=== PATIENT | female | born 1935 | race Caucasian/White ===

== ENCOUNTER 2023-05-12 10:12 | Emergency (ER) | payer MEDICARE, SELFPAY ==
--- NOTE | ~2023-05-12 | XR_ITS ---
EXAMINATION: XR CHEST CLINICAL INFORMATION: Chest pain COMPARISON: None available. TECHNIQUE: 2 views of the chest were obtained. FINDINGS: The lungs are well expanded. Mild patchy opacity is seen in the medial right lung base consistent with atelectasis and/or pneumonia. There is a small linear density in the right middle lobe consistent with atelectasis and/or scar. There is a small left pleural effusion with associated atelectasis and/or pneumonia. No significant abnormality is noted involving the heart, mediastinum or soft tissues. Marked degenerative changes of the shoulders. XR/XR chest 2V IMPRESSION: 1. Small left pleural effusion with associated atelectasis and/or pneumonia. 2. Right lower lobe atelectasis and/or pneumonia.
[2023-05-12 10:16] VITALS: BP 187/86; BP 217/108; PULSE 71; PULSE 80; RESP 16; TEMP 36.6; O2SAT 100; O2SAT 98; BMI 22.6
--- NOTE | 2023-05-12 10:18 | ECG_ITS ---
Test Reason : Palpatations Blood Pressure : / mmHG Vent. Rate : 074 BPM Atrial Rate : 074 BPM P-R Int : 128 ms QRS Dur : 082 ms QT Int : 378 ms P-R-T Axes : 071 027 023 degrees QTc Int : 419 ms Normal sinus rhythm Normal ECG No previous ECGs available Referred By: Hilaria Ortega Electronically Signed By:ROMEO TOM MD
[2023-05-12 10:32] VITALS: PULSE 77
--- OUTSIDE RECORDS SUMMARY | 2023-05-12 10:50 | XMS_ITS | Continuity of Care Document ---
Author Name Unknown Organization [facility] Address [address] [facility] [place] [address]- Care Team Providers Care Woolen Suiting Shrinker Name Role Phone Augustus BROCK, Marleni A Primary Care Physician Encounter 11/14/19 - 11/21/19 [facility] [address], [facility] [address] [place] [address]- [phone] Attending Physician: Augustus BROCK , Marleni A Admitting Physician: Augustus BROCK , Marleni A Referring Physician: Augustus BROCK , Marleni A Allergies, Adverse Reactions, Alerts Substance Reaction Severity Status penicillin Active Immunizations Given and Recorded Vaccine Date Status Refusal Reason Influenza Inactive (IM) (oldterm) 09/02/07 Given Influenza Inactive (IM) (oldterm) 1 10/02/06 Given Pneumococcal Poly (PPV23) (oldterm) 10/02/06 Given tetanus-diphtheria toxoids (Td) 12/04/03 Given 1Admin Note: [employer] PASTEUR THERAPEUTIC ACTIVITIES SERVICES WORKER Medications Aerochamber See Instructions, # 1 each, Maintenance, use with inhaler, 02/08/13 14:43:28 Start Date: 02/08/13 Status: Ordered Ambien 5 mg oral tablet 0.5 tablet = 2.5 mg, By Mouth, Daily at bedtime, Pt uses prn, 0 Refills, Maintenance, 08/22/14 15:12:20 Start Date: 08/22/14 Status: Ordered gabapentin 100 mg oral capsule 100 mg, 1, capsule, By Mouth, Daily, # 30 capsule, Refills 4, Tot. Refills 4, Maintenance, 08/27/1812:55:18 EDT, Route to Pharmacy Electronically, [id number], [facility] Start Date: 08/27/18 Stop Date: 01/24/19 Status: Ordered gabapentin 100 mg oral capsule 1 capsule = 100 mg, By Mouth, Daily, # 90 capsule, 0 Refills, Maintenance, 02/01/15 12:39:18, Capsule Start Date: 02/01/15 Status: Ordered gabapentin 300 mg oral capsule 300 mg, 1, capsule, By Mouth, 2 times a day, # 60 capsule, Refills 4, Tot. Refills 4, Maintenance, 08/27/18 12:54:24 EDT, Route to Pharmacy Electronically, [id number], [facility] Start Date: 08/27/18 Stop Date: 01/24/19 Status: Ordered gabapentin 300 mg oral capsule 300 mg, 1, capsule, By Mouth, Daily, Refills 0, Maintenance, 09/17/16 11:02:15 Start Date: 09/17/16 Status: Ordered nortriptyline 10 mg oral capsule 10 mg, 1, capsule, By Mouth, Daily, Refills 0, Maintenance, 03/09/17 13:33:50 Start Date: 03/09/17 Status: Ordered Singulair 10 mg oral tablet 1 tablet = 10 mg, By Mouth, Daily in PM, # 30 tablet, 5 Refills, Maintenance, 02/01/15 12:44:05, 1 tablet By Mouth Daily in PM Start Date: 02/01/15 Status: Ordered Symbicort 160mcg/4.5mcg Inhaler 2 puffs, Inhalation, 2 times a day, Pt uses prn, # 10.2 Gm, 0 Refills, Maintenance, 09/08/13 15:25:24, Aerosol Start Date: 09/08/13 Status: Ordered Problem List Condition Effective Dates Status Health Status Inform ant bronchiectasis-priior lobect ravinder left, m.rajesh/hflu(Confirmed) Active Allergy(Confirmed) Active Anxiety disorder(Confirmed) Active Constipation(Confirmed) Active Alberto thyroiditis(Confirmed) Active Hypercholesterolemia(Confirmed) Active Hyperparathyroidism(Confirmed) Active Hypertension(Confirmed) Active Osteoporosis(Confirmed) Active Peripheral neuropathy(Confirmed) Active Pneumonia(Confirmed) Active Restless legs syndrome(Confirmed) Active Thyroid nodule, right, small(Confirmed) Active Social History Social History Type Response Smoking Status Never smoker; Tobacc o user in household: No entered on: 02/01/15 Sex
--- OUTSIDE RECORDS SUMMARY | 2023-05-12 10:50 | XMS_ITS | Continuity of Care Document ---
Author Name Unknown Organization [facility] Address [address], [address], [address] [place] [address]- Care Team Providers Care Property Controller Name Role Phone Augustus BROCK, Marleni A Primary Care Physician Encounter [facility] Date(s): 10/22/22 - 11/21/22 [facility] [address], [address], [address] [place] [address]- Allergies, Adverse Reactions, Alerts Substance Reaction Severity Status penicillin Active Immunizations Given and Recorded Vaccine Date Status Refusal Reason SARS-CoV-2 (COVID-19) mRNA BNT-162b2 vac 12/24/20 Given Influenza Inactive (IM) (oldterm) 09/02/07 Given Influenza Inactive (IM) (oldterm) 1 10/02/06 Given Pneumococcal Poly (PPV23) (oldterm) 10/02/06 Given tetanus-diphtheria toxoids (Td) 12/04/03 Given 1Admin Note: [employer]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 Medications Aerochamber See Instructions, # 1 each, [...] Maintenance, 08/27/1812:55:18 EDT, Route to Pharmacy Electronically, [id number], [facility] Start Date: [...] 08/27/18 12:54:24 EDT, Route to Pharmacy Electronically, [id number], [facility] Start Date: [...] Date: 09/08/13 Status: Ordered Problem List Condition Confirmation Course Effective Dates Status Health Status Informant bronchiectasis-priior lobectomy left, breann/hfxavier Confirmed Active Allergy Confirmed Active Anxiety disorder Confirmed Active Constipation Confirmed Active Alberto thyroiditis Confirmed Active Hypercholesterolemia Confirmed Active Hyperparathyroidism Confirmed Active Hypertension Confirmed Active Osteoporosis Confirmed Active Peripheral neuropathy Confirmed Active Pneumonia Confirmed Active Restless legs syndrome Confirmed Active Thyroid nodule, right, small Confirmed Active Social History Social History Type Response Smoking Status Never smoker; Tobacc o user in household: No entered on: 02/01/15 Sex Patient Care team information Care Team Personnel Name: Coffman MD , Marleni A Position: Reference Physician Member Role: PCP Address: Address: [address] [place] [id number]- Care Team Related Persons Name: RHONDA KUMAR Address: home [address] [place] [address]
--- OUTSIDE RECORDS SUMMARY | 2023-05-12 10:50 | XMS_ITS | Continuity of Care Document ---
Author Name Unknown Organization [facility] Address [address] [place] [address]- Care Team Providers Care Dietetics Teacher Name Role Phone Augustus BROCK, Marleni A Primary Care Physician Encounter [facility] Date(s): 02/19/23 - 03/21/[address] [address]- Attending Physician: AdmRachana lucas Admitting Physician: AdmtrRachana Referring Physician: Admtr, Rachana Allergies, Adverse Reactions, Alerts Substance Reaction Severity Status penicillin Active Immunizations Given and Recorded Vaccine Date Status Refusal Reason SARS-CoV-2 (COVID-19) mRNA BNT-162b2 vac 12/24/20 Given Influenza Inactive (IM) (oldterm) 09/02/07 Given Influenza Inactive (IM) (oldterm) 1 10/02/06 Given Pneumococcal Poly (PPV23) (oldterm) 10/02/06 Given tetanus-diphtheria toxoids (Td) 12/04/03 Given 1Admin Note: [employer] 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 BANKING 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 Medications Aerochamber See Instructions, # 1 each, [...] Maintenance, 08/27/1812:55:18 EDT, Route to Pharmacy Electronically, [id number], [facility] Start Date: [...] 08/27/18 12:54:24 EDT, Route to Pharmacy Electronically, [id number], [facility] Start Date: 08/27/18 Stop Date: [...] Status Health Status Informant bronchiectasis-priior lobectomy left, breann/sandra Confirmed Active Allergy Confirmed Active Anxiety disorder [...] Care team information Care Team Personnel Name: Marleni Coffman MD Position: Reference Physician Member Role: PCP Address: Address: [address] [place] [id number]- Care Team Related Persons Name: RHONDA KUMAR Address: home [address] [place] [address]
--- OUTSIDE RECORDS SUMMARY | 2023-05-12 10:50 | XMS_ITS | Continuity of Care Document ---
Author Name Unknown Organization [facility] Address Unknown Care Team Providers Care Hydraulics Engineer Name Role Phone Augustus BROCK, Marleni A Primary Care Physician [id number] Date(s): 12/13/21 - 04/12/22 [facility] Attending Physician: Genaro Ramirez NP Admitting Physician: Marv Mota NP, Genaro Referring Physician: Marleni Coffman MD Allergies, Adverse Reactions, Alerts Substance Reaction Severity Status penicillin Active Immunizations Given and Recorded Vaccine Date Status Refusal Reason SARS-CoV-2 (COVID-19) mRNA BNT-162b2 vac 12/24/20 Given Influenza Inactive (IM) (oldterm) 09/02/07 Given Influenza Inactive (IM) (oldterm) 1 10/02/06 Given Pneumococcal Poly (PPV23) (oldterm) 10/02/06 Given tetanus-diphtheria toxoids (Td) 12/04/03 Given 1Admin Note: [employer]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 Aerochamber See Instructions, # 1 [...] Maintenance, 08/27/1812:55:18 EDT, Route to Pharmacy Electronically, [id number], [facility] Start Date: [...] 08/27/18 12:54:24 EDT, Route to Pharmacy Electronically, [id number], [facility] Start Date: [...] Status Inform ant bronchiectasis-priior lobect ravinder left, m.gordonae/hflu(Confirmed) Active Allergy(Confirmed) Active Anxiety disorder(Confirmed) Active Constipation(Confirmed) Active Alberto thyroiditis(Confirmed) Active Hypercholesterolemia(Confirmed) Active Hyperparathyroidism(Confirmed) Active Hypertension(Confirmed) Active Osteoporosis(Confirmed) Active Peripheral neuropathy(Confirmed) Active Pneumonia(Confirmed) Active Restless legs syndrome(Confirmed) Active Thyroid nodule, right, small(Confirmed) Active Social History Social History Type Response Smoking Status Never smoker; Tobacc o user in household: No entered on: 02/01/15 Sex
--- OUTSIDE RECORDS SUMMARY | 2023-05-12 10:50 | XMS_ITS | Continuity of Care Document ---
Author Name Unknown Organization [facility] Address Unknown Care Team Providers Care Comprehensive Ophthalmologist Name Role Phone Augustus BROCK, Marleni A Primary Care Physician Encounter [facility] Date(s): 03/13/22 - 04/12/22 [facility] Attending Physician: Rachana Bey Admitting Physician: Rachana Bey Referring Physician: Rachana Bey Allergies, Adverse Reactions, Alerts Substance Reaction Severity Status penicillin Active Immunizations Given and Recorded Vaccine Date Status Refusal Reason SARS-CoV-2 (COVID-19) mRNA BNT-162b2 vac 12/24/20 Given Influenza Inactive (IM) (oldterm) 09/02/07 Given Influenza Inactive (IM) (oldterm) 1 10/02/06 Given Pneumococcal Poly (PPV23) (oldterm) 10/02/06 Given tetanus-diphtheria toxoids (Td) 12/04/03 Given 1Admin Note: [employer] 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 OUT PRESS 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 Medications Aerochamber See Instructions, # 1 [...] Maintenance, 08/27/1812:55:18 EDT, Route to Pharmacy Electronically, [id number], [facility] Start Date: [...] 08/27/18 12:54:24 EDT, Route to Pharmacy Electronically, [id number], [facility] Start Date: [...] Status Inform ant bronchiectasis-priior lobect ravinder left, mfortino/hflu(Confirmed) Active Allergy(Confirmed) Active Anxiety disorder(Confirmed) Active Constipation(Confirmed) Active Alberto thyroiditis(Confirmed) Active Hypercholesterolemia(Confirmed) Active Hyperparathyroidism(Confirmed) Active Hypertension(Confirmed) Active Osteoporosis(Confirmed) Active Peripheral neuropathy(Confirmed) Active Pneumonia(Confirmed) Active Restless legs syndrome(Confirmed) Active Thyroid nodule, right, small(Confirmed) Active Social History Social History Type Response Smoking Status Never smoker; Tobacc o user in household: No entered on: 02/01/15 Sex
--- OUTSIDE RECORDS SUMMARY | 2023-05-12 10:50 | XMS_ITS | Continuity of Care Document ---
Author Name Unknown Organization [facility] Address [address] [place] [address]- Care Team Providers Care Blown Film Extrusion Operator Name Role Phone Augustus BROCK, Marleni A Primary Care Physician [place] [facility] Date(s): 02/02/23 - 03/25/[address] [address]- Encounter Diagnosis Other abnormalities of gait and mobility(Final) - Discharge Disposition: A-D/C Home Attending Physician: Marleni Coffman MD A Admitting Physician: Marleni Coffman MD A Referring Physician: Augustus BROCK , Marleni A Allergies, Adverse Reactions, Alerts Substance Reaction Severity Status penicillin Active Immunizations Given and Recorded Vaccine Date Status Refusal Reason SARS-CoV-2 (COVID-19) mRNA BNT-162b2 vac 12/24/20 Given Influenza Inactive (IM) (oldterm) 09/02/07 Given Influenza Inactive (IM) (oldterm) 1 10/02/06 Given Pneumococcal Poly (PPV23) (oldterm) 10/02/06 Given tetanus-diphtheria toxoids (Td) 12/04/03 Given 1Admin Note: [employer]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
--- NOTE | 2023-05-12 10:56 | ED_ITS ---
HPI - General Adult General Chief complaint: Arrhythmia/Palpitations Stated complaint: Feeling palpitations since 4 am , High BP 200/98 Time Seen by Provider: 05/12/23 10:56 Source: patient and EMS Mode of arrival: EMS Limitations: no limitations History of Present Illness HPI narrative: 87 year old female patient with history of COPD and hypertension presents to the ED today after experiencing some palpitations and SOB at 0400 this morning. She states that she is still feeling SOB and like shes having palpitations but that it's a constant feeling instead of a fluttering of her heart. She is taking her amlodipine and trazadone appropriately. She is also prescribed albuterol and fluticasone but is unsure on if she took this before bed last night but thinks that she did give herself a breathing treatment. She denies chest pain, fever, pain in extremities, nausea, vomiting, diarrhea, and abdominal pain. She states she has also had a cough and congestion. Onset (ago): day(s) Radiation: non-radiation Severity: mild Severity scale (1-10): 1 Quality: constant Relieving factors: none Exacerbating factors: none Associated symptoms: shortness of breath Treatments prior to arrival: none Related Data Home Medications Medication Instructions Recorded Confirmed albuterol sulfate 90 mcg/actuation 2 puff PO Q4H PRN wheezing 06/08/21 aerosol inhaler amlodipine 5 mg tablet 5 mg PO DAILY 06/08/21 azelastine 137 mcg (0.1 %) nasal 1 spray intranasal BID 06/08/21 spray aerosol fluticasone furoate 200 1 ea inhalation DAILY 06/08/21 mcg-vilanterol 25 mcg/dose inhalation powder (Breo Ellipta) ipratropium bromide 42 mcg (0.06 2 spray intranasal QID 06/08/21 %) nasal spray Previous Rx's Medication Instructions Recorded silver sulfadiazine 1 % topical 1 appl topical DAILY #25 grams 06/08/21 cream (Silvadene) doxycycline hyclate 100 mg tablet 100 mg PO BID #14 tabs 06/25/21 polymyxin B sulfate 10,000 1 drp ophthalmic (eye) TID 7 days 10/04/22 unit-trimethoprim 1 mg/mL eye #10 mL drops (Polytrim) albuterol sulfate 90 mcg/actuation 1 inh inhalation QID PRN shortness 05/12/23 aerosol inhaler of breath or wheezing #8.5 grams doxycycline hyclate 100 mg tablet 100 mg PO BID 7 days #14 tabs 05/12/23 prednisone 20 mg tablet 20 mg PO DAILY 7 days #7 tabs 05/12/23 Allergies Allergy/AdvReac Type Severity Reaction Status Date / Time penicillin V Allergy Severe hives, Verified 05/12/23 10:31 throat swelling. Review of Systems Constitutional: Constitutional: Reports no additional constitutional c omplaints, Denies chills, Denies fever(s) and Denies night sweats Eyes: Eyes: Reports no additional eye complaints, Denies blurry vision, Denies change in vision, Denies diplopia, Denies eye discharge, Denies loss of vision and Denies eye pain ENT: Denies dizziness Cardiovascular: Cardiovascular: Reports no additional cardiovascular complaints, Denies chest pain, Reports leg edema, Denies lightheadedness, Denies Loss of Consciousness, Denies radiating jaw, neck or arm pain, Denies dyspnea and Reports dyspnea on exertion Respiratory: Respiratory: Reports chest congestion, Reports cough, Denies dyspnea and Reports dyspnea on exertion Gastrointestinal: Gastrointestinal: Reports no additional gastrointestinal complaints, Denies abdominal pain, Denies melena, Denies hematochezia, Denies change in bowel habits and Denies change in stool character Genitourinary: Genitourinary: Denies hematuria, Denies urinary frequency, Denies dysuria, Denies urinary incontinence, Denies urinary hesitancy and Denies urinary urgency Musculoskeletal: Musculoskeletal: Reports no additional musculoskeletal complaints, Denies numbness and Denies tingling Integumentary/Breasts: Skin/Breast: Reports new lesions (purple [id number] blister above left ankle) and Reports skin swelling (lower extremities) Neurologic: Denies dizziness, Denies loss of vision, Denies numbness and D enies tingling Psychiatric: Psychiatric: Reports no additional psychiatric complaints Endocrine: Endocrine: Reports no additional endocrine complaints Hematologic/Lymphatic: Hematologic/Lymphatic: Reports no additional hematologic/lymphatic complaints Allergic/Immunologic: Allergic/Immunologic: Reports no additional allergic/immunologic complaints [facility] Past Medical History Attestation statement: The following information was validated with the patient. Source: old records reviewed and nursing notes reviewed Social History Social History Smoked in Last 30 Days: No Use of substances other than those prescribed or required for medical reasons: No Advance Directives: No Advance Directives Information Provided: Yes Physical Exam ED Vital Signs: Vital Signs - 24 hr 05/12/23 10:16 05/12/23 11:47 Temperature 97.8 F Pulse Rate 71 67 Respiratory Rate 16 16 Blood Pressure 187/86 H Pulse Oximetry 98 Oxygen Delivery Method Room Air BMI result Body Mass Index 22.6 Const General: cooperative, no acute distress, alert and awake Nutritional Appearance: well nourished Orientation/consciousness: patient oriented x3 Limitations: no limitations HENMT Head: Yes normal to inspection and Yes atraumatic Ears: hearing grossly normal bilaterally and external ears normal General nose exam: Normal external nose present, no nasal discharge noted and no epistaxis Face and sinus: Yes normal facial exam, No abrasion and No laceration Mouth: Normal oral and palatal mucosa present, no drooling and no muffled voice Eyes General: appearance normal, both eyes and all related structures Periorbital: periorbital findings normal Eyelids: Yes eyelids normal Conjunctivae: conjunctivae normal Pupils: Equal, round and reactive pupils present EOM: EOMs intact bilaterally Neck Neck: Yes normal visual inspection, Yes full ROM and Yes no lymphadenopathy Chest Chest palpation & inspection: normal inspection of the chest Resp Effort & Inspection: normal respiratory effort, able to speak in complete sentences, Actively coughing and labored Auscultation: rales on the right and localized (mid) Cardio Rate: regular rate Rhythm: regular rhythm Heart sounds: S1 normal heart sound present and S2 normal heart sound present GI Inspection: Yes normal to inspection Skin Lesions: lesion noted ([id number] purple blister above left ankle) Neuro General: patient oriented x3 and moves all extremities Cranial nerves: Yes Equal, round and reactive pupils present Cognition (Neuro): normal cognition Motor exam (neuro): 5/5 motor strength present throughout Sensory Exam: Normal double simultaneous stimulation for sensation Coordination: [id number] test normal Extrem General: Yes normal to inspection, Yes full ROM and Yes capillary refill normal Right lower extremity: edema Details: pitting and 1+ Left lower extremity: edema Details: pitting and 1+ Psych Appearance: grossly normal Mental Status: mental status grossly normal Affect: Anxious affect present Attitude: cooperative Thought process: Normal thought process present Thought content: Normal thought content present Insight: Good insight present (Psych) Judgement: Good judgement present (Psych) Medications Administered Discontinued Medications Generic Name Dose Route Start Last Admin Trade Name Leslie PRN Reason Stop Dose Admin Albuterol Sulfate 5 mg/ 7.5 mg 05/12/23 11:36 05/12/23 11:44 Albuterol Sulfate 2.5 mg INHALE 05/12/23 11:37 7.5 mg ONCE ONE Administration Medical Decision Making Medical Decision Making MDM Narrative: Patient is an 87 year old assigned female at with a history of asthma presenting to the emergency department today with palpitations and a cough. Patient's physical exam was as noted in the physical exam portion of this chart. Patient's blood work was unremarkable. Patient's EKG was unremarkable. Patient's chest x-ray showed a small left pleural effusion with a right lower lobe atelectasis vs. pneumonia. Given the patient's present cough, will treat as asthma exacerbation with possible pneumonia. Patient's clinical presentation is not consistent with sepsis (@1300). Patient was not tachycardic or hypoxic, low suspicion for PE. I explained my physical exam findings as well as all test results to the patient. I answered all questions asked by the patient. Patient received a breathing treatment and steroids which she stated helped her symptoms significantly. I stressed the importance of the patient taking her medication as prescribed. I stressed the importance of the patient following up with her prima ry care provider. I stressed the importance of the patient returning to the emergency department immediately if her symptoms were to worsen or if she were to develop any dizziness, shortness of breath, difficulty breathing, chest pain, blurry vision, loss of vision, nausea, vomiting, abdominal pain, fever, chills, back pain, or any other complaints. Patient verbalized agreement and understanding with this treatment plan and discharge. Differential Diagnosis Differential Diagnoses: The differential diagnosis associated with the presen tation includes Shortness of breath Palpitations Anxiety Pulmonary embolism - low suspicion, see MDM of this chart Pneumonia Asthma exacerbation Admission/Observation Consideration of admission/observation: Escalation of care including admission/observation considered Patient would have been admitted to the hospital had her work up had any findings where hospital admission was appropriate and her clinical presentation warranted hospital admission. Lab Data [facility] Lab Attestation statement: I reviewed the patient's lab results. My interpretation of these labs are listed in the MDM portion of this chart. 05/12/23 10:57 05/12/23 10:57 Labs: Lab Results 05/12/23 05/12/23 05/12/23 Range/Units 10:57 10:57 10:57 WBC 8.0 (4.8-10.8) X10*3/uL RBC 4.63 (4.20-5.50) X10*6/uL Hgb 13.9 (12.0-16.0) g/dl Hct 42.8 (37.0-47.0) % MCV 92.4 (80.0-98.0) fL MCH 30.0 (27.0-33.0) pg MCHC 32.5 (31.0-35.0) g/dl RDW 13.8 (11.0-16.0) % Plt Count 272 (160-400) X10*3/uL MPV 9.7 (9.4-12.3) fL Immature Gran % (Auto) 0.4 (0.0-0.4) % Neut % (Auto) 72.4 (45-73) % Lymph % (Auto) 20.0 (20-40) % [place] % (Auto) 5.6 (2-11) % Eos % (Auto) 1.0 (0-4) % Baso % (Auto) 0.6 (0-2) % Lymph # (Auto) 1.6 (1.2-4.9) X10*3/uL [place] # (Auto) 0.5 (0.1-1.2) X10*3/uL Eos # (Auto) 0.1 (0.0-0.4) X10*3/uL Baso # (Auto) 0.1 (0.0-0.2) X10*3/uL Abs Immat Gran (auto) 0.03 (0.00-0.03) X10*3/uL Absolute Neuts (auto) 5.8 (2.0-8.3) x10*3/uL Absolute Nucleated RBC 0.000 (0.0-0.012) X10*3/uL Nucleated RBC % (auto) 0.0 (0.0-0.2) /100WBC Sodium 140 (135-145) mmol/L Potassium 4.5 (3.3-5.1) mmol/L Chloride 108 (96-108) mmol/L Carbon Dioxide 23 (22-29) mmol/L Anion Gap 14 (12-20) BUN 21 H (9-16) mg/dL Creatinine 0.99 (0.5-1.4) mg/dL Estim Creat Clear Calc 34.3 Estimated GFR 53 Random Glucose 90 (60-115) mg/dL Calcium 11.0 H (8.4-10.2) mg/dL Magnesium 2.2 (1.6-2.6) mg/dL Total Bilirubin 0.7 (0.0-1.0) mg/dL AST 21 (5-31) U/L ALT 14 (0-31) U/L Alkaline Phosphatase 50 (39-117) U/L Troponin I High Sens 3.3 (<3.5-17.0) ng/L Total Protein 7.4 (6.5-8.0) g/dL Albumin 4.2 (3.5-5.0) g/dL Independent Interpretation I performed an independent interpretation of an: EKG and Plain X-Ray Interpretation: My interpretation is in agreement with the radiologist's impression of this imaging study. EXAMINATION: XR CHEST CLINICAL INFORMATION: Chest pain COMPARISON: None available. TECHNIQUE: 2 views of the chest were obtained. FINDINGS: The lungs are well expanded. Mild patchy opacity is seen in the medial right lung base consistent with atelectasis and/or pneumonia. There is a small linear density in the right middle lobe consistent with atelectasis and/or scar. There is a small left pleural effusion with associated atelectasis and/or pneumonia. No significant abnormality is noted involving the heart, mediastinum or soft tissues. Marked degenerative changes of the shoulders. XR/XR chest 2V IMPRESSION: 1.? Small left pleural effusion with associated atelectasis and/or pneumonia. 2.? Right lower lobe atelectasis and/or pneumonia. Dictated By: Ruby Del Cid MD Signed By: Electronically signed by Ruby Del Cid MD 05/12/23 1230 Vent. Rate: 074 BPM ? ? Atrial Rate: 074 BPM P-R Int: 128 ms? QRS Dur: 082 ms QT Int: 378 ms ? ? ? P-R-T Axes: 071 027 023 degrees QTc Int: 419 ms ? Normal sinus rhythm Normal ECG No previous ECGs available DD/ 1031 Radiology Impression Discussion of test interpretation with radiology: I have reviewed the radiologist's reading. Independent Historian Clinical information obtained from an independent historian. History obtained from or confirmed by: EMS (EMS provided additional history and confirmed the history provided by the patient.) Prescription Management I considered prescription management with: Antibiotic (patient prescribed an antibiotic medication.) and Other (patient prescribed steroid.) Chronic Conditions Patient?s care impacted by: Other (asthma) Discharge Plan Discharge Clinical Impression: Asthma Patient Disposition: Home, Self-Care Instructions: Asthma (DC) Additional Instructions: Follow up with your primary care provider. Return to the emergency department immediately if your symptoms worsen or if you develop any dizziness, shortness of breath, difficulty breathing, chest pain, blurry vision, loss of vision, nausea, vomiting, abdominal pain, fever, chills, back pain, or any other complaints. Prescriptions: New prednisone 20 mg tablet 20 mg PO DAILY 7 Days Qty: 7 0RF doxycycline hyclate 100 mg tablet 100 mg PO BID 7 Days Qty: 14 0RF albuterol sulfate 90 mcg/actuation HFA aerosol inhaler 1 inh inhalation QID PRN (Reason: shortness of breath or wheezing) Qty: 8.5 0RF No Action Breo Ellipta 200-25 mcg/dose blister with device 1 ea inhalation DAILY albuterol sulfate 90 mcg/actuation HFA aerosol inhaler 2 puff PO Q4H PRN (Reason: wheezing) azelastine 137 mcg (0.1 %) aerosol,spray 1 spray intranasal BID ipratropium bromide 42 mcg (0.06 %) spray,non-aerosol 2 spray intranasal QID amlodipine 5 mg tablet 5 mg PO DAILY silver sulfadiazine [Silvadene] 1 % cream 1 appl topical DAILY Qty: 25 0RF Rx Instructions: apply a 1.5 mm thickness doxycycline hyclate 100 mg tablet 100 mg PO BID Qty: 14 0RF polymyxin B sulf-trimethoprim [Polytrim] 10,000 unit- 1 mg/mL drops 1 drp ophthalmic (eye) TID 7 Days Qty: 10 0RF Rx Instructions: while awake; do not exceed 6 doses in 24 hours Referrals: Marleni Coffman MD [Primary Care Provider] - Interventions: ED Discharge Assessment Last Done: 05/12/23 14:18 Discharge Date/Time: 05/12/23 14:19 Print Language: [place]
[2023-05-12 11:01] LABS: MANUAL DIFF FLAG NO
[2023-05-12 11:02] LABS: Basophils Absolute Auto 0.1 X10*3/uL (0.0-0.2); Basophils Percent Auto 0.6 % (0-2); Eosinophils Absolute Auto 0.1 X10*3/uL (0.0-0.4); Hematocrit 42.8 % (37.0-47.0); Hemoglobin 13.9 g/dl (12.0-16.0); Imm Gran Abs Auto 0.03 X10*3/uL (0.00-0.03); Imm Gran Pct Auto 0.4 % (0.0-0.4); Lymphocytes Absolute Auto 1.6 X10*3/uL (1.2-4.9); Mean Corpuscular HGB Conc 32.5 g/dl (31.0-35.0); Mean Corpuscular Volume 92.4 fL (80.0-98.0); Mean Platelet Volume 9.7 fL (9.4-12.3); Monocytes Absolute Auto 0.5 X10*3/uL (0.1-1.2); Monocytes Percent Auto 5.6 % (2-11); Neutrophils Absolute Auto 5.8 x10*3/uL (2.0-8.3); Neutrophils Percent Auto 72.4 % (45-73); Platelet Count 272 X10*3/uL (160-400); Red Blood Count 4.63 X10*6/uL (4.20-5.50); Red Cell Distribution Width 13.8 % (11.0-16.0)
--- NOTE | 2023-05-12 11:03 | PC.NURSE ---
pt axox3, VSS, bp elevated; pt states she hasn't taken bp meds today, resp even and unlabored, sats 98% on RA, NSR on monitor, skin WPD. pt states heart palpitations started today 0400, resolved now. states feeling jittery/chest tightness, sob. iv established, labs drawn. at bedside. both aware of plan of care; deny having questions/concerns at this time. pt at CT at this time.
[2023-05-12 11:16] LABS: Alanine Aminotransferase 14 U/L (0-31); Albumin Level 4.2 g/dL (3.5-5.0); Alkaline Phosphatase 50 U/L (39-117); Anion Gap 14 (12-20); Aspartate Amino Transferase 21 U/L (5-31); Bilirubin Total 0.7 mg/dL (0.0-1.0); Blood Urea Nitrogen 21 mg/dL (9-16); Carbon Dioxide 23 mmol/L (22-29); Chloride 108 mmol/L (96-108); Creatinine Clr Calc Pharmacy 34.3; Estimated Glomerular Filt Rate 53; Glucose Random 90 mg/dL (60-115); Magnesium 2.2 mg/dL (1.6-2.6); Potassium 4.5 mmol/L (3.3-5.1); Sodium 140 mmol/L (135-145); Total Protein 7.4 g/dL (6.5-8.0)
[2023-05-12 11:23] LABS: Troponin-I High Sensitivity 3.3 ng/L (<3.5-17.0)
[2023-05-12] MEDS: Albuterol Sulfate 5 MG, Albuterol Sulfate (0.083%) 2.5 MG 7.5 MG INHALE (11:44)
[2023-05-12 11:47] VITALS: PULSE 67; RESP 16; O2SAT 100
== END 2023-05-12 14:19 | disposition home or self-care (01) ==
PROVIDERS: Physician Assistant Medical; Emergency Provider Emergency Medicine Emergency Medical Services; PCP Internal Medicine
DX: J45.909 Unspecified asthma, uncomplicated (principal); R06.02 Shortness of breath; Z79.899 Other long term (current) drug therapy
CPT/HCPCS: 36415; 71046; 80053; 83735; 84484; 85025; 93005; 94640; 99284; 99285

== ENCOUNTER → 2023-05-12 10:18 | Outpatient (BNV) | payer MEDICARE, SELFPAY | PROVIDERS: Emergency Provider Emergency Medicine Emergency Medical Services; PCP Internal Medicine; Visit Provider Internal Medicine Cardiovascular Disease | DX: R00.2 Palpitations (principal) | CPT/HCPCS: 93010 ==

== ENCOUNTER 2024-05-16 14:58 | Outpatient (AMB) | payer MEDICARE, SELFPAY ==
--- NOTE | 2024-05-16 15:02 | MHC.PC.OV ---
Vital Signs 05/16/24 15:05 Height 5 ft 3 in Weight 110 lb BMI 19.5 BP 114/80 Blood Pressure Location Rt brachial Position Sitting Pulse 76 Pulse Source Pulse Oximeter Pulse Oximetry (%) 95 Oxygen Delivery Method Room Air Intake Visit Reasons: Dizziness /est care Intake Note: pt is here to establish care Allergies penicillin V Allergy (Severe, Verified 05/16/24 15:31) hives, throat swelling. Medication List - Last Reconciled 05/16/24 by ESTRELLA Arredondo albuterol sulfate 90 mcg/actuation 2 puffs PO Q4H PRN amlodipine 5 mg PO DAILY azelastine 1 spray intranasal BID PRN snxtequwmw-mirclqle-rxbbiifujg 160-9-4.8 mcg/actuation (Breztri Aerosphere) inhalations inhalation gabapentin 200 mg PO DAILY ipratropium bromide 2 sprays intranasal QID PRN lisinopril 5 mg PO DAILY omeprazole 20 mg PO DAILY polymyxin B sulf-trimethoprim 10,000 unit- 1 mg/mL (Polytrim) 1 drp ophthalmic (eye) TID PRN silver sulfadiazine 1% (Silvadene) 1 appl topical DAILY PRN trazodone mg PO Tobacco use date assessed: 05/16/24 Fall risk assessment: No Falls in past year Last assessed Fall Risk: 05/16/24 Dental Screening Dental Screen Date: 05/16/24 Did you have a dental visit in the last 12 months?: Yes Did you have a dental problem in the last 6 months where you did not have access to dental care?: No Was dental information given to patient?: Patient has dentist HPI HPI Comments History of Present Illness Details This is an 88-year-old female who I am meeting for the 1st time. She is in with a complaint of intermittent dizziness over the past several years, that has gotten progressively worse over the past year. Her previous PCP had referred her to Neurology and Ear Nose Throat. She has not yet seen ENT doctor. Will obtain orders from patient's neurologist. Patient reports she sometimes feels dizzy when she is standing up or walking around. Has hard time decipher in between whether she feels dizzy or generally weak. Will obtain new panel of fasting labs. She denies any headaches, nausea, chest pain, shortness a breath, epigastric pain, vomiting, nausea, or diarrhea. Notes from patient's previous provider indicate that dizziness has been a chronic issue. She has a past medical history significant for hypertension, GERD, neuropathy, COPD, and insomnia. On physical exam is generally negative. Patient does have infected cerumen of the right ear, was able to remove significant amount of ear wax with ear lavage. [facility] Medical History (Updated 05/16/24 @ 16:34 by ESTRELLA Arredondo) Peripheral neuropathy Hypertension Hypercholesterolemia Alberto thyroiditis Anxiety disorder Social History Housing: House Patient Tobacco Use Status: Never used Tobacco e-Cigarette/Vaping Use: Never Used service: No Current occupational status: retired Current occupational exposures/hazards: No Cognitive needs: No Hearing needs: Yes Vision needs: Yes Questionnaire PHQ-9 Over the last 2 weeks, how often have you been bothered by any of the following problems? 1. Little interest or pleasure in doing things: several days 2. Feeling down, depressed, or hopeless: several days 3. Trouble falling or staying asleep, or sleeping too much: more than half the days 4. Feeling tired or having little energy: more than half the days 5. Poor appetite or overeating: not at all 6. Feeling bad about yourself - or that you are a failure or have let yourself or your family down: not at all 7. Trouble concentrating on things, such as reading the newspaper or watching television: more than half the days 8. Moving or speaking so slowly that other people could have noticed. Or the opposite - being so fidgety or restless that you have been moving around a lot more than usual: not at all 9. Thoughts that you would be better off or of hurting yourself in some way: not at all Total score: 8 Depression Screening Interpretation: Negative Depression Screening Done: Yes 60748 - PHQ-9 Billing: Yes Source: Developed by Drs. Cam Oakley, Isamar Carrasquillo, Jose Eduardo Watson and colleagues, with an educational heber from [employer]. Thrive Questionnaire Date Thrive assessed: 05/16/24 I am a: Patient What is your living situation today?: I have a steady place to live Within the past 12 months, did the food you bought not last and you didn't have the money to get more?: Never true Within the past 12 months, did you worry whether your food would run out before you got money to buy more?: Never true Do you have trouble paying for medicines?: No Do you have trouble getting transportation to medical appointments?: No Do you have trouble paying your heating and electricity bill?: No Do you have trouble taking care of your child, family member or friend?: No Do you have trouble with day-to-day activities such as bathing, preparing meals, shopping, managing finances, etc.?: No Are you currently unemployed and looking for a job?: No Are you interested in more education?: No Please select the resources that you would like help with: None Currently or been in a relationship where the following occur: No concerns reported THRIVE Score: 0 AUDIT C Alcohol Use Questionnaire (AUDIT-C) 1. How often do you have a drink containing alcohol?: Monthly or less 2. How many drinks containing alcohol do you have on a typical day when you are drinking?: 1 or 2 3. How often do you have six or more drinks on one occasion?: Never Total Score: 1 Score Reviewed/Action Taken: Yes JEREMIAH-7 AMB Questionnaire JEREMIAH-7 Date JEREMIAH - 7 assessed: 05/16/24 Feeling nervous, anxious, or on edge: 2 = More than half the days Not being able to stop or control worryin = More than half the days Worrying too much about different things: 1 = Several days Trouble relaxin = Several days Being so restless that it is hard to sit still: 1 = Several days Becoming easily annoyed or irritable: 1 = Several days Feeling afraid as if something awful might happen: 1 = Several days Total JEREMIAH-7 score (0-4 normal; 5-9 mild; 10-14 moderate; 15-21 severe): 9 Source: Developed by Drs. Cam Oakley, Isamar Carrasquillo, Jose Eduardo Watson and colleagues, with an educational heber from [employer]. JEREMIAH-7 Assessment Billing JEREMIAH-7 Assessment Tool: JEREMIAH-7 Assessment 02860 Review of Systems Const All systems reviewed & are unremarkable except as noted in HPI and below Physical exam (Primary Care) Vital Signs: Last Vital Signs Pulse 76 05/16/24 15:05 BP 114/80 05/16/24 15:05 Pulse Ox 95 05/16/24 15:05 Oxygen Delivery Method Room Air 05/16/24 15:05 BMI result Body Mass Index 19.5 Tobacco/Smoking Status: Tobacco use Status Tobacco use date assessed 05/16/24 05/16/24 15:16 Patient Tobacco Use Status Never used Tobacco 05/16/24 15:16 e-Cigarette/Vaping Use Never Used 05/16/24 15:16 PHQ-9: PHQ-9 Score PHQ-9: Total score 10 05/16/24 15:16 Depression Screening Interpretation: Negative Thrive Assessment: Date of Thrive Assessment Date Thrive assessed 05/16/24 05/16/24 15:16 Currently or been in a relationship where the following occur: No concerns reported Const Other: Appearance: Alert.? Oriented X3.? No acute distress.? Head: Normocephalic, atraumatic, no step-offs or deformities Eyes: Pupils equal, round and reactive to light.?EOMI. ENT: Pharynx normal.?Impacted cerumen of the right ear. Neck: Normal inspection.? Neck supple.? CVS: Normal heart rate and rhythm.? Pulses normal.? Respiratory: No respiratory distress.? Breath sounds slightly diminshed. No wheeze, rales or rhonci. Neuro: Oriented X 3.? No motor deficit.? No sensory deficit. CN 2-12 intact Post ear lavage, Right TM intact, visible and pearly guajardo. Orientation/consciousness: patient oriented x3 Eyes Pupils: Equal, round and reactive pupils present Neuro General: patient oriented x3 and deep tendon reflexes 2+ bilaterally Cranial nerves: Yes CN's II-XII intact bilaterally and Yes Equal, round and reactive pupils present Cognition (Neuro): normal cognition Gait exam (Neuro): Normal gait present Motor exam (neuro): 5/5 motor strength present throughout Romberg Test: Negative Office Procedures Cerumen Removal From which ear canal was the cerumen removed: right Removal: irrigation Notes: patient tolerated procedure well 13238-Kod Irrigation/Lavage Assessment and Plan Assessment & Plan (1) Dizziness: Comment: Patient has neurologist and upcoming appointment with ENT. Patient has been advised to keep these appointments. Patient did have improvement with dizziness post cerumen impaction removal of the right ear with ear lavage. Will draw full panel of fasting labs. Patient's neuro exam with negative in office today. Code(s): R42 - Dizziness and giddiness Plan: Draw labs. Plan Will follow-up in 6 months. Orders: Orders Vitamin D 25-OH (D2 and D3) Today ESTRELLA Arredondo Z13.21 - Encounter for screening for nutritional disorder Vitamin B6 Today ESTRELLA Arredondo Z13.21 - Encounter for screening for nutritional disorder UA CC w/rflx Micro + Cult Today ESTRELLA Arredondo Z13.89 - Encounter for screening for other disorder TSH reflex Free T4 Today ESTRELLA Arredondo Z13.0 - Encounter for screening for diseases of the blood and blood-forming organs and certain disorders involving the immune mechanism Complete Blood Count Auto Diff Today ESTRELLA Arredondo Z13.0 - Encounter for screening for diseases of the blood and blood-forming organs and certain disorders involving the immune mechanism Lipid Panel Today ESTRELLA Arredondo Z13.220 - Encounter for screening for lipoid disorders IRON PROFILE Today ESTRELLA Arredondo Z13.0 - Encounter for screening for diseases of the blood and blood-forming organs and certain disorders involving the immune mechanism Vitamin B12 Today ESTRELLA Arredondo Z13.21 - Encounter for screening for nutritional disorder Comprehensive Met. Panel Today ESTRELLA Arredondo Z91.89 - Other specified personal risk factors, not elsewhere classified AMB Cerumen Removal Today ESTRELLA Arredondo H61.21 - Impacted cerumen, right ear Medications: Changed From silver sulfadiazine 1% (Silvadene) apply a 1.5 mm thickness 1 appl topical DAILY 25 grams 0RF To silver sulfadiazine 1% (Silvadene) apply a 1.5 mm thickness 1 appl topical DAILY PRN Ronnie Shelley MD From polymyxin B sulf-trimethoprim 10,000 unit- 1 mg/mL (Polytrim) while awake; do not exceed 6 doses in 24 hours 1 drp ophthalmic (eye) TID 7 days 10 mL 0RF To polymyxin B sulf-trimethoprim 10,000 unit- 1 mg/mL (Polytrim) while awake; do not exceed 6 doses in 24 hours 1 drp ophthalmic (eye) TID PRN Joy Moyano, PA Coding Level of Care Code Est Pt Level 3 (58560) Diagnoses Dizziness R42 CPT Codes Office Procedure - CPT: 95718-Pmr Irrigation/Lavage ([id number]) Additional Codes JEREMIAH-7 Assessment Billing - JEREMIAH-7 Assessment Tool: JEREMIAH-7 Assessment 46087 ([id number]) Time Spent (min) 25
[2024-05-16 15:05] VITALS: BP 114/80; PULSE 76; O2SAT 95; BMI 19.5
== END 2024-05-16 16:22 | disposition home or self-care (01) ==
PROVIDERS: PCP Internal Medicine; Visit Provider Nurse Practitioner Primary Care
DX: R42 Dizziness and giddiness (principal); H61.21 Impacted cerumen, right ear
CPT/HCPCS: 69209; 99213

== ENCOUNTER 2024-05-25 08:12 | Outpatient (REF) | payer MEDICARE, SELFPAY ==
[2024-05-25 10:16] LABS: MANUAL DIFF FLAG NO
[2024-05-25 10:20] LABS: Basophils Absolute Auto 0.1 X10*3/uL (0.0-0.2); Eosinophils Absolute Auto 0.2 X10*3/uL (0.0-0.4); Eosinophils Percent Auto 2.5 % (0-4); Hematocrit 41.3 % (37.0-47.0); Hemoglobin 13.3 g/dl (12.0-16.0); Imm Gran Abs Auto 0.02 X10*3/uL (0.00-0.03); Imm Gran Pct Auto 0.3 % (0.0-0.4); Lymphocytes Percent Auto 27.5 % (20-40); Mean Corpuscular HGB Conc 32.2 g/dl (31.0-35.0); Mean Corpuscular Hemoglobin 30.2 pg (27.0-33.0); Mean Corpuscular Volume 93.9 fL (80.0-98.0); Mean Platelet Volume 10.4 fL (9.4-12.3); Monocytes Absolute Auto 0.5 X10*3/uL (0.1-1.2); Monocytes Percent Auto 7.3 % (2-11); Neutrophils Absolute Auto 4.5 x10*3/uL (2.0-8.3); Neutrophils Percent Auto 61.4 % (45-73); Platelet Count 319 X10*3/uL (160-400); Red Cell Distribution Width 13.1 % (11.0-16.0); White Blood Count 7.3 X10*3/uL (4.8-10.8)
[2024-05-25 11:02] LABS: Alanine Aminotransferase 14 U/L (0-31); Albumin Level 4.1 g/dL (3.5-5.0); Alkaline Phosphatase 48 U/L (39-117); Anion Gap 13 (12-20); Aspartate Amino Transferase 23 U/L (5-31); Bilirubin Total 0.6 mg/dL (0.0-1.0); Blood Urea Nitrogen 31 mg/dL (9-16); Calcium 10.7 mg/dL (8.4-10.2); Carbon Dioxide 23 mmol/L (22-29); Chloride 110 mmol/L (96-108); Cholesterol 218 mg/dL (<200); Estimated Glomerular Filt Rate 43; Glucose Random 99 mg/dL (60-115); HDL Cholesterol 69 mg/dL (>40); Iron 82 mcg/dL (30-160); LDL Cholesterol Calculated 134 mg/dL (<100); Percent Iron Saturation 29 % (15-50); Potassium 4.8 mmol/L (3.3-5.1); Sodium 141 mmol/L (135-145); Total Iron Binding Capacity 278 mcg/dL (228-428); Total Protein 7.2 g/dL (6.5-8.0); Triglycerides 75 mg/dL (<150); Unsaturated Iron Binding 196 ug/dL
[2024-05-25 11:21] LABS: TSH reflex Free T4 3.52 uIU/mL (0.32-4.0)
[2024-05-25 11:23] LABS: Appearance Urine Clear; Color Urine Yellow; Glucose Urine UA Negative (Negative); Leukocyte Esterase Urine Small (1+) (Negative); Nitrite Urine Negative (Negative); PH 5.5 (5.0-9.0); Specific Gravity - Urine 1.015 (1.005-1.025); UMIC TRIGGER UACC YES; Urine Blood Negative (Negative); Urine Ketones Negative (Negative); Urine Protein Negative (Neg-Trace)
[2024-05-25 11:24] LABS: Vitamin B12 671 pg/mL (200-900)
[2024-05-25 11:51] LABS: Bacteria Urine None Seen (None Seen); Hyaline Casts Urine 0-2 /LPF (0-2); RBC Urine 0-2 /HPF (0-2); Squamous Epithelial Cell Urine 0-2 /HPF (0-2); UACC Culture Trigger YES; WBC Urine 0-5 /HPF (0-5)
[2024-05-31 06:09] LABS: Vitamin B6 5.1 ng/mL (2.1-21.7)
[2024-05-31 12:49] LABS: Vitamin D 25-OH, D2 <4 ng/mL; Vitamin D 25-OH, D3 30 ng/mL; Vitamin D 25-OH, Total 30 ng/mL (30-100)
== END 2024-05-25 08:13 | disposition home or self-care (01) ==
LOC: HO.HMGCLDS 08:12
PROVIDERS: Visit Provider Nurse Practitioner Primary Care
DX: R82.90 Unspecified abnormal findings in urine (principal); Z91.89 Other specified personal risk factors, not elsewhere classified; Z13.21 Encounter for screening for nutritional disorder; Z13.0 Encounter for screening for diseases of the blood and blood-forming organs and certain disorders involving the immune mechanism; Z13.220 Encounter for screening for lipoid disorders; Z13.89 Encounter for screening for other disorder
CPT/HCPCS: 36415; 80053; 80061; 81001; 82306; 82607; 83540; 84207; 84443; 85025; 87086

== ENCOUNTER 2024-11-08 10:14 | Outpatient (AMB) | payer MEDICARE, SELFPAY ==
[2024-11-08 10:29] VITALS: BP 132/70; PULSE 91; O2SAT 99; BMI 19.3
--- NOTE | 2024-11-08 10:29 | A.OFFPC_ITS ---
Vital Signs 11/08/24 10:29 Height 5 ft 3 in Weight 109 lb BMI 19.3 BP 132/70 Blood Pressure Location Lt brachial Position Sitting Pulse 91 Pulse Source Pulse Oximeter Pulse Oximetry (%) 99 Oxygen Delivery Method Room Air Intake Visit Reasons: Transfer from [facility] [place] Intake Note: Pt is here today for a follow up transfer from [facility]. Allergies penicillin V Allergy (Severe, Verified 11/08/24 10:34) hives, throat swelling. Medication List - Last Reconciled 11/08/24 by Xenia Jones MD albuterol sulfate 90 mcg/actuation 2 puffs PO Q4H PRN amlodipine 5 mg PO DAILY azelastine 1 spray intranasal BID PRN qztmwchalz-vuwaggde-wvsvxrlmlp 160-9-4.8 mcg/actuation (Breztri Aerosphere) inhalations inhalation gabapentin 200 mg PO DAILY ipratropium bromide 2 sprays intranasal QID PRN lisinopril 5 mg PO DAILY omeprazole 20 mg PO DAILY silver sulfadiazine 1% (Silvadene) 1 appl topical DAILY PRN trazodone 100 mg (2 x 50 mg) PO .hs Tobacco use date assessed: 11/08/24 Fall risk assessment: No Falls in past year Last assessed Fall Risk: 11/08/24 Dental Screening Dental Screen Date: 11/08/24 Did you have a dental visit in the last 12 months?: Yes Did you have a dental problem in the last 6 months where you did not have access to dental care?: No Was dental information given to patient?: Patient has dentist HPI Transfer from [facility] [place] HPI Details Pt presents for f/u HTN, 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 Pt has been seeing ortho for chronic R knee pain and getting Synvisc injection. Patient reports having dyspnea on exertion for many years and feeling generally tired. She reports chronic insomnia has been taking trazodone with only occasionally relief. She denies depression but reports anxiety. Patient reports getting more forgetful lately. She lives with her , cooks regularly and drives her car without getting lost. [facility] Medical History Cancer of groin Peripheral neuropathy Hypertension Hypercholesterolemia Alberto thyroiditis Anxiety disorder Surgical History History of removal of ovarian cyst Hx of appendectomy Family History Father No problems noted. Mother Hypertension Diabetes Social History (Updated 11/08/24 @ 11:37 by Xenia Jones MD) Household Members Other:: List with Housing: House Patient Tobacco Use Status: Never used Tobacco e-Cigarette/Vaping Use: Never Used service: No Current occupational status: retired Current occupational exposures/hazards: No Cognitive needs: No Hearing needs: Yes Vision needs: Yes Questionnaire PHQ-9 Over the last 2 weeks, how often have you been bothered by any of the following problems? 1. Little interest or pleasure in doing things: not at all 2. Feeling down, depressed, or hopeless: not at all 3. Trouble falling or staying asleep, or sleeping too much: not at all 4. Feeling tired or having little energy: several days 5. Poor appetite or overeating: not at all 6. Feeling bad about yourself - or that you are a failure or have let yourself or your family down: not at all 7. Trouble concentrating on things, such as reading the newspaper or watching television: not at all 8. Moving or speaking so slowly that other people could have noticed. Or the opposite - being so fidgety or restless that you have been moving around a lot more than usual: not at all 9. Thoughts that you would be better off or of hurting yourself in some way: not at all Total score: 1 Depression Screening Interpretation: Negative Depression Screening Done: Yes 96487 - PHQ-9 Billing: Yes Source: Developed by Drs. Cam Oakley, Isamar Carrasquillo, Jose Eduardo Watson and colleagues, with an educational heber from [employer]. Thrive Questionnaire Date Thrive assessed: 11/08/24 I am a: Patient What is your living situation today?: I have a steady place to live Within the past 12 months, did the food you bought not last and you didn't have the money to get more?: Never true Within the past 12 months, did you worry whether your food would run out before you got money to buy more?: Never true Do you have trouble paying for medicines?: No Do you have trouble getting transportation to medical appointments?: No Do you have trouble paying your heating and electricity bill?: No Do you have trouble taking care of your child, family member or friend?: No Do you have trouble with day-to-day activities such as bathing, preparing meals, shopping, managing finances, etc.?: No Are you currently unemployed and looking for a job?: No Are you interested in more education?: No Please select the resources that you would like help with: None THRIVE Score: 0 AUDIT C Alcohol Use Questionnaire (AUDIT-C) 1. How often do you have a drink containing alcohol?: Monthly or less 2. How many drinks containing alcohol do you have on a typical day when you are drinking?: 1 or 2 3. How often do you have six or more drinks on one occasion?: Never Total Score: 1 JEREMIAH-7 AMB Questionnaire JEREMIAH-7 Date JEREMIAH - 7 assessed: 11/08/24 Feeling nervous, anxious, or on edge: 0 = Not at all Not being able to stop or control worryin = Not at all Worrying too much about different things: 0 = Not at all Trouble relaxin = Not at all Being so restless that it is hard to sit still: 0 = Not at all Becoming easily annoyed or irritable: 0 = Not at all Feeling afraid as if something awful might happen: 0 = Not at all Total JEREMIAH-7 score (0-4 normal; 5-9 mild; 10-14 moderate; 15-21 severe): 0 Source: Developed by Drs. Cam Oakley, Isamar Carrasquillo, Jose Eduardo Watson and colleagues, with an educational heber from [employer]. JEREMIAH-7 Assessment Billing JEREMIAH-7 Assessment Tool: JEREMIAH-7 Assessment 48345 Review of Systems Const All systems reviewed & are unremarkable except as noted in HPI and below Reports no additional complaints Eyes Reports no additional complaints ENT Reports no additional complaints Card Reports no additional complaints Resp Reports no additional complaints GI Reports no additional complaints Reports no additional complaints Physical exam (Primary Care) Vital Signs: Last Vital Signs Pulse 91 11/08/24 10:29 BP 132/70 11/08/24 10:29 Pulse Ox 99 11/08/24 10:29 Oxygen Delivery Method Room Air 11/08/24 10:29 BMI result Body Mass Index 19.3 Tobacco/Smoking Status: Tobacco use Status Tobacco use date assessed 11/08/24 11/08/24 10:47 Patient Tobacco Use Status Never used Tobacco 11/08/24 10:29 e-Cigarette/Vaping Use Never Used 11/08/24 10:29 PHQ-9: PHQ-9 Score PHQ-9: Total score 1 11/08/24 10:47 Depression Screening Interpretation: Negative Thrive Assessment: Date of Thrive Assessment Date Thrive assessed 11/08/24 11/08/24 10:47 Const General: no acute distress HENMT Head: Yes normal to inspection Eyes General: appearance normal, both eyes and all related structures Resp Effort & Inspection: normal respiratory effort Auscultation: wheezes left upper and diminished lung sounds on the left Cardio Rhythm: regular rhythm Heart sounds: S1 normal heart sound present and S2 normal heart sound present GI Inspection: Yes normal to inspection Palpation (GI): Soft to palpation Percussion: Yes normal to percussion Auscultation: normal bowel sounds Coding Level of Care Code Est Pt Level 4 (14745) Diagnoses COPD (chronic obstructive pulmonary disease) J44.9 Hypertension I10 Insomnia G47.00 Memory deficits R41.3 Additional Codes JEREMIAH-7 Assessment Billing - JEREMIAH-7 Assessment Tool: JEREMIAH-7 Assessment 61642 ([id number]) PHQ-9 - 84505 - PHQ-9 Billing: Yes ([id number]) Assessment & Plan Assessment & Plan (1) COPD (chronic obstructive pulmonary disease): Comment: 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 (4) Memory deficits: Code(s): R41.3 - Other amnesia Category: Medical Plan: Increasing physical activity well-balanced diet getting enough sleep discussed with the patient. Follow-up in 2 months Medications: Changed From trazodone 100 mg PO To trazodone 100 mg (2 x 50 mg) PO .qhs 180 tabs 1RF
== END 2024-11-08 11:34 | disposition home or self-care (01) ==
PROVIDERS: PCP Internal Medicine; Visit Provider Internal Medicine
DX: J44.9 Chronic obstructive pulmonary disease, unspecified (principal); I10 Essential (primary) hypertension; G47.00 Insomnia, unspecified; R41.3 Other amnesia

== ENCOUNTER → 2024-11-08 10:14 | Outpatient (BNVA) | payer MEDICARE, SELFPAY | PROVIDERS: PCP Internal Medicine; Visit Provider Internal Medicine | DX: I10 Essential (primary) hypertension (principal); J44.9 Chronic obstructive pulmonary disease, unspecified; G47.00 Insomnia, unspecified; R41.3 Other amnesia | CPT/HCPCS: 96127; 99212 ==

== ENCOUNTER 2025-01-18 10:02 | Outpatient (AMB) | payer MEDICARE, SELFPAY ==
[2025-01-18 10:04] VITALS: BP 130/68; PULSE 81; RESP 18; O2SAT 97; BMI 19.0
--- NOTE | 2025-01-18 10:04 | MHC.PC.OV ---
Vital Signs 01/18/25 10:04 Height 5 ft 3 in Weight 107 lb BMI 19.0 BP 130/68 Blood Pressure Location Lt brachial Position Sitting Respiration 18 Pulse 81 Pulse Source Pulse Oximeter Pulse Oximetry (%) 97 Oxygen Delivery Method Room Air Intake Visit Reasons: 2 months f/up Intake Note: Pt is here today for 2 months follow up visit. Allergies penicillin V Allergy (Severe, Verified 01/18/25 10:04) hives, throat swelling. Medication List - Last Reconciled 01/18/25 by Xenia Jones MD albuterol sulfate 90 mcg/actuation 2 puffs PO Q4H PRN amlodipine 5 mg PO DAILY azelastine 1 spray intranasal BID PRN sgmgqlgnda-jewjbvrj-rmmhxrvept 160-9-4.8 mcg/actuation (Breztri Aerosphere) inhalations inhalation gabapentin 400 mg PO BEDTIME ipratropium bromide 2 sprays intranasal QID PRN lisinopril 5 mg PO DAILY omeprazole 20 mg PO DAILY silver sulfadiazine 1% (Silvadene) 1 appl topical DAILY PRN trazodone 100 mg (2 x 50 mg) PO .hs Tobacco use date assessed: 01/18/25 Fall risk assessment: No Falls in past year Last assessed Fall Risk: 01/18/25 Dental Screening Dental Screen Date: 01/18/25 Did you have a dental visit in the last 12 months?: Yes Did you have a dental problem in the last 6 months where you did not have access to dental care?: No Was dental information given to patient?: Patient has dentist HPI 2 months f/up HPI Details Pt presents for HTN, chronic asthma. Pt c/o chronic R knee pain worse when walking and is established with [facility] and has an appointment with a surgeon to discuss knee replacement in March.. Pt tried PT without significant improvement. She reports symptoms of lightheadedness for a few years, worse when standing or walking constant. She denies recent falls, loss of consciousness, weakness or numbness in extremities, palpitations chest pain Patient was evaluated by [facility] neurologist in the past diagnosed with peripheral neuropathy in her feet. Patient reports short-term memory difficulties but has been driving a car and cooking at home. She lives with her and son. [facility] Medical History (Updated 01/18/25 @ 11:04 by Xenia Jones MD) Peripheral neuropathy Hypertension Hypercholesterolemia Alberto thyroiditis Anxiety disorder Surgical History History of removal of ovarian cyst Hx of appendectomy Family History Father No problems noted. Mother Hypertension Diabetes Social History (Updated 01/18/25 @ 10:34 by Xenia Jones MD) Household Members Other:: Lives with and son Housing: House Patient Tobacco Use Status: Never used Tobacco e-Cigarette/Vaping Use: Never Used service: No Current occupational status: retired Current occupational exposures/hazards: No Cognitive needs: No Hearing needs: Yes Vision needs: Yes Questionnaire PHQ-9 Over the last 2 weeks, how often have you been bothered by any of the following problems? 1. Little interest or pleasure in doing things: not at all 2. Feeling down, depressed, or hopeless: not at all 3. Trouble falling or staying asleep, or sleeping too much: not at all 4. Feeling tired or having little energy: not at all 5. Poor appetite or overeating: not at all 6. Feeling bad about yourself - or that you are a failure or have let yourself or your family down: not at all 7. Trouble concentrating on things, such as reading the newspaper or watching television: not at all 8. Moving or speaking so slowly that other people could have noticed. Or the opposite - being so fidgety or restless that you have been moving around a lot more than usual: not at all 9. Thoughts that you would be better off or of hurting yourself in some way: not at all Total score: 0 Depression Screening Interpretation: Negative Depression Screening Done: Yes 89713 - PHQ-9 Billing: Yes Source: Developed by Drs. Cam Oakley, Isamar Carrasquillo, Jose Eduardo Watson and colleagues, with an educational heber from [employer]. Thrive Questionnaire Date Thrive assessed: 01/18/25 I am a: Patient What is your living situation today?: I have a steady place to live Within the past 12 months, did the food you bought not last and you didn't have the money to get more?: Never true Within the past 12 months, did you worry whether your food would run out before you got money to buy more?: Never true Do you have trouble paying for medicines?: No Do you have trouble getting transportation to medical appointments?: No Do you have trouble paying your heating and electricity bill?: No Do you have trouble taking care of your child, family member or friend?: No Do you have trouble with day-to-day activities such as bathing, preparing meals, shopping, managing finances, etc.?: No Are you currently unemployed and looking for a job?: No Are you interested in more education?: No Please select the resources that you would like help with: None Currently or been in a relationship where the following occur: No concerns reported THRIVE Score: 0 AUDIT C Alcohol Use Questionnaire (AUDIT-C) 1. How often do you have a drink containing alcohol?: 2-4 times a month 2. How many drinks containing alcohol do you have on a typical day when you are drinking?: 1 or 2 3. How often do you have six or more drinks on one occasion?: Never Total Score: 2 JEREMIAH-7 AMB Questionnaire JEREMIAH-7 Date JEREMIAH - 7 assessed: 01/18/25 Feeling nervous, anxious, or on edge: 0 = Not at all Not being able to stop or control worryin = Not at all Worrying too much about different things: 0 = Not at all Trouble relaxin = Not at all Being so restless that it is hard to sit still: 0 = Not at all Becoming easily annoyed or irritable: 0 = Not at all Feeling afraid as if something awful might happen: 0 = Not at all Total JEREMIAH-7 score (0-4 normal; 5-9 mild; 10-14 moderate; 15-21 severe): 0 Source: Developed by Drs. Cam Oakley, Isamar Carrasquillo, Jose Eduardo Watson and colleagues, with an educational heber from [employer]. JEREMIAH-7 Assessment Billing JEREMIAH-7 Assessment Tool: JEREMIAH-7 Assessment 16558 Review of Systems Const All systems reviewed & are unremarkable except as noted in HPI and below Eyes Reports no additional complaints ENT Reports no additional complaints Card Reports no additional complaints Resp Reports no additional complaints GI Reports no additional complaints Reports no additional complaints Physical exam (Primary Care) Vital Signs: Last Vital Signs Pulse 81 01/18/25 10:04 Resp 18 01/18/25 10:04 BP 130/68 01/18/25 10:04 Pulse Ox 97 01/18/25 10:04 Oxygen Delivery Method Room Air 01/18/25 10:04 BMI result Body Mass Index 19.0 Tobacco/Smoking Status: Tobacco use Status Tobacco use date assessed 01/18/25 01/18/25 10:06 Patient Tobacco Use Status Never used Tobacco 01/18/25 10:06 e-Cigarette/Vaping Use Never Used 01/18/25 10:06 PHQ-9: PHQ-9 Score PHQ-9: Total score 0 01/18/25 10:06 Depression Screening Interpretation: Negative Thrive Assessment: Date of Thrive Assessment Date Thrive assessed 01/18/25 01/18/25 10:06 Currently or been in a relationship where the following occur: No concerns reported Const General: no acute distress Orientation/consciousness: patient oriented x3 HENMT Head: Yes normal to inspection Ears: hearing grossly normal bilaterally Face and sinus: Yes normal facial exam Eyes General: appearance normal, both eyes and all related structures Neck Neck: Yes no lymphadenopathy and Yes supple Resp Effort & Inspection: normal respiratory effort Auscultation: clear to auscultation bilaterally Cardio Rhythm: regular rhythm Heart sounds: S1 normal heart sound present and S2 normal heart sound present GI Inspection: Yes normal to inspection Palpation (GI): Soft to palpation Percussion: Yes normal to percussion Auscultation: normal bowel sounds Neuro General: patient oriented x3 Cranial nerves: Yes CN's II-XII intact bilaterally Gait exam (Neuro): Staggering gait present Motor exam (neuro): 5/5 motor strength present throughout Coordination: grorav-ch-fyfx test normal and rtsg-cp-kxdd test normal Romberg Test: Negative Extrem General: Yes no clubbing, cyanosis or edema Coding Level of Care Code Est Pt Level 4 (37290) Diagnoses Asthma J45.909 Hypertension I10 Osteoarthritis of right knee M17.11 Lightheadedness R42 Memory deficit R41.3 Additional Codes JEREMIAH-7 Assessment Billing - JEREMIAH-7 Assessment Tool: JEREMIAH-7 Assessment 22479 ([id number]) PHQ-9 - 68449 - PHQ-9 Billing: Yes ([id number]) Assessment & Plan Assessment & Plan (1) Asthma: Comment: Established with hospice home health aide at [facility] Code(s): J45.909 - Unspecified asthma, uncomplicated Category: Medical Plan: cont Waqas (2) Hypertension: Code(s): I10 - Essential (primary) hypertension Category: Medical Plan: Continue current medications. Patient was advised to take lisinopril at night and amlodipine in the morning to prevent a drop in the blood pressure possibly contributing to her lightheadedness (3) Osteoarthritis of right knee: Comment: [facility] Code(s): M17.11 - Unilateral primary osteoarthritis, right knee Category: Medical Plan: Follow-up with orthopedic surgeon increase gabapentin to 400 mg q.h.s. (4) Lightheadedness: Code(s): R42 - Dizziness and giddiness Category: Medical Plan: There is no orthostatic hypotension today patient had a workup by Neurology at [facility] and will obtain her records, PT was recommended but patient declined. She would like to have her knee surgery first (5) Memory deficit: Code(s): R41.3 - Other amnesia Category: Medical Plan: Check TSH B12 D3 level. Patient will obtain records from [facility] Neurology Orders: Orders Complete Blood Count Auto Diff Today I10 - Essential (primary) hypertension, J44.9 - Chronic obstructive pulmonary disease, unspecified, M17.11 - Unilateral primary osteoarthritis, right knee TSH reflex Free T4 Today I10 - Essential (primary) hypertension, J44.9 - Chronic obstructive pulmonary disease, unspecified, M17.11 - Unilateral primary osteoarthritis, right knee Methylmalonic Acid Today I10 - Essential (primary) hypertension, J44.9 - Chronic obstructive pulmonary disease, unspecified, M17.11 - Unilateral primary osteoarthritis, right knee Comprehensive Met. Panel Today I10 - Essential (primary) hypertension, J44.9 - Chronic obstructive pulmonary disease, unspecified, M17.11 - Unilateral primary osteoarthritis, right knee Vitamin B12 and Folate Today I10 - Essential (primary) hypertension, J44.9 - Chronic obstructive pulmonary disease, unspecified, M17.11 - Unilateral primary osteoarthritis, right knee Vitamin D 25-OH Total Today I10 - Essential (primary) hypertension, J44.9 - Chronic obstructive pulmonary disease, unspecified, M17.11 - Unilateral primary osteoarthritis, right knee Medications: Changed From trazodone 100 mg (2 x 50 mg) PO .qhs 180 tabs 1RF To trazodone 50 mg PO .qhs 90 tabs 1RF
== END 2025-01-18 11:06 | disposition home or self-care (01) ==
LOC: HO.HMCC 10:03
PROVIDERS: PCP Internal Medicine; Visit Provider Internal Medicine
DX: J45.909 Unspecified asthma, uncomplicated (principal); I10 Essential (primary) hypertension; M17.11 Unilateral primary osteoarthritis, right knee; R42 Dizziness and giddiness; R41.3 Other amnesia

== ENCOUNTER 2025-01-18 10:02 | Outpatient (REF) | payer MEDICARE, SELFPAY ==
[2025-01-18 13:38] LABS: MANUAL DIFF FLAG NO
[2025-01-18 13:39] LABS: Basophils Absolute Auto 0.1 X10*3/uL (0.0-0.2); Basophils Percent Auto 1.2 % (0-2); Eosinophils Absolute Auto 0.1 X10*3/uL (0.0-0.4); Eosinophils Percent Auto 1.8 % (0-4); Hematocrit 43.5 % (37.0-47.0); Hemoglobin 13.8 g/dl (12.0-16.0); Imm Gran Abs Auto 0.03 X10*3/uL (0.00-0.03); Imm Gran Pct Auto 0.4 % (0.0-0.4); Lymphocytes Absolute Auto 1.8 X10*3/uL (1.2-4.9); Lymphocytes Percent Auto 23.8 % (20-40); Mean Corpuscular HGB Conc 31.7 g/dl (31.0-35.0); Mean Corpuscular Volume 94.6 fL (80.0-98.0); Mean Platelet Volume 10.5 fL (9.4-12.3); Monocytes Absolute Auto 0.6 X10*3/uL (0.1-1.2); Monocytes Percent Auto 7.5 % (2-11); Neutrophils Percent Auto 65.3 % (45-73); Platelet Count 329 X10*3/uL (160-400); Red Cell Distribution Width 12.9 % (11.0-16.0); White Blood Count 7.6 X10*3/uL (4.8-10.8)
[2025-01-18 14:15] LABS: Alanine Aminotransferase 20 U/L (0-31); Albumin Level 4.1 g/dL (3.5-5.0); Anion Gap 9 (12-20); Aspartate Amino Transferase 31 U/L (5-31); Bilirubin Total 0.7 mg/dL (0.0-1.0); Blood Urea Nitrogen 30 mg/dL (9-16); Calcium 10.5 mg/dL (8.4-10.2); Carbon Dioxide 25 mmol/L (22-29); Chloride 111 mmol/L (96-108); Estimated Glomerular Filt Rate 55; Glucose Random 91 mg/dL (60-115); Potassium 4.8 mmol/L (3.3-5.1); Sodium 140 mmol/L (135-145); Total Protein 7.8 g/dL (6.5-8.0)
[2025-01-18 14:32] LABS: Alkaline Phosphatase 54 U/L (39-117); TSH reflex Free T4 2.51 uIU/mL (0.32-4.0)
[2025-01-18 14:34] LABS: Folate 11.6 ng/mL (> or = 4.0); Vitamin B12 770 pg/mL (200-900)
[2025-01-21 07:53] LABS: Methylmalonic Acid 170 nmol/L (85-423)
== END 2025-01-18 10:03 | disposition home or self-care (01) ==
LOC: HO.HMGCLDS 10:02
PROVIDERS: PCP Internal Medicine; Visit Provider Internal Medicine
DX: I10 Essential (primary) hypertension (principal); J44.9 Chronic obstructive pulmonary disease, unspecified; M17.11 Unilateral primary osteoarthritis, right knee
CPT/HCPCS: 36415; 80053; 82306; 82607; 82746; 83921; 84443; 85025; 96127; 99212

== ENCOUNTER 2025-02-23 12:48 | Outpatient (AMB) | payer MEDICARE, SELFPAY ==
--- NOTE | 2025-02-23 14:28 | AM.OFFWIN_ITS ---
Intake Vital Signs 02/23/25 14:29 Weight 108 lb BP 116/78 Blood Pressure Location Rt brachial Position Sitting Pulse 82 Pulse Source Pulse Oximeter Temp 97.6 F Temp Source Oral Pulse Oximetry (%) 98 Oxygen Delivery Method Room Air Intake Visit Reasons: EP-rt ear discharge Intake Note: Patient here for right ear discharge that has been present for about 1 month. Patient Tobacco Use Status: Never used Tobacco Allergies penicillin V Allergy (Severe, Verified 02/23/25 14:30) hives, throat swelling. Do you need a note to return to daycare/school/sports/work: No HPI HPI Comments History of Present Illness Details 89 y/o Female patient who presents to [facility] walk in clinic with c/o Right Ear discharge for 1 month. She was seen by her ENT doctor 2 weeks ago, and her ears were Irrigated. Today reports Yellow drainage discharge from right Ear associated with Some pain and ringing. [facility] Medical History (Updated 02/23/25 @ 15:13 by Gladys Forde NP) Otitis externa Peripheral neuropathy Hypertension Hypercholesterolemia Alberto thyroiditis Anxiety disorder Surgical History History of removal of ovarian cyst Hx of appendectomy Family History Father No problems noted. Mother Hypertension Diabetes Social History (Updated 01/18/25 @ 10:34 by Xenia Jones MD) Household Members Other:: Lives with and son Housing: House Patient Tobacco Use Status: Never used Tobacco e-Cigarette/Vaping Use: Never Used service: No Current occupational status: retired Current occupational exposures/hazards: No Cognitive needs: No Hearing needs: Yes Vision needs: Yes Review of Systems Const All systems reviewed & are unremarkable except as noted in HPI and below Physical Exam Vital Signs: Last Vital Signs Temp 97.6 F 02/23/25 14:29 Pulse 82 02/23/25 14:29 BP 116/78 02/23/25 14:29 Pulse Ox 98 02/23/25 14:29 Oxygen Delivery Method Room Air 02/23/25 14:29 Const General: no acute distress Orientation/consciousness: patient oriented x3 HEENT Head: Yes normocephalic Ears: external ears normal, TM normal on the left and TM abnormal wth effusion purulent on the right Neuro General: patient oriented x3, gait normal and moves all extremities Psych Speech and movement: Normal speech and movement present Assessment & Plan Assessment & Plan (1) Otitis externa: Code(s): H60.90 - Unspecified otitis externa, unspecified ear Qualifiers: Chronicity: acute Laterality: right Otitis externa type: unspecified type Qualified Code(s): H60.501 - Unspecified acute noninfective otitis externa, right ear Plan: Ordered Abx Ear Drops for 7 days. Advised Pt to f/u with ENT if symptoms not improved. Medications: New ciprofloxacin-dexamethasone 0.3-0.1 % 4 drps otic (ears) BID 7.5 mL 0RF 7 days H60.90 - Unspecified otitis externa, unspecified ear Coding Level of Care Code Est Pt Level 4 (48403) Diagnoses Acute otitis externa of right ear, unspecified type H60.501 Chronicity: acute Laterality: right Otitis externa type: unspecified type Time Spent (min) 20
[2025-02-23 14:29] VITALS: BP 116/78; PULSE 82; TEMP 36.4; O2SAT 98
== END 2025-02-23 15:05 | disposition home or self-care (01) ==
PROVIDERS: PCP Internal Medicine; Visit Provider Nurse Practitioner Family
DX: H60.501 Unspecified acute noninfective otitis externa, right ear (principal)

== ENCOUNTER → 2025-02-23 12:48 | Outpatient (BNVA) | payer MEDICARE, SELFPAY | PROVIDERS: PCP Internal Medicine; Visit Provider Nurse Practitioner Family | DX: H60.501 Unspecified acute noninfective otitis externa, right ear (principal) | CPT/HCPCS: 99212 ==

== ENCOUNTER 2025-04-18 08:42 | Outpatient (REF) | payer MEDICARE, SELFPAY ==
--- NOTE | ~2025-04-18 | XR_ITS ---
EXAMINATION: XR KNEE, RIGHT CLINICAL INFORMATION: M25.561 - Pain in right knee COMPARISON: None available. TECHNIQUE: AP lateral and sunrise views of the right knee. FINDINGS: There is joint space narrowing involving the medial lateral compartment as well at the tibial patella joint. Small marginal osteophyte formation femoral condyle tibial plateau and posterior patella. Small suprapatellar bursa joint effusion. No acute cortical disruption or malalignment. No lytic or blastic lesions. Vascular calcifications. Decreased musculature, right lower extremity. XR/XR knee RT 3V IMPRESSION: Tricompartmental osteoarthrosis, mild to moderate. Suprapatellar bursa joint effusion, small volume. Atherosclerosis disease, peripheral. Electronically signed by: Des Carl MD 04/18/2025 02:05 PM EDT
== END 2025-04-18 08:43 | disposition home or self-care (01) ==
LOC: HO.HOSX 08:42
PROVIDERS: Visit Provider Orthopaedic Surgery
DX: M25.561 Pain in right knee (principal); M17.11 Unilateral primary osteoarthritis, right knee
CPT/HCPCS: 73562; 99202

== ENCOUNTER → 2025-04-18 13:32 | Outpatient (BNV) | payer MEDICARE, SELFPAY | PROVIDERS: Visit Provider Radiology Diagnostic Radiology | DX: M17.11 Unilateral primary osteoarthritis, right knee (principal) | CPT/HCPCS: 73562 ==

== ENCOUNTER 2025-04-18 13:49 | Outpatient (AMB) | payer MEDICARE, SELFPAY ==
--- NOTE | 2025-04-18 13:56 | MHC.OFFVIS ---
Vital Signs 04/18/25 13:58 Height 5 ft 3 in Weight 108 lb BMI 19.1 Intake Visit Reasons: [employer]-right knee pain-Limited ROM Intake Note: Kera is an 89 year old female who presents with complaints of progressively worsening right knee pain. The patient describes her pain as sharp in nature. Her pain has gotten worse over the last few years in spite of continued non operative treatments. The patient states that she has had multiple cortisone injections as well as viscosupplementation injections. The most recent injection gave her minimal relief. The patient has difficulty walking even short distances because of her pain. At this point her right knee pain is interfering with her activities of daily living and her ability to sleep well through the night. She has done physical therapy exercises which aggravated her pain. She has also tried Tylenol and anti-inflammatory medicines which gave her minimal relief. Allergies penicillin V Allergy (Severe, Verified 04/18/25 13:58) hives, throat swelling. Medication List - Last Reviewed 04/18/25 by IVANNA Marie amlodipine 5 mg PO DAILY azelastine 1 spray intranasal BID PRN fwikmgwamy-fwuqzlei-wdwmpryzyy 160-9-4.8 mcg/actuation (Breztri Aerosphere) inhalations inhalation gabapentin 400 mg PO BEDTIME ipratropium bromide 2 sprays intranasal QID PRN lisinopril 5 mg PO DAILY trazodone 50 mg PO .[facility] Medical History Otitis externa Peripheral neuropathy Hypertension Hypercholesterolemia Alberto thyroiditis Anxiety disorder Surgical History History of removal of ovarian cyst Hx of appendectomy Family History Father No problems noted. Mother Hypertension Diabetes Social History Household Members Other:: Lives with and son Housing: House Patient Tobacco Use Status: Never used Tobacco e-Cigarette/Vaping Use: Never Used service: No Current occupational status: retired Current occupational exposures/hazards: No Cognitive needs: No Hearing needs: Yes Vision needs: Yes Physical Exam Vital Signs: BMI result Body Mass Index 19.1 Const Other: Well-nourished well-developed very friendly female awake alert and oriented x3 in no acute distress Extrem Other: Bilateral lower extremity examination shows good capillary refill, no skin lesions noted, normal sensation light touch Right knee examination shows a minimal effusion, palpable crepitus with range of motion, pain with range of motion, range of motion from -3 degrees to 115 degrees, no instability Results Reviewed Results Reviewed: X-rays of the patient's right knee show end-stage degenerative joint disease with grade 4 [id number]-lw-ttdz arthritis, subchondral sclerosis, no acute bony abnormalities Assessment & Plan Assessment & Plan (1) Arthritis of right knee: Code(s): M17.11 - Unilateral primary osteoarthritis, right knee Category: Medical Plan Ms. Calzada presents with progressively worsening right knee pain due to end-stage degenerative joint disease. I had a lengthy discussion with the patient regarding the treatment options. At this point she has failed continued non operative treatments. The risks and benefits of right total knee replacement surgery were discussed at length with the patient. The patient is interested in proceeding with surgery later this year. She will contact my office to pick a surgery date when she chooses to do so. I will see her back 1 week prior to her surgery to answer any final questions that she might have. Feel free to call me at any time should questions regarding her orthopedic management arise. Thank you very much for asking me to see this very friendly patient. I spent 21 minutes in reviewing the patient's records and imaging studies, seeing the patient and documenting in the medical record. Orders: Orders XR knee RT 3V 04/18/25 M25.561 - Pain in right knee Coding Level of Care Code New Pt Level 3 (79791) Complex EM visit Add On G2211 Diagnoses Arthritis of right knee M17.11
[2025-04-18 13:58] VITALS: BMI 19.1
--- OUTSIDE RECORDS SUMMARY | 2025-04-18 15:50 | XMS_ITS | Data Portability ---
Author Organization [facility], [facility] Address [address] [place] [address] Assessment No assessment recorded. Plan of Treatment Reminders Order Date Submit Date Provider Last Modified By Organization Details Last Modified Time Details Appointments MUST SEE 15 025 01:45PM Marcelo Moy MD Not available Not available Not available Lab None record ed. Referral None record ed. Procedures None record ed. Surgeries None record ed. Imaging XR, knee, 4 or more view - room 203, R knee 4v 025 03/06/20 [email or web address] [facility] Office, [address] [facility], [address], [address], 03/06/2025 11:27:54 Medication Orders None record ed. Patient TargetsNo targets recorded. Patient InstructionsNo instructions recorded. Reason for Referral None Reported. Results Created Date Observation Date Name Description Value Unit Range Abnormal Flag Note LastModifiedBy Organization Detail LastModifiedTime 03/06/2003/06/2025 XR, knee, 4 or more view [email or web address] ?Encry pted=s hAaTro YD8dLq bEUv6g %2BXZw aYqtaq 0bqfl% 2Fg9IQ a4ajBk vP9nXo QUaueC m3YtLR FvZlgJ JJ8mAn HZtai3 [id number] AC0Kla niDUKe lKiQtr MwF INTERFACE [facility] [address], [place], [address], 03/06/2025 10:29:04 03/06/20 25 03/06/2025 XR, knee, 4 or more view [email or web address] ?Encry pted=s hAaTro YD8dLq bEUv6g %2BXZw aYqtaq 0bqfl% 2Fg9IQ a4ajBk vP9nXo QUaueC m3YtLR FvZlgJ JJ8mAn HZtai3 [id number] AC0Kla niDUKe lKiQtr MwF INTERFACE [facility] Office [address] [facility] [address], [place], [address], 03/06/2025 10:29:05 Result Notes Documentation Provider Name and Address Organization Details Recorded Time Xr, Knee, 4 Or More View : [email or web address] Encrypted=[email or web address] Uv6g%4KSNyyTqpyh3dbdy%2Fg 0ARh1klHilN5tPoGOhnwWj9Ql [id number] 5TC3AhuajZABkaYaBhhJwX Not Available [facility] 03/06/2025 10:29: 04 Xr, Knee, 4 Or More View : [email or web address] Encrypted=fhOcVqiOS7eZmnK Uv6g%1FBJvhIbevo4ekxl%2Fg 8EUa8sjZxcK4lGiOUaozTh3Zk YNDoYnhJVX4wUqSXftk04o380 0BY1FosswQWRwnThHbiSmK Not Available [facility] 03/06/2025 10:29: 06 Procedures Surgical History Date Name Laterality Status Provider Name and Address Organization Details Recorded Time 03/06/2025 Sports Knee 4&1 completed Edy Mcadams PA-C [address] [facility] [address], [place], [address], [facility] - [facility] 03/06/2025 13:47:51 Imaging Results None recorded. Procedure Notes None recorded. Medical Equipment None Reported. Allergies No known drug allergies Medications Name Sig Start Date Stop Date Status Note LastModified by Organization Details LastModified Time trazodone 50 mg tablet TAKE ONE TABLET BY MOUTH DAILY AT BEDTIME active Not Available Not Available No t Available prednisone 20 mg tablet TAKE 1 TABLET BY MOUTH DAILY FOR 5 DAYS. active Not Available Not Available No t Available amlodipine 5 mg tablet TAKE 1 TABLET BY MOUTH DAILY. active Not Available Not Available No t Available omeprazole 20 mg capsule,delaye d release TAKE ONE CAPSULE BY MOUTH EVERY DAY active Not Available Not Available No t Available lisinopril 5 mg tablet TAKE 1/2 OF A TABLET BY MOUTH DAILY active Not Available Not Available No t Available gabapentin 100 mg capsule TAKE TWO CAPSULES BY MOUTH EVERY EVENING AT BEDTIME active Not Available Not Available No t Available ciprofloxacin 0.3 %-dexamethason e 0.1 % ear drops,suspensi on INSTILL 4 DROPS INTO THE EAR S) TWO TIMES A DAY FOR 7 DAYS active Not Available Not Available No t Available budesonide-for moterol HFA 160 mcg-4.5 mcg/actuation aerosol inhaler INHALE TWO PUFFS BY MOUTH TWICE A DAY active Not Available Not Available No t Available Breztri Aerosphere 160 mcg-9mcg-4.8mc g/actuation HFA aerosol inhaler INHALE TWO PUFFS BY MOUTH TWICE A DAY active Not Available Not Available No t Available Vitals Date Recorded Body height Body mass index (BMI) Body weight Provider Name and Address Organization Details Last Updated DateTime 03/06/2025 165.1 cm 18.3 kg/m2 71500.16 g Sophy Almanzar [place] - [facility] 03/06/2025 10:17:19 Social History None recorded. Functional Status None recorded. Mental Status None recorded. Family History Nothing Reported. Medical History Condition Response Asthma Y Hypertension Y Gynecological HistoryNo gynecological history recorded. Obstetrics History GPAL:G 0 P 0 0 0 0 Past Encounters Encounter ID Performer Location Encounter Start Date Encounter Closed Date Diagnosis/Indication Diagnosis SNOMED-CT Code Diagnosis ICD10 Code Diagnosis Note [id number] [facility] [address] [place] [address] 03/06/2025 10:07:04 03/18/2025 10:30:21 Pain of right knee joint [id number] 61823 M25.561 Osteoarthr itis of right knee joint [id number] 42121 M17.11 Health Concerns Section Related Observation LastModified by Organization Detai ls LastModified Time None Recorded Concern Status LastModified by Organization Details LastModified Time None Recorded Advance Directives Directive None Recorded Payers Insurance Date Sequence Insurance Name Policy Number Policy Marlow Covered Member ID Marlow Member ID Guarantor Name 03/18/2025 2 [place] [id number] Kera LynnZheng [id number] Kera Calzada 03/06/2025 1 [place]IC[place]: [employer] Kera Pyleworth [id number] [place] 03/18/2025 [place] [id number] Kera [place] [id number] [place] Notes Date Note Type Note Provider Name and Address Organization Details Recorded Time 03/06/2025 text/html I am seeing the patient today under the supervision of Dr. Hamilton who was available but who did not see the patient. HPI:Patient is an 89-year-old female who presents to the office today with complaint of right knee pain. Patient's had right knee pain over the last 6 months without any specific inciting events or injuries. Over the last 6 months patient has tried 1 cortisone injection, series of Euflexxa gel injections as well as PT over the last 2 months. Continues to experience pain with prolonged ambulatory activities in her knee. Does not currently utilize any consistent medications for pain relief. Denies any catching, locking, or buckling. Past family, medical, social history and review of systems has been reviewed, updated and is located in the patient? s chart. Examination: Well-appearing 89-year-old female in no acute distress. She is alert and oriented x 3. Ambulates with a slightly antalgic gait. Right knee reveals no erythema, warmth, ecchymosis, swelling. There is tenderness over the lateral joint line. No tenderness over medial joint line. Range of motion from 0-120 degrees. There is patellofemoral crepitance noted. Mild lateral laxity. No medial laxity. Knee strength 5/5 against resistance with flexion and extension. Negative Jagdish test. Negative Kevin's maneuver. Calf is soft and nontender. 4 views of the right knee obtained and independently reviewed in the office today reveal increased joint space loss laterally with evidence of xsmw-ul-yabl articulation, subchondral sclerosis, osteophyte formation. Degenerative changes noted of the patellofemoral joint. No fracture. Impression:Right Knee osteoarthritis Plan:We discussed the role of conservative management including medications, physical therapy, injection and bracing. Did have a discussion today about potential surgical intervention. Patient is hesitant about this because of her age although she is relatively healthy overall. I did recommend that we try 1 more cortisone injection since her first injection did not provide her with much relief and the gel injection did not work all that well either. Patient was agreeable to injection today. Please see procedure note. Will continue with physical therapy activities. Will monitor her symptoms over the next 2 weeks. Will have a discussion with her about potentially having knee replacement surgery. If she is interested in speaking to one of our doctor she will give us a call back in the next couple of weeks. Patient agrees with this treatment plan. At this time all patient questions and concerns were answered today. Edy Mcadams PA-C [address] [place], [place] [address] [address], [place], [address], [facility] - [facility] 03/06/2025 13:48:04 OBGyn Episode No OBEpisode recorded.
== END 2025-04-18 14:19 | disposition home or self-care (01) ==
LOC: HO.HOS 13:50
PROVIDERS: PCP Internal Medicine; Visit Provider Orthopaedic Surgery
DX: M17.11 Unilateral primary osteoarthritis, right knee (principal)
CPT/HCPCS: 99203; G2211

== ENCOUNTER → 2025-05-20 05:03 | Outpatient (BNV) | payer MEDICARE, SELFPAY | PROVIDERS: PCP Internal Medicine; Visit Provider Radiology Vascular & Interventional Radiology | DX: M50.30 Other cervical disc degeneration, unspecified cervical region (principal); R90.82 White matter disease, unspecified; M25.532 Pain in left wrist; M18.12 Unilateral primary osteoarthritis of first carpometacarpal joint, left hand | CPT/HCPCS: 70450; 72125; 73110; 73130 ==

== ENCOUNTER 2025-05-20 05:12 | Emergency (ER) | payer MEDICARE, SELFPAY ==
--- NOTE | ~2025-05-20 | XR_ITS ---
CLINICAL HISTORY: Pain swelling 3 view left hand Comparison: None provided Findings: Bones intact. No dislocations. Advanced degenerative changes of the interphalangeal joints, most pronounced distally. There is also advanced degenerative change of the base of the 1st metacarpal. IMPRESSION: 1. No acute findings 2. Advanced degenerative changes. This document has been electronically signed by: Adam Walden MD on 05/20/2025 06:42:43
--- NOTE | ~2025-05-20 | XR_ITS ---
CLINICAL HISTORY: Pain swelling 3 view left wrist Comparison: None provided Findings: Bones intact. No dislocations. Degenerative changes throughout the wrist. CPPD noted. Old healed, minimally angulated, distal left radial fracture Impression: Degenerative changes without definite acute process. This document has been electronically signed by: Adam Walden MD on 05/20/2025 06:32:55
--- NOTE | ~2025-05-20 | CT_ITS ---
CLINICAL HISTORY: Fall CT cervical spine without contrast Comparison: None Findings: There is exaggeration of the cervical lordosis. No fracture or acute malalignment. Multilevel degenerative changes with disc space narrowing throughout the cervical spine. The facet joints are normally imbricated. No prevertebral soft tissue edema. Lung apicies demonstrate no acute process. Impression: Multilevel degenerative changes without evidence of acute fracture or acute malalignment. This document has been electronically signed by: Adam Walden MD on 05/20/2025 06:40:41
--- NOTE | ~2025-05-20 | CT_ITS ---
CLINICAL HISTORY: Fall CT head without contrast Comparison: None Findings: No evidence of acute territorial infarct. There is patchy low density in the periventricular and subcortical white matter. Diffuse volume loss is noted. No hydrocephalus. No hemorrhage, mass effect, mass lesion or midline shift. No abnormal extra-axial fluid. No calvarial fracture. Paranasal sinuses and mastoid air cells are clear. Impression: No acute intracranial process. Chronic changes as detailed. This document has been electronically signed by: Adam Walden MD on 05/20/2025 06:35:10
[2025-05-20 05:17] VITALS: BP 191/81; PULSE 79; RESP 20; TEMP 36.4; O2SAT 97; BMI 20.3
--- NOTE | 2025-05-20 05:26 | ECG_ITS ---
Test Reason : FALL Blood Pressure : */* mmHG Vent. Rate : 74 BPM Atrial Rate : 74 BPM P-R Int : 128 ms QRS Dur : 82 ms QT Int : 370 ms P-R-T Axes : 67 39 36 degrees QTcB Int : 410 ms Normal sinus rhythm with sinus arrhythmia Possible Left atrial enlargement Borderline ECG When compared with ECG of 12-May-2023 10:31, No significant change was found Referred By: Generic ED Physician Electronically Signed By: JOSE MONTENEGRO
[2025-05-20 05:48] LABS: Hematocrit 36.5 % (37.0-47.0); Hemoglobin 12.2 g/dl (12.0-16.0); Imm Gran Abs Auto 0.02 X10*3/uL (0.00-0.03); Imm Gran Pct Auto 0.2 % (0.0-0.4); Lymphocytes Absolute Auto 1.7 X10*3/uL (1.2-4.9); MANUAL DIFF FLAG NO; Mean Corpuscular HGB Conc 33.4 g/dl (31.0-35.0); Mean Corpuscular Hemoglobin 30.4 pg (27.0-33.0); Mean Corpuscular Volume 91.0 fL (80.0-98.0); NRBC Abs Auto 0.000 X10*3/uL (0.0-0.012); NRBC Pct Auto 0.0 /100WBC (0.0-0.2); Platelet Count 232 X10*3/uL (160-400); Red Blood Count 4.01 X10*6/uL (4.20-5.50); White Blood Count 8.8 X10*3/uL (4.8-10.8)
[2025-05-20 05:59] LABS: Anion Gap 11 (12-20); Blood Urea Nitrogen 30 mg/dL (9-16); Calcium 9.5 mg/dL (8.4-10.2); Carbon Dioxide 20 mmol/L (22-29); Chloride 114 mmol/L (96-108); Creatinine Clr Calc Pharmacy 30.1; Estimated Glomerular Filt Rate 45; Potassium 4.7 mmol/L (3.3-5.1); Sodium 140 mmol/L (135-145)
[2025-05-20 06:00] VITALS: BP 190/82; PULSE 73; RESP 16; TEMP 36.6; O2SAT 97
[2025-05-20 06:06] LABS: Troponin-I High Sensitivity 9.5 ng/L (<3.5-17.0)
--- NOTE | 2025-05-20 08:10 | ED.GENADULT ---
HPI - General Adult General Chief complaint: Dyspnea Stated complaint: Fall, injured left arm Time Seen by Provider: 05/20/25 07:43 Source: patient and family () Mode of arrival: ambulatory Limitations: no limitations History of Present Illness ED Provider: DR. Stephens HPI narrative: 89-year-old female walked in with her for evaluation after a mechanical fall, patient stood up on the couch to clean a dust then couch rocked and moved causing the patient to fell backward, patient protected her fall using her both hands causing left hand/wrist pain, no head injury, when patient fell felt the pain in her left hand and blood anxious causing her to have difficulty breathing, reportedly patient had a normal O2 sat hand normal respiratory rate of 16 per minutes. Patient now feels at her baseline, no headache, no neck pain, no weakness, no numbness, no CP, no SOB, no abdominal pain, patient is able to ambulate in the ED. Patient takes amlodipine 5 mg daily for blood pressure that she did not take since yesterday. Related Data Home Medications ?Medication ?Instructions ?Recorded ?Confirmed amlodipine 5 mg tablet 5 mg PO DAILY 06/08/21 04/18/25 azelastine 137 mcg (0.1 %) nasal 1 spray intranasal BID PRN 05/16/24 04/18/25 spray budesonide 160 mcg-glycopyr 9 inh inhalation 05/16/24 04/18/25 mcg-formot 4.8 mcg/actuation HFA inhaler (Breztri Aerosphere) ipratropium bromide 42 mcg (0.06 2 spray intranasal QID PRN 05/16/24 04/18/25 %) nasal spray lisinopril 5 mg tablet 5 mg PO DAILY 11/08/24 04/18/25 gabapentin 100 mg capsule 400 mg PO BEDTIME 01/18/25 04/18/25 Previous Rx's ?Medication ?Instructions ?Recorded trazodone 50 mg tablet 50 mg PO .qhs #90 tabs 01/18/25 walker #1 ea 05/12/25 Allergies Allergy/AdvReac Type Severity Reaction Status Date / Time penicillin V Allergy Severe hives, Verified 05/20/25 05:20 throat swelling. Review of Systems Review of Systems: All other systems are reviewed and are negative Constitutional: Reports as per HPI and Reports no additional constitutional complaints Eyes: Reports as per HPI and Reports no additional eye complaints Reports system reviewed and no additional complaints, except as documented Cardiovascular: Reports as per HPI and Reports no additional cardiovascular complaints Respiratory: Reports as per HPI and Reports no additional respiratory complaints Gastrointestinal: Reports as per HPI and Reports no additional gastrointestinal complaints Genitourinary: Reports no additional female genitourinary complaints Musculoskeletal: Reports no additional musculoskeletal complaints Skin/Breast: Reports system reviewed and no additional complaints, except as docu Psychiatric: Reports no additional psychiatric complaints Endocrine: Reports no additional endocrine complaints Hematologic/Lymphatic: Reports no additional hematologic/lymphatic complaints Allergic/Immunologic: Reports no additional allergic/immunologic complaints Reports system reviewed and no additional complaints, except as documented and Reports Abnormal speech present [facility] Past Medical History Medical History Otitis externa Peripheral neuropathy Hypertension Hypercholesterolemia Alberto thyroiditis Anxiety disorder Surgical History History of removal of ovarian cyst Hx of appendectomy Family History Family History Father No problems noted. Mother Hypertension Diabetes Social History Social History Household Members Other:: Lives with and son Housing: House Patient Tobacco Use Status: Never used Tobacco Smoked in Last 30 Days: No e-Cigarette/Vaping Use: Never Used Use of substances other than those prescribed or required for medical reasons: No Advance Directives: No Advance Directives Information Provided: No Do you have a plan to hurt others: No Plan service: No Current occupational status: retired Current occupational exposures/hazards: No Cognitive needs: No Hearing needs: Yes Vision needs: Yes Physical Exam ED Vital Signs: Vital Signs - 24 hr 05/20/25 05:17 05/20/25 06:00 05/20/25 08:23 Temperature 97.5 F 97.9 F 97.9 F Pulse Rate 79 73 81 Respiratory Rate 20 16 17 Blood Pressure 191/81 H 190/82 H 198/88 H Pulse Oximetry 97 97 97 Oxygen Delivery Method Room Air Room Air Room Air 05/20/25 08:35 05/20/25 09:19 Temperature 97.8 F Pulse Rate 68 Respiratory Rate 14 Blood Pressure 198/88 H 157/75 H Pulse Oximetry 97 Oxygen Delivery Method Room Air BMI result Body Mass Index 20.3 Vital signs have been reviewed and appear to be correct. Blood pressure elevated. Heart rate normal. Respiratory rate normal. Temperature normal. Oxygen saturation normal. Appearance: Alert. Oriented X3. No acute distress. Head: Normal external exam. Normocephalic. Atraumatic. No Parker signs noted. No raccoon eyes noted Eyes: PERRLA. EOMI. Conjunctiva and sclera normal. Eyelids normal. ENT: TM's Normal. Pharynx normal. Uvula midline. Moist mucous membranes. No trismus noted. No drooling noted. No muffled voice noted. Neck: Normal inspection. Neck supple. FROM. No adenopathy. Thyroid Normal. No meningeal signs. No neck mass noted. CVS: Normal heart rate and rhythm. Heart sound normal. No murmurs noted. Pulses normal throughout. Respiratory: No respiratory distress. Painless inspiration. Breath sounds normal. No wheezes/rales/rhonchi noted. Chest nontender. No accessory muscle usage noted or decreased air movement noted. Abdomen: Soft and nontender. Bowel sounds normal in all 4 quadrants. No distention noted. No organomegaly noted. No visible injury noted. Back: No CVA tenderness. Full range of motion noted. Skin: Skin warm and dry. Normal skin color. Normal skin turgor. No rashes/lesions/lacerations noted. Extremities: Left hand/wrist: Mild tenderness around the left wrist but no deformity, full range of motion, neurovascularly intact. Neuro: Oriented X 3. Cranial nerve exam: II-XII are grossly intact No motor deficit. No sensory deficit. Reflexes normal. Course Reevaluation(s) Reevaluation #1: Able to ambulate in the emergency department in steady gait, patient has no complaint, will be going home with her spouse. GCS of 15/normal neuro exam/negative head/C-spine CT. Will give amlodipine a 10 mg p.o. the patient missed at home and monitor blood pressure. Time: 10:00 Medications Administered Discontinued Medications Generic Name Dose Route Start Last Admin Trade Name Freq PRN Reason Stop Dose Admin Amlodipine Besylate 10 mg 05/20/25 08:32 05/20/25 08:35 Amlodipine Besylate 10 Mg Tablet PO 05/20/25 08:33 10 mg ONCE ONE Administration Protocol Medical Decision Making Differential Diagnosis Differential Diagnoses: The differential diagnosis associated with the presentation includes (Closed head injury, C-spine injury, extremity injury, chest injury, back injury, hip injuries,) Admission/Observation Consideration of admission/observation: Escalation of care including admission/observation considered Lab Data MDM Lab Attestation statement: I reviewed the patient's lab results. 05/20/25 05:44 05/20/25 05:44 Labs: Lab Results 05/20/25 Range/Units 05:44 WBC 8.8 (4.8-10.8) X10*3/uL RBC 4.01 L (4.20-5.50) X10*6/uL Hgb 12.2 (12.0-16.0) g/dl Hct 36.5 L (37.0-47.0) % MCV 91.0 (80.0-98.0) fL MCH 30.4 (27.0-33.0) pg MCHC 33.4 (31.0-35.0) g/dl RDW 13.3 (11.0-16.0) % Plt Count 232 D (160-400) X10*3/uL MPV 9.5 (9.4-12.3) fL Immature Gran % (Auto) 0.2 (0.0-0.4) % Neut % (Auto) 70.0 (45-73) % Lymph % (Auto) 19.5 L (20-40) % [place] % (Auto) 8.4 (2-11) % Eos % (Auto) 1.3 (0-4) % Baso % (Auto) 0.6 (0-2) % Lymph # (Auto) 1.7 (1.2-4.9) X10*3/uL [place] # (Auto) 0.7 (0.1-1.2) X10*3/uL Eos # (Auto) 0.1 (0.0-0.4) X10*3/uL Baso # (Auto) 0.1 (0.0-0.2) X10*3/uL Abs Immat Gran (auto) 0.02 (0.00-0.03) X10*3/uL Absolute Neuts (auto) 6.1 (2.0-8.3) x10*3/uL Absolute Nucleated RBC 0.000 (0.0-0.012) X10*3/uL Nucleated RBC % (auto) 0.0 (0.0-0.2) /100WBC Sodium 140 (135-145) mmol/L Potassium 4.7 (3.3-5.1) mmol/L Chloride 114 H (96-108) mmol/L Carbon Dioxide 20 L (22-29) mmol/L Anion Gap 11 L (12-20) BUN 30 H (9-16) mg/dL Creatinine 1.15 (0.5-1.4) mg/dL Estim Creat Clear Calc 30.1 Estimated GFR 45 Random Glucose 92 (60-115) mg/dL Calcium 9.5 D (8.4-10.2) mg/dL Troponin I High Sens 9.5 D (<3.5-17.0) ng/L Independent Interpretation I performed an independent interpretation of an: Plain X-Ray (Left wrist/hand x-ray: Degenerative change without definitive acute process.) and CT Scan (Head/C-spine CT: No acute pathology.) Radiology Impression Discussion of test interpretation with radiology: I have reviewed the radiologist's reading. Discharge Plan Discharge Clinical Impression: Contusion of hand, left, Contusion of left wrist, Essential hypertension Patient Disposition: Home, Self-Care Instructions: Contusion in Adults (ED) Prescriptions: No Action (DME) walker Misc See Rx Instructions .ROUTE .MEDSUPPLY Qty: 1 0RF Rx Instructions: Folding front wheeled walker amlodipine 5 mg tablet 5 mg PO DAILY ipratropium bromide 42 mcg (0.06 %) spray,non-aerosol 2 spray intranasal QID PRN azelastine 137 mcg (0.1 %) spray,non-aerosol 1 spray intranasal BID PRN Breztri Aerosphere 160-9-4.8 mcg/actuation HFA aerosol inhaler inhalation lisinopril 5 mg tablet 5 mg PO DAILY Rx Instructions: 1 tab and a half gabapentin 100 mg capsule 400 mg PO BEDTIME trazodone 50 mg tablet 50 mg PO .qhs Qty: 90 1RF Referrals: Marleni Coffman MD [Primary Care Provider, Internal Medicine] Interventions: ED Discharge Assessment Last Done: 05/20/25 09:19 Discharge Date/Time: 05/20/25 09:25 Print Language: Frisian
[2025-05-20 08:23] VITALS: BP 198/88; PULSE 81; RESP 17; TEMP 36.6; O2SAT 97
[2025-05-20 08:35] VITALS: BP 198/88
--- NOTE | 2025-05-20 08:36 | MHC.EDTECH ---
pt ambulated in hallway. Steady gait. Reports dizziness but states that is her baseline. Provider aware.
--- NOTE | 2025-05-20 08:36 | PC.NURSE ---
at bedside. PAtient presents to ED after having a fall at home while standing on a couch. Denies headstrike, LOC, n/v, vision changes, numbness tingling. Patient able to stand up on her own. Patient reports uses arms to break her fall and now presents with left wrist pain rated 9/10 +CMS +ROM, Left wrist appears swollen, offered icepack patient refused. Patient performed ambulation trial, patient reports being lightheaded but able to maintain gait. Patient doesnt use assistive devices at home. Patient hypertensive 198/87 but all other VSS and up to date. , Patient has Hx of HTN and hasnt taken medications since yesterday, administered amlodipine per provider order. Effectiveness pending.
[2025-05-20 09:19] VITALS: BP 157/75; PULSE 68; RESP 14; TEMP 36.6; O2SAT 97
== END 2025-05-20 09:25 | disposition home or self-care (01) ==
PROVIDERS: Emergency Provider Emergency Medicine; PCP Internal Medicine
DX: S60.212A Contusion of left wrist, initial encounter (principal); W08.XXXA Fall from other furniture, initial encounter; I10 Essential (primary) hypertension; M79.642 Pain in left hand; Y93.E9 Activity, other interior property and clothing maintenance; Y92.018 Other place in single-family (private) house as the place of occurrence of the external cause; Y99.8 Other external cause status; E78.00 Pure hypercholesterolemia, unspecified
CPT/HCPCS: 36415; 70450; 72125; 73110; 73130; 80048; 84484; 85025; 93005; 99284; 99285

== ENCOUNTER → 2025-05-20 05:26 | Outpatient (BNV) | payer MEDICARE, SELFPAY | PROVIDERS: Emergency Provider Emergency Medicine; PCP Internal Medicine; Visit Provider Internal Medicine | DX: Z13.6 Encounter for screening for cardiovascular disorders (principal); W19.XXXA Unspecified fall, initial encounter | CPT/HCPCS: 93010 ==

== ENCOUNTER → 2025-06-19 10:52 | Outpatient (BNVA) | payer MEDICARE, SELFPAY | PROVIDERS: PCP Internal Medicine | DX: Z01.818 Encounter for other preprocedural examination (principal) ==

== ENCOUNTER 2025-07-13 08:05 | Outpatient (AMB) | payer MEDICARE, SELFPAY ==
--- OUTSIDE RECORDS SUMMARY | 2011-08-22 | XMS_ITS | Encounter Summary ---
Author Organization [facility] Address [address] [place] [address] Phone Care Team Providers Care Meeting Manager Name Role Phone Pcp, Unknown Primary Care Provider Unavailabl e Reason for Visit * MRI/CAT Scan - Closed Specialty Diagnoses / Procedures Referred By Contac t Referred To Contact Procedures CT Chest Outside (No Interpretation) System, Provider Not In, [facility] [address] [address] Referral ID Status Reason Start Date Expiration Date Visits Re quested Visits Authorized [id number] Closed 09/16/2017 09/16/2018 1 1 Encounter Details Date Type Department Care Team (Late st Contact Info) Description 08/22/2011 Hospital Encounter [facility],Outside Imaging 30 [place] [address] System, Provider Not In, [facility] [employer] [address] Unknown, Unknown, Social History Tobacco Use Types [...] Description 08/07/2025 9:30 AM EDT Office Visit [facility] [address] [facility] 3rd Floor, [address] [place], [place] [phone] Chioma Gresham DNP [address] [place] [address] [address] [place] [address] 10/02/2025 1:00 PM EST Office Visit [facility] [address] [place] [address] [place] [address] Marleni Coffman MD [address] [place] [address], [address] [place] [address] 11/27/2025 11:00 AM EST Appointment [facility] [address] [place] [address] Wagner Figueroa MD, MS [address] [address] 12/05/2025 9:15 AM EST Office Visit [facility] [address] [place] [address] Wagner Figueroa MD, MS [address] [address] 12/11/2025 10:45 AM EST Appointment [facility], Bone Density - [address] [address] Rex Villareal DO [address] [place] [address] 01/01/2026 10:30 AM EST Office Visit [facility] [address] [place] [address] Rex Villareal DO 22 [place] [address] documented as of this encounter Procedures Procedure [...] documented as of this encounter Care Teams Meeting Manager Relationship Specialty Start Date End Date Pcp, Unknown PCP - General 08/22/11 08/19/17 documented as of this encounter Additional Source Comments The information contained in this document represents components of the legal health record. It is not the complete legal health record.[facility]
--- OUTSIDE RECORDS SUMMARY | 2016-01-23 | XMS_ITS | Encounter Summary ---
Author Organization [facility] Address [address] [place] [address] Phone Care Team Providers Care Delivery Coordinator Name Role Phone Pcp, Unknown Primary Care Provider Unavailabl e Reason for Visit * MRI/CAT Scan - Closed Specialty Diagnoses / Procedures Referred By Contac t Referred To Contact Procedures CT Chest Outside (No Interpretation) System, Provider Not In, [facility] [address] [address] Referral ID Status Reason Start Date Expiration Date Visits Re quested Visits Authorized [id number] Closed 09/16/2017 09/16/2018 1 1 Encounter Details Date Type Department Care Team (Late st Contact Info) Description 01/23/2016 Hospital Encounter [facility],Outside Imaging 30 [place] [address] System, Provider Not In, PhD Partners [employer] [address] Unknown, Unknown, Social History Tobacco Use Types [...] Description 08/07/2025 9:30 AM EDT Office Visit [facility] [address] [facility] 3rd Floor, [address] [place], [place] [address] Chioma Gresham DNP [address] [place] [address] [address] [place] [address] 10/02/2025 1:00 PM EST Office Visit [facility] [address] [place] [address] [place] [address] Marleni Coffman MD [address] [place] [address], [address] [place] [address] 11/27/2025 11:00 AM EST Appointment [facility] [address] [place] [address] Wagner Figueroa MD, MS [address] [address] 12/05/2025 9:15 AM EST Office Visit [facility] [address] [place] [address] Wagner Figueroa MD, MS [address] [address] 12/11/2025 10:45 AM EST Appointment [facility], Bone Density - [address] [address] Rex Villareal DO [address] [place] [address] 01/01/2026 10:30 AM EST Office Visit [facility] [address] [place] [address] Rex Villareal DO 22 [place] [address] documented as of this encounter Procedures Procedure [...] documented as of this encounter Care Teams Delivery Coordinator Relationship Specialty Start Date End Date Pcp, Unknown PCP - General 08/22/11 08/19/17 documented as of this encounter Additional Source Comments The information contained in this document represents components of the legal health record. It is not the complete legal health record.[facility]
[2025-07-13 08:17] VITALS: BMI 19.1
--- NOTE | 2025-07-13 08:17 | A.OFFVIS_ITS ---
Vital Signs 07/13/25 08:17 Height 5 ft 3 in Weight 108 lb BMI 19.1 Intake Visit Reasons: Pre-Op: R TKA w/ 07/17/25 Intake Note: Kera is an 89 year old female who presents with complaints of progressively worsening right knee pain. The patient describes her pain as sharp in nature. Her pain has gotten worse over the last few years in spite of continued non operative treatments. The patient states that she has had multiple cortisone injections as well as viscosupplementation injections. The most recent injection gave her minimal relief. The patient has difficulty walking even short distances because of her pain. At this point her right knee pain is interfering with her activities of daily living and her ability to sleep well through the night. She has done physical therapy exercises which aggravated her pain. She has also tried Tylenol and anti-inflammatory medicines which gave her minimal relief. Allergies penicillin V Allergy (Severe, Verified 07/13/25 08:18) hives, throat swelling. amoxicillin Allergy (Verified 07/13/25 08:18) Hives sulfamethoxazole (From Bactrim) Allergy (Verified 07/13/25 08:18) Unknown trimethoprim (From Bactrim) Allergy (Verified 07/13/25 08:18) Unknown Medication List - Last Reconciled 07/13/25 by Neville Cash MD albuterol sulfate 90 mcg/actuation 2 inhalations inhalation Q4H PRN amlodipine 5 mg PO DAILY aadfjxsjwc-hvdfmdzt-codiwemure 160-9-4.8 mcg/actuation (Breztri Aerosphere) 2 inhalations inhalation BID gabapentin 200 mg PO BEDTIME lisinopril 5 mg PO DAILY omeprazole 20 mg PO DAILY trazodone 50 mg PO BEDTIME walker Folding front wheeled walker [facility] Medical History Osteoporosis Restless leg syndrome Sarcoma Melanoma Lightheadedness Hyperparathyroidism Hiatal hernia COVID-19 COPD (chronic obstructive pulmonary disease) Bronchiectasis Asthma Cough Bronchitis SOB (shortness of breath) Otitis externa Peripheral neuropathy Hypertension Hypercholesterolemia Alberto thyroiditis Anxiety disorder Surgical History History of partial colectomy History of lobectomy of lung (~1979) History of local excision of skin lesion H/O colonoscopy History of removal of ovarian cyst Hx of appendectomy Family History Father No problems noted. Mother Hypertension Diabetes Social History Household Members Other:: Lives with and son Housing: House Are you a primary customer care coordinator to a significant other at home: No Do you presently have visiting nurse or other home services: No Patient Tobacco Use Status: Never used Tobacco e-Cigarette/Vaping Use: Never Used service: No Current occupational status: retired Current occupational exposures/hazards: No Cognitive needs: No Hearing needs: Yes Vision needs: Yes Physical Exam Const Other: Well-nourished well-developed very friendly female awake alert and oriented x3 in no acute distress Extrem Other: Bilateral lower extremity examination shows good capillary refill, no skin lesions noted, normal sensation light touch Right knee examination shows a minimal effusion, palpable crepitus with range of motion, pain with range of motion, range of motion from -3 degrees to 115 degrees, no instability Results Reviewed Results Reviewed: X-rays of the patient's right knee show end-stage degenerative joint disease with grade 4 uqfh-gq-iqos arthritis, subchondral sclerosis, no acute bony abnormalities Assessment & Plan Assessment & Plan (1) Arthritis of right knee: Code(s): M17.11 - Unilateral primary osteoarthritis, right knee Category: Medical Plan Ms. Calzada presents with progressively worsening right knee pain due to end- stage degenerative joint disease. I had a lengthy discussion with the patient regarding the treatment options. At this point she has failed continued non operative treatments. The risks and benefits of right total knee replacement surgery were discussed at length with the patient. The patient wishes to proceed. guest services manager will be consulted for home physical therapy and nursing versus possible inpatient rehabilitation following her surgery. The patient will follow-up as instructed. Feel free to call me at any time should questions regarding her orthopedic management arise. I spent 22 minutes in reviewing the patient's records and imaging studies, seeing the patient and documenting in the medical record. Orders: Orders Hemoglobin A1c Today Z01.818 - Encounter for other preprocedural examination Coding Level of Care Code Est Pt Level 3 (87932) Complex EM visit Add On G2211 Diagnoses Arthritis of right knee M17.11
--- OUTSIDE RECORDS SUMMARY | 2025-07-13 08:46 | XMS_ITS | Encounter Summary ---
Author Organization [facility] Address [address] [place] [address] Phone Care Team Providers Care Business Development Representative Name Role Phone Marleni Coffman MD Primary Care Provider [phone] Marleni Coffman MD Unavailable Ladonna Louise RN Unavailable Neville Cash MD Unavailable Encounter Details Date Type Department Care Team (Late st Contact Info) Description 07/05/2025 Orders Only [facility] [address] [place] [address] 3rd Floor, [address] [place] [address] Chioma Gresham DNP [facility], [address] [address] Social History Tobacco Use Types Packs/Day Years [...] Description 08/07/2025 9:30 AM EDT Office Visit [facility] [address] [place] [address] 3rd Floor, [address] [place] [address] Chioma Gresham DNP [facility], [address] [place] [address] 10/02/2025 1:00 PM EST Office Visit [facility] [address] [place] [address] [place] [address] Marleni Coffman MD [address] [place] [address] 11/27/2025 11:00 AM EST Appointment [facility] [address] [place] [address] Wagner Figueroa MD, MS [address] [address] 12/05/2025 9:15 AM EST Office Visit [facility] [address] [place] [address] Wagner Figueroa MD, MS [address] [address] 12/11/2025 10:45 AM EST Appointment [facility], Bone Density - [address] [address] Rex Villareal DO [address] [place] [address] 01/01/2026 10:30 AM EST Office Visit [facility] [address] [place] [address] [place] [address] Rex Villareal DO [address] [place] [address] documented as of this encounter Procedures Procedure Name Priority Date/Time Associated Diagnosis Comments OUTSIDE MONITOR Routine 07/05/2025 11:19 AM EDT documented in this encounter Results * Outside Monitor Report Only (07/05/2025 11:19 AM EDT) Chioma Gresham DNP [facility] ORDERABLES F inal Result documented in this encounter Visit Diagnoses Not on filedocumented in this encounter Additional Health Concerns Assessment Noted Time PHQ-9 Depression Total Score: 12 024 9:26 AM EST PHQ-2 Depression Total Score: 2 04/29/20 24 10:17 AM EDT documented as of this encounter Care Teams Business Development Representative Relationship Specialty Start Date End Date Marleni Coffman MD [address] [place] [address] [email or web address] PCP - General 08/20/17 Marleni Coffman MD [address] [place] [address] Insurance Assigned Provider 02/06/24 Ladonna Louise, RN [address] [place] [address] [email or web address] Gas Load Dispatcher 03/01/21 Neville Cash MD [address] [place] [address] [address] [place] [address] Orthopedic Surgery 06/05/25 documented as of this encounter Additional Source Comments The information contained in this document represents components of the legal health record. It is not the complete legal health record.[facility]
--- OUTSIDE RECORDS SUMMARY | 2025-07-13 08:46 | XMS_ITS | Encounter Summary ---
Author Organization [facility] Address [address] [place] [address] [place] [address] Phone Care Team Providers Care Behavioral Services Tech Name Role Phone Marleni Coffman MD Primary Care Provider [phone] Marleni Coffman MD Unavailable [phone] Jaleesa Rod RN Unavailable Jihan Resendiz RN Unavailable [email or web address] Ladonna Louise RN Unavailable [phone] Allison Rice Unavailable [email or web address] Neville Cash MD Unavailable [phone] Reason for Referral * MRI/CAT Scan - Closed Specialty Diagnoses / Procedures Referred By Contac t Referred To Contact Procedures CT Chest Outside (No Interpretation) System, Provider Not In, PhD [address] [address] Referral ID Status Reason Start Date Expiration Date Visits Re quested Visits Authorized [id number] Closed 09/16/2017 09/16/2018 1 1 * MRI/CAT Scan - Closed Specialty Diagnoses / Procedures Referred By Contac t Referred To Contact Procedures CT Chest Outside (No Interpretation) System, Provider Not In, PhD [address] [address] Referral ID Status Reason Start Date Expiration Date Visits Re quested Visits Authorized [id number] Closed 09/16/2017 09/16/2018 1 1 Encounter Details Date Type Department Care Team (Late Contact Info) Description 09/16/2017 Ancillary Orders [facility],Outside Imaging [address] [place] [address] System, Provider Not In, [place] [address] Social History Tobacco Use Types Packs/Day Years [...] Department Care Team (Late Contact Info) Description 08/07/2025 9:30 AM EDT Office Visit [facility] [address] [place] [address] 3rd Floor, [address] [place] [address] Chioma Gresham DNP [address] [place] [address], [address] [address] 10/02/2025 1:00 PM EST Office Visit [facility] [address] [place] [address] [place] [address] Marleni Coffman MD [address] [place] [address], [address] [place] [address] 11/27/2025 11:00 AM EST Appointment [facility] [address] [place] [address] Wagner Figueroa MD, MS [address] [address] 12/05/2025 9:15 AM EST Office Visit [facility] [address] [facility] [place] [address] Wagner Figueroa MD, MS [address] [facility] 2nd [place] [address] 12/11/2025 10:45 AM EST Appointment [facility], [facility] D[facility] - [facility] [address] [place] [address] Rex Villareal, DO 22 [place] [address] 01/01/2026 10:30 AM EST Office Visit [facility] [address] [place] [address] Rex Villareal, DO 22 [place] [address] documented as of this encounter Results * [...] documented as of this encounter Care Teams Behavioral Services Tech Relationship Specialty Start Date End Date Marleni Coffman MD [address] [place] [address], [address] [place] [address] [email or web address] PCP - General 08/20/17 Marleni Coffman MD [address] [place] [address], [address] [place] [address] [email or web address] Insurance Assigned Provider 02/06/24 Jaleesa Rod RN [address] [place] [address] [facility] Senior Revenue Accountant 06/22/19 08/31/19 Jihan Resendiz, JOANA [address] [place] [address] [email or web address] [facility] Senior Revenue Accountant 09/01/19 02/28/21 Ladonna Louise, RN [address] [place] [address] [phone] [facility] Senior Revenue Accountant 03/01/21 Allison Rice [address] [place] [address] [email or web address] [facility] Community Box Icer 04/19/24 04/19/24 Neville Cash MD [address] [place] [address] Dr [address] [place] [address] Orthopedic Surgery 06/05/25 documented as of this encounter Additional Source Comments The information contained in this document represents components of the legal health record. It is not the complete legal health record.[facility]
--- OUTSIDE RECORDS SUMMARY | 2025-07-13 08:46 | XMS_ITS | Encounter Summary ---
Author Organization [facility] Address [address] [facility] [address] [place] [address] Phone Care Team Providers Care Bridge Toll Collector Name Role Phone Marleni Coffman MD Primary Care Provider [phone] Marleni Coffman MD Unavailable [phone] Ladonna Louise RN Unavailable [phone] Neville Cash MD Unavailable Reason for Visit * Reason Onset Date Comments Appointment 07/04/2025 PROLIA Encounter Details Date Type Department Care Team (Late st Contact Info) Description 07/04/2025 Telephone [facility] [address] [place] [address] [phone] Juliana Ladd, JOANA 22 [place] [address] [email or web address] Appointment (PROLIA) Social History Tobacco Use Types Packs/Day Years [...] on file documented as of this encounter Progress Notes * Juliana Ladd, JOANA - 07/04/2025 10:37 AM EDT Patient came in for her scheduled Prolia visit today, and just now informed me that she will have total knee replacement surgery on 07/12. She has not discussed if okay to get prolia injection with surgeon. She is concerned about getting her Prolia injection so close to the surgery. I talked to Dr. Villareal, who doesn't believe there is any contraindication, but advised if she doesn't want to do it today, she can consult with her surgeon. She was due for Prolia as of 06/29. I told her there is a 2week window before osteoclasts activate and cause rapid decrease in BMD. She will talk to her surgeon and see if okay to get Prolia and get back to me. I told her I am available all this week for an appointment. If she can't get the injection, will discuss further with provider to formulate a plan.She does understand the risk of not getting her injection on time. I will await her call back. documented in this encounter Plan of Treatment Upcoming Encounters Date Type Department Care Team (Late st Contact Info) Description 08/07/2025 9:30 AM EDT Office Visit [facility] [address] [place] [address] 3rd Floor, [address] [place] [address] Chioma Gresham DNP [address] [place] [address], [address] [address] 10/02/2025 1:00 PM EST Office Visit [facility] [address] [place] [address] [place] [address] Marleni Coffman MD [address] [place] [address], [address] [place] [address] 11/27/2025 11:00 AM EST Appointment [facility] 30 [place] [address] Wagner Figueroa MD, MS [address] [address] [email or web address] 12/05/2025 9:15 AM EST Office Visit [facility] [address] [place] [address] [place] [address] Wagner Figueroa MD, MS [address] [address] 12/11/2025 10:45 AM EST Appointment [facility], Bone Density - [address] [address] Rex Villareal, DO [address] [place] [address] 01/01/2026 10:30 AM EST Office Visit [facility] [address] [place] [address] Rex Villareal, DO [address] [place] [address] documented as of this encounter Visit Diagnoses Not on filedocumented in this encounter Additional Health Concerns Assessment Noted Time PHQ-9 Depression Total Score: 12 01/06/ 024 9:26 AM EST PHQ-2 Depression Total Score: 2 04/29/20 24 10:17 AM EDT documented as of this encounter Care Teams Bridge Toll Collector Relationship Specialty Start Date End Date Marleni Coffman MD [address] [place] [phone] PCP - General 08/20/17 Marleni Coffman MD [address] [place] [address] Insurance Assigned Provider 02/06/24 Ladonna Louise, RN [address] [place] [address] iCMP Brush Operator 03/01/21 Neville Cash MD [address] [place] [address] [address] [place] [address] Orthopedic Surgery 06/05/25 documented as of this encounter Additional Source Comments The information contained in this document represents components of the legal health record. It is not the complete legal health record.[facility]
--- OUTSIDE RECORDS SUMMARY | 2025-07-13 08:46 | XMS_ITS | Encounter Summary ---
Author Organization [facility] Address [address] [place] [address] Phone Care Team Providers Care Estate Conservator Name Role Phone Marleni Coffman MD Primary Care Provider [phone] Marleni Coffman MD Unavailable [phone] Ladonna Louise RN Unavailable [phone] Neville Cash MD Unavailable Encounter Details Date Type Department Care Team (Late st Contact Info) Description 07/12/2025 Telephone [facility] [address] [facility] 3rd Floor, [address] [place], [place] [phone] Beata Arredondo 22 [place] [address] Social History Tobacco Use Types Packs/Day Years [...] as of this encounter Progress Notes * Beata Arredondo - 07/12/2025 9:04 AM EDT I received an urgent cardiac clearance on this pt who is to have knee replacement surgery on 07/17/25 is this pt cleared for this surgery? documented in this encounter Plan of Treatment Upcoming Encounters Date Type Department Care Team (Late st Contact Info) Description 08/07/2025 9:30 AM EDT Office Visit [facility] [address] [place] [address] 3rd Floor, [address] [place] [address] Chioma Gresham DNP 22 [facility], [address] [address] 10/02/2025 1:00 PM EST Office Visit [address] [place] [address] Marleni Coffman MD [address] [place] [address] 11/27/2025 11:00 AM EST Appointment [facility] [address] [place] [address] Wagner Figueroa MD, MS [address] [address] 12/05/2025 9:15 AM EST Office Visit [facility] [address] [place] [address] Wagner Figueroa MD, MS [address] [address] 12/11/2025 10:45 AM EST Appointment [facility], [facility] D[facility] - [facility] 30 [place] [address] Rex Villareal DO 22 [place] [address] 01/01/2026 10:30 AM EST Office Visit [facility] 22 [place] [address] Rex Villareal DO 22 [place] [address] [email or web address] documented as of this encounter Visit Diagnoses Not on filedocumented in this encounter Additional Health Concerns Assessment Noted Time PHQ-9 Depression Total Score: 12 024 9:26 AM EST PHQ-2 Depression Total Score: 2 04/29/20 24 10:17 AM EDT documented as of this encounter Care Teams Estate Conservator Relationship Specialty Start Date End Date Marleni Coffman MD [address] [place] [address] [email or web address] PCP - General 08/20/17 Marleni Coffman MD [address] [place] [address] [email or web address] Insurance Assigned Provider 02/06/24 Ladonna Louise, RN [address] [place] [address] [email or web address] Metal Annealer 03/01/21 Neville Cash MD [address] [place] [address] [address] [place] [address] Orthopedic Surgery 06/05/25 documented as of this encounter Additional Source Comments The information contained in this document represents components of the legal health record. It is not the complete legal health record.[facility]
--- OUTSIDE RECORDS SUMMARY | 2025-07-13 08:47 | XMS_ITS | Encounter Summary ---
Author Organization [facility] Address [address] [place] [address] [place] [address] Phone Care Team Providers Care Radio Journalist Name Role Phone Marleni Coffman MD Primary Care Provider [phone] Marleni Coffman MD Unavailable [phone] Jihan Resendiz RN Unavailable [email or web address] Ladonna Louise RN Unavailable [phone] Allison Rice Unavailable [email or web address] Neville Cash MD Unavailable Encounter Details Date Type Department Care Team (Late st Contact Info) Description 08/21/2020 Procedure Pass [facility] [place] [place] [address] Social History Tobacco Use Types Packs/Day Years Used Date Smoking Tobacco: Never Smokeless Tobacco: Never Alcohol Use Standard Drinks/Week Comments Not Currently 0 (1 standard drink = 0.6 oz pur e alcohol) rare Comments No Sex and Gender Information Value [...] Description 08/07/2025 9:30 AM EDT Office Visit [facility] [address] [place] [address] 3rd [facility], [address] [place] [address] Chioma Gresham DNP [address] [address] 10/02/2025 1:00 PM EST Office Visit [facility] [address] [place] [address] Marleni Coffman MD [address] [place] [address] 11/27/2025 11:00 AM EST Appointment [facility] [address] [place] [address] Wagner Figueroa MD, MS [address] [address] 12/05/2025 9:15 AM EST Office Visit [facility] [address] [place] [address] Wagner Figueroa MD, MS [address] [address] 12/11/2025 10:45 AM EST Appointment [facility], Bone Density - [address] [address] Rex Villareal DO [address] [place] [address] 01/01/2026 10:30 AM EST Office Visit [facility] [address] [place] [address] [place] [address] Rex Villareal, DO 22 [place] [address] [email or web address] documented as of this encounter Visit Diagnoses Not on filedocumented in this encounter Additional Health Concerns Infection Onset Date Last Indicated Resolved Time CoV-Risk Comment:Per Ambulatory Triage Form 10/30/2021 11/06/202111/08 5:08 AM EST COVID-19 Comment:Pt not immunocompromised SX free and 19 days have passed since positive test. 11/06/2021 11/06/2021 11/25/2021 1:[address] COVID-19 02/19/2023 02/19/2023 03/12/2023 1:21 AM EDT CDiff-Risk 04/05/2025 04/19/2025 04/12/2025 1:21 AM EDT CDiff-Risk 04/19/2025 04/19/2025 04/19/2025 9:22 PM EDT Assessment Noted Time PHQ-2 Depression Total Score: 2 01/09/20 10:26 AM EST documented as of this encounter Care Teams Radio Journalist Relationship Specialty Start Date End Date Marleni Coffman MD [address] [place] [address] [email or web address] PCP - General 08/20/17 Marleni Coffman MD [address] [place] [address] [email or web address] Insurance Assigned Provider 02/06/24 Jihan Resendiz RN [address] [place] [address] [email or web address] [facility] Booster Operator 09/01/19 02/28/21 Ladonna Louise RN [address] [place] [address] [phone] [email or web address] [facility] Booster Operator 03/01/21 Allison Rice [address] [place] [address] [email or web address] [facility] Community Technical Instructor Course Developer 04/19/24 04/19/24 Neville Cash MD [address] [place] [address] Dr [address] [place] [address] Orthopedic Surgery 06/05/25 documented as of this encounter Additional Source Comments The information contained in this document represents components of the legal health record. It is not the complete legal health record.[facility]
--- OUTSIDE RECORDS SUMMARY | 2025-07-13 08:47 | XMS_ITS | Encounter Summary ---
Author Organization [facility] Address [address] [facility] [address] [place] [address] Phone Care Team Providers Care Real Estate Broker Name Role Phone Marleni Coffman MD Primary Care Provider [phone] Marleni Coffman MD Unavailable [phone] Ladonna Louise RN Unavailable [phone] Neville Cash MD Unavailable [phone] Encounter Details Date Type Department Care Team (Latest Contact Info) Description 04/05/2025 Transcribe Orders [facility] [address] [id number] Inge Wolf NP 10 [place], [place] [id number] [email or web address] [employer] ([email or web address]) Chronic diarrhea (Primary Dx) Social History Tobacco Use Types Packs/Day Years [...] Description 08/07/2025 9:30 AM EDT Office Visit [facility] [place] 3rd Floor, [address] [place] [address] Mp ChiomaJUSTUS niño 22 [facility], [address] [place] [address] 10/02/2025 1:00 PM EST Office Visit [facility] [address] [place] [address] [place] [address] Marleni Coffman MD [address] [place] [address] 11/27/2025 11:00 AM EST Appointment [facility] [address] [place] [address] Wagner Figueroa MD, MS [address] [address] 12/05/2025 9:15 AM EST Office Visit [facility], Allergy and Critical [facility] Medicine [address] [place] [address] Wagner Figueroa MD, MS [address] [address] 12/11/2025 10:45 AM EST Appointment [facility], Bone Density - [address] [address] Rex Villareal DO [address] [place] [address] 01/01/2026 10:30 AM EST Office Visit [facility] [address] [place] [address] [place] [address] Rex Villareal DO [address] [place] [address] documented as of this encounter Results * Fecal immunochemical test x1 (FIT) (04/19/2025 1:00 PM EDT) Immuno Fecal Occult Negative Negative [facility] Stool (Stool) 04/19/2025 1:0 0 PM EDT 04/19/2025 2:02 PM EDT Inge Wolf BARGE WORKER BODY FLUIDS AND STOOLS ORDE RABLES Final Result Performing Organization Address City/[facility]/ZIP Co de Phone Number [address] [address] * Stool culture (04/19/2025 1:00 PM EDT) Special Requests None 04/19/2025 2:01 PM EDT [facility] Stool Culture NO SALMONELLA, SHIGELLA OR CAMPYLOBACTER ISOLATED 04/21/2025 8:11 AM EDT [facility] Stool (Stool) 04/19/2025 1:0 0 PM EDT 04/19/2025 2:03 PM EDT Inge Wolf NP MICROBIOLOGY - GENERAL ORDE RABTHOMAS Final Result Performing Organization Address [facility]/ZIP Co de Phone Number [address] [address] * Giardia and cryptosporidium screen (04/19/2025 1:00 PM EDT) GIARDIA AG Negative Negative [facility] Cryptosporidiu m, stool Negative Negative [facility] Stool (Stool) 04/19/2025 1:0 0 PM EDT 04/19/2025 2:02 PM EDT Inge Wolf BARGE WORKER NON CULTURE MICROBIOLOGY Fi nal Result Performing Organization Address [facility]/ZIP Co de Phone Number [address] [address] * Calprotectin, stool (04/19/2025 1:00 PM EDT) STOOL CALPROTECTIN 24 mcg/g [facility] [facility] [place] Comment: (NOTE) Reference Range: <50 Normal 50-120 Borderline >120 Elevated Calprotectin in Crohn's disease and ulcerative colitis can be five to several thousand times above the reference population (50 mcg/g or less). Levels are usually 50 mcg/g or less in healthy patients and with irritable bowel syndrome. Repeat testing in 4-6 weeks is suggested for borderline values. Stool (Stool) 04/19/2025 1:0 0 PM EDT 04/19/2025 2:03 PM EDT Inge Wolf BARGE WORKER BODY FLUIDS AND STOOLS KOBI SALDANA Final Result [facility] [facility] [place] [address] [place] [address], [facility] [phone] * Ova and parasites, stool (04/16/2025 10:00 AM EDT) Parasitic exam FINAL 5 1557 [facility] DPT OF LAB MED AND PAT+ Comment: (NOTE) SOURCE: STOOL, STLP OVA AND PARASITE, MICROSCOPY, F FINAL No parasites seen. Cryptosporidium, Cyclospora, and microsporidia are not readily detected by this method. Single negative specimen does not rule out parasitic infection. Stool (Stool) 04/16/2025 10: 00 AM EDT 04/17/2025 9:58 AM EDT Inge Wolf NP MICROBIOLOGY - GENERAL ORDMelania MARYANNTHOMAS Final Result [facility] DPT OF LAB MED AND PAT+ [address] [place] [address] * Ova and parasites, stool (04/14/2025 10:00 AM EDT) Parasitic exam FINAL 5 1551 [facility] DPT OF LAB MED AND PAT+ Comment: (NOTE) SOURCE: STOOL, STLP OVA AND PARASITE, MICROSCOPY, F FINAL No parasites seen. Cryptosporidium, Cyclospora, and microsporidia are not readily detected by this method. Single negative specimen does not rule out parasitic infection. Stool (Stool) 04/14/2025 10: 00 AM EDT 04/17/2025 9:58 AM EDT Inge Wolf BARGE WORKER MICROBIOLOGY - GENERAL ORDE RABLES Final Result [facility] DPT OF LAB MED AND PAT+ [address] [place] [address] * C-Reactive Protein (04/05/2025 3:04 PM EDT) Pathologist [facility] C REACTIVE PROTEIN <3.0 0.0 - 4.0 mg/L [facility] Blood 04/05/2025 3:04 PM EDT 04/05/2025 3:17 PM EDT Inge Wolf BARGE WORKER LAB BLOOD ORDERABLES Final Result [facility] [address] [place] [address] * (ABNORMAL) Comprehensive metabolic panel (04/05/2025 3:04 PM EDT) SODIUM 139 133 - 146 mmol/L [facility] POTASSIUM 4.7 3.3 - 5.1 mmol/L [facility] CHLORIDE 105 96 - 108 mmol/L [facility] CO2 23 21 - 35 mmol/L [facility] BUN 29(H) 6 - 19 mg/dL [facility] CREATININE 1.20 0.5 - 1.5 mg/dL [facility] GLUCOSE 93 70 - 99 mg/dL [facility] ALBUMIN 4.1 3.9 - 4.8 g/dL [facility] TOTAL PROTEIN 7.1 6.5 - 8.0 g/dL [facility] CALCIUM 10.2 8.4 - 10.3 mg/dL [facility] ALKALINE PHOSPHATASE 46 39 - 117 U/L [facility] TOTAL BILIRUBIN 0.5 0.0 - 1.2 mg/dL [facility] AST 33 0 - 37 U/L [facility] ALT 14 0 - 40 U/L [facility] GLOBULIN 3.0 1 - 4.8 g/dL [facility] EGFR 44(L) >59 mL/min/1.7 3m2 [facility] Comment:Estimated glomerular filtration rate calculated using the CKD-EPI refit equation. ANION GAP 16 10 - 20 mmol/L [facility] Blood 04/05/2025 3:04 PM EDT 04/05/2025 3:17 PM EDT us Inge Wolf BARGE WORKER LAB BLOOD ORDERABLES Final Result [facility] [address] [place] [address] * CBC and differential (04/05/2025 3:04 PM EDT) WBC 7.95 4.00 - 11.00 K/uL [facility] RBC 4.58 4.00 - 5.20 M/uL [facility] HGB 13.5 12.0 - 16.0 g/dL [facility] HCT 42.2 36.0 - 46.0 % [facility] PLT 326 150 - 450 K/uL [facility] MCV 92.1 80.0 - 100.0 [facility] MCH 29.5 27.0 - 31.0 pg [facility] MCHC 32.0 32.0 - 36.0 g/dL [facility] RDW 13.2 11.5 - 14.5 % [facility] MPV 10.3 8.4 - 12.0 fL [facility] NRBC 0.00 0.00 /100 WBCs [facility] ABSOLUTE NRBC 0.00 0.00 K/uL [facility] DIFF METHOD Auto [facility] NEUTS 63.1 48.0 - 76.0 % [facility] LYMPHS 26.7 18.0 - 41.0 % [facility] MONOS 7.8 4.0 - 11.0 % [facility] EOS 1.1 0.0 - 5.0 % [facility] BASOS 0.8 0.0 - 1.5 % [facility] Granulocytes, immature (%) 0.5 0.0 - 0.9 % [facility] ABSOLUTE NEUTS 5.02 1.92 - 7.60 K/uL [facility] ABSOLUTE LYMPHS 2.12 0.72 - 4.10 K/uL [facility] ABSOLUTE MONOS 0.62 0.16 - 1.10 K/uL [facility] ABSOLUTE EOS 0.09 0.00 - 0.50 K/uL [facility] ABSOLUTE BASOS 0.06 0.00 - 0.15 K/uL [facility] Granulocytes, immature 0.04 0.00 - 0.09 K/uL [facility] Blood 04/05/2025 3:04 PM EDT 04/05/2025 3:17 PM EDT Inge Wolf BARGE WORKER LAB BLOOD ORDERABLES Final Result Performing Organization Address [facility]/ZIP Co de Phone Number [address] [address] * Immunoglobulin A (04/05/2025 3:04 PM EDT) IgA 301 70 - 400 mg/dL [facility] Blood 04/05/2025 3:04 PM EDT 04/05/2025 3:17 PM EDT Inge Candiemelania Wolf BARGE WORKER LAB BLOOD ORDERABLES Final Result Performing Organization Address [facility] Co de Phone Number [address] [address] * Tissue transglutaminase IgA (04/05/2025 3:04 PM EDT) TTG IGA ANTIBODY <1.2 <4.0 (Negative) U/mL [facility] Blood 04/05/2025 3:04 PM EDT 04/05/2025 3:18 PM EDT Inge Wolf BARGE WORKER LAB BLOOD ORDERABLES Final Result [facility] [address] [place] [address] documented in this encounter Visit Diagnoses Diagnosis Chronic diarrhea- Primary Diarrhea documented in this encounter Additional Health Concerns Infection Onset Date Last Indicated Resolved Time CDiff-Risk 04/05/2025 04/19/2025 04/12/2025 1:21 AM EDT CDiff-Risk 04/19/2025 04/19/2025 04/19/2025 9:22 PM EDT Assessment Noted Time PHQ-9 Depression Total Score: 12 01/06/ 024 9:26 AM EST PHQ-2 Depression Total Score: 2 04/29/20 24 10:17 AM EDT documented as of this encounter Care Teams Real Estate Broker Relationship Specialty Start Date End Date Marleni Coffman MD [address] [place] [address] [email or web address] PCP - General 08/20/17 Marleni Coffman MD [address] [place] [address] Insurance Assigned Provider 02/06/24 Ladonna Louise, RN [address] [place] [address] [email or web address] iC[employer] Reconditioning Associate 03/01/21 Neville Cash MD [address] [place] [address] [address] [place] [address] Orthopedic Surgery 06/05/25 documented as of this encounter Additional Source Comments The information contained in this document represents components of the legal health record. It is not the complete legal health record.[facility]
--- OUTSIDE RECORDS SUMMARY | 2025-07-13 08:47 | XMS_ITS | Encounter Summary ---
Author Organization [facility] Address [email or web address] [place] [address] Phone Care Team Providers Care Doweling Machine Operator Name Role Phone Marleni Coffman MD Primary Care Provider [phone] Marleni Coffman MD Unavailable [phone] Ladonna Louise RN Unavailable [phone] Neville Cash MD Unavailable [phone] Encounter Details Date Type Department Care Team (Late st Contact Info) Description 02/17/2025 Procedure Pass Echo Lab [place] [place] [address] Social History Tobacco Use Types Packs/Day Years [...] Description 08/07/2025 9:30 AM EDT Office Visit [facility] 3rd Floor, [address] [place] [address] Chioma Gresham DNP 22 [facility], [address] [place] [address] 10/02/2025 1:00 PM EST Office Visit [facility] [address] [place] [address] [place] [address] Marleni Coffman MD [address] [place] [address] 11/27/2025 11:00 AM EST Appointment [facility] [address] [place] [address] Wagner Figueroa MD, MS [address] [address] 12/05/2025 9:15 AM EST Office Visit [facility] [address] [place] [address] Wagner Figueroa MD, MS [address] [address] 12/11/2025 10:45 AM EST Appointment [facility], Bone Density - [address] [address] Rex Villareal DO [address] [place] [address] 01/01/2026 10:30 AM EST Office Visit [facility] [address] [place] [address] Rex Villareal DO [address] [place] [address] documented as of this encounter Visit Diagnoses [...] documented as of this encounter Care Teams Doweling Machine Operator Relationship Specialty Start Date End Date Marleni Coffman MD [address] [place] [address], 2nd [place] [address] [email or web address] PCP - General 08/20/17 Marleni Coffman MD [address] [place] [address], [address] [place] [address] [email or web address] Insurance Assigned Provider 02/06/24 Ladonna Louise, RN [address] [place] [address] [email or web address] iCMP Risk Manager 03/01/21 Neville Cash MD [address] [place] [address] [place] [address] Orthopedic Surgery 06/05/25 documented as of this encounter Additional Source Comments The information contained in this document represents components of the legal health record. It is not the complete legal health record.[facility]
--- OUTSIDE RECORDS SUMMARY | 2025-07-13 08:47 | XMS_ITS | Encounter Summary ---
Author Organization [facility] Address 399 [facility] [address] [place] [address] Phone Care Team Providers Care Ham Smoker Name Role Phone Marleni Coffman MD Primary Care Provider [phone] Marleni Coffman MD Unavailable [phone] Ladonna Louise RN Unavailable [phone] Allison Rice Unavailable ruby Neville Cash MD Unavailable [phone] Encounter Details Date Type Department Care Team (Late st Contact Info) Description 06/13/2022 Telephone [facility] [address] [place] [address] [place] [address] Marleni Coffman MD [address] [place] [address], 2nd [place] [address] [email or web address] Social History Tobacco Use Types Packs/Day Years [...] Answer Date Recorded Are you interested in help w ith more adult education (for example, completing high school, GED, job training, learning the [place] language, technical skills, or developing parenting skills)? No 04/26/2021 Food Answer Date Recorded Within the past [...] basis, and looking for work? No 04/26/2021 Comments No Sex and Gender Information Value [...] Description 08/07/2025 9:30 AM EDT Office Visit [facility] [address] [place] [address] 3rd Floor, [address] [place] [address] Chioma Gresham DNP [address] [place] [address] 10/02/2025 1:00 PM EST Office Visit [facility] [address] [place] [address] [place] [address] Marleni Coffman MD [address] [place] [address], 2nd [place] [address] 11/27/2025 11:00 AM EST Appointment [facility] 30 [place] [address] Wagner Figueroa MD, MS [address] [address] 12/05/2025 9:15 AM EST Office Visit [facility] [address] [place] [address] Wagner Figueroa MD, MS [address] [address] 12/11/2025 10:45 AM EST Appointment [facility] - [facility] 30 [place] [address] Rex Villareal DO [address] [place] [address] 01/01/2026 10:30 AM EST Office Visit [facility] 22 [place] [address] Rex Villareal DO 22 [place] [address] documented as of this encounter Visit Diagnoses Not on filedocumented in this encounter Additional Health Concerns Infection Onset Date Last Indicated Resolved Time COVID-19 02/19/2023 02/19/2023 03/12/2023 1:21 AM EDT CDiff-Risk 04/05/2025 04/19/2025 04/12/2025 1:21 AM EDT CDiff-Risk 04/19/2025 04/19/2025 04/19/2025 9:22 PM EDT Assessment Noted Time PHQ-2 Depression Total Score: 2 04/17/20 10:42 AM EDT documented as of this encounter Care Teams Ham Smoker Relationship Specialty Start Date End Date Marleni Coffman MD [address] [place] [address], 2nd [place] [address] [email or web address] PCP - General 08/20/17 Marleni Coffman MD [address] [place] [address], 2nd [place] [address] [email or web address] Insurance Assigned Provider 02/06/24 Ladonna Louise, RN [address] [place] [address] [email or web address] iCMP Band Shover 03/01/21 Allison Rice [address] [place] [address] [email or web address] iCMP Community Hunter Trapper 04/19/24 04/19/24 Neville Cash MD [address] [place] [address] Dr [place] [address] [place] [address] Orthopedic Surgery 06/05/25 documented as of this encounter Additional Source Comments The information contained in this document represents components of the legal health record. It is not the complete legal health record.[facility]
--- OUTSIDE RECORDS SUMMARY | 2025-07-13 08:47 | XMS_ITS | Encounter Summary ---
Author Organization [facility] Address [address] [place] [address] Phone Care Team Providers Care Mobile Disc Jockey Name Role Phone Marleni Coffman MD Primary Care Provider [phone] Marleni Coffman MD Unavailable [phone] Ladonna Louise RN Unavailable [phone] Allison Rice Unavailable ruby [email or web address] Neville Cash MD Unavailable [phone] Encounter Details Date Type Department Care Team (Late st Contact Info) Description 08/06/2023 Procedure Pass [address] [place] [address] Social History Tobacco Use Types Packs/Day Years [...] with a working camera? Not on file Comments No Sex and Gender Information Value [...] Description 08/07/2025 9:30 AM EDT Office Visit [facility] [address] [place] [address] 3rd Floor, [address] [place] [address] Chioma Gresham DNP [address] [place] [address], [address] [address] 10/02/2025 1:00 PM EST Office Visit [facility] [address] [place] [address] [place] [address] Marleni Coffman MD [address] [place] [address], 2nd [place] [address] 11/27/2025 11:00 AM EST Appointment [facility] 30 [place] [address] Wagner Figueroa MD, MS [address] [address] 12/05/2025 9:15 AM EST Office Visit [facility] [address] [place] [address] Wagner Figueroa MD, MS [address] [address] 12/11/2025 10:45 AM EST Appointment [facility], [facility] D[facility] - [facility] 30 [place] [address] Rex Villareal DO [address] [place] [address] 01/01/2026 10:30 AM EST Office Visit [facility] [address] [place] [address] Rex Villareal DO 22 [place] [address] documented as of this encounter Visit Diagnoses Not on filedocumented in this encounter Additional Health Concerns Infection Onset Date Last Indicated Resolved Time CDiff-Risk 04/05/2025 04/19/2025 04/12/2025 1:21 AM EDT CDiff-Risk 04/19/2025 04/19/2025 04/19/2025 9:22 PM EDT Assessment Noted Time PHQ-2 Depression Total Score: 2 01/17/20 23 10:12 AM EDT documented as of this encounter Care Teams Mobile Disc Jockey Relationship Specialty Start Date End Date Marleni Coffman MD [address] [place] [address] [email or web address] PCP - General 08/20/17 Marleni Coffman MD [address] [place] [address], 2nd [place] [address] [email or web address] Insurance Assigned Provider 02/06/24 Ladonna Louise, JOANA [address] [place] [address] [email or web address] iCMP Dial Refinisher 03/01/21 Allison Rice [address] [place] [address] [email or web address] Drug And Alcohol Counsellor 04/19/24 04/19/24 Neville Cash MD [address] [place] [address] Orthopedic Surgery 06/05/25 documented as of this encounter Additional Source Comments The information contained in this document represents components of the legal health record. It is not the complete legal health record.[facility]
--- OUTSIDE RECORDS SUMMARY | 2025-07-13 08:47 | XMS_ITS | Encounter Summary ---
Author Organization [facility] Address [address] [place] [address] Phone Care Team Providers Care Laborer Carpentry Dock Name Role Phone Marleni Coffman MD Primary Care Provider [phone] Marleni Coffman MD Unavailable [phone] Ladonna Louise RN Unavailable [phone] Allison Rice Unavailable ruby [email or web address] Neville Cash MD Unavailable [phone] Encounter Details Date Type Department Care Team (Late st Contact Info) Description 07/18/2022 Procedure Pass [address] [place] [address] Social History Tobacco Use Types Packs/Day Years [...] high school, GED, job training, learning the Uzbek language, technical skills, or developing parenting skills)? No 04/26/2021 Food Answer Date Recorded Within the past 6 months we worried whether our food would run out before we got money to buy more. Never True 04/26/2021 Food didn't last Not on file 04/26/2021 Residential Stability Answer Date Recor ded What is your housing situation today? I have brady sing 04/26/2021 How many times have you move [...] Description 08/07/2025 9:30 AM EDT Office Visit [facility] [address] [place] [address] 3rd [facility], [address] [place] [address] Chioma Gresham DNP [address] [address] 10/02/2025 1:00 PM EST [facility] [address] [place] [address] [place] [address] Marleni Coffman MD [address] [place] [address] 11/27/2025 11:00 AM EST Appointment [facility] 30 [place] [address] Wagner Figueroa MD, MS [address] [address] [email or web address] 12/05/2025 9:15 AM EST Office Visit [facility] 10 [facility] [place] [address] Wagner Figueroa MD, MS [address] [address] 12/11/2025 10:45 AM EST Appointment [facility], [address] [address] Rex Villareal [address] [address] [email or web address] 01/01/2026 10:30 AM EST Office Visit [facility] [address] [place] [address] Rex Villareal [address] [address] documented as of this encounter Visit Diagnoses Not on filedocumented in this encounter Additional Health Concerns Infection Onset Date Last Indicated Resolved Time COVID-19 02/19/2023 02/19/2023 03/12/2023 1:21 AM EDT CDiff-Risk 04/05/2025 04/19/2025 04/12/2025 1:21 AM EDT CDiff-Risk 04/19/2025 04/19/2025 04/19/2025 9:22 PM EDT Assessment Noted Time PHQ-2 Depression Total Score: 2 04/17/20 22 10:42 AM EDT documented as of this encounter Care Teams Laborer Carpentry Dock Relationship Specialty Start Date End Date Marleni Coffman MD [address] [place] [address] PCP - General 08/20/17 Marleni Coffman MD [address] [place] [address], 2nd [place] [address] [email or web address] Insurance Assigned Provider 02/06/24 Ladonna Louise, RN [address] [place] [address] [email or web address] Top Collar Baster 03/01/21 Allison Rice [address] [place] [address] [email or web address] Community Health Information Clerk 04/19/24 04/19/24 Neville Cash MD [address] [place] [address] Orthopedic Surgery 06/05/25 documented as of this encounter Additional Source Comments The information contained in this document represents components of the legal health record. It is not the complete legal health record.[facility]
--- OUTSIDE RECORDS SUMMARY | 2025-07-13 08:47 | XMS_ITS | Encounter Summary ---
Author Organization [facility] Address [address] [place] [address] [place] [phone] Phone Care Team Providers Care Network Systems Operator Name Role Phone Marleni Coffman MD Primary Care Provider [phone] Marleni Coffman MD Unavailable [phone] Jaleesa Rod RN Unavailable [phone] Jihan Resendiz RN Unavailable [email or web address] Ladonna Louise RN Unavailable [phone] Allison Rice Unavailable [email or web address] Neville Cash MD Unavailable [phone] Encounter Details Date Type Department Care Team (Late st Contact Info) Description 09/16/2017 Procedure Pass [facility],Outside Imaging [address] [place] [address] Social History Tobacco Use Types Packs/Day Years [...] Description 08/07/2025 9:30 AM EDT Office Visit [facility] [address] [place] [address] 3rd Floor, [address] [place] [phone] Chioma Gresham DNP [address] [address] 10/02/2025 1:00 PM EST Office Visit [facility] [address] [place] [address] Marleni Coffman MD [address] [place] [address] 11/27/2025 11:00 AM EST Appointment [facility] [address] [place] [address] Wagner Figueroa MD, MS [address] [address] 12/05/2025 9:15 AM EST Office Visit [facility] [address] [place] [address] Wagner Figueroa MD, MS [address] [address] 12/11/2025 10:45 AM EST Appointment [facility], Bone Density - [address] [address] Rex Villareal DO [address] [place] [address] 01/01/2026 10:30 AM EST Office Visit [facility] [address] [place] [address] [place] [address] Rex Villareal DO [address] [place] [address] [email or web address] documented as of this encounter Visit Diagnoses [...] documented as of this encounter Care Teams Network Systems Operator Relationship Specialty Start Date End Date Marleni Coffman MD [address] [place] [phone] [email or web address] PCP - General 08/20/17 Marleni Coffman MD [address] [place] [address] [email or web address] Insurance Assigned Provider 02/06/24 Jaleesa Rod RN [address] [place] [address] [email or web address] [employer] Commercial Collections Driver 06/22/19 08/31/19 Jihan Resendiz RN [address] [place] [address] [email or web address] i[employer]MP Commercial Collections Driver 09/01/19 02/28/21 Ladonna Louise, RN [address] [place] [address] [facility] 03/01/21 Allison Rice [address] [place] [address] [email or web address] [facility] Clinical Trial Associate 04/19/24 04/19/24 Neville Cash MD [address] [place] [id number] Orthopedic Surgery 06/05/25 documented as of this encounter Additional Source Comments The information contained in this document represents components of the legal health record. It is not the complete legal health record.[facility]
--- OUTSIDE RECORDS SUMMARY | 2025-07-13 08:47 | XMS_ITS | Encounter Summary ---
Author Organization [facility] Address [address] [place] [address] [place] [phone] Phone Care Team Providers Care Hotel Operation Manager Name Role Phone Marleni Coffman MD Primary Care Provider [phone] Marleni Coffman MD Unavailable [phone] Jaleesa Rod RN Unavailable [phone] Jihan Resendiz RN Unavailable [email or web address] Ladonna Louise RN Unavailable [phone] Allison Rice Unavailable [email or web address] Neville Cash MD Unavailable [phone] Encounter Details Date Type Department Care Team (Late st Contact Info) Description 09/16/2017 Procedure Pass [facility],Outside Imaging [address] [place] [address] Social History Tobacco Use Types Packs/Day Years [...] Description 08/07/2025 9:30 AM EDT Office Visit [facility] [address] [place] [address] 3rd Floor, [address] [place] [address] Chioma Gresham DNP [address] [address] 10/02/2025 1:00 PM EST Office Visit [facility] [address] [place] [address] Marleni Coffman MD [address] [place] [address] 11/27/2025 11:00 AM EST Appointment [facility] [address] [place] [address] Wagner Figueroa MD, MS [address] [address] 12/05/2025 9:15 AM EST Office Visit [facility] [address] [place] [address] Wagner Figueroa MD, MS [address] [address] 12/11/2025 10:45 AM EST Appointment [facility], Bone Density - [address] [address] Rex Villareal DO [address] [place] [address] 01/01/2026 10:30 AM EST Office Visit [facility] [address] [place] [address] [place] [address] Rex Villareal DO 22 [place] [address] [email or web address] documented as of this encounter Visit Diagnoses [...] documented as of this encounter Care Teams Hotel Operation Manager Relationship Specialty Start Date End Date Marleni Coffman MD [address] [place] [address] [email or web address] PCP - General 08/20/17 Marleni Coffman MD [address] [place] [address] [email or web address] Insurance Assigned Provider 02/06/24 Jaleesa Rod RN [address] [place] [address] [email or web address] [employer] 06/22/19 08/31/19 Jihan Resendiz RN [address] [place] [phone] [email or web address] [employer] 09/01/19 02/28/21 Ladonna Louise, RN 10 [place] [address] [facility] [employer] 03/01/21 Allison Rice [address] [place] [address] [email or web address] [facility] Community Decal Cutter 04/19/24 04/19/24 Neville Cash MD [address] [place] [address] Orthopedic Surgery 06/05/25 documented as of this encounter Additional Source Comments The information contained in this document represents components of the legal health record. It is not the complete legal health record.[facility]
--- OUTSIDE RECORDS SUMMARY | 2025-07-13 08:47 | XMS_ITS | Clinical Summary ---
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 Name Role Phone Marleni Coffman MD Primary Care Provider [phone] Marleni Coffman MD Unavailable [phone] Ladonna Louise RN Unavailable [phone] Neville Cash MD Unavailable [phone] Allergies Active Allergy Reactions Criticality Noted Date Comments Amoxicillin Hives High 06/08/2018 Sulfamethoxazole-Trimethopr im Other (See Comments) Medium 11/08/2018 Jitteriness Penicillins Hives High 09/15/2017 Medications albuterol 90 mcg/actuation inhalerIndicatio ns:Bronchiectasi s without complication Inhale 2 puffs into the lungs every 4 (four) hours as needed for wheezing. 1 Inhaler 5 0 Active albuterol 2.5 mg /3 mL (0.083 %) nebulizer solutionIndicati ons:Bronchiectas is with acute exacerbation Take 3 mL (2.5 mg total) by nebulization 2 (two) times a day. 540 mL 3 3 Active budesonide-formo terol 160-4.5 mcg/actuation inhalerIndicatio ns:Chronic obstructive airway disease with asthma Inhale 2 puffs into the lungs 2 (two) times a day. 10.2 g 11 5 Active gabapentin (NEURONTIN) 100 MG capsuleIndicatio ns:Restless leg syndrome TAKE TWO CAPSULES BY MOUTH EVERY EVENING AT BEDTIME 180 capsule 3 5 Active amLODIPine (NORVASC) 5 MG tabletIndication s:Essential hypertension TAKE 1 TABLET BY MOUTH DAILY. 90 tablet 3 5 Active Additional Information Patient not taking.Reported on 06/05/2025 spironolactone (ALDACTONE) 25 MG tabletIndication s:Shortness of breath Take 1 tablet (25 mg total) by mouth daily. 30 tablet 11 5 Active lisinopril (PRINIVIL,ZESTRI L) 5 MG tablet Take 1 tablet (5 mg total) by mouth daily. 90 tablet 3 5 Active traZODone (DESYREL) 50 MG tablet Take 50 mg by mouth nightly at bedtime. Active amLODIPine (NORVASC) 5 MG tablet Take 5 mg by mouth daily. Active lisinopril (PRINIVIL,ZESTRI L) 5 MG tablet Take 5 mg by mouth daily. Active spironolactone (ALDACTONE) 25 MG tablet Take 25 mg by mouth daily. Active Hospital, Clinic, or Other Facility Administered Medication Ordered Dose Route Frequency Start Date End Date Status denosumab (PROLIA) subcutaneous syringe 60 mgIndications:Age-related osteoporosis without current pathological fracture 60 mg SubQ Once 07/04/2025 10/02/2025 Active Active Problems Patient Care Coordination No te Formatting of this note migh t be different from the original. Patient is high risk for these reasons: Multiple chronic conditions Living Situation: Lives with in multi floor home. Bedroom on second floor. No trouble navigating stairs. Functional Status (ADL's/iADLs): Independent with ADLs/iADLs Family/Social Supports: Has five adult children. Friend is very supportive. Goals of Care (HCP/Molst): HCP on file Community Supports (e.g. VNA, DME Vendors, Elder Services): [facility] for nebulizer. Transportation: Drives self. Medication Management System/Specialized Pharmacy Needs: Manages own medications. Financial Concerns: N/A Other Supports and Care Needs: N/A Problem Noted Date Diagnosed Date Palpitations 06/05/2025 Assessment & Plan (06/05/2025 9:49 AM EDT): Patient reports palpitations with activity. She is concerned that she may have atrial fibrillation although she has no history of A-fib and no EKGs indicating such. Will get a 14-day MCT to rule out A-fib. Patient to follow-up after. Plan: 14-day MCT Follow-up after imaging Preop pulmonary/respiratory exam 05/30/2025 Assessment & Plan (05/30/2025 10:55 AM EDT): While she continues to struggle with symptoms of dizziness and imbalance, I doubt these are related to underlying apical obstruction. Pulmonary symptoms appear grossly stable. She is tolerating Symbicort, in fact has not needed to use it on a daily basis. Pulm exam in the office today reveals clear lungs. In this context, I would proceed to the operating room without additional respiratory evaluation, though would also be on PCP for further preoperative evaluation given additional constellation of symptoms. She could be treated with nebulized bronchodilators perioperatively for management of wheezing or dyspnea. Dyspnea on exertion 02/17/2025 Assessment & Plan (06/05/2025 9:49 AM EDT): Patient continues to report dyspnea on exertion. Patient is followed by pulmonology who is cleared for procedure. Her echo shows an EF of 65 to 70% with borderline concentric LVH and grade 2 diastolic dysfunction. Patient is already on spironolactone. Will get an MCT to rule out any arrhythmia causes for her dyspnea. Patient to follow-up after testing. Assessment & Plan (02/17/2025 9:23 AM EDT): Patient reports chronic dyspnea. Patient has a history of COPD with bronchiectasis. Patient's last echo was in 2020 which showed an EF of 70%, trace mitral regurgitation. Will repeat this to evaluate structural heart function. Patient to return in 3 months for results unless otherwise indicated. Plan: Echo Follow-up in 3 months or sooner if indicated Atherosclerosis of aorta 07/29/2024 Advance care planning 06/30/2024 Assessment & Plan (06/30/2024 10:09 AM EDT): 16 minutes spent in counseling regarding advanced care planning. Healthcare proxy form reviewed. Current form was corrected in assigning her as primary healthcare proxy, however patient desired to add her son Edy as contingent healthcare proxy. A new form was filled out with the patient in the office, scanned into the EMR, and the original copy was given to the patient to take home for filing purposes. 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 Will get an MCT to rule out any arrhythmia or AV anderson issues. Assessment & Plan (06/30/2024 10:12 AM EDT): Patient's primary concerns today are again as it relates to headaches, dizziness and weakness. She has undergone brain MRI and additional neurological testing (details unclear), however the only finding neurology has come up with thus far is neuropathy. Advised patient to discuss with PCP a second neurology opinion, potentially at [facility]. Assessment & Plan (01/11/2024 11:49 AM EDT): She has been referred to neurology. I sent a message to her PCP asking about referral to PT and OT. Assessment & Plan (04/09/2023 10:11 AM EDT): I reviewed these symptoms with her today. The etiology remains unclear to me. Her blood pressure is normal. Kidney function and electrolytes were fairly unremarkable back in November. She does endorse not drinking a lot of water, and I encouraged her to remain well hydrated. If symptoms persist after her ophthalmology evaluation in a few weeks, I recommend that she follow-up with PCP and consider discussing a neurological referral for further evaluation and management. Assessment & Plan (04/05/2021 9:54 AM EDT): While she is not hypotensive in the office today, the light-headedness seems to have started concurrently with initiation of Norvasc 2.5 mg 6 weeks ago (which takes a few weeks to reach full efficacy). She is followed by Dr. Kwon as well as her PCP, and I will Cc them on this note as I am recommending that patient STOP amlodipine (Norvasc) and monitor her lightheadedness. If symptoms improve, it would argue for Norvasc as culprit. I advised that she follow-up with PCP or cardiology in a few weeks for BP check. Acute bilateral low back pain without sciatica 0 04/05/2021 Assessment & Plan (04/05/2021 9:51 AM EDT): History is not suggestive of PE, but more of musculoskeletal injury. Advised time, rest, and consideration of anti-inflammatories and PT, which I will defer to PCP. Chronic rhinitis 02/15/2021 Overview (02/15/2021): Negative allergy skin testing 02/15/2021 Assessment & Plan (04/05/2021 9:53 AM EDT): Continue Azelastine and Atrovent nasal spray, with good control of symptoms currently. Assessment & Plan (02/15/2021 1:31 PM EDT): Chronic likely nonallergic rhinitis with likely concurrent vasomotor rhinitis Explained to patient treatment is similar though may require treatment of both inflammatory as well as vasomotor component. Prior potential benefit with montelukast also worth noting and could consider reintroduction in the future. RECOMMENDATION: Start trial of azelastine nasal spray 1 spray each side twice daily If no significant or incomplete benefit, can try Atrovent nasal spray 2 sprays each side up to 4 times daily. Can combine nasal sprays if both helpful but incomplete. If persistent symptoms despite above, can reintroduce trial of montelukast. Finally, given sample of Niurka pot with instructions for use. She is welcome to return if ongoing symptoms despite above. Generalized anxiety disorder 01/08/2021 Assessment & Plan (01/11/2024 11:50 AM EDT): Will defer management to PCP. This may be contributing to dyspnea. Pulmonary rehab breathing exercise classes would probably help mitigate this as well. Essential hypertension 10/11/2020 Assessment & Plan (06/05/2025 9:48 AM EDT): Patient is currently managed on 5 mg of lisinopril daily. Patient was initially on 2.5 mg daily but this was increased to 5 after her home blood pressure log showing elevated blood pressures. Will continue current management and follow-up after her Holter. Assessment & Plan (02/17/2025 9:21 AM EDT): Patient is currently managed on 5 mg of lisinopril daily. She states she takes her blood pressure at home occasionally and it usually reads in the 130s systolic. Patient's blood pressure is elevated today. Repeat blood pressure was 170/72. I recommended that patient take her blood pressure 1 to 2 hours after taking lisinopril in the morning and keep a log for 1 week. She will call the clinic with the results. If her blood pressure remains elevated, will increase lisinopril. Additionally patient reports dyspnea. She has not had an echo since 2020. Will repeat this study and have her follow-up in 3 months for results. Plan: Continue lisinopril Keep blood pressure log x 1 week and call clinic Echo Follow-up in 3 months Assessment & Plan (08/19/2023 1:40 PM EDT): Blood pressure in the office today is a little bit elevated. However, she felt quite lightheaded on the 5 mg of lisinopril so she went down to 2.5 mg and is doing a lot better on this dose. For now, we will continue with her current medications. We will have her follow-up with Dr. Grant in 6 months. Assessment & Plan (05/26/2023 12:39 AM EDT): Discussed continue lisinopril as recommended by cardiology. No change at this time otherwise. Assessment & Plan (05/18/2023 3:25 PM EDT): Blood pressure in the office today is still elevated. She has been on amlodipine 5 mg once daily. I suggested that she start lisinopril 5 mg once daily. I will follow-up with her in 2 months. Assessment & Plan (12/22/2022 3:43 PM EST): Blood pressure in the office today is elevated. However, she has not taken her amlodipine in 2 days because of an issue with her prescription. She will start taking the amlodipine again. We will have her come back in 1 month. Assessment & Plan (08/27/2022 11:27 AM EDT): SBP goal should be less than 130/80. She was on olmesartan however she reports an increase in fatigue and dizziness while taking this medication.She tells me her blood pressures at home are ranging 130s 150s systolic. Due to her ongoing hypertension despite being on medication and this medication causing her side effects she self discontinued her olmesartan with improvement to her symptoms with more energy and less lightheadedness though she still gets lightheaded. I have added amlodipine 2.5 mg daily to her regimen to see if this does not help her blood pressure. She was asked to continue checking her blood pressures at home looking for blood pressures greater than 150 systolic and to call this office to report that and potentially change her medication. Otherwise we will see her back here in 4 weeks for blood pressure check while on amlodipine 2.5 mg daily. We did discuss her sodium intake which I have asked her to try to cut back on. I have also asked her to increase her hydration as her last BUN was 28 and her creatinine is 1.0. Her elevated BUN is chronic and has been ongoing for some time. Assessment & Plan (08/18/2022 11:44 AM EDT): Given normal blood pressure off Benicar for 2 days, I wonder if her dizziness may be related to intermittent hypotension. She is seeing her cardiology team in 2 weeks. I advised that she remain off Benicar for now and monitor her blood pressure at home twice daily, recording it. If she sees it creep up, specifically if it reliably reaches beyond 140/90, then I advised that she resume Benicar and continue to monitor blood pressures, and bring this log to her lace pinner's office. Assessment & Plan (08/29/2021 10:51 AM EDT): Her blood pressure off medications today is not completely unreasonable. I recommended that she monitor her blood pressures at home and touch base with her cardiology team to determine next steps in management. Assessment & Plan (08/12/2021 12:39 PM EDT): Inadequately controlled I am starting Benicar 20 mg a day again I will see her again in 6 months time. The MRI she had recently done shows evidence of longstanding hypertension. Assessment & Plan (02/18/2021 10:08 AM EDT): Inadequately controlled I am adding Norvasc to her medical regimen I will see her in 6 months time Assessment & Plan (10/11/2020 4:44 PM EST): She saw her PCP this morning. She remains concerned about her blood pressure readings. New medication was started. I advised her to take medications as prescribed, monitor her blood pressure and keep a log. She plans to call her PCP in a few weeks if her blood pressure readings remain elevated. Seasonal allergic rhinitis due to pollen 020 Assessment & Plan (01/04/2021 9:47 AM EST): She has initiated evaluation with ENT Dr. Regalado (had blood work done), but would like to come here for allergy management. Will arrange for skin testing in our office, and subsequent allergy evaluation with Dr. Case. Assessment & Plan (10/11/2020 4:45 PM EST): She will schedule a follow-up with ENT once her blood pressure is under better control for consideration of allergy testing. She will continue Flonase. We agreed not to start Singulair at this time. Assessment & Plan (08/30/2020 10:16 AM EDT): Agree with Dr. Regalado's plan to proceed with sinus CT. Given severe symptoms, we will start Singulair (acknowledging that it may interfere with plans to proceed with allergy testing). Will defer to ENT expertise regarding any nasal spray therapies. Assessment & Plan (07/31/2020 4:01 PM EDT): She is scheduled to follow-up with Dr. Regalado soon. She tells me she is undergoing allergy testing in 2 weeks. Once that has been completed, we can consider adding Singulair to her regimen. Adverse effect due to correc t medicinal substance, properly given 04/10/2020 Hoarseness or changing voice 04/10/2020 Age-related osteoporosis wit hout current pathological fracture 12/20/2019 Assessment & Plan (12/30/2024 11:20 AM EST): She continues with calcium and vitamin D supplementation. She informs me that she has not been doing weightbearing exercises in the last 5 to 6 months due to knee problems. I told her that she can do upper body strength training she has 2 pounds lifting is good enough. At this point she has received 2 Prolia injections and today presents for the third injection. I requested DXA scan that is due on 12/10/2025 and reminded her that she needs to contact the radiology department today to schedule this study. I also instructed her to repeat lab work for the follow-up visit with the nurse in 6 months time and she needs to do lab work fasting 2 weeks prior to the follow-up visit with me in 1 years time. Assessment & Plan (12/23/2023 9:55 AM EST): Unfortunately the patient did not have any significant improvement with the use of zoledronic acid after 3 years. At this point I told her she can repeat another 3 years of zoledronic acid, or try anabolic hormones. However she does not want to try anabolic hormones because it requires her to self inject. Another possibility is to use Prolia subcutaneous injections every 6 months. Not only concern I have with using Prolia is that it works better on the spine that the hip and her bone mineral density is lower in the hip but it actually may be more effective than continuing with zoledronic acid. She did inquire if she did nothing at all which I do not recommend because it would just result in decreased bone mineral density. She is willing to try Prolia and I think that Prolia is helpful and a sense because the GFR is decreased at 55 and Prolia will not affect her kidneys. She has agreed to try Prolia subcutaneous injection. The 1 issue with Prolia is that if she decides to stop the medication then normally she has to follow it up with alendronate weekly for period of 1 year in order to not decrease her bone mineral density. Today she received her first Prolia injection. Assessment & Plan (12/23/2022 10:12 AM EST): She missed her last infusion of Reclast. I scheduled it again for within 2 weeks because she is past due. She also needs to repeat DXA scan by 12/09/2023 which I requested but the patient is going to have to call 6 months prior to ensure that she gets the study done. I also told her that if she does not hear from the infusion center within the next 2 weeks she needs to contact them. They are located in the hospital. She will return for follow-up in 1 year. I asked her to do lab work fasting in the morning 2 weeks prior to the follow-up visit. Assessment & Plan (12/23/2021 9:47 AM EST): This is a patient with osteoporosis who has received Reclast on 2 occasions and is due for her third and final administration on 03/18/2022. DXA scan done on show improvement in bone mineral density of the spine and stable bone mineral density at the hips. She will continue calcium and vitamin D supplementation. She is due for repeat Reclast administration and I have requested a basic metabolic panel and vitamin D levels to be drawn prior to the administration which is required. I did put in a referral to [facility]. I also requested bone turnover and pro collagen markers. She will follow-up in 1 year. Assessment & Plan (03/14/2021 8:47 AM EDT): The patient is past due for her second Reclast administration. On the last visit I did request Reclast administration but this has not occurred. 24-hour urine calcium shows that the output is low. I believe that the patient is not getting adequate calcium intake and I did review this with her on the last visit that she needs to take calcium supplements because her dietary calcium is approximately 827 mg. Her vitamin D levels are now low and she needs to start taking cholecalciferol 2000 units daily. She is due for DEXA scan on 12/06/2021. I will request this today. I will reorder Reclast. Assessment & Plan (02/12/2021 11:46 AM EDT): This is a patient with osteoporosis that was diagnosed on 12/06/2019. Her risk factors for osteoporosis include age, menopause, possible hyperparathyroidism, decrease calcium intake but I do not see any other risk factors. She has not had any recent fractures. She has decreased in height 3 inches. She was treated with Reclast on 01/16/2021 so she is past due for her second IV Reclast administration. She is due for repeat DEXA scan on 12/06/2021. Today I will request Reclast administration. She was advised that she should take at least another 400 mg of calcium in her diet or take a calcium 500 mg tablet with food daily. She does not seem to be taking any vitamin D but the vitamin D levels are within the reference range so I guess she is getting enough sun exposure. Hyperparathyroidism 11/08/2019 Assessment & Plan (08/12/2021 12:40 PM EDT): She should see endocrine again calcium is creeping up to 11 Assessment & Plan (03/14/2021 8:46 AM EDT): The patient had elevated intact PTH after Reclast administration. I repeated lab work and intact PTH is within the reference range. All other lab work in the reference range other than 24-hour urine study which is low, 1, 25 dihydroxy vitamin D is within the reference range I would not work this up further. Assessment & Plan (02/12/2021 11:47 AM EDT): The patient had hypercalcemia with normal PTH but after Reclast ministration the PTH increase so the question is that she have primary hyperparathyroidism. 24-hour urine calcium levels were low which is not consistent with this. 1, 25 dihydroxy vitamin D levels have not been checked. She does have mild decrease in glomerular filtration rate and the PTH could be elevated due to that. But that would not explain the elevated serum calcium levels. They are borderline high. I will repeat intact PTH obtain 1, 25 dihydroxy vitamin D, phosphorus, magnesium and 24-hour urine phosphorus study since we doing the 24-hour urine studies we should repeat the calcium and obtain comprehensive and repeat vitamin D levels. Assessment & Plan (08/21/2020 10:13 AM EDT): This is being followed and treated Idiopathic peripheral neuropathy 09/29/2018 Assessment & Plan (05/31/2019 10:06 AM EDT): Present but stable Assessment & Plan (09/29/2018 12:40 PM EST): Home dose of gabapentin continued Primary insomnia 09/29/2018 Assessment & Plan (10/06/2018 10:48 PM EST): Patient with chronic insomnia had been on zolpidem in the past months to wean off of it but there is still having issues trying to get to sleep she was questioning whether use of oxygen would help her sleep but said it might keep her sleep will get her to sleep did recommend since she is on melatonin increasing dose of benefit trial of trazodone warned of potential side effects we will just give 10 days worth 1 or 2 of a 50 mg tablet. Of note patient is on gabapentin 300 mg at at bedtime to help with her neuropathy and gait disturbance could increase the dose might help with sleeping also Assessment & Plan (09/29/2018 12:40 PM EST): Patient previously took Ambien, but no longer wishes to do so. Will offer melatonin or Remeron. Abnormality of gait due to impairment of balance 09/29/2018 Assessment & Plan (08/15/2019 10:28 AM EDT): She gets quite unsteady on her feet and is seeing physical therapy for this Assessment & Plan (09/30/2018 11:37 AM EST): PT/OT consultations appreciated. Ambulate with assistance Chronic obstructive airway disease with asthma 1 11/15/2016 Assessment & Plan (05/30/2025 10:55 AM EDT): We will continue high-dose Symbicort and repeat PFT as well as an exhaled nitric oxide measurement in 6 months prior to follow-up.. Orders: Pulmonary Function Test Reason for Exam: Asthma, COPD; Type of PFT Test: Spirometry with bronchodilator, Lung Volumes, DLCO; Additional Testing: Exhaled Nitric Oxide Test ([facility], [facility], [facility], [facility] and [facility] only); Performing Location: [facility]; Future albuterol 90 mcg/actuation inhaler 2-4 puff albuterol 2.5 mg /3 mL (0.083 %) nebulizer solution 2.5 mg Assessment & Plan (12/07/2024 11:23 AM EST): Symptoms are mild, stable. It appears that Symbicort may now be covered, will try switching from Breztri to Symbicort since she does not need Breztri every day. Will continue to follow clinically without repeat PFT given age and comorbidities. Orders: budesonide-formoterol 160-4.5 mcg/actuation inhaler; Inhale 2 puffs into the lungs 2 (two) times a day. Assessment & Plan (06/30/2024 10:11 AM EDT): Clinically stable with Breztri, which she actually does not need to use every day. (Symbicort is not covered by insurance.) I agree with the patient that obstructive airways disease is likely not the primary pick up driver for her symptoms. Chest x-ray performed 2 months ago was clear, PFT have remained stable over several years and symptoms are not suggestive of uncontrolled COPD or asthma. Will plan to continue Breztri and hold off on repeat physiologic testing. Assessment & Plan (01/11/2024 11:51 AM EDT): Clinically and physiologically, this has remained stable. Advised continued exercise, and that she consider restarting Breztri on a regular basis, at least 1 puff twice daily to start and increasing to 2 puffs twice daily if tolerated. We discussed repeating pulmonary function studies, which have remained completely stable over the past few years. We agreed to defer given age and comorbidities, as it would be unlikely to alter management at this juncture. Assessment & Plan (10/07/2023 11:48 AM EST): Doing better on Breztri, which we will continue. She is not using it routinely 2 puffs twice daily, and encouraged her to increase dosage to that recommended dosage. We will perform a 6-minute walk in the office today. I will thereafter refer her to pulmonary rehab. She will discuss physical therapy with PCP. She is up-to-date with all vaccinations against COVID-19 and influenza. Assessment & Plan (07/08/2023 9:51 AM EDT): She continues to suffer an overall decline in health, owing primarily to lightheadedness along with associated dyspnea. In this context, given stable spirometry measurements and known underlying bronchiectasis with chronic chest congestion, we agreed to try switching from Symbicort to Breztri. I sent a prescription to her pharmacy and gave her a sample. We will reconvene in 3 months for clinical follow-up. Even though the DLCO is slightly worse than prior, she is not anemic, chest x- ray reveals no evidence of interstitial lung disease or emphysema (she never smoked), and I am not highly suspicious for pulmonary hypertension or pulmonary emboli given history and absence of significant hypoxemia, therefore we will monitor clinically and consider repeat PFT at a 6-month interval next winter. Assessment & Plan (04/09/2023 10:09 AM EDT): PFT are grossly stable, however she believes Trelegy worked better than as needed Symbicort. I gave her a 2-week sample of Trelegy, and she will call us in 7 to 10 days to let us know if she truly notices an improvement. If so, we will order low-dose Trelegy and as needed albuterol to her pharmacy and discontinue as needed Symbicort. We will repeat PFT in 6 months and reconvene thereafter. Assessment & Plan (03/12/2023 11:38 PM EDT): Patient with history of COPD with asthma-continues to have ongoing difficulties with cough, shortness of breath, malaise and fatigue. Likely long COVID symptoms (or becoming long COVID as she is technically only 3 weeks out). May also be bronchitis post COVID, will trial treatment with azithromycin and short prednisone burst. Follow-up if worsening despite treatment. Red flag symptoms reviewed. Assessment & Plan (08/18/2022 11:45 AM EDT): Symptoms have remained surprisingly absent despite being off Trelegy for over 2 weeks. In this context, I am cautiously hopeful that her asthma may have improved, at least for the time being. Therefore, we have elected to switch management and initiate as needed low-dose Symbicort. We will discontinue Trelegy for now. She will call us if symptoms worsen over the next 6 months, otherwise we will repeat PFT in the springtime at a near annual interval and reconvene thereafter. She is fully vaccine against COVID-19 (including the BiValent booster in recent weeks) as well as influenza this fall. Assessment & Plan (12/05/2021 10:42 AM EST): This is stable on high-dose Trelegy, which we will continue. We will repeat PFT in June at an annual interval and reconvene thereafter. She is fully vaccinated as COVID-19 (including booster) as well as influenza this fall. Assessment & Plan (08/29/2021 10:51 AM EDT): Given improvement in symptoms with a trial of Trelegy, we agreed to switch from high-dose Breo to high-dose Trelegy. We will reconvene in 3 months for clinical follow-up. Most of the visit today was spent discussing her multiple symptoms, primarily lightheadedness, vision changes and weakness. I recommended that she consider calling local tertiary care hospital such as [facility], [facility], [facility], [facility], even [facility] to find out how soon they may be able to see her for neurological evaluation. She will follow up with her primary care physician. Assessment & Plan (08/12/2021 12:40 PM EDT): This is followed by pulmonary who has ordered her an echocardiogram along with pulmonary function test Assessment & Plan (07/15/2021 2:48 PM EDT): Stable on high-dose Breo with stable spirometry measurements on recent PFT. That being said, given progressive dyspnea, will try high-dose Trelegy for 1 month. If symptoms improve, she will call us and I will send a prescription to her pharmacy. Otherwise, she will go back to high-dose Breo. Assessment & Plan (04/05/2021 9:52 AM EDT): Appears well controlled on Breo, which we will continue. Given constellation of symptoms, will repeat PFT. CXR done recently and reviewed, NAD with chronic basilar scarring present for at least the past 2.5 years. Assessment & Plan (02/18/2021 10:08 AM EDT): Quite significant and after I saw her last and suggested short course of high- dose steroids she improved greatly Assessment & Plan (01/04/2021 9:46 AM EST): Clinically stable on high-dose Breo, which we will continue. Given chronic trach sputum production, will hold off on adding LAMA therapy. We will reconvene in 3 months for clinical follow-up and consider repeat annual PFT in August. Assessment & Plan (10/11/2020 4:45 PM EST): Appears to have improved with high-dose Breo, which we will continue. PFT from August were reviewed, revealing moderate fixed airflow limitation with impairments in TLC and DLCO. Consider annual PFT next August. An albuterol inhaler was prescribed, to be used as needed, since she no longer has one at home. She is up to date with the influenza vaccine this season. Assessment & Plan (08/30/2020 10:18 AM EDT): Will restart Breo 100-25 once daily, advised patient to rinse mouth after use. I will not use Trelegy so as not to thicken secretions. Assessment & Plan (08/21/2020 10:13 AM EDT): To me this patient has active COPD going on despite inhalers and may need some oral corticosteroids. Assessment & Plan (07/31/2020 3:59 PM EDT): She came off Breo 3 weeks ago and has noted no worsening of her breathing, therefore we will monitor off this medication for now. Assessment & Plan (01/23/2020 10:45 AM EDT): Continue Breo once daily, albuterol MDI and neb prn. Repeat spirometry in 6 months if we are again seeing patients in the office then. Assessment & Plan (12/26/2019 9:38 AM EST): This is significant but unchanged taking away Lasix did nothing for her breathing signifying that all of her shortness of breath was due to COPD not mitral regurgitation. Her MR is moderate we will check this once a year I will see her twice a year. Assessment & Plan (10/10/2019 12:24 PM EST): Continue with low-dose Breo. A trial of high-dose Breo a few months ago provided no additional clinical benefits. Consider repeat spirometry testing in 6 to 12 months. Assessment & Plan (08/15/2019 10:28 AM EDT): This is severe and she has multiple inhalers as well as a nebulizer at home. I do feel that her dyspnea on exertion is related to pulmonary disease not cardiovascular disease she had Lasix as a trial which did nothing and has since been stopped Assessment & Plan (06/20/2019 11:54 AM EDT): Given absence of wheezing, failure of albuterol inhaler to help with symptom of dyspnea, and mild impairments on PFT performed back in November, as well as oxygen saturations 99% on room air at peak exercise, I doubt airways disease as a cause of her dyspnea. That being said, I am willing to try a 2-week trial of high-dose Breo (sample given today). If it helps, she will call us for a prescription, otherwise she will return on the low-dose Breo for maintenance. I will see her back in 3 months with repeat office spirometry. Assessment & Plan (05/31/2019 10:05 AM EDT): This patient has significant pulmonary disease which is more than likely the culprit of her mild to moderate pulmonary hypertension. Assessment & Plan (03/07/2019 10:33 AM EDT): Clinically stable. We will continue low-dose Breo. Consider increased dose Breo and/or repeat PFT earlier than November if symptoms persist. Assessment & Plan (12/06/2018 2:25 PM EST): Continue low dose of Breo. Repeat PFT in a year. Assessment & Plan (11/08/2018 12:31 PM EST): PFT for today have been canceled given acute illness. Will reschedule in about 3 months. Continue low-dose Breo for now. Assessment & Plan (09/08/2018 9:41 AM EST): Continue low-dose Breo. We will repeat annual pulmonary function studies in November and reconvene thereafter. Assessment & Plan (07/08/2018 4:10 PM EDT): Resume Breo, low-dose, one puff once a day. Rinse mouth after use. Return to see me once you come back from you trip. We will consider repeat PFT in November at a one-year interval. Assessment & Plan (05/06/2018 10:31 AM EDT): Continue Breo, but will increase dose. Assessment & Plan (11/18/2017 11:53 AM EST): PFT are stable over 14 months. She is doing very well on low-dose Breo. Continue this for now. Assessment & Plan (09/15/2017 3:51 PM EST): We will repeat PFT. For now, will try switching to Breo. STOP Symbicort, use Breo once a day. Use Albuterol MDI as needed only, with a spacer. Rinse your mouth after Breo. Do NOT start Spiriva at this time. Resolved Problems Problem Noted Date Diagnosed Date Resolved Date History of COVID-19 12/05/2021 04/09/20 Overview (12/05/2021): 11/06/2021, mild clinical case (was fully vaccinated with Pfizer, including booster). Did not require hospitalization. Assessment & Plan (12/05/2021 10:43 AM EST): No intervention warranted at this time. We will repeat PFT in June. Extrinsic asthma 08/30/2020 01/04/2021 Allergic asthma with acute exacerbation 08/30/2020 01/04/2021 Assessment & Plan (08/30/2020 10:19 AM EDT): Will prescribe prednisone and Azithromycin. Use prednisone 40 mg for at least 5 days, could possibly extend at a 20-40 mg daily dose for an additional 5 days if needed. Sinusitis nasal 04/10/2020 07/31/2020 Persistent shortness of breath after COVID-19 05/31/20 19 04/09/2023 Assessment & Plan (07/15/2021 2:49 PM EDT): The etiology for this is unclear. Her echocardiogram 1 year ago revealed mild pulmonary hypertension and therefore we will repeat an echocardiogram at this time given her moderate impairment in DLCO (which has been stable over the past year but has progressed over the past 2 to 3 years). She is not anemic. She is never smoked. If symptoms persist despite trial of Trelegy and cardiovascular evaluation with echocardiogram and visit with her lace pinner are unrevealing, could consider chest CTPA to rule out pulmonary emboli and progressive interstitial lung disease. Assessment & Plan (02/18/2021 10:08 AM EDT): Stable at this time Assessment & Plan (08/21/2020 10:13 AM EDT): She had mitral valve regurgitation in the past I am repeating an echo to follow- up on this in 6 months Assessment & Plan (07/31/2020 4:00 PM EDT): I am concerned about her worsening exercise tolerance, going from 1 mile to 1/4 mile over the summer months. The history is not suggestive of a cardiovascular etiology, her echocardiogram from earlier this year was reviewed and she is following up with cardiology soon. We will obtain a chest x-ray and repeat pulmonary function studies as initial evaluation and reconvene after testing. Assessment & Plan (12/26/2019 9:38 AM EST): Not due to mitral regurgitation. Assessment & Plan (08/15/2019 10:28 AM EDT): She has moderate mitral regurgitation is getting this rechecked in November I will see her in December Assessment & Plan (06/20/2019 11:53 AM EDT): The etiology for this is somewhat unclear. The presence of symptoms at rest which improve with relaxation suggests a possible component of anxiety. Her echocardiogram revealed only mild abnormalities in addition to moderate MR for which she was evaluated by cardiology, and her exercise tolerance on stress test was excellent for age with preserved oxygen saturations arguing against severe cardiopulmonary limitations. I have advised that she discuss this with her primary care physician and consider initiation of a medication to help with underlying anxiety. Assessment & Plan (05/31/2019 10:06 AM EDT): I am hopeful that giving this patient 20 mg of Lasix will improve her breathing although she has diastolic impairment and lung disease as a cause of shortness of breath. I will see her in 3 months time Laceration of right upper extremity 10/05/2018 04/08/2024 Assessment & Plan (10/06/2018 10:49 PM EST): Patient with a right forearm skin tear sustained last week when she fell forgetting hospitalized was treated with dressing and has not been open since it has a little weepy drainage the area was cleaned some tissue was debrided and Tegaderm was employed did recommend leave that on for 2 days and leave it open to air no signs of infection as there is no erythema Pneumonia 09/29/2018 12/06/2018 Assessment & Plan (10/06/2018 10:47 PM EST): Patient much improved for bilateral pneumonia did discuss cannot cultures revealed no definite pathogen did have a high white count initially but could have been from some pre-prednisone dosing that was not high. She also is still coughing up mucus periodically but has bronchiectasis does use nebulizer twice a day to help mobilize the sputum. Did recommend adding Mucinex to that regimen. She is done with steroids exam sounds clear for repeat x-ray in a month would recommend Pneumovax Prevnar 13 as she cannot find that she has had it Assessment & Plan (09/30/2018 11:36 AM EST): Patient presenting with 3-day history of cough, fever 100.2 Fahrenheit and chills with increased wheezing and rattles in the chest , with failed outpatient management with Bactrim and prednisone by Dr. Figueroa. Due to worsening cough she presented to the ED for further management. First dose of levofloxacin given with IV fluids and albuterol nebulizer treatment in the ED. 09/30: Clinically improving. Cough less, weakness improved. Remains short of breath with exertion. -Continue levofloxacin 500 mg every 24 hours. Dose discussed with the pharmacist given renal insufficiency and weight 58 kg. Creatinine improved today with GFR normalized. -Respiratory culture collected, pending -Continue albuterol nebulizers up to 4 times daily, minimum 2 times daily -IV fluid hydration as needed, 1 L given -Blood cultures collected, pending, though lactate reassuring 1.4. Low suspicion for sepsis. -Supportive oxygen as needed Bronchiectasis without complication 09/15/2017 01/11/2024 Assessment & Plan (10/07/2023 11:49 AM EST): Encouraged her to remain active. If symptoms do not improve following increased breast tree dosage, will consider enhancing pulmonary toilet at her next visit here. Assessment & Plan (07/08/2023 9:51 AM EDT): There is mild, scant chronic sputum production. I advised that she could try restarting Hypersal once or twice a day if Breztri does not improve symptoms. Assessment & Plan (05/26/2023 12:40 AM EDT): We will check chest x-ray to evaluate for any underlying concerns. Assessment & Plan (04/09/2023 10:08 AM EDT): Clinically quiescent off nebulized treatments, will continue to monitor without intervention at this time. Assessment & Plan (08/18/2022 11:44 AM EDT): Remains clinically quiescent off nebulized medications. Continue to monitor without intervention at this time. Assessment & Plan (12/05/2021 10:43 AM EST): Remains clinically quiescent off nebulized medications. Continue to monitor without intervention at this time. Assessment & Plan (08/29/2021 10:51 AM EDT): Clinically quiescent, without the need for nebulized HyperSal or albuterol, or the need for aggressive pulmonary toilet at this time. Assessment & Plan (04/05/2021 9:51 AM EDT): Well controlled with minimal symptoms. Continue with daily albuterol and HyperSal nebs. No need for chest percussion vest at this time. Assessment & Plan (01/04/2021 9:47 AM EST): Clinically stable. She recently had an exacerbation, which resolved promptly following a short course of levofloxacin. Continue albuterol and HyperSal twice daily. She has a chest percussion vest at home, but has not required its use recently. Assessment & Plan (10/11/2020 4:43 PM EST): Continue albuterol and HyperSal nebs twice daily. Given improvement in symptoms and the fact that she finds using the airway clearance chest percussion vest cumbersome, we agreed to hold off on that unless her clinical condition were to worsen. Assessment & Plan (08/30/2020 10:25 AM EDT): Continue HyperSal, but increase frequency to twice daily following albuterol nebs. She has an airway clearance chest percussion vest at home, which is in the attic , and I urged her to get reacquainted with it and start using it twice daily after her neb treatments. If chest congestion does not improve with measures instituted today, will need to consider chest CT and bronchoscopy. Assessment & Plan (07/31/2020 3:59 PM EDT): I believe her increased urine production is likely secondary to allergic rhinitis and postnasal drip. There has been no discoloration. She does not want antibiotic therapy at this time. I advised that she continue to use albuterol and HyperSal nebs once daily. Assessment & Plan (01/23/2020 10:44 AM EDT): Given increased chest tightness and inability to bring up sputum, advised to increase neb frequency to 2-3 times daily, and be diligent with airway clearance (Acapelle). Reviewed s/sx that could suggest COVID, advised to call PCP if she has questions re testing. Advised that she stay at home as much as possible. She did note that a friend from [place] recently moved back with her, which increases concerns about possible cross-contamination. Assessment & Plan (12/26/2019 9:38 AM EST): The fact that she has bronchiectasis shows how significant her pulmonary disease is. She is currently euvolemic. Assessment & Plan (10/10/2019 11:39 AM EST): Clinically stable. I have encouraged her to continue with her once daily regimen of albuterol and HyperSal nebs. She could use her Acapella device on an as-needed basis. She will call us with any progressive or concerning respiratory symptoms. Continue low-dose Breo for asthma-COPD overlap given failure of symptoms to improve with high-dose Breo trial. We will administer the high-dose influenza vaccine today. Assessment & Plan (06/20/2019 11:51 AM EDT): This appears clinically stable. She will continue to use the albuterol and HyperSal nebs but reduce the frequency for now given improvement in her symptoms. Assessment & Plan (03/07/2019 10:32 AM EDT): The etiology of her progressive dyspnea is unclear at this time. I suspect it is multifactorial. I wonder if ongoing pulmonary congestion may be contributing. There is no significant wheezing to suggest uncontrolled airways disease. For now, would enhance pulmonary toilet regimen. She does note shakiness after nebulized albuterol use, and therefore I have advised her to use her rescue inhaler 2 puffs 15 minutes prior to using 7% HyperSal, followed by 10-15 breaths into her Acapella device. She should do this at least 2 if not 3 times daily. I will see her again in 3 months. Consider repeat chest x-ray, sputum analysis, pulmonary function studies and/or even increasing her dose of Breo down the road. Assessment & Plan (12/06/2018 2:25 PM EST): She continues to experience increased sputum production, though the clinical picture is confounded by a concurrent acute viral upper respiratory tract infection. Given her history of underlying lung disease and bronchiectasis, will treat with doxycycline given sensitivities of the MSSA and multiple drug allergies. Will send sputum for analysis today. I will see her back in 3 months for clinical check and, and we will consider repeat PFT in one year, which have been stable. Assessment & Plan (11/08/2018 12:30 PM EST): Concern for pneumonia versus bronchiectasis exacerbation, though symptoms could be territory account representative of a viral process as well. Will prescribe azithromycin. She will call us back if not improving over the next few days. I do not believe she warrants prednisone at this time. Assessment & Plan (09/30/2018 11:37 AM EST): Outpatient visit note with Dr. Figueroa reviewed. Information gleaned from chart: Patient is a former patient of Dr. Lerner at [facility] with left lower lobe lobectomy in the 1980s, as well as Dr. Colon and Dr. Nahid Redman at [facility]. She was treated several months ago for a bronchiectasis exacerbation secondary to H influenza with levofloxacin and prednisone and has since traveled to [place] in July. Medical regimen consist of hypertonic saline, low-dose Brio and a pulmonary secretion airway clearance percussive vest which she uses once daily. Sputum culture in the past has revealed H Flu, strep pneumo, H paraflu. Most recent pulmonary function testing 11/2017 showed mild to moderate fixed airflow obstruction, stable when compared to prior testing in 2016. -Continue home medications -Consult respiratory for percussive vest treatment -Patient concerned about low oxygen during sleep and if this may be contributing to insomnia. She is planning to discuss this with her PCP and Dr. Figueroa at the next visit Assessment & Plan (09/08/2018 9:41 AM EST): Continue with airway clearance in the form of hyper-Bari (premedicate with albuterol, though could try to skip this if pushed for time) and chest percussion airway clearance vest use. At this time, she is at baseline. There is no indication for sputum analysis, chest imaging or aggressive interventions. She will has been instructed to call us early with any signs of exacerbation including change in sputum color or quantity, dyspnea, chest tightness or fevers. She is up to date with the influenza vaccine this season. Assessment & Plan (07/08/2018 4:12 PM EDT): Still not back to baseline. Grew H flu last 2 sputum cultures, sensitive to quinolones. Continue with aggressive pulmonary toilet (HyperSal twice daily, Acapella at least 10 puffs twice daily). Resume use of your vest once you return from your trip. Will treat aggressively with Levofloxacin 500 mg x 5 days (bring the rest on your trip), and prednisone 40 mg x 5-10 days (may consider 40 mg x 5 days, then 20 mg x 5 days); also bring the rest on your trip. Get your flu shot this fall. If symptoms persist over the next few weeks, will consider CXR and possibly bronchoscopy for pulmonary toilet and sampling. Assessment & Plan (05/06/2018 10:30 AM EDT): Symptoms have not completely resolved, and significant chest congestion persists despite a course of Azithromycin a few months ago. No fevers, no significiant discoloration or increase in sputum production over the past few weeks. - Will try Prednisone 40 mg daily for 5-10 days. - Increase Breo to 200-25 (once daily), sample given. - Continue Hyper-Bair twice daily - Use Acapella AND airway clearance vest (~ 20 mintues) twice daily after Hyper- Bari - Send sputum for culture. If symptoms persist after another 3-4 weeks without improvement, will consider CXR and bronchoscopy. Assessment & Plan (02/18/2018 1:45 PM EDT): Subacute exacerbation of bronchiectasis. Given albuterol followed by hypertonic saline 7% noted in office with mild sputum expectoration. Send for culture. Order for nebulizer device sent to [facility] and prescriptions for albuterol and hyper-Bari 7% sent to local pharmacy. Instructed patient to start twice daily pulmonary hygiene regimen as above. Pending culture results, may recommend antibiotics, though conservative treatment with mucus clearance may be enough given patient clinically stable with only subacute symptoms. Patient reports having a vest device with no recent use. I encouraged her to use but should use the saline nebs as well. If no improvement, should call and request earlier follow-up with Dr. Figueroa. Assessment & Plan (11/18/2017 11:53 AM EST): Clinically she is doing well. We'll continue to monitor off rotating antibiotics. She does not appear to require much in terms of airway clearance, and her chest imaging has been stable from 2010 to 2016. We reviewed the clinical rationale surrounding bronchiectasis. She will call us early with any increase in quantity or discoloration of sputum which may prompt prescriptive antibiotics. I've encouraged use of her Acapella device, particularly with any change in sputum. She has an airway clearance vest at home but has not been using it in recent years. Consider workup for bronchiectasis etiology, though given the focal nature of it I'm comfortable with managing clinically at this time. Will await final results on AFB and fungal cultures. She is up to date with the influenza vaccine this season. Assessment & Plan (09/15/2017 4:12 PM EST): We reviewed the history of her bronchiectasis. She does not recall having had an extensive workup for ? Etiology (e.g. Immunoglobulins, CF screen), but was told that it was likely a result of a childhood infection (possibly whopping cough). Down the road we could consider checking immunoglobulins, alpha-1 antitrypsin, CF screen, rheumatoid factor and possibly pneumococcal antibodies. I have requested images from [facility]. She did have a CT within the past few years. We will hold off on obtaining any further imaging at this time. We will order PFT and review results at her next visit. We discussed airway clearance: down the road, if needed, could resume use of Acapella, airway clearance vest, possibly add HyperSal or Mucomyst nebs. Send sputum for culture today (including AFB and fungal analyses). I do not believe antibiotics are indicated at this time. Up to date with flu shot and pneumococcal vaccines. Encounters Date Type Department Care Team Description 07/12/2025 Telephone [facility] Homer Muse [address] [place] [address], [address] [place] [phone] Beata Arredondo 07/05/2025 Orders Only [facility] [address] [place] [address], [address] [place] [address] Chioma Gresham DNP 07/04/2025 Telephone [facility] [address] [place] [address] [place] [address] Juliana Ladd, JOANA Appointment (PROLIA) 06/22/2025 Patient Outreach [facility] [address] [place] [address] Ladonna Louise, JOANA Care Coordination (iCMP outreach) 06/05/2025 9:30 AM EDT Office Visit [facility] [address] [place] [address], [address] [place] [phone] Chioma Gresham DNP Light headedness (Primary Dx); Palpitations; Dyspnea on exertion; Essential hypertension 05/30/2025 9:45 AM EDT Office Visit [facility], Allergy and Critical Care Medicine [address] [facility] [address] Wagner Figueroa MD, MS Preop pulmonary/respiratory exam (Primary Dx); Chronic obstructive airway disease with asthma 05/29/2025 Orders Only [facility] [address] [place] [address] Marleni Coffman MD Hyperkalemia (Primary Dx) 05/26/2025 Orders Only [address] [place] [address] Marleni Coffman MD Pre-op evaluation 05/25/2025 2:29 PM EDT - 05/25/2025 11:59 PM EDT Hospital Encounter [facility] [address] [place] [address] [place] [address] Marleni Coffman MD Discharge Disposition: Home or Self Care 05/25/2025 1:30 PM EDT Office Visit [address] [place] [address] Marleni Coffman MD Pre-op evaluation (Primary Dx); Chronic kidney disease, stage 3a; Primary osteoarthritis of right knee; Chronic obstructive airway disease with asthma; Elevated glucose 05/23/2025 Orders Only [address] [address] Flores Celestin MD 05/23/2025 Telephone [facility] [address] [place] [phone] Ladonna Louise, JOANA 05/23/2025 Patient Outreach [facility] [address] [place] [phone] Ladonna Louise, RN Post Discharge Follow Up Call (PDA) 05/22/2025 Orders Only [facility] [address] [place] [address] Flores Celestin MD 05/15/2025 Patient Outreach [facility] [address] [place] [phone] Ladonna Louise, RN Care Coordination (iCMP outreach) 05/02/2025 Ancillary Orders [facility],Outside Imaging [address] [place] [address] Herb Estevez MD 05/01/2025 Orders Only [facility] [address], [address] [place] [address] Chioma Gresham DNP 04/21/2025 Telephone [facility] Pulmonary, Allergy and Critical Care Medicine [address] [place] [address] Divine Baez Right knee surgery 04/20/2025 Telephone [facility] [address], [address] [place] [address] Beata Arredondo 04/19/2025 1:58 PM EDT - 04/19/2025 11:59 PM EDT Hospital Encounter [facility] [address] [place] [address] [place] [address] Inge Wolf NP Discharge Disposition: Home or Self Care 04/18/2025 - 04/18/2025 11:59 PM EDT Hospital Encounter [facility],Outside Imaging [address] [place] [address] Unknown, Unknown, Discharge Disposition: Home or Self Care 04/17/2025 1:58 PM EDT - 04/17/2025 11:59 PM EDT Hospital Encounter [facility] [address] [place] [address] [place] [phone] Inge Wolf NP Discharge Disposition: Home or Self Care 04/16/2025 9:47 AM EDT - 04/16/2025 11:59 PM EDT Hospital Encounter [facility] [address] [place] [address] [place] [address] Inge Wolf, CHERRY Discharge Disposition: Home or Self Care 04/15/2025 9:46 AM EDT - 04/15/2025 11:59 PM EDT Hospital Encounter [facility] [address] [place] [address] [place] [address] Inge Wolf NP Discharge Disposition: Home or Self Care 04/14/2025 9:46 AM EDT - 04/14/2025 11:59 PM EDT Hospital Encounter [facility] [address] [place] [address] Inge Wolf NP Discharge Disposition: Home or Self Care from Last 3 Months Immunizations Immunization Administration Dates Next Due COVID-19 (Pre-10/23) Pfizer Vaccine, mRNA, PF 07/13/2021,12/24/2020,12/03/2020 INFLUENZA, SPLIT VIRUS, TRIVALENT PF 11/02/2012, 08/21/2010 INFLUENZA, SPLIT VIRUS, TRIV ALENT W/ PRESERVATIVE IM 08/09/2016,07/09/2011 Influenza High-Dose Quadriva lent Preservative Free IM 08/06/2023,08/01/2021,07/31/2020 Influenza High-Dose Trivalen t Preservative Free IM 07/29/2024,10/10/2019 Influenza Quadrivalent Adjuv anted Preservative Free IM 07/11/2022 Influenza Trivalent Adjuvant ed Preservative free IM 08/13/2018 Influenza, whole 09/02/2007,10/02/2006 Pneumococcal conjugate PCV13 10/06/2018 Pneumococcal polysaccharide PPSV23 08/13,03/08/2013,03/13/2009,10/02 RSV Vaccine (bivalent) 02/14/2025 Td, unspecified formulation 12/04/2003 Tdap 06/08/2021,03/14/2014 Zoster recombinant 01/17/2022,08/20/2021 Family History Medical History Relation Comments Emphysema Father Coronary artery disease Mother Relation Status Comments Father Mother Social History Tobacco Use Types Packs/Day Years [...] file Not on file Not on file Last Filed Vital Signs Vital Sign Reading Time Taken Comments Blood Pressure 130/70 06/05/2025 9:25 AM EDT Pulse 63 06/05/2025 9:25 AM EDT Temperature 36.3 C (97.4 F) 05/30/2025 9:43 AM EDT Respiratory Rate 20 11/11/2023 3:05 PM EST Oxygen Saturation 99% 06/05/2025 9:25 AM EDT Inhaled Oxygen Concentration - - Weight 46.3 kg (102 lb) 06/05/2025 9:25 AM EDT Height 158 cm (5' 2.21 ) 06/05/2025 9:25 AM EDT Body Mass Index 18.53 06/05/2025 9:25 AM EDT Plan of Treatment Upcoming Encounters Date Type Department Care Team (Late st Contact Info) Description 08/07/2025 9:30 AM EDT Office Visit [facility] [address] [place] [address] 3[address] Floor, [address] [place] [address] Chioma Gresham DNP [address] [address] 10/02/2025 1:00 PM EST Office Visit [address] [place] [address] Marleni Coffman MD [address] [place] [address] 11/27/2025 11:00 AM EST Appointment [facility] [address] [place] [address] Wagner Figueroa MD, MS [address] [address] 12/05/2025 9:15 AM EST Office Visit [facility] Allergy and Critical Care Medicine [address] [place] [address] Wagner Figueroa MD, MS [address] [address] 12/11/2025 10:45 AM EST Appointment [facility], Bone Density - [address] [address] Rex Villareal DO [address] [place] [address] 01/01/2026 10:30 AM EST Office Visit [facility] [address] [place] [address] [place] [address] Rex Villareal DO [address] [place] [address] [email or web address] Health Maintenance Due Date Last Done Comments DEPRESSION SCREENING 04/29/2025 04/29/2024, 01/07/20 LIPID PANEL 05/25/2025 05/25/2024, 08/0 07/2018, 06/10/2018 INFLUENZA VACCINE (#1) 2025 , 08/06/2023, 08/06/2023, Additional history exists CREATININE LEVEL 05/25/2026 05/25/2025, 01/2025, 03/24/2025, Additional history exists POTASSIUM LEVEL 05/25/2026 05/25/2025, 06/0 01/2025, 03/24/2025, Additional history exists Adult Td,Tdap Booster 06/08/2031 06/08/2021 , 03/14/2014, 12/04/2003 PNEUMOCOCCAL VACCINES (50+ years) Completed 10/06/2018, 08/13/2018, 03/08/2013, Additional history exists ZOSTER VACCINES Completed 01/17/2022, 08/20/2021 OSTEOPOROSIS SCREENING INITIAL (ONE-TIME) Completed 12/10/2023, 12/09/2021, 12/06/2019, Additional history exists COVID-19 VACCINE Completed 02/13/2025, , 08/06/2023, Additional history exists RSV VACCINE Completed 02/14/2025 HEPATITIS A VACCINES Aged Out No long er eligible based on patient's age to complete this topic HIB VACCINES Aged Out No longer eligi ble based on patient's age to complete this topic MENINGOCOCCAL VACCINES (ACWY) Aged Out No longer eligible based on patient's age to complete this topic MENINGOCOCCAL VACCINES (B) Aged Out N o longer eligible based on patient's age to complete this topic Medical Devices Not on file Procedures Procedure Name Priority Date/Time Associated Diagnosis Comments OUTSIDE MONITOR Routine 07/05/2025 11:19 AM EDT CBC Routine 05/25/2025 2:32 PM EDT Pre-op evaluation BASIC METABOLIC PANEL Routine 05/25/2025 2:32 PM EDT Pre-op evaluation HEMOGLOBIN A1C Routine 05/25/2025 2:32 PM EDT Elevated glucose OUTSIDE IMAGING Routine 05/20/2025 4:03 PM EDT OUTSIDE IMAGING Routine 05/20/2025 3:02 PM EDT OUTSIDE IMAGING Routine 05/20/2025 3:01 PM EDT OUTSIDE IMAGING Routine 05/20/2025 3:01 PM EDT OUTSIDE IMAGING Routine 05/20/2025 3:00 PM EDT CALPROTECTIN, STOOL Routine 04/19/2025 1 :00 PM EDT Chronic diarrhea HC BLOOD OCCULT FECAL HGB DETER IA QUAL FECES 1-3 Routine 04/19/2025 1:00 PM EDT Chronic diarrhea GIARDIA CRYPTOSPORIDIUM SCREEN Routine 04/19/2025 1:00 PM EDT Chronic diarrhea STOOL CULTURE Routine 04/19/2025 1:00 PM EDT Chronic diarrhea XR LOWER EXTREMITY OUTSIDE (NO INTERPRETATION) Routine 04/18/2025 12:00 AM EDT OVA AND PARASITES, STOOL Routine 04/16/2025 10:00 AM EDT Chronic diarrhea OVA AND PARASITES, STOOL Routine 04/14/2025 10:00 AM EDT Chronic diarrhea BD DXA AXIAL (SPINE) WITH HIP Routine 12/10/2023 9:30 AM EST Age-related osteoporosis without current pathological fracture LIPID PANEL Routine 06/10/2018 12:41 PM EDT Pure hypercholesterolemia from Last 3 Months or Most Recently Relevant to Health Maintenance Results * Outside Monitor Report Only (07/05/2025 11:19 AM EDT) us Chioma Gresham [facility] CV CARDIAC SERVICES ORDERABLES F inal Result * (ABNORMAL) CBC (05/25/2025 2:32 PM EDT) WBC 10.79 4.00 - 11.00 K/uL [facility] RBC 4.58 4.00 - 5.20 M/uL [facility] HGB 13.8 12.0 - 16.0 g/dL [facility] HCT 43.2 36.0 - 46.0 % [facility] PLT 321 150 - 450 K/uL [facility] MCV 94.3 80.0 - 100.0 fL [facility] MCH 30.1 27.0 - 31.0 pg [facility] MCHC 31.9(L) 32.0 - 36.0 g/dL [facility] RDW 13.3 11.5 - 14.5 % [facility] MPV 10.6 8.4 - 12.0 fL [facility] NRBC 0.00 0.00 /100 WBCs [facility] ABSOLUTE NRBC 0.00 0.00 K/uL [facility] Blood 05/25/2025 2:32 PM EDT 05/25/2025 2:36 PM EDT us Marleni A Augustus BROCK LAB BLOOD ORDERABLES Final Re sult Performing Organization Address [facility] Co de Phone Number [address] [address] * Hemoglobin A1c (05/25/2025 2:32 PM EDT) HEMOGLOBIN A1C 5.3 4.3 - 5.8 % [facility] Blood 05/25/2025 2:32 PM EDT 05/25/2025 2:36 PM EDT us Marleni A Augustus [facility] LAB BLOOD ORDERABLES Final Re sult Performing Organization Address [facility]/ZIP Co de Phone Number [address] [address] * (ABNORMAL) Basic metabolic panel (05/25/2025 2:32 PM EDT) SODIUM 138 133 - 146 mmol/L [facility] CHLORIDE 107 96 - 108 mmol/L [facility] POTASSIUM 5.9(H) 3.3 - 5.1 mmol/L [facility] CO2 22 21 - 35 mmol/L [facility] BUN 33(H) 6 - 19 mg/dL [facility] CREATININE 1.40 0.5 - 1.5 mg/dL [facility] GLUCOSE 103(H) 70 - 99 mg/dL [facility] CALCIUM 10.6(H) 8.4 - 10.3 mg/dL [facility] EGFR 36(L) >59 mL/min/1.7 3m2 [facility] Comment:Estimated glomerular filtration rate calculated using the CKD-EPI refit equation. ANION GAP 15 10 - 20 mmol/L [facility] Blood 05/25/2025 2:32 PM EDT 05/25/2025 2:36 PM EDT Marleni Coffman MD LAB BLOOD ORDERABLES Final Re sult [address] [id number] * Outside Imaging Report Only (05/20/2025 4:03 PM EDT) us Historical Provider MD PHAM XR CHEST Edited Re sult - Final * Outside Imaging Report Only (05/20/2025 3:02 PM EDT) Historical Provider IMFransisco XR CHEST Edited Re sult - Final * Outside Imaging Report Only (05/20/2025 3:01 PM EDT) Historical Provider MD PHAM XR CHEST Edited Re sult - Final * Outside Imaging Report Only (05/20/2025 3:01 PM EDT) Historical Provider MD PHAM XR CHEST Edited Re sult - Final * Outside Imaging Report Only (05/20/2025 3:00 PM EDT) Historical Provider MD PHAM XR CHEST Edited Re sult - Final * Fecal immunochemical test x1 (FIT) (04/19/2025 1:00 PM EDT) Immuno Fecal Occult Negative Negative [facility] Stool (Stool) 04/19/2025 1:0 0 PM EDT 04/19/2025 2:02 PM EDT Inge Wolf EQUALIZING SAW OPERATOR BODY FLUIDS AND STOOLS ORDE RABLES Final Result Performing Organization Address City/[facility]/ZIP Co de Phone Number [address] [address] * Giardia and cryptosporidium screen (04/19/2025 1:00 PM EDT) GIARDIA AG Negative Negative [facility] Cryptosporidiu m, stool Negative Negative [facility] Stool (Stool) 04/19/2025 1:0 0 PM EDT 04/19/2025 2:02 PM EDT Inge Wolf EQUALIZING SAW OPERATOR NON CULTURE MICROBIOLOGY Fi nal Result Performing Organization Address City/[facility]/ZIP Co de Phone Number [address] [address] * Calprotectin, stool (04/19/2025 1:00 PM EDT) STOOL CALPROTECTIN 24 mcg/g [facility] Comment: (NOTE) Reference Range: <50 Normal 50-120 [...] PM EDT 04/19/2025 2:03 PM EDT Inge Candiemelania Wolf EQUALIZING SAW OPERATOR BODY FLUIDS AND STOOLS KOBI RABTHOMAS Final Result [facility] [address] [place] [address], [facility] [phone] * Stool culture (04/19/2025 1:00 PM EDT) Special Requests None 04/19/2025 2:01 PM EDT [facility] Stool Culture NO SALMONELLA, SHIGELLA OR CAMPYLOBACTER ISOLATED 04/21/2025 8:11 AM EDT [facility] Stool (Stool) 04/19/2025 1:0 0 PM EDT 04/19/2025 2:03 PM EDT Inge Wolf NP MICROBIOLOGY - GENERAL KOBI SALDANA Final Result Performing Organization Address City/[facility]/ZIP Co de Phone Number [address] [address] * XR Lower Extremity Outside (No Interpretation) (04/18/2025 12:00 AM EDT) Narrative Record, 05/02/2025 11:58 AM EDT This study is for PACS storage only and not for interpretation. Procedure Note Record, 05/02/2025 This study is for PACS storage only and not for interpretation. us Unknown Unknown MD IMG OUTSIDE IMAGING W/OUT INT ERPRETATION Final Result * Ova and parasites, stool (04/16/2025 10:00 AM EDT) Only the most recent of2 resultswithin the time period is included. Parasitic exam FINAL 5 [phone] [facility] PAT+ Comment: (NOTE) SOURCE: STOOL, STLP OVA AND PARASITE, MICROSCOPY, F FINAL No parasites seen. Cryptosporidium, Cyclospora, and microsporidia are not readily detected by this method. Single negative specimen does not rule out parasitic infection. Stool (Stool) 04/16/2025 10: 00 AM EDT 04/17/2025 9:58 AM EDT us Inge Wolf NP MICROBIOLOGY - GENERAL KOBI SALDANA Final Result [facility] MED AND PAT+ [address] [place] [address] * BD DXA AXIAL (SPINE) WITH HIP (12/10/2023 9:30 AM EST) Anatomical Region Laterality Modality Bone Density Bone Density 12/14/2023 5:52 PM EST Impressions 12/14/2023 5:55 PM EST Bone mineral density falls within the osteoporosis range. Statistically significant bone mineral density loss in the lumbar spine compared with 12/09/2021. Narrative 12/14/2023 5:55 PM EST This is a 88-year-old female with a history of osteoporosis. Compared with prior study 12/09/2021. Evaluation of the lumbar spine and left hip is obtained and appears technically adequate. The lumbar spine from L2 through L4 discloses a total bone mineral density of 0.911 g/cm2 with a T-score of -1.5. Z score 1.4. This is in the osteopenia range. This is a statistically significant bone mineral density change of -4.3% compared with 12/09/2021 The left hip (total) has a total bone mineral density of 0.599 g/cm2 for a T- score of -2.8. Z score -0.5. This is in the osteoporosis range. No statistically significant change compared with 12/09/2021. The left hip (neck) has a total bone mineral density of 0.539 g/cm2 with a T- score of -2.8. Z score -0.3 Procedure Note Heber Gardner MD - 12/14/2023 This is a 88-year-old female with a history of osteoporosis. Compared with prior study 12/09/2021. Evaluation of the lumbar spine and left hip is obtained and appearstechnically adequate. The lumbar spine from L2 through L4 discloses a total bone mineral densityof 0.911 g/cm2 with a T-score of -1.5. Z score 1.4. This is in theosteopenia range. This is a statistically significant bone mineral densitychange of -4.3% compared with 12/09/2021 The left hip (total) has a total bone mineral density of 0.599 g/cm2 for aT- score of -2.8. Z score -0.5. This is in the osteoporosis range. Nostatistically significant change compared with 12/09/2021. The left hip (neck) has a total bone mineral density of 0.539 g/cm2 with aT- score of -2.8. Z score -0.3 IMPRESSION: Bone mineral density falls within the osteoporosis range. Statisticallysignificant bone mineral density loss in the lumbar spine compared with12/09/2021. Rex Villareal DO IMG BD BONE DENSITY DEXA Final R esult * (ABNORMAL) Lipid panel (06/10/2018 12:41 PM EDT) HDL 84 mg/dL [facility] Comment: Interpretation: Risk Level Females Decreased >55mg/dL Average 50-55 mg/dL Increased <50 mg/dL CHOLESTEROL 222 0 - 240 mg/dL [facility] TRIGLYCERIDES 71 30 - 160 mg/dL [facility] LDL 124 50 - 129 mg/dL [facility] Comment: LDL levels in terms of risk for coronary heart disease: <100 mg/dL: Optimal 100-129 mg/dL: Near or above optimal 130-159 mg/dL: Borderline high 160-189 mg/dL: High >190 mg/dL: Very High CARDIAC RISK RATIO 2.6(L) 3.3 - 4.4 C [facility] Blood 06/10/2018 12:4 1 PM EDT 06/10/2018 12:45 PM EDT us Marleni Coffman MD LAB BLOOD ORDERABLES Final Re sult [facility] [address] [place] [address] from Last 3 Months or Most Recently Relevant to Health Maintenance Insurance MEDICARE PART A & B [employer] SUPPLEMENT MEDICARE PART A & B [employer] SUPPLEMENT MEDICARE PART A & B [employer] MED[employer] SUPPLEMENT MEDICARE PART A & B [employer] SUPPLEMENT MEDICARE PART A & B [employer] MEDEX SUPPLEMENT MEDICARE PART A & B [employer] MEDEX SUPPLEMENT MEDICARE PART A & B [employer] MEDEX SUPPLEMENT MEDICARE PART A & B [facility] MEDEX SUPPLEMENT MEDICARE PART A & B [employer] MEDEX SUPPLEMENT Advance Directives For more information, please contact: [phone] (9AM - 5PM [facility], Thursday-Thursday) Documents on File Type Date Recorded Patient Precipitation Equipment Tender Expl anation Healthcare Proxy 10/04/2018 11:44 AM Healthcare Proxy 06/30/2024 Sigend HCP * Full Code (Confirmed) (Latest Code Status on File) Date Activated Date Inactivated Comments 09/29/2018 1:56 PM 10/01/2018 4:59 PM Question Answer Comments Code Status Confirmed With: Patient Care Teams Smoking Tobacco Cutter Operator Relationship Specialty Start Date End Date Marleni Coffman MD [address] [place] [id number] PCP - General 08/20/17 Marleni Coffman MD [address] [place] [id number] Insurance Assigned Provider 02/06/24 Ladonna Louise, RN [address] [place] [address] iCMP Order Dispatcher 03/01/21 Neville Cash MD [address] [place] [id number] Orthopedic Surgery 06/05/25 Additional Source Comments The information contained in this document represents components of the legal health record. It is not the complete legal health record.[facility]
--- OUTSIDE RECORDS SUMMARY | 2025-07-13 08:48 | XMS_ITS | Encounter Summary ---
Author Organization [facility] Address [address] [place] [address] Phone Care Team Providers Care Office Cleaner Name Role Phone Marleni Coffman MD Primary Care Provider [phone] Marleni Coffman MD Unavailable [phone] Ladonna Louise RN Unavailable [phone] Allison Rice Unavailable ruby Neville Cash MD Unavailable Encounter Details Date Type Department Care Team (Late st Contact Info) Description 03/26/2023 Transcribe Orders [facility] 30 [place] [address] Wagner Figueroa MD, [place] [address] [id number] Social History Tobacco Use Types Packs/Day Years [...] high school, GED, job training, learning the Stat[place] language, technical skills, or developing parenting skills)? [...] Description 08/07/2025 9:30 AM EDT Office Visit [facility] [address] [place] [address] 3rd Floor, [address] [place] [address] Chioma Gresham DNP 22 [facility], [address] [place] [address] 10/02/2025 1:00 PM EST Office Visit [facility] [address] [place] [address] [place] [address] Marleni Coffman MD 170 [facility], [address] [place] [address] 11/27/2025 11:00 AM EST Appointment [facility] [address] [place] [address] Wagner Figueroa MD, MS [address] [address] 12/05/2025 9:15 AM EST Office Visit [facility] [address] [place] [address] Wagner Figueroa MD, MS [address] [address] 12/11/2025 10:45 AM EST Appointment [facility], [facility] Density - [address] [address] Rex Villareal DO [address] [place] [address] 01/01/2026 10:30 AM EST Office Visit [facility] [address] [place] [address] Rex Villareal DO [address] [place] [address] documented as of this encounter Visit Diagnoses Not on filedocumented in this encounter Additional Health Concerns Infection Onset Date Last Indicated Resolved Time CDiff-Risk 04/05/2025 04/19/2025 04/12/2025 1:21 AM EDT CDiff-Risk 04/19/2025 04/19/2025 04/19/2025 9:22 PM EDT Assessment Noted Time PHQ-2 Depression Total Score: 2 01/17/20 23 10:12 AM EDT documented as of this encounter Care Teams Office Cleaner Relationship Specialty Start Date End Date Marleni Coffman MD [address] [place] [address], 2nd [place] [address] [email or web address] PCP - General 08/20/17 Marleni Coffman MD [address] [place] [address], 2nd [place] [address] [email or web address] Insurance Assigned Provider 02/06/24 Ladonna Louise, RN [address] [place] [address] [email or web address] iCMP Wood Gluer 03/01/21 Allison Rice [address] [place] [address] [email or web address] iCMP Community Ross Carrier Driver 04/19/24 04/19/24 Neville Cash MD [address] [place] [address] [address] [place] [address] Orthopedic Surgery 06/05/25 documented as of this encounter Additional Source Comments The information contained in this document represents components of the legal health record. It is not the complete legal health record.[facility]
--- OUTSIDE RECORDS SUMMARY | 2025-07-13 08:48 | XMS_ITS | Encounter Summary ---
Author Organization [facility] Address [address] [place] [address] Phone Care Team Providers Care Home Sales Consultant Name Role Phone Marleni Coffman MD Primary Care Provider [phone] Marleni Coffman MD Unavailable [phone] Ladonna Louise RN Unavailable [phone] Allison Rice Unavailable ruby Neville Cash MD Unavailable Encounter Details Date Type Department Care Team (Late st Contact Info) Description 05/29/2022 Transcribe Orders [facility]FT [facility] 30 [place] [address] Wagner Figueroa MD, MS [address] [id number] Social History Tobacco Use Types Packs/Day Years [...] high school, GED, job training, learning the [place]i language, technical skills, or developing parenting skills)? [...] Description 08/07/2025 9:30 AM EDT Office Visit [facility] [address] [place] [address] 3rd Floor, [address] [place] [address] Chioma Gresham DNP [address] [place] [address], [address] [address] 10/02/2025 1:00 PM EST Office Visit [facility] [address] [place] [address] [place] [address] Marleni Coffman MD [address] [place] [address], 2nd [place] [address] 11/27/2025 11:00 AM EST Appointment [facility] 30 [place] [address] Wagner Figueroa MD, MS [address] [address] 12/05/2025 9:15 AM EST Office Visit [facility] [address] [place] [address] Wagner Figueroa MD, MS [address] [address] 12/11/2025 10:45 AM EST Appointment [facility] 30 [place] [address] Rex Villareal DO [address] [place] [address] 01/01/2026 10:30 AM EST Office Visit [facility] 22 [place] [address] Rex Villareal DO 22 [place] [address] documented as of this encounter Visit Diagnoses Not on filedocumented in this encounter Additional Health Concerns Infection Onset Date Last Indicated Resolved Time COVID-19 02/19/2023 02/19/2023 03/12/2023 1:21 AM EDT CDiff-Risk 04/05/2025 04/19/2025 04/12/2025 1:21 AM EDT CDiff-Risk 04/19/2025 04/19/2025 04/19/2025 9:22 PM EDT Assessment Noted Time PHQ-2 Depression Total Score: 2 04/17/20 10:42 AM EDT documented as of this encounter Care Teams Home Sales Consultant Relationship Specialty Start Date End Date Marleni Coffman MD [address] [place] [address], 2nd [place] [address] [email or web address] PCP - General 08/20/17 Marleni Coffman MD [address] [place] [address], 2nd [place] [address] [email or web address] Insurance Assigned Provider 02/06/24 Ladonna Louise, RN [address] [place] [address] [email or web address] iCMP Sales Enablement Specialist 03/01/21 Allison Rice [address] [place] [address] [email or web address] iCMP Community Director Of In Service Education 04/19/24 04/19/24 Neville Cash MD [address] [place] [address] [place] [address] Orthopedic Surgery 06/05/25 documented as of this encounter Additional Source Comments The information contained in this document represents components of the legal health record. It is not the complete legal health record.[facility]
--- OUTSIDE RECORDS SUMMARY | 2025-07-13 08:48 | XMS_ITS | Encounter Summary ---
Author Organization [facility] Address [address] [place] [address] Phone Care Team Providers Care Spark Tester Name Role Phone Marleni Coffman MD Primary Care Provider Marleni Coffman MD Unavailable Ladonna Louise RN Unavailable [phone] Allison Rice Unavailable ruby Neville Cash MD Unavailable [phone] Encounter Details Date Type Department Care Team (Late st Contact Info) Description 07/15/2021 Procedure Pass [facility] Echo [facility] 30 [place] [address] Social History Tobacco Use Types Packs/Day Years [...] high school, GED, job training, learning the [place] language, technical skills, or developing parenting skills)? [...] Description 08/07/2025 9:30 AM EDT Office Visit [facility] [address] [place] [address] 3rd [facility], [address] [place] [address] Chioma Gresham DNP [address] [place] [address] 10/02/2025 1:00 PM EST Office Visit [facility] [address] [place] [address] [place] [address] Marleni Coffman MD [address] [place] [address], [address] [place] [address] 11/27/2025 11:00 AM EST Appointment [facility] [address] [place] [address] Wagner Figueroa MD, MS [address] [address] [email or web address] 12/[email or web address]/2025 9:15 AM EST Office Visit [facility] 10 [facility] [place] [address] Wagner Figueroa MD, MS [address] [address] 12/11/2025 10:45 AM EST Appointment [facility], Bone Density - [address] [address] Rex Villareal [address] [address] [email or web address] 01/01/2026 10:30 AM EST Office Visit [facility] 22 [place] [address] Rex Villareal [address] [address] documented as of this encounter Visit Diagnoses [...] Time PHQ-2 Depression Total Score: 2 01/09/20 21 10:26 AM EST documented as of this encounter Care Teams Spark Tester Relationship Specialty Start Date End Date Marleni Coffman MD [address] [place] [address], [address] [place] [address] [email or web address] PCP - General 08/20/17 Marleni Coffman MD [address] [place] [address], [address] [place] [address] [email or web address] Insurance Assigned Provider 02/06/24 Ladonna Louise, RN [address] [place] [address] [email or web address] iCMP Behavior Therapist 03/01/21 Allison Rice [address] [place] [address] [email or web address] iCMP Community Wind Science And Planning 04/19/24 04/19/24 Neville Cash MD [address] [place] [address] [address] [place] [address] Orthopedic Surgery 06/05/25 documented as of this encounter Additional Source Comments The information contained in this document represents components of the legal health record. It is not the complete legal health record.[facility]
--- OUTSIDE RECORDS SUMMARY | 2025-07-13 08:48 | XMS_ITS | Encounter Summary ---
Author Organization [facility] Address [address] [place] [address] Phone Care Team Providers Care Toll Service Observer Name Role Phone Marleni Coffman MD Primary Care Provider [phone] Marleni Coffman MD Unavailable [phone] Ladonna Louise RN Unavailable [phone] Allison Rice Unavailable ruby [email or web address] Neville Cash MD Unavailable [phone] Encounter Details Date Type Department Care Team (Late st Contact Info) Description 04/26/2021 Procedure Pass [address] [place] [address] Social History Tobacco Use Types Packs/Day Years [...] high school, GED, job training, learning the [place] language, technical skills, or developing parenting skills)? [...] Description 08/07/2025 9:30 AM EDT Office Visit [facility] [address] [place] [address] 3rd [facility], [address] [place] [address] Chioma Gresham DNP [address] [address] 10/02/2025 1:00 PM EST Office [facility] [address] [place] [address] [place] [address] Marleni Coffman MD [address] [place] [address] 11/27/2025 11:00 AM EST Appointment [facility] 30 [place] [address] Wagner Figueroa MD, MS [address] [address] 12/05/2025 9:15 AM EST Office Visit [facility] 10 [facility] [place] [address] Wagner Figueroa MD, MS [address] [address] 12/11/2025 10:45 AM EST Appointment [facility], [address] [address] Rex Villareal [address] [address] 01/01/2026 10:30 AM EST Office Visit [facility] 22 [place] [address] Rex Villareal [address] [address] documented as of this encounter Visit Diagnoses [...] documented as of this encounter Care Teams Toll Service Observer Relationship Specialty Start Date End Date Marleni Coffman MD [address] [place] [address], [address] [place] [address] [email or web address] PCP - General 08/20/17 Marleni Coffman MD [address] [place] [address], [address] [place] [address] [email or web address] Insurance Assigned Provider 02/06/24 Ladonna Louise RN [address] [place] [address] [email or web address] iCMP Chief Safety Officer 03/01/21 Allison Rice [address] [place] [address] [email or web address] Room Attendant 04/19/24 04/19/24 Neville Cash MD [address] [place] [address] Sanjay [address] [place] [address] Orthopedic Surgery 06/05/25 documented as of this encounter Additional Source Comments The information contained in this document represents components of the legal health record. It is not the complete legal health record.[facility]
== END 2025-07-13 08:31 | disposition home or self-care (01) ==
LOC: HO.HOS 08:05
PROVIDERS: PCP Internal Medicine; Visit Provider Orthopaedic Surgery
DX: M17.11 Unilateral primary osteoarthritis, right knee (principal)
CPT/HCPCS: 99213; G2211

== ENCOUNTER 2025-07-13 08:05 | Outpatient (REF) | payer MEDICARE, SELFPAY | END 2025-07-13 08:06 | disposition home or self-care (01) | LOC: HO.LAB 08:05 | PROVIDERS: PCP Internal Medicine; Visit Provider Orthopaedic Surgery | DX: Z13.89 Encounter for screening for other disorder (principal) ==

== ENCOUNTER 2025-07-17 05:59 | Day surgery (SDC) | payer MEDICARE, SELFPAY ==
--- OUTSIDE RECORDS SUMMARY | 2025-05-23 14:22 | XMS_ITS | Data Portability ---
Author Organization [facility], [facility] Address [address] [place] [address] Assessment No assessment recorded. Plan of Treatment Reminders Order Date Submit Date Provider Last Modified By Organization Details Last Modified Time Details Appointments MUST SEE MD 15 025 01:45PM Marcelo Moy MD Not available Not available Not available Lab None record ed. Referral None record ed. Procedures None record ed. Surgeries None record ed. Imaging XR, knee, 4 or more view - room 203, R knee 4v 025 03/06/20 [email or web address] [facility] Office, [address] [facility], [address], [address], 03/06/2025 11:27:54 Medication Orders None record ed. [...] a4ajBk vP9nXo QUaueC m3YtLR FvZlgJ JJ8mAn HZtai3 [id number] AC0Kla niDUKe lKiQtr MwF INTERFACE [facility] [address], [place], [address], 03/06/2025 10:29:04 03/06/20 25 03/06/2025 XR, knee, 4 or more view http:/ [email or web address] ?Encry pted=s hAaTro YD8dLq bEUv6g %2BXZw aYqtaq 0bqfl% 2Fg9IQ a4ajBk vP9nXo QUaueC m3YtLR FvZlgJ JJ8mAn HZtai3 0e3133 AC0Kla niDUKe lKiQtr MwF INTERFACE [facility] [address] [facility] [address], [place], [address], 03/06/2025 10:29:05 Result Notes Documentation Provider Name and Address Organization Details Recorded Time Xr, Knee, 4 Or More View : [email or web address] Encrypted=kdPmGioGD1aXxdA Uv6g%5TYEzfDbcgc8hyhg%2Fg 9KGu8geOfuJ1hCwXJtchZz9Ny KGSuJanPTS1hUoFEnix46s918 8RS1FjsqpBDJlyOtEksFqK Not Available [facility] 03/06/2025 10:29: 04 Xr, Knee, 4 Or More View : [email or web address] Encrypted=czTpGeuBW9gCcmP Uv6g%7BHVteVlvmk3phtm%2Fg 2SVc0siXohX0pQpZQjlkFb1Bg MMEiOvuKUY7vEcUFjsd41p469 9KG0RchssPUDpuBhIopPpC Not Available [facility] 03/06/2025 10:29: 06 Procedures Surgical History Date Name Laterality Status Provider Name and Address Organization Details Recorded Time 03/06/2025 Sports Knee 4&1 completed Edy Mcadams PA-C [address] [facility] [address], [place], [address], [facility] - [facility] 03/06/2025 13:47:51 Imaging Results [...] Not Available Not Available No t Available spironolactone 25 mg tablet TAKE ONE TABLET BY MOUTH DAILY. active Not Available Not Available No t Available omeprazole 20 mg capsule,delaye d release TAKE ONE CAPSULE BY MOUTH EVERY DAY active Not Available Not Available No t Available lisinopril 5 mg tablet TAKE ONE TABLET BY MOUTH DAILY active Not Available [...] Updated DateTime 03/06/2025 165.1 cm 18.3 kg/m2 64800.16 g Sophy Almanzar [place] - [facility] 03/06/2025 10:17:19 Social History None recorded. Functional Status None recorded. Mental Status None recorded. Family History Nothing Reported. Medical History Condition Response Hypertension Y Asthma Y Gynecological HistoryNo gynecological history recorded. Obstetrics History GPAL:G 0 P 0 0 0 0 Past Encounters Encounter ID Performer Location Encounter Start Date Encounter Closed Date Diagnosis/Indication Diagnosis SNOMED-CT Code Diagnosis ICD10 Code Diagnosis Note [id number] NOLVIA Jain 2nd floor [address] [place] [address] 03/06/2025 10:07:04 03/18/2025 10:30:21 Pain of right knee joint 6042281921 47550 M25.561 Osteoarthr itis of right knee joint 2881890714 20169 M17.11 Health Concerns Section Related Observation LastModified by Organization Detai ls LastModified Time None Recorded Concern Status LastModified by Organization Details LastModified Time None Recorded Advance Directives Directive None Recorded Payers Insurance Date Sequence Insurance Name Policy Number Policy Marlow Covered Member ID Marlow Member ID Guarantor Name 05/21/2025 2 [place] [id number] Kera Calzada [id number] Kera Calzada 05/21/2025 1 MEDICARE [place]: [facility] Kera May Zheng [id number] Kera Calzada 05/21/2025 [place] [employer] Kera May Zheng [id number] Kera Calzada Notes Date Note Type Note Provider Name [...] reviewed, updated and is located in the patient s chart. Examination: Well-appearing 89-year-old female in [...] joint space loss laterally with evidence of wtes-nr-xrkl articulation, subchondral sclerosis, osteophyte formation. Degenerative changes [...] concerns were answered today. Edy Mcadams PA-C [address] [place], [place] [address]mel[address] [address], [place], [address], [facility] - [facility] 03/06/2025 13:48:04 OBGyn Episode No OBEpisode recorded.
--- OUTSIDE RECORDS SUMMARY | 2025-05-23 14:22 | XMS_ITS | Encounter Summary ---
Author Organization [facility] Address [address] [place] [address] [place] [address] Phone Care Team Providers Care [facility]om[facility] Nurse Practitioner Name Role Phone Marleni Coffman A Primary Care Provider [phone] Marleni Coffman MD Unavailable [phone] Jaleesa Rod RN Unavailable [phone] Jihan Resendiz RN Unavailable [phone] Ladonna Louise RN Unavailable [phone] Allison Rice Unavailable ruby Reason for Referral * MRI/CAT Scan - Closed Specialty Diagnoses / Procedures Referred By Contac t Referred To Contact Procedures CT Chest Outside (No Interpretation) System, Provider Not In, PhD [facility] [address] [address] Referral ID Status Reason Start Date Expiration Date Visits Re quested Visits Authorized [id number] Closed 09/16/2017 09/16/2018 1 1 * MRI/CAT Scan - Closed Specialty Diagnoses / Procedures Referred By Contac t Referred To Contact Procedures CT Chest Outside (No Interpretation) System, Provider Not In, PhD [address] [address] Referral ID Status Reason Start Date Expiration Date Visits Re quested Visits Authorized [id number] Closed 09/16/2017 09/16/2018 1 1 Encounter Details Date Type Department Care Team (Late st Contact Info) Description 09/16/2017 Ancillary Orders [facility],Outside Imaging [address] [place] [address] System, Provider Not In, [place] [address] Social History Tobacco Use Types Packs/Day Years Used Date Smoking Tobacco: Passive Smo ke Exposure - Never Smoker Smokeless Tobacco: Never Alcohol Use Standard Drinks/Week Comments Yes 0 (1 standard drink = 0.6 oz pur e alcohol) rare Comments Unknown Sex and Gender Information Value Date Recorded Sex Assigned at Female 09/29/2018 8:59 AM EST Legal Sex Female 10:14 PM EDT Gender Identity Female 09/29/2018 8:59 AM EST Sexual Orientation Straight 09/29/2018 8: 59 AM EST documented as of this encounter Plan of Treatment Upcoming Encounters Date Type Department Care Team (Late Contact Info) Description 05/25/2025 1:30 PM EDT Office Visit [facility] [address] [place] [address] [place] [address] Marleni Coffman MD [address] [place] [address] 2[address] [place] [address] 05/30/2025 9:45 AM EDT Office Visit [facility] [address] [place] [address] Wagner Figueroa MD, MS [address] [facility] [address] [place] [address] 06/05/2025 9:30 AM EDT Office Visit [facility] [address] [place] [address] 3rd Floor, [address] [place] [address] Chioma Gresham DNP [address] [facility], [address] [address] 07/04/2025 10:00 AM EDT Office Visit [facility] [address] [place] [address] Marleni Coffman MD [address] [place] [address], 2nd [place] [address] 07/14/2025 10:00 AM EDT Office Visit [facility] [address] [place] [address] Marleni Coffman MD [address] [place] [address], 2nd [place] [address] 07/20/2025 9:00 AM EDT Office Visit [facility] [address] Floor, [address] [place] [address] Chioma Gresham DNP [address] [facility], [address] [address] 12/11/2025 10:45 AM EST Appointment [facility], Bone Density [address] [address] Rex Villareal DO [address] [place] [address] 01/01/2026 10:30 AM EST Office Visit [facility] [address] [place] [address] Rex Villareal DO [address] [place] [address] documented as of this encounter Results * CT Chest Outside (No Interpretation) (01/23/2016 12:00 AM EDT) Narrative SYSTEMGENERATED, DOCUMENTATION - 09/16/2017 2:44 PM EST This study is for PACS storage only and not for interpretation. us Provider Not In System PhD IMG OUTSIDE IMAGING W /OUT INTERPRETATION Final Result * CT Chest Outside (No Interpretation) (08/22/2011 [...] documented as of this encounter Care Teams [facility]omens [facility] Nurse Practitioner Relationship Specialty Start Date End Date Marleni Coffman MD [address] [place] [address] PCP - General 08/20/17 Marleni Coffman MD [address] [place] [address] Insurance Assigned Provider 02/06/24 Jaleesa Rod, JOANA [address] [place] [address] [facility] Lead Level Designer 06/22/19 08/31/19 Jihan Resendiz, RN [address] [place] [address] [facility] Lead Level Designer 09/01/19 02/28/21 Ladonna Louise RN [address] [place] [address] [facility] Lead Level Designer 03/01/21 Allison Rice [address] [place] [address] [facility] Community Solution Strategist 04/19/24 04/19/24 documented as of this encounter Additional Source Comments The information contained in this document represents components of the legal health record. It is not the complete legal health record.[facility]
[2025-06-16 10:34] VITALS: BP 177/84; PULSE 64; RESP 17; O2SAT 98; BMI 18.4
--- NOTE | 2025-06-16 11:01 | HO.ANESPROP2 ---
Documented by User: Vesna Boyce NP 07/13/25 12:15 HPI - Anesthesia Eval Consult details Narrative: 89yo F for Right Knee Replacement Total, 07/17/25 Medically optimized per PCP Cardiac optimized. Follows [facility] for htn - had holter 06/2025 for reports of dizziness Pulmo optimized. No recent illness. Ongoing symptoms of dizziness. Currently wearing holter. Seen by [facility] No CP, intermit SOB all my life at baseline. Unable to exercise d/t knee pain COPD: Symbicort controls No need for rescue inhalers s/p LLLobectomy - non-ca issue, gunked up [facility] Active Problems Active Problems: All Active Problems Arthritis of right knee (Acute) Right knee pain (Acute) Memory deficit (Acute) Lightheadedness (Acute) Osteoarthritis of right knee (Acute) Memory deficits (Acute) Insomnia (Acute) COPD (chronic obstructive pulmonary disease) (Acute) Dizziness (Acute) Cellulitis (Acute) Abrasion hip/leg (Acute) Otitis externa (Acute) Hypertension (Acute) Past Medical History Medical History Osteoporosis Restless leg syndrome Sarcoma Melanoma Lightheadedness Hyperparathyroidism Hiatal hernia COVID-19 COPD (chronic obstructive pulmonary disease) Bronchiectasis Asthma Cough Bronchitis SOB (shortness of breath) Otitis externa Peripheral neuropathy Hypertension Hypercholesterolemia Alberto thyroiditis Anxiety disorder Family History Family History Father No problems noted. Mother Hypertension Diabetes Family history of problems with anesthesia: No Surgical History Surgical History History of partial colectomy History of lobectomy of lung (~1979) History of local excision of skin lesion H/O colonoscopy History of removal of ovarian cyst Hx of appendectomy History of Problems with Anesthesia: No Social History Social History Household Members Other:: Lives with and son Housing: House Are you a primary acute care surgeon to a significant other at home: No Do you presently have visiting nurse or other home services: No Patient Tobacco Use Status: Never used Tobacco e-Cigarette/Vaping Use: Never Used Use of substances other than those prescribed or required for medical reasons: No Have you been hit, kicked, punched, or otherwise hurt by someone within the past year? If so, by whom?: No Advance Directives: No Advance Directives Information Provided: Yes Advance Directives on File: No Patient : No : No service: No Current occupational status: retired Current occupational exposures/hazards: No Cognitive needs: No Hearing needs: Yes Vision needs: Yes Meds Allergies Allergy/AdvReac Type Severity Reaction Status Date / Time penicillin V Allergy Severe hives, Verified 07/17/25 06:20 throat swelling. amoxicillin Allergy Hives Verified 07/17/25 06:20 sulfamethoxazole (From Allergy Unknown Verified 07/17/25 06:20 Bactrim) trimethoprim (From Bactrim) Allergy Unknown Verified 07/17/25 06:20 Home Medications ?Medication ?Instructions ?Recorded ?Confirmed ?Last Taken ?Type amlodipine 5 mg tablet 5 mg PO DAILY 06/08/21 07/17/25 07/17/25 History budesonide 160 mcg-glycopyr 9 2 inh inhalation BID 05/16/24 07/17/25 Unknown History mcg-formot 4.8 mcg/actuation HFA inhaler (Breztri Aerosphere) lisinopril 5 mg tablet 5 mg PO DAILY 11/08/24 07/17/25 Unknown History gabapentin 100 mg capsule 200 mg PO BEDTIME 01/18/25 07/17/25 Unknown History albuterol sulfate 90 mcg/actuation 2 inh inhalation Q4H PRN Shortness 06/16/25 07/17/25 Unknown History breath activated powder inhaler Of Breath Or Wheezing omeprazole 20 mg tablet,delayed 20 mg PO DAILY 06/16/25 07/17/25 Unknown History release trazodone 50 mg tablet 50 mg PO BEDTIME 06/16/25 07/17/25 Unknown History Exam Height,Weight and Vital Signs: Height 5 ft 3 in Weight 47.174 kg Last Vital Signs Pulse 64 06/16/25 10:34 Resp 17 06/16/25 10:34 BP 177/84 H 06/16/25 10:34 Pulse Ox 98 06/16/25 10:34 O2 Del Method Room Air 06/16/25 10:34 Pertinent Lab Results Pertinent Lab Results: Lab Results 06/16/25 07/13/25 07/13/25 Range/Units 10:40 09:00 09:13 WBC 7.8 (4.8-10.8) X10*3/uL RBC 4.38 (4.20-5.50) X10*6/uL Hgb 13.6 (12.0-16.0) g/dl Hct 40.9 (37.0-47.0) % MCV 93.4 (80.0-98.0) fL MCH 31.1 (27.0-33.0) pg MCHC 33.3 (31.0-35.0) g/dl RDW 12.8 (11.0-16.0) % Plt Count 303 D (160-400) X10*3/uL MPV 10.3 (9.4-12.3) fL Absolute Nucleated RBC 0.000 (0.0-0.012) X10*3/uL Nucleated RBC % (auto) 0.0 (0.0-0.2) /100WBC Sodium 143 (135-145) mmol/L Potassium 4.2 (3.3-5.1) mmol/L Chloride 109 H (96-108) mmol/L Carbon Dioxide 26 (22-29) mmol/L Anion Gap 12 (12-20) BUN 26 H (9-16) mg/dL Creatinine 1.16 (0.5-1.4) mg/dL Estim Creat Clear Calc 24.9 Estimated GFR 44 Random Glucose 79 (60-115) mg/dL Estimat Average Glucose 105 mg/dL Hemoglobin A1c % 5.3 (<6.0) % Calcium 10.4 H D (8.4-10.2) mg/dL Nasal Screen MRSA (PCR) NEGATIVE (Negative) Nasal S. aureus Screen NEGATIVE (Negative) Nasal MRSA/S.aureus Interp SEE NOTE Blood Type B Positive Antibody Screen NEGATIVE Narrative Narrative: EKG 05/2025 Vent. Rate : 74 BPM Atrial Rate : 74 BPM P-R Int : 128 ms QRS Dur : 82 ms QT Int : 370 ms P-R-T Axes : 67 39 36 degrees QTcB Int : 410 ms Normal sinus rhythm with sinus arrhythmia Possible Left atrial enlargement Borderline ECG When compared with ECG of 12-May-2023 10:31, No significant change was found Holter 06/2025 ECHO 04/2025 Airway Mallampati Class: I TM Dist: >3cm Neck ROM: Full Loose/Missing/Broken Teeth: Yes (molars extracted) Heart: RRR Lungs: CTAB (LLL dim) Assessment and Plan Assessment Anesthesia Assessment: Anesthesia Plan Discussed and PAT Visit Final Anesthetic Review Family History of Problems with Anesthesia: No History of Problems with Anesthesia: No Documented by User: Cheryl Wells MD 07/17/25 09:04 [facility] Past Medical History Medical History Osteoporosis Restless leg syndrome Sarcoma Melanoma Lightheadedness Hyperparathyroidism Hiatal hernia COVID-19 COPD (chronic obstructive pulmonary disease) Bronchiectasis Asthma Cough Bronchitis SOB (shortness of breath) Otitis externa Peripheral neuropathy Hypertension Hypercholesterolemia Alberto thyroiditis Anxiety disorder Family History Family History Father No problems noted. Mother Hypertension Diabetes Surgical History Surgical History History of partial colectomy History of lobectomy of lung (~1979) History of local excision of skin lesion H/O colonoscopy History of removal of ovarian cyst Hx of appendectomy Social History Social History Household Members Other:: Lives with and son Housing: House Are you a primary acute care surgeon to a significant other at home: No Do you presently have visiting nurse or other home services: No Patient Tobacco Use Status: Never used Tobacco e-Cigarette/Vaping Use: Never Used Use of substances other than those prescribed or required for medical reasons: No Have you been hit, kicked, punched, or otherwise hurt by someone within the past year? If so, by whom?: No Advance Directives: No Advance Directives Information Provided: Yes Advance Directives on File: No Patient : No : No service: No Current occupational status: retired Current occupational exposures/hazards: No Cognitive needs: No Hearing needs: Yes Vision needs: Yes Meds Allergies Allergy/AdvReac Type Severity Reaction Status Date / Time penicillin V Allergy Severe hives, Verified 07/17/25 06:20 throat swelling. amoxicillin Allergy Hives Verified 07/17/25 06:20 sulfamethoxazole (From Allergy Unknown Verified 07/17/25 06:20 Bactrim) trimethoprim (From Bactrim) Allergy Unknown Verified 07/17/25 06:20 Home Medications ?Medication ?Instructions ?Recorded ?Confirmed ?Last Taken ?Type amlodipine 5 mg tablet 5 mg PO DAILY 06/08/21 07/17/25 07/17/25 History budesonide 160 mcg-glycopyr 9 2 inh inhalation BID 05/16/24 07/17/25 Unknown History mcg-formot 4.8 mcg/actuation HFA inhaler (Breztri Aerosphere) lisinopril 5 mg tablet 5 mg PO DAILY 11/08/24 07/17/25 Unknown History gabapentin 100 mg capsule 200 mg PO BEDTIME 01/18/25 07/17/25 Unknown History albuterol sulfate 90 mcg/actuation 2 inh inhalation Q4H PRN Shortness 06/16/25 07/17/25 Unknown History breath activated powder inhaler Of Breath Or Wheezing omeprazole 20 mg tablet,delayed 20 mg PO DAILY 06/16/25 07/17/25 Unknown History release trazodone 50 mg tablet 50 mg PO BEDTIME 06/16/25 07/17/25 Unknown History Assessment and Plan Final Anesthetic Review NPO: Yes ASA Class: III Final Preanesthetic Review: No Changes in Pt Med Stat, Meds/Allgs Chart Reviewed, Consent Obtained/Reviewed and Anes Risks/Benef Reviewed Patient Risk: Intermediate Procedure Risk: Intermediate Anesthetic Plan Anesthetic Plan: MAC:, Spinal, Neuraxial Block:, Regional Block and Agree w/ Assess. and Plan Disposition: Standard PACU
[2025-06-16 12:34] LABS: MRSA Nasal PCR NEGATIVE (Negative); SA Nasal PCR NEGATIVE (Negative)
[2025-07-13 11:12] LABS: Hematocrit 40.9 % (37.0-47.0); Hemoglobin 13.6 g/dl (12.0-16.0); Mean Corpuscular HGB Conc 33.3 g/dl (31.0-35.0); Mean Corpuscular Hemoglobin 31.1 pg (27.0-33.0); Mean Corpuscular Volume 93.4 fL (80.0-98.0); NRBC Abs Auto 0.000 X10*3/uL (0.0-0.012); NRBC Pct Auto 0.0 /100WBC (0.0-0.2); Platelet Count 303 X10*3/uL (160-400); Red Blood Count 4.38 X10*6/uL (4.20-5.50); White Blood Count 7.8 X10*3/uL (4.8-10.8)
[2025-07-13 11:19] LABS: Hemoglobin A1C 120.0715 umol/L; Total Hemoglobin (HGBA1C) 3520.9556 umol/L
[2025-07-13 11:37] LABS: Anion Gap 12 (12-20); Blood Urea Nitrogen 26 mg/dL (9-16); Calcium 10.4 mg/dL (8.4-10.2); Carbon Dioxide 26 mmol/L (22-29); Chloride 109 mmol/L (96-108); Creatinine Clr Calc Pharmacy 24.9; Estimated Glomerular Filt Rate 44; Potassium 4.2 mmol/L (3.3-5.1); Sodium 143 mmol/L (135-145)
[2025-07-17] VITALS (16 sets, daily range): BP systolic 97–150; BP diastolic 36–72; PULSE 72–82; RESP 7–27; TEMP 36–36.8; O2SAT 95–100
[2025-07-17] MEDS: Lactated Ringers 1,000 ML 100 ML IVCONT ×2 (07:06→13:38)
--- NOTE | 2025-07-17 07:36 | PM.DS ---
DS: Providers Provider Date of Service: 07/19/25 Date of discharge: 07/19/25 Primary care physician: Marleni Coffman MD DS: Summary Hospital Course Hospital Course: The patient underwent a successful right total knee arthroplasty, they were transferred to PACU and then to the floor to recover. During their stay, their vitals were stable, afebrile at 96.8. Labs were unremarkable, H/H 10.6/32.1. POD 0 they were started on Aspirin 325mg po bid for DVT ppx, they also received Physical Therapy services. Prior to discharge, their dressing was clean dry and intact and the plan was to be discharged Time Attestation Discharge Coordination Time (in mins): 30 Quality: Safe Use of Opioids Does Pt have an Active Cancer Diagnosis on the Problem List?: No Quality: Stroke Does the patient have a stroke diagnosis?: No Physical Exam Vital Signs: Vital Signs: Last Vital Signs Temp 98.3 F 07/17/25 06:49 Pulse 79 07/17/25 06:49 Resp 12 07/17/25 06:49 BP 150/72 H 07/17/25 06:49 Pulse Ox 97 07/17/25 06:49 O2 Del Method Room Air 07/17/25 06:49 BMI result Body Mass Index 18.4 Const: General: cooperative, healthy appearing and no acute distress Resp: Effort & Inspection: normal respiratory effort and able to speak in complete sentences Extrem: Other: rt knee dressing is c/d/i. Able to dorsi/plantar flex. Calf is supple and nontender. Sensation intact. Pedal pulse intact. Psych: Appearance: grossly normal Mental Status: mental status grossly normal Attitude: cooperative Discharge Plan Discharge Patient Disposition: Home Health Service Referrals: Michele DUBOIS [Outside] - 1 Day Referral Note: Michele DUBOIS will call you to schedule home physical therapy appointments Gertrude Calderon PA-C [Physician Solar System Designer, Orthopedics] - 08/03/25 10:00 am Discharge Medications: New celecoxib 200 mg Capsule 200 mg PO BID 30 Days Qty: 60 0RF acetaminophen 325 mg Tablet 650 mg PO Q6H PRN (Reason: Pain, Mild 1-3,Fever,Headache) 30 Days Qty: 240 0RF aspirin 325 mg Tablet 325 mg PO BID 42 Days Qty: 84 0RF docusate sodium 100 mg Capsule 100 mg PO BID 7 Days Qty: 14 0RF oxycodone 5 mg Tablet 5 mg PO Q4H PRN (Reason: Pain, Moderate(Pain Scale 4-6)) 7 Days Qty: 42 0RF Rx Instructions: Partial Fill upon patient request. Continued (DME) walker Misc See Rx Instructions .ROUTE .MEDSUPPLY Qty: 1 0RF Rx Instructions: Folding front wheeled walker omeprazole 20 mg Tablet,Delayed Release (Dr/Ec) 20 mg PO DAILY albuterol sulfate 90 mcg/actuation Aerosol Powdr Breath Activated 2 inh INHALATION Q4H PRN (Reason: Shortness Of Breath Or Wheezing) amlodipine 5 mg tablet 5 mg PO DAILY Breztri Aerosphere 160-9-4.8 mcg/actuation HFA aerosol inhaler 2 inh inhalation BID lisinopril 5 mg tablet 5 mg PO DAILY gabapentin 100 mg capsule 200 mg PO BEDTIME Discharge Orders: Discharge Order (Routine); Ordered 07/19/25 Ordered By: Gertrude Calderon Diet: Advance to usual diet Activity on Discharge: Use cane or walker Activity Restrictions/Additional Instructions: Physical Therapy for ROM 0-120, quad strength, gait training. Use walker for ambulation Limit stair climbing No shower or tub bath No driving for 6 weeks Continue anticoagulant Keep Aquacel dressing clean, dry and intact. Follow up with orthopedics in 2 weeks -Bandage/Incision Site Care: -Ice 20mins at a time -Make sure you use a towel or cloth on your skin as a barrier -DO NOT remove the bandage -Keep Bandage clean, dry and intact -Do not get the bandage wet: -No tub bath, pools or hot tubs -If there are any concerns regarding the bandage please call orthopedics: [phone] -Knee Precautions: -Refrain from putting pillows under the knee -Keep leg straight while resting the knee -Avoid low chairs and deep couches -Use supportive shoes with nonslip soles -Physical Therapy: -Patient is WBAT with the use of a walker -Range of Motion: 0-120 degrees. -Strengthening: Quadriceps and hip muscles -Walking: Gait training and gradually increasing distance with walker -Ankle pumps and incentive spirometry to limit the risk of blood clot -Diet: -Resume regular diet as tolerated. -Drink plenty of fluids and eat a high-fiber foods to avoid constipation -This is a common side effect of pain medication) -Take stool softeners as prescribed -Blood Clot Prevention: -Take the prescribed blood thinner as directed for 6 weeks -Perform ankle pumps and walk frequently with the walker and assistance if needed -Report calf pain, swelling, or shortness of breath immediately Print Language: Tongan
--- NOTE | 2025-07-17 10:46 | P.BOP_ITS ---
Brief Operative Note Date of Service: 07/17/25 Pre-op diagnosis: Right knee degenerative joint disease Post-op diagnosis: same Procedure: Right total knee arthroplasty Implants: [place] [employer] cemented posterior stabilized total knee arthroplasty with a femoral component size 2 right, tibial component size 2, polyethylene liner size 2 with 9 mm of thickness, an asymmetric patellar component size 29 with 9 mm of thickness Surgeon: Neville Cash MD Anesthesia: regional and spinal Was an District Fire Chief used for this Procedure?: No District Fire Chief: Gertrude Calderon Estimated blood loss (mL): 150 Pathology: other (Bony fragments from the right femur, tibia and patella) Condition: stable Disposition: PACU
--- NOTE | 2025-07-17 10:55 | W.PM.OPN ---
Operative Note Operative Note Date of Service: 07/17/25 Narrative: After the patient was identified as Kera Calzada and her right knee was initialed by myself the patient was brought to the holding area where a right leg nerve block was performed by the anesthesiologist in routine fashion. The patient was then brought to the operating room where conscious sedation and spinal anesthesia were performed by the anesthesiologist in routine fashion. Because of the patient's allergy to penicillin she was given 900 mg of IV clindamycin preoperatively for infection prophylaxis. The patient's right lower extremity was prepped and draped in sterile fashion. A formal time-out was completed. The patient's right knee was placed onto a small bump to produce 30? of knee flexion during exposure. A #10 scalpel blade was used to make a midline incision extending 1 handbreadth proximal and distal to the patella. A second #10 scalpel blade was used to dissect the subcutaneous tissues down to the extensor mechanism. The subcutaneous flaps were maintained as thick as possible. A medial parapatellar arthrotomy was then performed using a #10 scalpel blade. The arthrotomy was begun just medial to the patellar tendon. The arthrotomy was continued 1 cm medial to the patella and then 5 mm into the medial aspect of the quadriceps tendon. The infrapatellar fat pad was partially excised to help with exposure. The soft tissue retinaculum was raised one-half of the way around the medial aspect of the proximal tibia. The patella was everted and the knee was flexed to 90?. There was no injury to the patellar tendon or its insertion onto the tibial tubercle. A drill bit was introduced into the distal aspect of the femur with a starting point 1 cm anterior to the origin of the posterior cruciate ligament. The intramedullary alignment jt was put into place. The distal alignment guide was set for a 5 degree valgus cut. The distal cutting block was put into place and we held it with 4 pins. The intramedullary alignment jt was removed. Soft tissues were retracted in the distal femoral cut was made using a sagittal saw. The distal aspect of the femur measured to be a size 2 right component. Two drill holes were placed into the distal aspect of the femur marking 3? of external rotation. The distal cutting block was impacted into place and we held it with 2 pins. Soft tissues were retracted and the 4 distal femoral cuts were made using a sagittal saw. Final notching and drilling of the distal aspect of the femur were performed in routine fashion. The trial femoral component was impacted into place. The knee was taken through a full range of motion. The patella tracked well. The patella was everted and the knee was flexed to 90?. The trial component was removed and our attention was directed to the proximal tibia. The medial and lateral menisci were removed using a #10 scalpel blade. A small rim of the medial meniscus was left intact to help prevent injury to the medial collateral ligament. A drill bit was then introduced into the proximal tibia with a starting point midway from medial to lateral and one-third of the way posteriorly. The intramedullary alignment jt was put into place. The proximal tibial cutting guide was placed over the alignment jt in line with the 2nd toe. The guide was held in place using 3 pins. The intramedullary alignment jt was removed. Soft tissues were retracted and the proximal tibial cut was made using a sagittal saw. The proximal tibia measured to be a size 2 component. The tibial tray was put into place with a 9 mm liner. The femoral component was impacted into place. The knee was taken through a full range of motion. There was full flexion and full extension. There was no instability with varus or valgus stress testing with the knee in flexion or extension. The patella tracked well with no medially directed force. The rotation of the tibial tray was marked using electrocautery with the knee in extension. The patella was everted and the knee was flexed to 90?. All trial components were removed. The tibial tray was placed onto the proximal tibia in line with the electrocautery gwen. The tray was held in place using 3 pins. Final broaching of the proximal tibia was performed in routine fashion. The trial liner and trial femoral component were put into place. The knee was brought into extension and our attention was directed to the patella. The patella measured 25 mm in thickness. The patellar resection guide was set for a 10 mm resection. Soft tissues were retracted and the patella cut was made using a sagittal saw. The remaining patella measured 15 mm in thickness. The undersurface of the patella was measured to be a size 29 asymmetric component. Three drill holes were placed into the undersurface of the patella in routine fashion. The trial component was put into place. The knee was taken through a full range of motion. The patella tracked well. The patella was everted and the knee was flexed to 90?. All trial components were removed. The knee was once again brought into extension and placed onto a small bump. The knee joint was irrigated with copious amounts of normal saline solution via pulse lavage while the cement was mixed. The patella was everted and the knee was flexed to 90?. A small amount of cement was placed along the posterior aspects of the tibial and femoral components. Cement was then pressurized into the proximal tibia. The tibial component was impacted into place. Any excess cement was removed. The polyethylene liner was then impacted into place. Cement was then pressurized into the distal aspect of the femur. A small amount of cement was placed into the intramedullary canal to help reduce bleeding. The femoral component was impacted into place. Any excess cement was removed. The knee was then brought into extension. Cement was pressurized into the undersurface of the patella. The patellar component was put into place and was held with a patella clamp. Any excess cement was removed. Once the cement had hardened the patellar clamp was removed. The knee was taken through a full range of motion. There was full flexion and extension. There was no instability with varus or valgus stress testing with the knee in flexion or extension. The patella tracked well with no medially directed force. The knee joint was irrigated with copious amounts of normal saline solution via pulse lavage. Any significant bleeding vessels were coagulated. The patient's right knee was placed onto a small bump. The arthrotomy was closed with #2 Ethibond [id number]-hl-[id number] interrupted suture as well as #1 Vicryl [id number]-ov-[id number] interrupted suture. The wound was once again irrigated. The subcutaneous tissues were closed with 0 Vicryl and 2-0 Vicryl interrupted sutures. The skin was closed with skin khadar. Dry sterile dressing and Cesar bandages were placed over the patient's right knee. The patient was awake and alert. The patient was transferred to the recovery room in stable condition. Justification for PA Fusing Machine Tender: The complexity of this total knee arthroplasty, involving significant bony deformity and soft tissue releases, necessitates the assistance of a qualified surgical device sales representative for optimal surgical exposure, hemostasis and efficient execution of the procedure.
[2025-07-17] MEDS: oxyCODONE HCl Immed Release 5 MG TABLET PO (13:46)
--- NOTE | 2025-07-17 14:46 | PHA.MEDREC ---
Addendum entered by Bryon Muniz PharmD 07/17/25 14:49: reviewed Original Note: Pharmacy Consult ? Medication Reconciliation Pharmacy has reviewed the medication reconciliation done by nursing. Patient had a list of her medications. Patient states she is not taking Spironolactone 25 mg, and Trazodone 50 mg. Patient last had her medications yesterday.
--- NOTE | 2025-07-17 18:46 | HO.PM.IMCN ---
History of Present Illness Data of Consult Service Date: 07/17/25 Primary Care Provider: Marleni Coffman MD [facility] Reason for consult: Medical management Pt is an 89-year-old female with a PMH significant for asthma, HTN, peripheral neuropathy, and GERD who was admitted to the hospital under orthopedic services for elective right TKA. POD 0. Hospitalist consult for medical management. Pt seen and evaluated in her room where she is resting comfortably in bed. Pt reports pain better than before, but still a 4/10. Has not yet been up and out of bed yet. Otherwise has no acute medical complaints. Pt with chronic cough and SOB at baseline. Has chronic numbness in bilateral lower extremities, at baseline. Denies chest pain or pressure. No nausea, vomiting, abdominal pain. Review of Systems Review of Systems: Negative except for that which is stated in the HPI. [facility] Medical History (Updated 07/17/25 @ 19:37 by ERICKSON Fregoso) Osteoporosis Restless leg syndrome Sarcoma Melanoma Lightheadedness Hyperparathyroidism Hiatal hernia COVID-19 COPD (chronic obstructive pulmonary disease) Bronchiectasis Asthma Cough Bronchitis SOB (shortness of breath) Otitis externa Peripheral neuropathy Hypertension Hypercholesterolemia Alberto thyroiditis Anxiety disorder Family History Father No problems noted. Mother Hypertension Diabetes Surgical History History of partial colectomy History of lobectomy of lung (~1979) History of local excision of skin lesion H/O colonoscopy History of removal of ovarian cyst Hx of appendectomy Social History Household Members Other:: Lives with and son Housing: House Are you a primary live in caregiver to a significant other at home: No Do you presently have visiting nurse or other home services: No Patient Tobacco Use Status: Never used Tobacco e-Cigarette/Vaping Use: Never Used Use of substances other than those prescribed or required for medical reasons: No Have you been hit, kicked, punched, or otherwise hurt by someone within the past year? If so, by whom?: No Advance Directives: No Advance Directives Information Provided: Yes Advance Directives on File: No Patient : No : No service: No Current occupational status: retired Current occupational exposures/hazards: No Cognitive needs: No Hearing needs: Yes Vision needs: Yes Meds Allergies Allergy/AdvReac Type Severity Reaction Status Date / Time penicillin V Allergy Severe hives, Verified 07/17/25 06:20 throat swelling. amoxicillin Allergy Hives Verified 07/17/25 06:20 sulfamethoxazole (From Allergy Unknown Verified 07/17/25 06:20 Bactrim) trimethoprim (From Bactrim) Allergy Unknown Verified 07/17/25 06:20 Active Medications: Current Medications Acetaminophen (Acetaminophen 325 Mg Tablet) 650 mg PO Q6H PRN PRN Reason: Pain, Mild 1-3,fever,headache Last Admin: 07/17/25 13:46 Dose: 650 mg Albuterol Sulfate (Albuterol Sulfate 90 Mcg 8 Gm Inhaler) 2 puff INHALE Q4H PRN PRN Reason: Shortness Of Breath Or Wheezing Amlodipine Besylate (Amlodipine Besylate 5 Mg Tablet) 5 mg PO DAILY [facility]; Protocol Last Admin: 07/17/25 13:35 Dose: Not Given Aspirin (Aspirin 325 Mg Tablet) 325 mg PO BID [facility] Last Admin: 07/17/25 17:35 Dose: 325 mg Celecoxib (Celecoxib 200 Mg Capsule) 200 mg PO BID [facility] Last Admin: 07/17/25 13:46 Dose: 200 mg Docusate Sodium (Docusate Sodium 100 Mg Capsule) 100 mg PO BID [facility] Last Admin: 07/17/25 13:46 Dose: 100 mg Gabapentin (Gabapentin 100 Mg Capsule) 200 mg PO BEDTIME [facility] Hydromorphone HCl (Hydromorphone Hcl 0.5 Mg/0.5 Ml Syringe) 0.25 mg IVPUSH Q4H PRN; Protocol PRN Reason: Pain, Severe (Pain Scale 7-10) Last Admin: 07/17/25 17:32 Dose: 0.25 mg Clindamycin Phosphate (Cleocin) 900 mg in 50 mls @ 50 mls/hr IV Q8H [facility] Stop: 07/18/25 13:59 Last Infusion: 07/17/25 14:48 Dose: Infused Lactated Ringer's (Lr) 1,000 mls @ 100 mls/hr IVCONT .Q10H [facility] Last Admin: 07/17/25 13:38 Dose: 100 mls/hr Lisinopril (Lisinopril 5 Mg Tablet) 5 mg PO DAILY [facility]; Protocol Last Admin: 07/17/25 13:46 Dose: 5 mg Magnesium Hydroxide (Milk Of Magnesia 30 Ml Oral.Susp) 30 ml PO DAILY PRN PRN Reason: Constipation Naloxone HCl (Naloxone Hcl 0.4 Mg/Ml Vial) 0.04 mg IVPUSH Q5M PRN PRN Reason: Excessive sedation or RR < 8 Non-Formulary Medication (Vzpkubswbr-Kmwzjhpa-Pzgsdwuxms [Breztri Aerosphere]) 2 inhalation INHALE BID [facility] Omeprazole (Omeprazole 20 Mg Capsule.Dr) 20 mg PO DAILY@0630 [facility] Last Admin: 07/17/25 13:46 Dose: 20 mg Ondansetron HCl (Ondansetron Hcl 4 Mg/2 Ml Vial) 4 mg IVPUSH Q8H PRN PRN Reason: Nausea and Vomiting Oxycodone HCl (Oxycodone Hcl Immed Release 5 Mg Tablet) 5 mg PO Q4H PRN PRN Reason: Pain, Moderate(Pain Scale 4-6) Last Admin: 07/17/25 13:46 Dose: 5 mg Sodium Chloride (0.9 % Sodium Chloride Flush 3 Ml Syringe) 3 ml IVFLUSH QSHIFT [facility] Last Admin: 07/17/25 17:01 Dose: Not Given Home Medications ?Medication ?Instructions ?Recorded ?Confirmed ?Last Taken ?Type amlodipine 5 mg tablet 5 mg PO DAILY 06/08/21 07/17/25 07/17/25 History budesonide 160 mcg-glycopyr 9 2 inh inhalation BID 05/16/24 07/17/25 Unknown History mcg-formot 4.8 mcg/actuation HFA inhaler (Breztri Aerosphere) lisinopril 5 mg tablet 5 mg PO DAILY 11/08/24 07/17/25 Unknown History gabapentin 100 mg capsule 200 mg PO BEDTIME 01/18/25 07/17/25 Unknown History albuterol sulfate 90 mcg/actuation 2 inh inhalation Q4H PRN Shortness 06/16/25 07/17/25 Unknown History breath activated powder inhaler Of Breath Or Wheezing omeprazole 20 mg tablet,delayed 20 mg PO DAILY 06/16/25 07/17/25 Unknown History release Physical Exam Vital Signs and Narrative: Vital Signs: Last Vital Signs Temp 97.1 F 07/17/25 15:14 Pulse 80 07/17/25 15:14 Resp 18 07/17/25 15:14 BP 115/58 L 07/17/25 15:14 Pulse Ox 99 07/17/25 15:14 O2 Del Method Nasal Cannula 07/17/25 15:14 O2 Flow Rate 1 07/17/25 15:14 BMI result Body Mass Index 18.4 General: AOx3, no acute distress Resp: CTA bilaterally though diminished. No wheezing, rales, or rhonchi noted. CVS: S1, S2, RRR GI: +BS, NT, no distention Skin: Warm, dry Neuro: Cranial nerves II-XII grossly intact bilaterally. Motor grossly intact bilaterally Extremities: No edema. Right knee in clean and dry dressing. Psych: Appropriate affect Results Labs 07/13/25 09:13 07/13/25 09:13 Assessment and Plan (1) Asthma: Status: Acute Plan Pt is an 89-year-old female with a PMH significant for asthma, HTN, peripheral neuropathy, and GERD who was admitted to the hospital under orthopedic services for elective right TKA. POD 0. Hospitalist consult for medical management. Right TKA POD 0 Pain moderately well controlled Plan as per Orthopedics Asthma Not in acute exacerbation Continue home inhalers Incentive spirometry at bedside Currently on supplemental O2, wean as tolerated HTN Continue amlodipine and lisinopril Peripheral neuropathy Continue gabapentin GERD Continue omeprazole Thank you for allowing us to participate in the care of this patient. Pt stable and without acute medical complaints. Signing off at this time. Please re-consult if any acute complaints or issues arise.
[2025-07-18] MEDS: Lactated Ringers 1,000 ML 100 ML IVCONT ×3 (00:42→21:33)
[2025-07-18 03:02] VITALS: BP 149/68; PULSE 75; RESP 18; TEMP 36; O2SAT 99
[2025-07-18 06:14] LABS: MANUAL DIFF FLAG NO
[2025-07-18 06:38] LABS: Anion Gap 12 (12-20); Blood Urea Nitrogen 25 mg/dL (9-16); Calcium 9.4 mg/dL (8.4-10.2); Carbon Dioxide 24 mmol/L (22-29); Chloride 108 mmol/L (96-108); Creatinine Clr Calc Pharmacy 22.3; Estimated Glomerular Filt Rate 39; Potassium 4.9 mmol/L (3.3-5.1); Sodium 139 mmol/L (135-145)
[2025-07-18 07:15] LABS: Hematocrit 32.1 % (37.0-47.0); Hemoglobin 10.6 g/dl (12.0-16.0); Imm Gran Abs Auto 0.08 X10*3/uL (0.00-0.03); Imm Gran Pct Auto 0.5 % (0.0-0.4); Lymphocytes Absolute Auto 1.0 X10*3/uL (1.2-4.9); Mean Corpuscular HGB Conc 33.0 g/dl (31.0-35.0); Mean Corpuscular Hemoglobin 30.8 pg (27.0-33.0); Mean Corpuscular Volume 93.3 fL (80.0-98.0); NRBC Abs Auto 0.000 X10*3/uL (0.0-0.012); NRBC Pct Auto 0.0 /100WBC (0.0-0.2); Platelet Count 240 X10*3/uL (160-400); Red Blood Count 3.44 X10*6/uL (4.20-5.50); White Blood Count 14.8 X10*3/uL (4.8-10.8)
[2025-07-18 07:30] VITALS: BP 145/62; PULSE 68; RESP 16; TEMP 36.7; O2SAT 96
--- NOTE | 2025-07-18 07:37 | W.MHC.F2F ---
Service Date Service Date: 07/18/25 Encounter Date of encounter: 07/18/25 Reasons for Services Signs and symptoms assessed: Weakness, poor balance, poor gait mechanics Reason for physical therapy: home safety and mobility, therapeutic exercises, restore joint function, gait/transfer training, ADL training and energy conservation Reason for occupational therapy: home safety and mobility, therapeutic exercises, restore joint function, gait/transfer training, ADL training and energy conservation Overseeing Care: Neville Cash Homebound: Leaving the home is medically contraindicated at this time without the asist of a device and/or another person due th the listed conditions above and below. Reason homebound: unsteady gait / fall risk, pain with ambulation, poor balance / fall risk and unable to drive Homebound supporting statement: Pt. is considered home bound due to recent surgery. Unable to drive, poor balance, poor gait mechanics. Certification: Based on the above findings, I certify that this patient is confined to the home and needs intermittent long term care, physical therapy and/or speech therapy, or continues to need occupational therapy. The patient is under my care, and I have initiated the establishment of the plan of care. The patient will be followed by a physician who will periodically review the plan of care. Time Spent With Patient Time: Total time managing care of this patient today ____ minutes.
--- NOTE | 2025-07-18 07:50 | P.F2F_ITS ---
Service Date Service Date: 07/18/25 Encounter Date of encounter: 07/19/25 Reasons for Services Signs and symptoms assessed: s/p RTKA Pt. is considered homebound due to recent surgery. Unable to drive, poor balance, poor gait mechanics. Reason for physical therapy: home safety and mobility, therapeutic exercises, restore joint function, gait/transfer training and ADL training Homebound: Leaving the home is medically contraindicated at this time without the asist of a device and/or another person due th the listed conditions above and below. Reason homebound: unsteady gait / fall risk, leg weakness, pain with ambulation, poor balance / fall risk and unable to drive Certification: Based on the above findings, I certify that this patient is confined to the home and needs intermittent half-way care, physical therapy and/or speech therapy, or continues to need occupational therapy. The patient is under my care, and I have initiated the establishment of the plan of care. The patient will be followed by a physician who will periodically review the plan of care. Time Spent With Patient Time: Total time managing care of this patient today ____ minutes.
--- NOTE | 2025-07-18 07:50 | P.PNOP_ITS ---
Subjective Subjective Date of Service: 07/18/25 Interval history: POD 1 s/p RT TKA patient is resting in bed, no concerns pain is well managed no overnight events worked with PT yesterday Physical Exam Vital Signs: Vital Signs: Last Vital Signs Temp 98.1 F 07/18/25 07:30 Pulse 68 07/18/25 07:30 Resp 16 07/18/25 07:30 BP 145/62 H 07/18/25 07:30 Pulse Ox 96 07/18/25 07:30 O2 Del Method Room Air 07/18/25 07:30 O2 Flow Rate 2 07/18/25 03:02 BMI result Body Mass Index 18.4 Const: General: cooperative, healthy appearing and no acute distress Resp: Effort & Inspection: normal respiratory effort and able to speak in complete sentences Cardio: Rate: regular rate Peripheral pulses: Peripheral pulses 2+ throughout GI: Palpation (GI): Soft to palpation Skin: General skin exam: no rashes or lesions noted Extrem: Other: rt knee dressing clean,dry and intact. She is able to plantar and dorsi flex, NVI Procedures Date of Service Date of Service: 07/18/25 Progress Note: A&P Assessment and plan (1) Status post total right knee replacement: Status: Acute Plan * Continue pain mgmnt * Begin Aspirin for dvt ppx * begin PT for rT TKA * Dispo planning-PT clearance home with vna Time Spent With Patient Time: Total time managing care of this patient today ____ minutes. Quality Stroke Does the patient have a stroke diagnosis?: No VTE Prior VTE?: No VTE Risk Level:: Surgical - very high VTE Device Contraindication: N/A - Device Ordered VTE Drug Contraindication: N/A - Med Ordered
--- NOTE | 2025-07-18 09:42 | HO.POSTANES ---
Post Anesthesia Evaluation Post Anesthesia Evaluation Date of Service: 07/18/25 Vital Signs: Vital Signs Temp Pulse Resp BP Pulse Ox O2 Del Method O2 Flow Rate 07/18/25 07:30 98.1 F 68 16 145/62 H 96 Room Air 07/18/25 03:02 96.8 F 75 18 149/68 H 99 Nasal Cannula 2 07/17/25 23:30 96.8 F 72 14 134/64 98 Nasal Cannula 2 Anesthesia: Spinal Mental Status: Awake Pain Control: Satisfactory Nausea/Vomiting: None Hydration: Adequate Anesthesia-Related Issues: No Anes. Related Issues
[2025-07-18 11:51] VITALS: BP 148/72; PULSE 64; RESP 16; TEMP 36.8; O2SAT 98
[2025-07-18 15:54] VITALS: BP 160/70; PULSE 69; RESP 16; TEMP 36.9; O2SAT 97
--- NOTE | 2025-07-18 15:59 | MHC.CM.PN ---
Patient lives in a home w/ . Functionally independent. Denies use of DME or services. Has obtained a walker to use post op. PCP Marleni Coffman MD Reports HCP is her Jermaine. Copy requested. DP: PT rec home w/ services, [facility] is preferred. Likely home tomorrow. [facility] updated. Family transport. CM will continue to follow.
[2025-07-18 18:54] VITALS: BP 114/54; PULSE 78; RESP 17; TEMP 36.1; O2SAT 94
[2025-07-18 23:40] VITALS: BP 130/62; PULSE 75; RESP 16; TEMP 36.7; O2SAT 95
--- NOTE | 2025-07-19 03:55 | PC.NURSE ---
At 02:30 pt got up OOB without ringing call richard because she had to pee. FUR FINISHER TAILOR helped pt to bedside commode. This RN assessed pt, noted to be AxOx2, to self and time only. Pt was AxOx4 previously. Pt voided 600ml in bedside commode. Assisted into bed. When asked if she had pain, pt responded no. Pt fell asleep shortly after. Camera put into room. aware.
[2025-07-19 04:00] VITALS: BP 124/62; PULSE 80; RESP 16; TEMP 36; O2SAT 94
[2025-07-19 06:58] LABS: MANUAL DIFF FLAG NO
[2025-07-19 07:00] LABS: Hematocrit 32.1 % (37.0-47.0); Hemoglobin 10.6 g/dl (12.0-16.0); Imm Gran Abs Auto 0.10 X10*3/uL (0.00-0.03); Imm Gran Pct Auto 0.8 % (0.0-0.4); Lymphocytes Absolute Auto 0.9 X10*3/uL (1.2-4.9); Mean Corpuscular HGB Conc 33.0 g/dl (31.0-35.0); Mean Corpuscular Hemoglobin 30.8 pg (27.0-33.0); Mean Corpuscular Volume 93.3 fL (80.0-98.0); NRBC Abs Auto 0.000 X10*3/uL (0.0-0.012); NRBC Pct Auto 0.0 /100WBC (0.0-0.2); Platelet Count 208 X10*3/uL (160-400); Red Blood Count 3.44 X10*6/uL (4.20-5.50); White Blood Count 11.9 X10*3/uL (4.8-10.8)
[2025-07-19 07:12] LABS: Anion Gap 8 (12-20); Blood Urea Nitrogen 22 mg/dL (9-16); Calcium 9.2 mg/dL (8.4-10.2); Carbon Dioxide 28 mmol/L (22-29); Chloride 110 mmol/L (96-108); Creatinine Clr Calc Pharmacy 22.3; Estimated Glomerular Filt Rate 39; Potassium 5.0 mmol/L (3.3-5.1); Sodium 141 mmol/L (135-145)
[2025-07-19] MEDS: oxyCODONE HCl Immed Release 5 MG TABLET PO ×2 (07:36→11:35)
--- NOTE | 2025-07-19 07:47 | PM.PNORT ---
Subjective Subjective Date of Service: 07/19/25 Interval history: POD2 s/p RTKA Patient is resting in bed comfortably Overnight the patient was confused This morning the patient is unable to recognize where she is and reports that she had surgery at home Pain is managed No additional complaints Physical Exam Vital Signs: Vital Signs: Last Vital Signs Temp 96.8 F 07/19/25 04:00 Pulse 80 07/19/25 04:00 Resp 16 07/19/25 04:00 BP 124/62 07/19/25 04:00 Pulse Ox 94 07/19/25 04:00 O2 Del Method Room Air 07/19/25 04:00 O2 Flow Rate 2 07/18/25 03:02 BMI result Body Mass Index 18.4 Const: General: cooperative, healthy appearing and no acute distress Resp: Effort & Inspection: normal respiratory effort and able to speak in complete sentences Cardio: Rate: regular rate Peripheral pulses: Peripheral pulses 2+ throughout GI: Palpation (GI): Soft to palpation Skin: Lesions: no lesions Rashes: no rashes Extrem: Other: right knee dressing is c/d/i. Able to dorsi/plantar flex. Calf is supple and nontender. Sensation intact. Pedal pulse intact. Procedures Date of Service Date of Service: 07/19/25 Progress Note: A&P Assessment and plan (1) Status post total right knee replacement: Status: Acute Plan Continue pain mgmnt Continue ASA for dvt ppx Continue PT for RTKA - WBAT Post op confusion- [place] Text sent to medicine for evaluation Dispo planning- PT, pain mgmnt, post op confusion Time Spent With Patient Time: Total time managing care of this patient today ____ minutes. Quality Stroke Does the patient have a stroke diagnosis?: No VTE Prior VTE?: No VTE Risk Level:: Surgical - very high VTE Device Contraindication: N/A - Device Ordered VTE Drug Contraindication: N/A - Med Ordered
[2025-07-19 08:00] VITALS: BP 158/69; PULSE 87; RESP 16; TEMP 36.2; O2SAT 92
--- NOTE | 2025-07-19 08:21 | P.CONHOSP_ITS ---
History of Present Illness Data of Consult Service Date: 07/19/25 Requesting physician: Gertrude Calderon Primary Care Provider: Marleni Coffman MD [facility] Reason for consult: acute confusion/delirium Pt is a 89 yo F with medical hx of HTN, asthma, peripheral neuropathy and GERD who was admitted to hospital under orthopedic service for elective Rt TKA. PODx 2 today. Medical service was consulted for management of acute confusion/delirium in pt this am. Upon my encounter with pt, she was A&Ox 3, denied any acute symptoms. She complained of pain in her Rt knee and stated that it is 8/10 currently. She denied any N/V/D, abd pain, chest pain, URI, cough, fever, chills, focal weakness. Review of Systems 2 Constitutional: Constitutional: Denies body ache(s), Denies chills, Denies fever(s), Denies headache(s), Denies malaise, Denies night sweats, Reports poor appetite and Reports weakness ENT: Denies headache(s) Cardiovascular: Cardiovascular: Denies chest pain, Denies rapid heart rate and Denies dyspnea Respiratory: Respiratory: Denies dyspnea and Denies wheezing Gastrointestinal: Gastrointestinal: Denies abdominal pain, Denies constipation and Denies diarrhea Genitourinary: Genitourinary: Denies dysuria Musculoskeletal: Comments: pain in rt knee, worse with movement Neurologic: Denies confusion, Denies headache(s) and Reports weakness Psychiatric: Psychiatric: Denies anxiety and Denies confusion Allergic/Immunologic: Allergic/Immunologic: Denies wheezing [facility] Medical History (Updated 07/19/25 @ 08:33 by Bell Matthews MD) Osteoporosis Restless leg syndrome Sarcoma Melanoma Lightheadedness Hyperparathyroidism Hiatal hernia COVID-19 COPD (chronic obstructive pulmonary disease) Bronchiectasis Asthma Cough Bronchitis SOB (shortness of breath) Otitis externa Peripheral neuropathy Hypertension Hypercholesterolemia Alberto thyroiditis Anxiety disorder Family History Father No problems noted. Mother Hypertension Diabetes Surgical History (Updated 07/18/25 @ 07:52 by Moreno Pena PA-C) History of partial colectomy History of lobectomy of lung (~1979) History of local excision of skin lesion H/O colonoscopy History of removal of ovarian cyst Hx of appendectomy Social History Household Members Other:: Lives with and son Housing: House Are you a primary director of health care marketing to a significant other at home: No Do you presently have visiting nurse or other home services: No Patient Tobacco Use Status: Never used Tobacco e-Cigarette/Vaping Use: Never Used Use of substances other than those prescribed or required for medical reasons: No Currently Displaying Signs/Symptoms of Drug Intoxication Withdrawal: No Have you been hit, kicked, punched, or otherwise hurt by someone within the past year? If so, by whom?: No Advance Directives: No Advance Directives Information Provided: Yes Advance Directives on File: No Patient : No : No service: No Current occupational status: retired Current occupational exposures/hazards: No Cognitive needs: No Hearing needs: Yes Vision needs: Yes Meds Allergies Allergy/AdvReac Type Severity Reaction Status Date / Time penicillin V Allergy Severe hives, Verified 07/17/25 06:20 throat swelling. amoxicillin Allergy Hives Verified 07/17/25 06:20 sulfamethoxazole (From Allergy Unknown Verified 07/17/25 06:20 Bactrim) trimethoprim (From Bactrim) Allergy Unknown Verified 07/17/25 06:20 Active Medications: Current Medications Acetaminophen (Acetaminophen 325 Mg Tablet) 650 mg PO Q6H PRN PRN Reason: Pain, Mild 1-3,fever,headache Last Admin: 07/17/25 13:46 Dose: 650 mg Albuterol Sulfate (Albuterol Sulfate 90 Mcg 8 Gm Inhaler) 2 puff INHALE Q4H PRN PRN Reason: Shortness Of Breath Or Wheezing Amlodipine Besylate (Amlodipine Besylate 5 Mg Tablet) 5 mg PO DAILY HANNAH; Protocol Last Admin: 07/19/25 07:36 Dose: 5 mg Aspirin (Aspirin 325 Mg Tablet) 325 mg PO BID [facility] Last Admin: 07/19/25 07:37 Dose: 325 mg Celecoxib (Celecoxib 200 Mg Capsule) 200 mg PO BID [facility] Last Admin: 07/19/25 07:37 Dose: 200 mg Docusate Sodium (Docusate Sodium 100 Mg Capsule) 100 mg PO BID [facility] Last Admin: 07/19/25 07:37 Dose: 100 mg Gabapentin (Gabapentin 100 Mg Capsule) 200 mg PO BEDTIME [facility] Last Admin: 07/18/25 21:13 Dose: 200 mg Hydromorphone HCl (Hydromorphone Hcl 0.5 Mg/0.5 Ml Syringe) 0.25 mg IVPUSH Q4H PRN; Protocol PRN Reason: Pain, Severe (Pain Scale 7-10) Last Admin: 07/18/25 07:50 Dose: 0.25 mg Lactated Ringer's (Lr) 1,000 mls @ 100 mls/hr IVCONT .Q10H [facility] Last Infusion: 07/19/25 08:20 Dose: Infused Lisinopril (Lisinopril 5 Mg Tablet) 5 mg PO DAILY [facility]; Protocol Last Admin: 07/19/25 07:36 Dose: 5 mg Magnesium Hydroxide (Milk Of Magnesia 30 Ml Oral.Susp) 30 ml PO DAILY PRN PRN Reason: Constipation Naloxone HCl (Naloxone Hcl 0.4 Mg/Ml Vial) 0.04 mg IVPUSH Q5M PRN PRN Reason: Excessive sedation or RR < 8 Non-Formulary Medication (Ckjjbdrxas-Gqzyykis-Lffyxythet [Breztri Aerosphere]) 2 inhalation INHALE BID [facility] Omeprazole (Omeprazole 20 Mg Capsule.Dr) 20 mg PO DAILY@0630 [facility] Last Admin: 07/19/25 05:53 Dose: Not Given Ondansetron HCl (Ondansetron Hcl 4 Mg/2 Ml Vial) 4 mg IVPUSH Q8H PRN PRN Reason: Nausea and Vomiting Last Admin: 07/18/25 10:08 Dose: 4 mg Oxycodone HCl (Oxycodone Hcl Immed Release 5 Mg Tablet) 5 mg PO Q4H PRN PRN Reason: Pain, Moderate(Pain Scale 4-6) Last Admin: 07/19/25 07:36 Dose: 5 mg Sodium Chloride (0.9 % Sodium Chloride Flush 3 Ml Syringe) 3 ml IVFLUSH QSHIFT [facility] Last Admin: 07/18/25 21:14 Dose: Not Given Home Medications ?Medication ?Instructions ?Recorded ?Confirmed ?Last Taken ?Type amlodipine 5 mg tablet 5 mg PO DAILY 06/08/2107/1707/17/25 History budesonide 160 mcg-glycopyr 9 2 inh inhalation BID 07/17/25 Unknown History mcg-formot 4.8 mcg/actuation HFA inhaler (Breztri Aerosphere) lisinopril 5 mg tablet 5 mg PO DAILY 11/08/2407/17 Unknown History gabapentin 100 mg capsule 200 mg PO BEDTIME 01/18/25 0 07/17/25 Unknown History albuterol sulfate 90 mcg/actuation 2 inh inhalation Q4 H PRN Shortness 06/16/25 07/17/25 Unknown History breath activated powder inhaler Of Breath Or Wheezing omeprazole 20 mg tablet,delayed 20 mg PO DAILY 5 07/17/25 Unknown History release Physical Exam 2 Vital Signs and Narrative: Vital Signs: Last Vital Signs Temp 97.1 F 07/19/25 08:00 Pulse 87 07/19/25 08:00 Resp 16 07/19/25 08:00 BP 158/69 H 07/19/25 08:00 Pulse Ox 92 07/19/25 08:00 O2 Del Method Room Air 07/19/25 08:00 O2 Flow Rate 2 07/18/25 03:02 BMI result Body Mass Index 18.4 Const: General: cooperative, comfortable, no acute distress, alert and awake; No confusion, lethargic or patient obtunded Orientation/consciousness: No confusion, No patient obtunded and No lethargic HEENT: Head: Yes normocephalic and Yes atraumatic Resp: Effort & Inspection: normal respiratory effort, no audible wheezes and no cough Auscultation: clear to auscultation bilaterally, no crackles and no wheezes Cardio: Jugular venous distension: no JVD Rate: regular rate Rhythm: r egular rhythm GI: Inspection: No distended Palpation (GI): nontender Auscultation: n ormal bowel sounds Neuro: General: No confusion and No patient obtunded Extrem: Other: tenderness to palpation of rt knee, no drainage or edema seen Results Labs 07/19/25 06:50 07/19/25 06:52 Labs: Laboratory Results - last 24 hr 07/19/25 07/19/25 06:50 06:52 MCV 93.3 MCH 30.8 MCHC 33.0 RDW 13.0 Plt Count 208 MPV 9.8 Immature Gran % (Auto) 0.8 H Neut % (Auto) 82.5 H Lymph % (Auto) 7.7 L [place] % (Auto) 8.2 Eos % (Auto) 0.4 Baso % (Auto) 0.4 Lymph # (Auto) 0.9 L [place] # (Auto) 1.0 Eos # (Auto) 0.1 Baso # (Auto) 0.1 Abs Immat Gran (auto) 0.10 H Absolute Neuts (auto) 9.8 H Absolute Nucleated RBC 0.000 Nucleated RBC % (auto) 0.0 Anion Gap 8 L Estim Creat Clear Calc 22.3 Estimated GFR 39 Fasting Glucose 93 Calcium 9.2 Assessment and Plan (1) Hypertension: Status: Acute (2) Status post total right knee replacement: Status: Acute (3) Asthma: Status: Acute (4) Delirium: Status: Acute (5) Acute confusion: Status: Acute Plan Acute confusion Delirium Pt with no hx of cognitive impairment or dementia, who is relatively healthy at baseline had an episode of acute confusion this am where she did not know where she was or when did she have surgery. Upon my encounter, pt is A&Ox 3, complains of pain in her rt knee about 8/10, but denies all other sx. Pt likely had an episode of acute confusion in the setting of interruptions in sleep pattern, pain, recent surgery and pain medications. infectious etiology appears less likely given absence of any sx or source. She appears to be back to her baseline now. In order to prevent any future episodes of confusion would recommend - good pain control, schedule Tylenol 650 mg q6 hrs, opioids tend to make delirium worse, would recommend dc Dilaudid and cont with oxycodone for now with intent to taper it down over the next few days. - melatonin 3 mg tab qhs - bladder scan to r/o retention - bowel regimen with miralax and senna to avoid constipation specially while on opioids - early mobilization - maintain hydration - reduce noise and avoid restraints - frequent orientation and reassurance HTN: cont with lisinopril and amlodipine once po intake is optimal consider dc IVF Peripheral neuropathy: cont gabapentin Feel free to reach out with any questions thank you for consulting medicine service
[2025-07-19] MEDS: Lactated Ringers 1,000 ML 100 ML IVCONT (08:27)
[2025-07-19 12:00] VITALS: BP 131/62; PULSE 82; RESP 16; TEMP 36.6; O2SAT 94
--- NOTE | 2025-07-19 12:36 | MHC.CM.PN ---
Patient medically cleared for dc home w/ new [facility] for home PT. to transport.
== END 2025-07-19 12:37 | disposition home health service (06) ==
LOC: HO.SSS 07:36 → HO.S3 12:27
PROVIDERS: Physician Assistant; PCP Internal Medicine; Visit Provider Orthopaedic Surgery
PROC: (CPT 27447; principal; 2025-07-17 07:30)
DX: M17.11 Unilateral primary osteoarthritis, right knee (principal); M25.561 Pain in right knee; R26.2 Difficulty in walking, not elsewhere classified; T81.89XA Other complications of procedures, not elsewhere classified, initial encounter; R41.0 Disorientation, unspecified; M81.0 Age-related osteoporosis without current pathological fracture; I10 Essential (primary) hypertension; E78.00 Pure hypercholesterolemia, unspecified; E06.3 Autoimmune thyroiditis; G25.81 Restless legs syndrome; F41.9 Anxiety disorder, unspecified; J44.9 Chronic obstructive pulmonary disease, unspecified; C49.5 Malignant neoplasm of connective and soft tissue of pelvis; Z85.820 Personal history of malignant melanoma of skin; Z79.899 Other long term (current) drug therapy; Z88.0 Allergy status to penicillin; Z88.1 Allergy status to other antibiotic agents; Z88.2 Allergy status to sulfonamides; Z90.49 Acquired absence of other specified parts of digestive tract; Z98.890 Other specified postprocedural states
CPT/HCPCS: 27447; 36415; 80048; 83036; 85025; 85027; 86850; 86900; 86901; 87640; 87641; 88305; 88311; 97110; 97116; 97162; 97530; A6260; C1776; J0131; J0665; J0736; J1100; J1171; J2003; J2250; J2405; J2704; J3010; J3374; J7120

== ENCOUNTER → 2025-07-17 05:59 | Outpatient (BNV) | payer MEDICARE, SELFPAY | PROVIDERS: PCP Internal Medicine; Visit Provider Student in an Organized Health Care Education/Training Program | DX: J45.909 Unspecified asthma, uncomplicated (principal) | CPT/HCPCS: 99223 ==

== ENCOUNTER → 2025-07-17 05:59 | Outpatient (BNV) | payer MEDICARE, SELFPAY | PROVIDERS: PCP Internal Medicine; Visit Provider Orthopaedic Surgery | DX: Z47.1 Aftercare following joint replacement surgery (principal); Z96.651 Presence of right artificial knee joint | CPT/HCPCS: 27447; 99024; G0180 ==

== ENCOUNTER 2025-08-03 09:16 | Outpatient (REF) | payer MEDICARE, SELFPAY ==
--- OUTSIDE RECORDS SUMMARY | 2016-01-23 | XMS_ITS | Encounter Summary ---
Author Organization [facility] Address [address] [place] [address] Phone Care Team Providers Care Garment Parts Cutter Hand Name Role Phone Pcp, Unknown Primary Care Provider Unavailabl e Reason for Visit * MRI/CAT Scan - Closed Specialty Diagnoses / Procedures Referred By Contac t Referred To Contact Procedures CT Chest Outside (No Interpretation) System, Provider Not In, [facility] [address] [address] Referral ID Status Reason Start Date Expiration Date Visits Re quested Visits Authorized [id number] Closed 09/16/2017 09/16/2018 1 1 Encounter Details Date Type Department Care Team (Late st Contact Info) Description 01/23/2016 Hospital Encounter [facility],Outside Imaging 30 [place] [address] System, Provider Not In, PhD Partners [employer] [address] Unknown, Unknown, Social History Tobacco Use Types [...] Description 08/07/2025 9:30 AM EDT Office Visit [facility] [address] [facility] 3rd Floor, [address] [place], [place] [phone] Chioma Gresham DNP [address] [place] [address] [address] [place] [address] 10/02/2025 1:00 PM EST Office Visit [facility] [address] [place] [address] [place] [address] Marleni Coffman MD [address] [place] [address], [address] [place] [address] 11/27/2025 11:00 AM EST Appointment [facility] [address] [place] [address] Wagner Figueroa MD, MS [address] [address] 12/05/2025 9:15 AM EST Office Visit [facility] [address] [place] [address] Wagner Figueroa MD, MS [address] [address] 12/11/2025 10:45 AM EST Appointment [facility], Bone Density - [address] [address] Rex Villareal DO [address] [place] [address] 01/01/2026 10:30 AM EST Office Visit [facility] [address] [place] [address] Rex Villareal DO 22 [place] [address] documented as of this encounter Procedures Procedure [...] documented as of this encounter Care Teams Garment Parts Cutter Hand Relationship Specialty Start Date End Date Pcp, Unknown PCP - General 08/22/11 08/19/17 documented as of this encounter Additional Source Comments The information contained in this document represents components of the legal health record. It is not the complete legal health record.[facility]
--- OUTSIDE RECORDS SUMMARY | 2025-08-04 09:43 | XMS_ITS | Encounter Summary ---
Author Organization [facility] Address [address] [place] [address] Phone Care Team Providers Care Medicare Sales Representative Name Role Phone Marleni Coffman MD Primary Care Provider Marleni Coffman MD Unavailable [phone] Ladonna Louise RN Unavailable Neville Cash MD Unavailable [phone] Encounter Details Date Type Department Care Team (Late st Contact Info) Description 07/05/2025 Orders Only [facility] [address] [place] [address] 3rd Floor, [address] [place] [address] Chioma Gresham DNP [address] [facility], [address] [address] Social History Tobacco Use Types Packs/Day Years [...] Description 08/07/2025 9:30 AM EDT Office Visit [facility] [address] [place] [address] 3rd Floor, [address] [place] [address] Chioma Gresham DNP [address] [facility], [address] [place] [address] 10/02/2025 1:00 PM EST Office Visit [facility] [address] [place] [address] [place] [address] Marleni Coffman MD [address] [place] [address] 11/27/2025 11:00 AM EST Appointment [facility] [address] [place] [address] Wagner Figueroa MD, MS [address] [address] 12/05/2025 9:15 AM EST Office Visit [facility], All[facility] Critical [facility] [address] [place] [address] Wagner Figueroa MD, MS [address] [address] 12/11/2025 10:45 AM EST Appointment [facility], Bone Density - [address] [address] Rex Villareal DO [address] [place] [address] 01/01/2026 10:30 AM EST Office Visit [facility] [address] [place] [address] [place] [address] Rex Villareal DO [address] [place] [address] documented as of this encounter Procedures Procedure [...] documented as of this encounter Care Teams Medicare Sales Representative Relationship Specialty Start Date End Date Marleni Coffman MD [address] [place] [address] [email or web address] PCP - General 08/20/17 Marleni Coffman MD [address] [place] [address] Insurance Assigned Provider 02/06/24 Ladonna Louise, RN [address] [place] [address] [email or web address] Circus Rider 03/01/21 Neville Cash MD [address] [place] [address] [address] [place] [address] Orthopedic Surgery 06/05/25 documented as of this encounter Additional Source Comments The information contained in this document represents components of the legal health record. It is not the complete legal health record.[facility]
--- OUTSIDE RECORDS SUMMARY | 2025-08-04 09:43 | XMS_ITS | Encounter Summary ---
Author Organization [facility] Address [address] [place] [address] [place] [address] Phone Care Team Providers Care Building Service Worker Name Role Phone Marleni Coffman MD Primary Care Provider [phone] Marleni Coffman MD Unavailable [phone] Ladonna Louise RN Unavailable [phone] Neville Cash MD Unavailable Encounter Details Date Type Department Care Team (Latest Contact Info) Description 04/05/2025 Transcribe Orders [facility] Laboratory [address] [id number] Inge Wolf, [address] [address] Chronic diarrhea (Primary Dx) Social History Tobacco [...] Description 08/07/2025 9:30 AM EDT Office Visit [facility] [address] 3rd Floor, [address] [place] [address] Chioma Gresham DNP 22 [facility], [address] [address] 10/02/2025 1:00 PM EST Office Visit [facility] [address] [place] [address] [place] [address] Marleni Coffman MD [address] [place] [address] 11/27/2025 11:00 AM EST Appointment [facility] [address] [place] [address] Wagner Figueroa MD, MS [address] [address] 12/05/2025 9:15 AM EST Office Visit [facility], Allergy [facility] Critical Care Medicine [address] [place] [address] Wagner Figueroa MD, MS [address] [address] 12/11/2025 10:45 AM EST Appointment [facility], Bone Density - [address] [address] Rex Villareal DO [address] [place] [address] 01/01/2026 10:30 AM EST Office Visit [facility] [address] [place] [address] [place] [address] Rex Villareal DO [address] [place] [address] documented as of this encounter Results * Fecal immunochemical test x1 (FIT) (04/19/2025 1:00 PM EDT) Immuno Fecal Occult Negative Negative [facility] Stool (Stool) 04/19/2025 1:0 0 PM EDT 04/19/2025 2:02 PM EDT Inge Wolf CNP BODY FLUIDS AND STOOLS ORD ERABLES Final Result Performing Organization Address [facility]/ZIP Co de Phone Number [address] [address] * Stool culture (04/19/2025 1:00 PM EDT) Special Requests None 04/19/2025 2:01 PM EDT [facility] Stool Culture NO SALMONELLA, SHIGELLA OR CAMPYLOBACTER ISOLATED 04/21/2025 8:11 AM EDT [facility] Stool (Stool) 04/19/2025 1:0 0 PM EDT 04/19/2025 2:03 PM EDT Inge Wolf CNP MICROBIOLOGY - GENERAL ORD ERABLES Final Result Performing Organization Address [facility] Co de Phone Number [address] [address] * Giardia and cryptosporidium screen (04/19/2025 1:00 PM EDT) GIARDIA AG Negative Negative [facility] Cryptosporidiu m, stool Negative Negative [facility] Stool (Stool) 04/19/2025 1:0 0 PM EDT 04/19/2025 2:02 PM EDT Inge Wolf CNP NON CULTURE MICROBIOLOGY F inal Result Performing Organization Address [facility]/ZIP Co de Phone Number [address] [address] * Calprotectin, stool (04/19/2025 1:00 PM EDT) STOOL CALPROTECTIN 24 mcg/g [facility]/Anabelle [facility] Comment: (NOTE) Reference Range: [...] EDT 04/19/2025 2:03 PM EDT Inge Wolf HOME HEALTH MANAGER BODY FLUIDS AND STOOLS ORD ERABLES Final Result [facility] [address] [place] [address], [facility] [phone] * Ova and parasites, stool (04/16/2025 10:00 AM EDT) Parasitic exam FINAL 5 1557 [facility] DPT OF LAB MED AND PAT+ Comment: (NOTE) SOURCE: STOOL, STLP OVA AND PARASITE, MICROSCOPY, F FINAL No parasites seen. Cryptosporidium, Cyclospora, and microsporidia are not readily detected by this method. Single negative specimen does not rule out parasitic infection. Stool (Stool) 04/16/2025 10: 00 AM EDT 04/17/2025 9:58 AM EDT Inge Wolf HOME HEALTH MANAGER MICROBIOLOGY - GENERAL ORD ERABLES Final Result [facility] DPT OF LAB MED AND PAT+ [address] [place] [address] * Ova and parasites, stool (04/14/2025 10:00 AM EDT) Parasitic exam FINAL 5 1551 [facility] DPT OF LAB MED AND PAT+ Comment: (NOTE) SOURCE: STOOL, STLP OVA AND PARASITE, MICROSCOPY, F FINAL No parasites seen. Cryptosporidium, Cyclospora, and microsporidia are not readily detected by this method. Single negative specimen does not rule out parasitic infection. Stool (Stool) 04/14/2025 10: 00 AM EDT 04/17/2025 9:58 AM EDT Ingejose Cruzmelania Wolf CNP MICROBIOLOGY - GENERAL ORD ERABLES Final Result [facility] DPT OF LAB MED AND PAT+ [address] [place] [address] * C-Reactive Protein (04/05/2025 3:04 PM EDT) Pathologist [facility] C REACTIVE PROTEIN <3.0 0.0 - 4.0 mg/L [facility] Blood 04/05/2025 3:04 PM EDT 04/05/2025 3:17 PM EDT Inge Wolf HOME HEALTH MANAGER LAB BLOOD ORDERABLES Final Result [facility] [address] [place] [address] * (ABNORMAL) Comprehensive metabolic panel (04/05/2025 3:04 PM EDT) Pathologist [facility] SODIUM 139 133 - 146 mmol/L [facility] POTASSIUM 4.7 3.3 - 5.1 mmol/L [facility] CHLORIDE 105 96 - 108 mmol/L [facility] CO2 23 21 - 35 mmol/L [facility] BUN 29(H) 6 - 19 mg/dL [facility] CREATININE 1.20 0.5 - 1.5 mg/dL [facility] GLUCOSE 93 70 - 99 mg/dL [facility] ALBUMIN 4.1 3.9 - 4.8 g/dL [facility] TOTAL PROTEIN 7.1 6.5 - 8.0 g/dL [facility] CALCIUM 10.2 8.4 - 10.3 mg/dL [facility] ALKALINE PHOSPHATASE 46 39 - 117 U/L [facility] TOTAL BILIRUBIN 0.5 0.0 - 1.2 mg/dL [facility] AST 33 0 - 37 U/L [facility] ALT 14 0 - 40 U/L [facility] GLOBULIN 3.0 1 - 4.8 g/dL [facility] EGFR 44(L) >59 mL/min/1.7 3m2 [facility] Comment:Estimated glomerular filtration rate calculated using the CKD-EPI refit equation. ANION GAP 16 10 - 20 mmol/L [facility] Blood 04/05/2025 3:04 PM EDT 04/05/2025 3:17 PM EDT us Inge Wolf [facility] LAB BLOOD ORDERABLES Final Result [facility] [address] [place] [address] * CBC and differential (04/05/2025 3:04 PM EDT) WBC 7.95 4.00 - 11.00 K/uL [facility] RBC 4.58 4.00 - 5.20 M/uL [facility] HGB 13.5 12.0 - 16.0 g/dL [facility] HCT 42.2 36.0 - 46.0 % [facility] PLT 326 150 - 450 K/uL [facility] MCV 92.1 80.0 - 100.0 fL [facility] MCH 29.5 27.0 - 31.0 pg [facility] MCHC 32.0 32.0 - 36.0 g/dL [facility] RDW 13.2 11.5 - 14.5 % [facility] MPV 10.3 8.4 - 12.0 fL [facility] NRBC 0.00 0.00 /100 WBCs [facility] ABSOLUTE NRBC 0.00 0.00 K/uL [facility] DIFF METHOD Auto [facility] NEUTS 63.1 48.0 - 76.0 % [facility] LYMPHS 26.7 18.0 - 41.0 % [facility] MONOS 7.8 4.0 - 11.0 % [facility] EOS 1.1 0.0 - 5.0 % [facility] BASOS 0.8 0.0 - 1.5 % [facility] Granulocytes, immature (%) 0.5 0.0 - 0.9 % [facility] ABSOLUTE NEUTS 5.02 1.92 - 7.60 K/uL [facility] ABSOLUTE LYMPHS 2.12 0.72 - 4.10 K/uL [facility] ABSOLUTE MONOS 0.62 0.16 - 1.10 K/uL [facility] ABSOLUTE EOS 0.09 0.00 - 0.50 K/uL [facility] ABSOLUTE BASOS 0.06 0.00 - 0.15 K/uL [facility] Granulocytes, immature 0.04 0.00 - 0.09 K/uL [facility] Blood 04/05/2025 3:04 PM EDT 04/05/2025 3:17 PM EDT Inge Wolf [facility] LAB BLOOD ORDERABLES Final Result Performing Organization Address [facility]/ZIP Co de Phone Number [address] [address] * Immunoglobulin A (04/05/2025 3:04 PM EDT) IgA 301 70 - 400 mg/dL [facility] Blood 04/05/2025 3:04 PM EDT 04/05/2025 3:17 PM EDT Inge Wolf [facility] LAB BLOOD ORDERABLES Final Result Performing Organization Address [facility]/ZIP Co de Phone Number [address] [address] * Tissue transglutaminase IgA (04/05/2025 3:04 PM EDT) TTG IGA ANTIBODY <1.2 <4.0 (Negative) U/mL [facility] [address] Blood 04/05/2025 3:04 PM EDT 04/05/2025 3:18 PM EDT Inge Wolf [facility] LAB BLOOD ORDERABLES Final Result Performing Organization Address City/[facility]/ZIP Co de Phone Number [facility] [address] [place] [address] documented in this encounter Visit Diagnoses Diagnosis [...] documented as of this encounter Care Teams Building Service Worker Relationship Specialty Start Date End Date Marleni Coffman MD [address] [place] [address] [email or web address] PCP - General 08/20/17 Marleni Coffman MD [address] [place] [address] [email or web address] Insurance Assigned Provider 02/06/24 Ladonna Louise, RN [address] [place] [address] [email or web address] Light Rail Train Operator 03/01/21 Neville Cash MD [address] [place] [address] [address] [place] [address] Orthopedic Surgery 06/05/25 documented as of this encounter Additional Source Comments The information contained in this document represents components of the legal health record. It is not the complete legal health record.[facility]
--- OUTSIDE RECORDS SUMMARY | 2025-08-04 09:43 | XMS_ITS | Encounter Summary ---
Author Organization [facility] Address [address] [place] [address] [place] [address] Phone Care Team Providers Care Developmental Specialist Name Role Phone Marleni Coffman MD Primary Care Provider [phone] Marleni Coffman MD Unavailable [phone] Jaleesa Rod RN Unavailable [phone] Jihan Resendiz RN Unavailable [email or web address] Ladonna Louise RN Unavailable [phone] Allison Rice Unavailable [email or web address] Neville Cash MD Unavailable [phone] Reason for Referral * MRI/CAT Scan - Closed Specialty Diagnoses / Procedures Referred By Contac t Referred To Contact Procedures CT Chest Outside (No Interpretation) System, Provider Not In, PhD [address] [address] Referral ID Status Reason Start Date Expiration Date Visits Re quested Visits Authorized [id number] Closed 09/16/2017 09/16/2018 1 1 * MRI/CAT Scan - Closed Specialty Diagnoses / Procedures Referred By Contac t Referred To Contact Procedures CT Chest Outside (No Interpretation) System, Provider Not In, PhD [address] [address] Referral ID Status Reason Start Date Expiration Date Visits Re quested Visits Authorized [id number] Closed 09/16/2017 09/16/2018 1 1 Encounter Details Date Type Department Care Team (Late Contact Info) Description 09/16/2017 Ancillary Orders [facility],Outside Imaging [address] [place] [address] System, Provider Not In, [place] [address] Social History Tobacco Use Types Packs/Day Years [...] Description 08/07/2025 9:30 AM EDT Office Visit [facility] [address] [place] [address] 3rd Floor, [address] [place] [address] Chioma Gresham DNP [address] [place] [address], [address] [address] 10/02/2025 1:00 PM EST Office Visit [facility] [address] [place] [address] [place] [address] Marleni Coffman MD [address] [place] [address], [address] [place] [address] 11/27/2025 11:00 AM EST Appointment [facility] [address] [place] [address] Wagner Figueroa MD, MS [address] [address] 12/05/2025 9:15 AM EST Office Visit [facility] 10 [facility] [place] [address] Wagner Figueroa MD, MS 10 [facility] 2nd [place] [address] 12/11/2025 10:45 AM EST Appointment [facility], Bone Density - [facility] [address] [place] [address] Rex Villareal, DO [address] [place] [address] 01/01/2026 10:30 AM EST Office Visit [facility] [address] [place] [address] Rex Villareal, DO 22 [place] [address] documented as of this encounter Results * [...] documented as of this encounter Care Teams Developmental Specialist Relationship Specialty Start Date End Date Marleni Coffman MD [address] [place] [address], [address] [place] [address] [email or web address] PCP - General 08/20/17 Marleni Coffman MD [address] [place] [address], [address] [place] [address] [email or web address] Insurance Assigned Provider 02/06/24 Jaleesa Rod RN [address] [place] [address] [facility] Change Booth Attendant 06/22/19 08/31/19 Jihan Resendiz, JOANA [address] [place] [address] [email or web address] [facility] Change Booth Attendant 09/01/19 02/28/21 Ladonna Louise, RN [address] [place] [address] [phone] [facility] Change Booth Attendant 03/01/21 Allison Rice [address] [place] [address] [email or web address] [facility] Community Ex Assistant/Program Director 04/19/24 04/19/24 Neville Cash MD [address] [place] [address] [address] [place] [address] Orthopedic Surgery 06/05/25 documented as of this encounter Additional Source Comments The information contained in this document represents components of the legal health record. It is not the complete legal health record.[facility]
--- OUTSIDE RECORDS SUMMARY | 2025-08-04 09:43 | XMS_ITS | Encounter Summary ---
Author Organization [facility] Address [address] [place] [address] [place] [address] Phone Care Team Providers Care Early Childhood Director Name Role Phone Marleni Coffman MD Primary Care Provider [phone] Marleni Coffman MD Unavailable [phone] Jaleesa Rod RN Unavailable [phone] Jihan Resendiz RN Unavailable [email or web address] Ladonna Louise RN Unavailable [phone] Allison Rice Unavailable [email or web address] Neville Cash MD Unavailable [phone] Encounter Details Date Type Department Care Team (Late st Contact Info) Description 09/16/2017 Procedure Pass [facility],Outside Imaging [address] [place] [address] Social History Tobacco Use Types Packs/Day Years [...] Description 08/07/2025 9:30 AM EDT Office Visit [facility] [address] [place] [address] 3rd Floor, [address] [place] [address] Chioma Gresham DNP [address] [address] 10/02/2025 1:00 PM EST Office Visit [facility] [address] [place] [address] Marleni Coffman MD [address] [place] [address] 11/27/2025 11:00 AM EST Appointment [facility] [address] [place] [address] Wagner Figueroa MD, MS [address] [address] 12/05/2025 9:15 AM EST Office Visit [facility] [address] [place] [address] Wagner Figueroa MD, MS [address] [address] 12/11/2025 10:45 AM EST Appointment [facility], Bone Density - [address] [address] Rex Villareal DO [address] [place] [address] 01/01/2026 10:30 AM EST Office Visit [facility] [address] [place] [address] [place] [address] Rex Villareal DO 22 [place] [address] [email or web address] documented as of this encounter Visit Diagnoses [...] documented as of this encounter Care Teams Early Childhood Director Relationship Specialty Start Date End Date Marleni Coffman MD [address] [place] [address] [email or web address] PCP - General 08/20/17 aMrleni Coffman MD [address] [place] [address] [email or web address] Insurance Assigned Provider 02/06/24 Jaleesa Rod RN [address] [place] [address] [email or web address] iCMP Shuttle Filler 06/22/19 08/31/19 Jihan Resendiz RN [address] [place] [address] [email or web address] Shuttle Filler 09/01/19 02/28/21 Ladonna Louise, RN 10 [place] [address] [facility] 03/01/21 Allison Rice [address] [place] [address] [email or web address] [facility] Community Shell Worker 04/19/24 04/19/24 Neville Cash MD [address] [place] [address] Orthopedic Surgery 06/05/25 documented as of this encounter Additional Source Comments The information contained in this document represents components of the legal health record. It is not the complete legal health record.[facility]
--- OUTSIDE RECORDS SUMMARY | 2025-08-04 09:43 | XMS_ITS | Encounter Summary ---
Author Organization [facility] Address [address] [place] [address] [place] [address] Phone Care Team Providers Care Key Account Manager Name Role Phone Marleni Coffman MD Primary Care Provider [phone] Mraleni Coffman MD Unavailable [phone] Jaleesa Rod RN Unavailable [phone] Jihan Resendiz RN Unavailable [email or web address] Ladonna Louise RN Unavailable [phone] Allison Rice Unavailable [email or web address] Neville Cash MD Unavailable [phone] Encounter Details Date Type Department Care Team (Late st Contact Info) Description 09/16/2017 Procedure Pass [facility],Outside Imaging [address] [place] [address] Social History Tobacco Use Types Packs/Day Years [...] Description 08/07/2025 9:30 AM EDT Office Visit [facility] [address] [place] [address] 3rd Floor, [address] [place] [address] Chioma Gresham DNP [address] [address] 10/02/2025 1:00 PM EST Office Visit [facility] [address] [place] [address] Marleni Coffman MD [address] [place] [address] 11/27/2025 11:00 AM EST Appointment [facility] [address] [place] [address] Wagner Figueroa MD, MS [address] [address] 12/05/2025 9:15 AM EST Office Visit [facility] [address] [place] [address] Wagner Figueroa MD, MS [address] [address] 12/11/2025 10:45 AM EST Appointment [facility], Bone Density - [address] [address] Rex Villareal DO [address] [place] [address] 01/01/2026 10:30 AM EST Office Visit [facility] [address] [place] [address] [place] [address] Rex Villareal DO 22 [place] [address] [email or web address] documented as of this encounter Visit Diagnoses [...] documented as of this encounter Care Teams Key Account Manager Relationship Specialty Start Date End Date Marleni Coffman MD [address] [place] [address] [email or web address] PCP - General 08/20/17 Marleni Coffman MD [address] [place] [address] [email or web address] Insurance Assigned Provider 02/06/24 Jaleesa Rod RN [address] [place] [address] [email or web address] iCMP Pulley Mortiser Operator 06/22/19 08/31/19 Jihan Resendiz RN [address] [place] [address] [email or web address] iCMP Pulley Mortiser Operator 09/01/19 02/28/21 Ladonna Louise, RN 10 [place] [address] [facility]iser [facility] 03/01/21 Allison Rice 10 [place] [address] [email or web address] [facility] Community Account Financial Manager 04/19/24 04/19/24 Neville Cash MD [address] [place] [address] Orthopedic Surgery 06/05/25 documented as of this encounter Additional Source Comments The information contained in this document represents components of the legal health record. It is not the complete legal health record.[facility]
--- OUTSIDE RECORDS SUMMARY | 2025-08-04 09:43 | XMS_ITS | Encounter Summary ---
Author Organization [facility] Address [address] [facility] [address] [place] [address] Phone Care Team Providers Care Curtain Stretcher Name Role Phone Marleni Coffman MD Primary Care Provider [phone] Marleni Coffman MD Unavailable [phone] Ladonna Louise RN Unavailable [phone] Neville Cash MD Unavailable Reason for Visit * Reason Onset Date Comments Patient Called Back Inquiring Status 07/31/2025 Follow-up 07/31/2025 Encounter Details Date Type Department Care Team (Late st Contact Info) Description 07/31/2025 Telephone [facility] [address] [place] [address] [place] [address] Marleni Coffman MD [address] [place] [address], 2nd [place] [address] [email or web address] Patient Called Back Inquiring Status; Follow-up Social [...] - 07/31/2025 1:05 PM EDT PT with [facility] [place] [facility] lvm on the triage line, reports today pt bp is 104/78 sitting and standing 94/56 pt reporting dizziness. Temp 96.7 HR 74 and resp 16, ot stats were 99% throughout. PT did use her inhaler before she got there as well. ROSY Montes [facility] Call Center CSS Agent (Please do [...] in regarding to it - please advise @[phone] or @[phone] documented in this encounter Plan of Treatment Upcoming Encounters Date Type Department Care Team (Late st Contact Info) Description 08/07/2025 9:30 AM EDT Office Visit [facility] [address] [place] [address] 3rd Floor, [address] [place] [address] Chioma Gresham DNP [address] [place] [address], [address] [address] [email or web address] 10/02/2025 1:00 PM EST Office Visit [facility] [address] [place] [address] [place] [address] Marleni Coffman MD [address] [place] [address], 2nd [place] [address] 11/27/2025 11:00 AM EST Appointment [facility] 30 [place] [address] Wagner Figueroa MD, MS [address] [address] 12/05/2025 9:15 AM EST Office Visit [facility] [address] [place] [address] Wagner Figueroa MD, MS [address] [address] 12/11/2025 10:45 AM EST Appointment [facility], Bone Density [address] [address] Rex Villareal [address] [address] 01/01/2026 10:30 AM EST Office Visit [facility] [address] [place] [address] Rex Villareal [address] [address] documented as of this encounter Visit Diagnoses Not on filedocumented in this encounter Additional Health Concerns Assessment Noted Time PHQ-9 Depression Total Score: 12 01/06/ 024 9:26 AM EST PHQ-2 Depression Total Score: 2 04/29/20 24 10:17 AM EDT documented as of this encounter Care Teams Curtain Stretcher Relationship Specialty Start Date End Date Marleni Coffman MD [address] [place] [address] PCP - General 08/20/17 Marleni Coffman MD [address] [place] [address] Insurance Assigned Provider 4/6/24 Ladonna Louise, RN [address] [place] [address] [email or web address] iCMP Field Cane Scaler 03/01/21 Neville Cash MD [address] [place] [address] Orthopedic Surgery 06/05/25 documented as of this encounter Additional Source Comments The information contained in this document represents components of the legal health record. It is not the complete legal health record.[facility]
--- OUTSIDE RECORDS SUMMARY | 2025-08-04 09:43 | XMS_ITS | Encounter Summary ---
Author Organization [facility] Address [address] [place] [address] Phone Care Team Providers Care Professional Nursing Assistant Name Role Phone Marleni Coffman MD Primary Care Provider [phone] Marleni Coffman MD Unavailable [phone] Ladonna Louise RN Unavailable [phone] Allison Rice Unavailable ruby Neville Cash MD Unavailable [phone] Encounter Details Date Type Department Care Team (Late st Contact Info) Description 08/06/2023 Procedure Pass [address] [place] [address] Social History Tobacco Use Types Packs/Day Years [...] Description 08/07/2025 9:30 AM EDT Office Visit [facility] [address] [place] [address] 3rd Floor, [address] [place] [address] Chioma Gresham DNP [address] [place] [address], [address] [address] 10/02/2025 1:00 PM EST Office Visit [facility] [address] [place] [address] [place] [address] Marleni Coffman MD [address] [place] [address], 2nd [place] [address] 11/27/2025 11:00 AM EST Appointment [facility] 30 [place] [address] Wagner Figueroa MD, MS [address] [address] 12/05/2025 9:15 AM EST Office Visit [facility] [address] [place] [address] Wagner Figueroa MD, MS [address] [address] 12/11/2025 10:45 AM EST Appointment [facility], Bone Density - [facility] 30 [place] [address] Rex Villareal DO [address] [place] [address] 01/01/2026 10:30 AM EST Office Visit [facility] [address] [place] [address] Rex Villareal DO 22 [place] [address] documented as of this encounter Visit Diagnoses Not on filedocumented in this encounter Additional Health Concerns Infection Onset Date Last Indicated Resolved Time CDiff-Risk 04/05/2025 04/19/2025 04/12/2025 1:21 AM EDT CDiff-Risk 04/19/2025 04/19/2025 04/19/2025 9:22 PM EDT Assessment Noted Time PHQ-2 Depression Total Score: 2 01/17/20 23 10:12 AM EDT documented as of this encounter Care Teams Professional Nursing Assistant Relationship Specialty Start Date End Date Marleni Coffman MD [address] [place] [address] [email or web address] PCP - General 08/20/17 Marleni Coffman MD [address] [place] [address], 2nd [place] [address] [email or web address] Insurance Assigned Provider 02/06/24 Ladonna Louise, JOANA [address] [place] [address] [email or web address] iCMP Information Services Vice President 03/01/21 Allison Rice [address] [place] [address] [email or web address] Glove Turner And Former 04/19/24 04/19/24 Neville Cash MD [address] [place] [address] Orthopedic Surgery 06/05/25 documented as of this encounter Additional Source Comments The information contained in this document represents components of the legal health record. It is not the complete legal health record.[facility]
--- OUTSIDE RECORDS SUMMARY | 2025-08-04 09:43 | XMS_ITS | Encounter Summary ---
Author Organization [facility] Address [address] [place] [address] Phone Care Team Providers Care Hospice Care Consultant Name Role Phone Marleni Coffman MD Primary Care Provider [phone] Marleni Coffman MD Unavailable [phone] Ladonna Louise RN Unavailable [phone] Neville Cash MD Unavailable [phone] Encounter Details Date Type Department Care Team (Late st Contact Info) Description 07/31/2025 Enrollment [facility] - Primary Care [address] [place] [address] Social History Tobacco Use Types Packs/Day Years [...] Description 08/07/2025 9:30 AM EDT Office Visit [facility] [address] [place] [address] 3rd Floor, [address] [place], [place] [address] Chioma Gresham DNP 22 [facility], [address] [address] 10/02/2025 1:00 PM EST Office Visit [facility] [address] [place] [address] [place] [address] Marleni Coffman MD [address] [place] [address] 11/27/2025 11:00 AM EST Appointment [facility] [address] [place] [address] Wagner Figueroa MD, MS [address] [address] 12/05/2025 9:15 AM EST Office Visit [facility] [address] [place] [address] Wagner Figueroa MD, MS [address] [address] 12/11/2025 10:45 AM EST Appointment [facility] [place], [facility] - [address] [address] Rex Villareal DO [address] [place] [address] 01/01/2026 10:30 AM EST Office Visit [facility] 22 [place] [address] Rex Villareal DO [address] [place] [address] documented as of this encounter Visit Diagnoses Not on filedocumented in this encounter Additional Health Concerns Assessment Noted Time PHQ-9 Depression Total Score: 12 01/06/ 024 9:26 AM EST PHQ-2 Depression Total Score: 2 04/29/20 24 10:17 AM EDT documented as of this encounter Care Teams Hospice Care Consultant Relationship Specialty Start Date End Date Marleni Coffman MD [address] [place] [address], 2[address] [place] [address] [email or web address] PCP - General 08/20/17 Marleni Coffman MD [address] [place] [address], [address] [place] [address] [email or web address] Insurance Assigned Provider 02/06/24 Ladonna Louise RN [address] [place] [address] [email or web address] iCMP Pulp Mill Operator 03/01/21 Neville Cash MD [address] [place] [address] Orthopedic Surgery 06/05/25 documented as of this encounter Additional Source Comments The information contained in this document represents components of the legal health record. It is not the complete legal health record.[facility]
--- OUTSIDE RECORDS SUMMARY | 2025-08-04 09:43 | XMS_ITS | Encounter Summary ---
Author Organization [facility] Address [address] [place] [address] Phone Care Team Providers Care Certified Novell Engineer Name Role Phone Marleni Coffman MD Primary Care Provider [phone] Marleni Coffman MD Unavailable [phone] Ladonna Louise RN Unavailable [phone] Neville Cash MD Unavailable [phone] Encounter Details Date Type Department Care Team (Late st Contact Info) Description 02/17/2025 Procedure Pass [facility] [place] [place] [address] Social History Tobacco Use Types Packs/Day Years [...] Description 08/07/2025 9:30 AM EDT Office Visit [facility] 22 [facility] 3rd Floor, [address] [place] [address] Chioma Gresham DNP 22 [facility], [address] [place] [address] 10/02/2025 1:00 PM EST Office Visit [facility] [address] [place] [address] [place] [address] Marleni Coffman MD [address] [place] [address] 11/27/2025 11:00 AM EST Appointment [facility] [address] [place] [address] Wagner Figueroa MD, MS [address] [address] 12/05/2025 9:15 AM EST Office Visit [facility] [address] [place] [address] Wagner Figueroa MD, MS [address] [address] 12/11/2025 10:45 AM EST Appointment [facility], Bone Density - [address] [address] Rex Villareal DO [address] [place] [address] 01/01/2026 10:30 AM EST Office Visit [facility] [address] [place] [address] Rex Villareal DO [address] [place] [address] documented as of this encounter Visit Diagnoses [...] documented as of this encounter Care Teams Certified Novell Engineer Relationship Specialty Start Date End Date Marleni Coffman MD [address] [place] [address], 2nd [place] [address] [email or web address] PCP - General 08/20/17 Marleni Coffman MD [address] [place] [address], [address] [place] [address] [email or web address] Insurance Assigned Provider 02/06/24 Ladonna Louise, RN [address] [place] [address] [email or web address] iCMP Live Out Nanny 03/01/21 Neville Cash MD [address] [place] [address] [place] [address] Orthopedic Surgery 06/05/25 documented as of this encounter Additional Source Comments The information contained in this document represents components of the legal health record. It is not the complete legal health record.[facility]
--- OUTSIDE RECORDS SUMMARY | 2025-08-04 09:43 | XMS_ITS | Encounter Summary ---
Author Organization [facility] Address [address] [place] [address] Phone Care Team Providers Care Letter Sorting Machine Operator Name Role Phone Marleni Coffman MD Primary Care Provider [phone] Marleni Coffman MD Unavailable Ladonna Louise RN Unavailable [phone] Neville Cash MD Unavailable Reason for Visit * Reason Onset Date Comments Appointment 07/04/2025 PROLIA Encounter Details Date Type Department Care Team (Late st Contact Info) Description 07/04/2025 Telephone [facility] [address] [place] [phone] Juliana Ladd, JOANA [address] [place] [address] [email or web address] Appointment (PROLIA) Social History Tobacco Use Types [...] Description 08/07/2025 9:30 AM EDT Office Visit [facility] [address] [place] [address] 3rd Floor, [address] [place] [address] Chioma Gresham DNP [address] [place] [address], [address] [address] 10/02/2025 1:00 PM EST Office Visit [facility] [address] [place] [address] [place] [address] Marleni Coffman MD [address] [place] [address], [address] [place] [address] 11/27/2025 11:00 AM EST Appointment [facility] 30 [place] [address] Wagner Figueroa MD, MS [address] [address] 12/05/2025 9:15 AM EST Office Visit [facility] [address] [place] [address] [place] [address] Wagner Figueroa MD, MS [address] [address] 12/11/2025 10:45 AM EST Appointment [facility], Bone Density - [address] [address] Rex Villareal, DO [address] [place] [address] 01/01/2026 10:30 AM EST Office Visit [facility] [address] [place] [address] Rex Villareal, DO [address] [place] [address] documented as of this encounter Visit Diagnoses Not on filedocumented in this encounter Additional Health Concerns Assessment Noted Time PHQ-9 Depression Total Score: 12 01/06/ 024 9:26 AM EST PHQ-2 Depression Total Score: 2 04/29/20 24 10:17 AM EDT documented as of this encounter Care Teams Letter Sorting Machine Operator Relationship Specialty Start Date End Date Marleni Coffman MD [address] [place] [address] PCP - General 08/20/17 Marleni Coffman MD [address] [place] [address] Insurance Assigned Provider 02/06/24 Ladonna Louise, RN [address] [place] [address] iCMP Drainage Inspector 03/01/21 Neville Cash MD [address] [place] [address] [address] [place] [address] Orthopedic Surgery 06/05/25 documented as of this encounter Additional Source Comments The information contained in this document represents components of the legal health record. It is not the complete legal health record.[facility]
--- OUTSIDE RECORDS SUMMARY | 2025-08-04 09:44 | XMS_ITS | Clinical Summary ---
Author Organization [facility] Address [address] [facility] [address] [place] [address] Phone Care Team Providers Care Instructor Traffic Safety Name Role Phone Marleni Coffman MD Primary Care Provider [phone] Marleni Coffman MD Unavailable [phone] Ladonna Louise RN Unavailable [phone] Neville Cash MD Unavailable [phone] Allergies Active Allergy Reactions Criticality Noted Date [...] PCP a second neurology opinion, potentially at [facility]. Assessment & Plan (01/11/2024 11:49 AM EDT): [...] trial of montelukast. Finally, given sample of [place] pot with instructions for use. She is [...] pressures, and bring this log to her lumber handler's office. Assessment & Plan (08/29/2021 10:51 AM [...] I did put in a referral to [facility]. I also requested bone turnover [...] DLCO; Additional Testing: Exhaled Nitric Oxide Test ([facility], [facility], [facility], [facility] and [facility] only); Performing Location: [facility]; Future albuterol 90 mcg/actuation inhaler 2-4 [...] airways disease is likely not the primary personal driver for her symptoms. Chest x-ray performed [...] calling local tertiary care hospital such as [facility], [facility], [facility], [facility], even [facility] to find out how soon they [...] evaluation with echocardiogram and visit with her lumber handler are unrevealing, could consider chest CTPA to [...] She did note that a friend from [place] recently moved back with her, which increases [...] versus bronchiectasis exacerbation, though symptoms could be labor relations representative of a viral process as well. Will prescribe azithromycin. She will call us back if not improving over the next few days. I do not believe she warrants prednisone at this time. Assessment & Plan (09/30/2018 11:37 AM EST): Outpatient visit note with Dr. Figueroa reviewed. Information gleaned from chart: Patient is a former patient of Dr. 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 Colon and Dr. Nahid Redman at [facility]. She was treated several months ago [...] culture. Order for nebulizer device [facility] [place] [facility] and prescriptions for albuterol and hyper-Bari 7% [...] pneumococcal antibodies. I have requested images from [facility]. She did have a CT within [...] Type Department Care Team Description 07/31/2025 Enrollment [facility] [address] [place] [address] 07/31/[address] [place] [address] Marleni Coffman MD Patient Called Back Inquiring Status; Follow-up 07/13/[address] [place] [address] Marleni Coffman MD Pre-op Exam (Knee replacement 07/17/2025/) 07/12/2025 Telephone [facility] [address] 3[address] Floor, [address] [place] [address] Beata Arredondo 07/05/2025 Orders Only [facility] [address], [address] [place] [address] Chioma Gresham DNP 07/04/[address] [facility] Endocrinology [address] [place] [address] [place] [address] Juliana Ladd, RN Appointment (PROLIA) 06/22/2025 Patient Outreach [facility] [address] [place] [address] Ladonna Louise, RN Care Coordination (iCMP outreach) 06/05/2025 9:30 AM EDT Office Visit [facility] [address] Floor, [address] [place] [address] [place], Chioma, DNP Light headedness (Primary Dx); Palpitations; Dyspnea on exertion; Essential hypertension 05/30/2025 9:45 AM EDT Office Visit [facility] [address] [place] [address] Wagner Figueroa MD, MS Preop pulmonary/respirator y exam (Primary Dx); Chronic obstructive airway disease with asthma 05/29/2025 Orders Only [address] [place] [address] Marleni Coffman MD Hyperkalemia (Primary Dx) 05/26/2025 Orders Only [address] [place] [address] Marleni Cofmfan MD Pre-op evaluation 05/25/2025 2:29 PM EDT - 05/25/2025 11:59 PM EDT Hospital Encounter [facility] [address] [place] [address] [place] [address] Marleni Coffman MD Discharge Disposition: Home or Self Care 05/25/2025 1:30 PM EDT Office Visit [address] [place] [address] Marleni Coffman MD Pre-op evaluation (Primary Dx); Chronic kidney disease, stage 3a; Primary osteoarthritis of right knee; Chronic obstructive airway disease with asthma; Elevated glucose 05/23/2025 Orders Only [address] [address] Flores Celestin MD 05/23/2025 Telephone [facility] [address] [place] [address] Ladonna Louise, JOANA 05/23/2025 Patient Outreach [facility] [address] [place] [address] Ladonna Louise, RN Post Discharge Follow Up Call (PDA) 05/22/2025 Orders Only [facility] [address] [place] [address] ProviderFlores MD 05/15/2025 Patient Outreach [facility] [address] [place] [address] Ladonna Louise, RN Care Coordination (iCMP outreach) [...] Description 08/07/2025 9:30 AM EDT Office Visit [facility] [address] [place] [address], [address] [address] Chioma Gresham DNP [address] [address] 10/02/2025 1:00 PM EST Office Visit [facility] [address] [place] [address] Marleni Coffman MD [address] [place] [address] 11/27/2025 11:00 AM EST Appointment [facility] [address] [place] [address] Wagner Figueroa MD, MS [address] [address] 12/05/2025 9:15 AM EST Office Visit [facility] 10 [place] [address] Wagner Figueroa MD, MS [address] [address] 12/11/2025 10:45 AM EST Appointment [facility], Bone Density - [address] [address] Rex Villareal, DO 22 [place] [address] 01/01/2026 10:30 AM EST Office Visit [facility] [address] [place] [address] Rex Villareal, DO [address] [place] [address] Health Maintenance Due Date Last Done Comments [...] Only (07/05/2025 11:19 AM EDT) Chioma Mp [facility] CV CARDIAC SERVICES ORDERABLES F inal Result * (ABNORMAL) CBC (05/25/2025 2:32 PM EDT) WBC 10.79 4.00 - 11.00 K/uL [facility] RBC 4.58 4.00 - 5.20 M/uL [facility] HGB 13.8 12.0 - 16.0 g/dL [facility] HCT 43.2 36.0 - 46.0 % [facility] PLT 321 150 - 450 K/uL [facility] MCV 94.3 80.0 - 100.0 fL [facility] MCH 30.1 27.0 - 31.0 pg [facility] MCHC 31.9(L) 32.0 - 36.0 g/dL [facility] RDW 13.3 11.5 - 14.5 % [facility] MPV 10.6 8.4 - 12.0 fL [facility] NRBC 0.00 0.00 /100 WBCs [facility] ABSOLUTE NRBC 0.00 0.00 K/uL [facility] Blood 05/25/2025 2:32 PM EDT 05/25/2025 2:36 PM EDT us Marleni A Augustus BROCK LAB BLOOD ORDERABLES Final Re sult Performing Organization Address [facility] Co de Phone Number [address] [address] * Hemoglobin A1c (05/25/2025 2:32 PM EDT) HEMOGLOBIN A1C 5.3 4.3 - 5.8 % [facility] Blood 05/25/2025 2:32 PM EDT 05/25/2025 2:36 PM EDT us Marleni A Augustus [facility]OCK LAB BLOOD ORDERABLES Final Re sult Performing Organization Address City/[facility] Co de Phone Number [address] [address] * (ABNORMAL) Basic metabolic panel (05/25/2025 2:32 PM EDT) SODIUM 138 133 - 146 mmol/L [facility] CHLORIDE 107 96 - 108 mmol/L [facility] POTASSIUM 5.9(H) 3.3 - 5.1 mmol/L [facility] CO2 22 21 - 35 mmol/L [facility] BUN 33(H) 6 - 19 mg/dL [facility] CREATININE 1.40 0.5 - 1.5 mg/dL [facility] GLUCOSE 103(H) 70 - 99 mg/dL [facility] CALCIUM 10.6(H) 8.4 - 10.3 mg/dL [facility] EGFR 36(L) >59 mL/min/1.7 3m2 [facility] Comment:Estimated glomerular filtration rate calculated using the CKD-EPI refit equation. ANION GAP 15 10 - 20 mmol/L [facility] Blood 05/25/2025 2:32 PM EDT 05/25/2025 2:36 PM EDT Result [facility] Marleni A Augustus BROCK LAB BLOOD ORDERABLES Final Re sult Performing Organization Address City/State/[facility] Co de Phone Number [facility] [address] [place] [address] * Outside Imaging Report Only (05/20/2025 4:03 [...] Report Only (05/20/2025 3:01 PM EDT) Result [facility] Historical Provider MD PHAM XR CHEST Edited Re sult - Final * Outside Imaging Report Only (05/20/2025 3:00 PM EDT) Result [facility] Historical Provider MD PHAM XR CHEST [...] (06/10/2018 12:41 PM EDT) HDL 84 mg/dL [facility] Comment: Interpretation: Risk Level Females Decreased >55mg/dL Average 50-55 mg/dL Increased <50 mg/dL CHOLESTEROL 222 0 - 240 mg/dL [facility] TRIGLYCERIDES 71 30 - 160 mg/dL [facility] LDL 124 50 - 129 mg/dL [facility] Comment: LDL levels in terms of risk for coronary heart disease: <100 mg/dL: Optimal 100-129 mg/dL: Near or above optimal 130-159 mg/dL: Borderline high 160-189 mg/dL: High >190 mg/dL: Very High CARDIAC RISK RATIO 2.6(L) 3.3 - 4.4 [facility] Blood 06/10/2018 12:4 1 PM EDT 06/10/2018 12:45 PM EDT us Marleni Coffman MD LAB BLOOD ORDERABLES Final Re sult [facility] [address] [place] [address] from Last 3 Months or Most Recently Relevant to Health Maintenance Insurance MEDICARE PART A & B [employer] SUPPLEMENT MEDICARE PART A & B [employer] SUPPLEMENT MEDICARE PART A & B [employer] MED[employer] SUPPLEMENT MEDICARE PART A & B [employer] SUPPLEMENT MEDICARE PART A & B [employer] SUPPLEMENT MEDICARE PART A & B [employer] MED[employer] SUPPLEMENT MEDICARE PART A & B [facility] MEDEX SUPPLEMENT MEDICARE PART A & B [employer] MED[employer] SUPPLEMENT MEDICARE PART A & B [employer] MEDEX SUPPLEMENT Advance Directives For more information, please contact: [phone] (9AM - 5PM [facility], Thursday-Thursday) Documents on File Type Date Recorded Patient Mechanical Manufacturing Engineer Expl anation Healthcare Proxy 10/04/2018 11:44 AM Healthcare Proxy 06/30/2024 Sigend HCP * Full Code (Confirmed) (Latest Code Status on File) Date Activated Date Inactivated Comments 09/29/2018 1:56 PM 10/01/2018 4:59 PM Question Answer Comments Code Status Confirmed With: Patient Care Teams Instructor Traffic Safety Relationship Specialty Start Date End Date Marleni Coffman MD [address] [place] [address], [address] [place] [address] [email or web address] PCP - General 08/20/17 Marleni Coffman MD [address] [place] [address], [address] [place] [address] Insurance Assigned Provider 02/06/24 Ladonna Louise, RN [address] [place] [address] [email or web address] iCMP Shank Rander 03/01/21 Neville Cash MD [address] [place] [address] [place] [address] Orthopedic Surgery 06/05/25 Additional Source Comments The information contained in this document represents components of the legal health record. It is not the complete legal health record.[facility]
--- OUTSIDE RECORDS SUMMARY | 2025-08-04 09:44 | XMS_ITS | Encounter Summary ---
Author Organization [facility] Address [address] [place] [address] Phone Care Team Providers Care Product Mgr Name Role Phone Marleni Coffman MD Primary Care Provider [phone] Marleni Coffman MD Unavailable [phone] Ladonna Louise RN Unavailable [phone] Allison Rice Unavailable ruby Neville Cash MD Unavailable [phone] Encounter Details Date Type Department Care Team (Late st Contact Info) Description 07/15/2021 Procedure Pass [facility] [address] [place] [address] Social History Tobacco Use Types Packs/Day Years [...] high school, GED, job training, learning the Martiniquais language, technical skills, or developing parenting skills)? [...] Description 08/07/2025 9:30 AM EDT Office Visit [facility] [address] [place] [address] 3rd [facility], [address] [place] [address] Chioma Gresham DNP [address] [place] [address] 10/02/2025 1:00 PM EST Office Visit [facility] [address] [place] [address] [place] [address] Marleni Coffman MD [address] [place] [address], [address] [place] [address] 11/27/2025 11:00 AM EST Appointment [facility] [address] [place] [address] Wagner Figueroa MD, MS [address] [address] 12/05/2025 9:15 AM EST Office Visit [facility] 10 [facility] [place] [address] Wagner Figueroa MD, MS [address] [address] 12/11/2025 10:45 AM EST Appointment [facility], [facility] Density - [address] [address] Rex Villareal [address] [address] 01/01/2026 10:30 AM EST Office Visit [facility] [address] [place] [address] Rex Villareal [address] [address] documented as of this encounter Visit Diagnoses [...] documented as of this encounter Care Teams Product Mgr Relationship Specialty Start Date End Date Marleni Coffman MD [address] [place] [address], [address] [place] [address] [email or web address] PCP - General 08/20/17 Marleni Coffman MD [address] [place] [address], [address] [place] [address] [email or web address] Insurance Assigned Provider 02/06/24 Ladonna Louise, RN [address] [place] [address] [email or web address] iCMP Spinning Bath Patroller 03/01/21 Allison Rice [address] [place] [address] [email or web address] iCMP Community Celery Tier 04/19/24 04/19/24 Neville Cash MD [address] [place] [address] [address] [place] [address] Orthopedic Surgery 06/05/25 documented as of this encounter Additional Source Comments The information contained in this document represents components of the legal health record. It is not the complete legal health record.[facility]
--- OUTSIDE RECORDS SUMMARY | 2025-08-04 09:44 | XMS_ITS | Encounter Summary ---
Author Organization [facility] Address [address] [place] [address] Phone Care Team Providers Care Heating Technician Name Role Phone Marleni Coffman MD Primary Care Provider [phone] Marleni Coffman MD Unavailable [phone] Ladonna Louise RN Unavailable [phone] Allison Rice Unavailable [email or web address] Neville Cash MD Unavailable [phone] Encounter Details Date Type Department Care Team (Late st Contact Info) Description 04/26/2021 Procedure Pass [address] [place] [address] Social History Tobacco Use Types Packs/Day Years [...] high school, GED, job training, learning the Amharic language, technical skills, or developing parenting skills)? [...] Description 08/07/2025 9:30 AM EDT Office Visit [facility] [address] [place] [address] 3rd [facility], [address] [place] [address] Chioma Gresham DNP [address] [address] 10/02/2025 1:00 PM EST [facility] [address] [place] [address] [place] [address] Marleni Coffman MD [address] [place] [address] 11/27/2025 11:00 AM EST Appointment [facility] 30 [place] [address] Wagner Figueroa MD, MS [address] [address] 12/05/2025 9:15 AM EST Office Visit [facility] 10 [facility] [place] [address] Wagner Figueroa MD, MS [address] [address] 12/11/2025 10:45 AM EST Appointment [facility], [address] [address] Rex Villareal [address] [address] 01/01/2026 10:30 AM EST Office Visit [facility] 22 [place] [address] Rex Villareal [address] [address] documented as of this encounter Visit Diagnoses [...] documented as of this encounter Care Teams Heating Technician Relationship Specialty Start Date End Date Marleni Coffman MD [address] [place] [address], [address] [place] [address] [email or web address] PCP - General 08/20/17 Marleni Coffman MD [address] [place] [address], [address] [place] [address] [email or web address] Insurance Assigned Provider 02/06/24 Ladonna Louise RN [address] [place] [address] [email or web address] iCMP Paper Twister 03/01/21 Allison Rice [address] [place] [address] [email or web address] Support Specialist 04/19/24 04/19/24 Neville Cash MD [address] [place] [address] [address] [place] [address] Orthopedic Surgery 06/05/25 documented as of this encounter Additional Source Comments The information contained in this document represents components of the legal health record. It is not the complete legal health record.[facility]
--- OUTSIDE RECORDS SUMMARY | 2025-08-04 09:44 | XMS_ITS | Encounter Summary ---
Author Organization [facility] Address [address] [place] [address] Phone Care Team Providers Care Change Management Facilitator Name Role Phone Marleni Coffman MD Primary Care Provider [phone] Marleni Coffman MD Unavailable [phone] Ladonna Louise RN Unavailable Allison Rice Unavailable [email or web address] Neville Cash MD Unavailable [phone] Encounter Details Date Type Department Care Team (Late st Contact Info) Description 07/18/2022 Procedure Pass [address] [place] [address] Social History Tobacco Use Types Packs/Day Years [...] high school, GED, job training, learning the Macedonian language, technical skills, or developing parenting skills)? [...] Description 08/07/2025 9:30 AM EDT Office Visit [facility] [address] [place] [address] [facility], [address] [place] [address] Chioma Gresham DNP [address] [address] 10/02/2025 1:00 PM EST [facility] [address] [place] [address] [place] [address] Marleni Coffman MD [address] [place] [address] 11/27/2025 11:00 AM EST Appointment [facility] 30 [place] [address] Wagner Figueroa MD, MS [address] [address] [email or web address] 12/05/2025 9:15 AM EST Office Visit [facility] 10 [facility] [place] [address] Wagner Figueroa MD, MS [address] [address] 12/11/2025 10:45 AM EST Appointment [facility], [address] [address] Rex Villareal [address] [address] [email or web address] 01/01/2026 10:30 AM EST Office Visit [facility] [address] [place] [address] Rex Villareal [address] [address] documented as of this encounter Visit Diagnoses [...] documented as of this encounter Care Teams Change Management Facilitator Relationship Specialty Start Date End Date Marleni Coffman MD [address] [place] [address] PCP - General 08/20/17 Marleni Coffman MD [address] [place] [address], 2[address] [place] [address] [email or web address] Insurance Assigned Provider 02/06/24 Ladonna Louise, RN [address] [place] [address] [email or web address] Healthcare Analyst 03/01/21 Allison Rice [address] [place] [address] [email or web address] Landscape Engineer 04/19/24 04/19/24 Neville Cash MD [address] [place] [address] Orthopedic Surgery 06/05/25 documented as of this encounter Additional Source Comments The information contained in this document represents components of the legal health record. It is not the complete legal health record.[facility]
--- OUTSIDE RECORDS SUMMARY | 2025-08-04 09:44 | XMS_ITS | Encounter Summary ---
Author Organization [facility] Address [address] [place] [address] Phone Care Team Providers Care Ramp Supervisor Name Role Phone Marleni Coffman MD Primary Care Provider [phone] Marleni Coffman MD Unavailable [phone] Ladonna Louise RN Unavailable [phone] Allison Rice Unavailable ruby Neville Cash MD Unavailable [phone] Encounter Details Date Type Department Care Team (Late st Contact Info) Description 05/29/2022 Transcribe Orders [facility]FT Lab 30 [place] [address] Wagner Figueroa MD, [place] [address] [id number] Social History Tobacco Use Types Packs/Day Years [...] Description 08/07/2025 9:30 AM EDT Office Visit [facility] [address] [place] [address] 3rd Floor, [address] [place] [address] Chioma Gresham DNP [address] [place] [address], [address] [address] 10/02/2025 1:00 PM EST Office Visit [facility] [address] [place] [address] [place] [address] Marleni Coffman MD [address] [place] [address], 2nd [place] [address] 11/27/2025 11:00 AM EST Appointment [facility] 30 [place] [address] Wagner Figueroa MD, MS [address] [address] 12/05/2025 9:15 AM EST Office Visit [facility] [address] [place] [address] Wagner Figueroa MD, MS [address] [address] 12/11/2025 10:45 AM EST Appointment [facility] 30 [place] [address] Rex Villareal DO [address] [place] [address] 01/01/2026 10:30 AM EST Office Visit [facility] 22 [place] [address] Rex Villareal DO 22 [place] [address] documented as of this encounter Visit Diagnoses Not on filedocumented in this encounter Additional Health Concerns Infection Onset Date Last Indicated Resolved Time COVID-19 02/19/2023 02/19/2023 03/12/2023 1:21 AM EDT CDiff-Risk 04/05/2025 04/19/2025 04/12/2025 1:21 AM EDT CDiff-Risk 04/19/2025 04/19/2025 04/19/2025 9:22 PM EDT Assessment Noted Time PHQ-2 Depression Total Score: 2 04/17/20 10:42 AM EDT documented as of this encounter Care Teams Ramp Supervisor Relationship Specialty Start Date End Date Marleni Coffman MD [address] [place] [address], 2nd [place] [address] [email or web address] PCP - General 08/20/17 Marleni Coffman MD [address] [place] [address], 2nd [place] [address] [email or web address] Insurance Assigned Provider 02/06/24 Ladonna Louise, RN [address] [place] [address] [email or web address] iCMP Home Theater Expert 03/01/21 Allison Rice [address] [place] [address] [email or web address] iCMP Community District Manager 04/19/24 04/19/24 Neville Cash MD [address] [place] [address] [place] [address] Orthopedic Surgery 06/05/25 documented as of this encounter Additional Source Comments The information contained in this document represents components of the legal health record. It is not the complete legal health record.[facility]
--- OUTSIDE RECORDS SUMMARY | 2025-08-04 09:44 | XMS_ITS | Encounter Summary ---
Author Organization [facility] Address [address] [facility] [address] [place] [address] Phone Care Team Providers Care Metal Room Dental Technician Name Role Phone Marleni Coffman MD Primary Care Provider [phone] Marleni Coffman MD Unavailable [phone] Ladonna Louise RN Unavailable [phone] Allison Rice Unavailable ruby Neville Cash MD Unavailable [phone] Encounter Details Date Type Department Care Team (Late st Contact Info) Description 06/13/2022 Telephone [facility] [address] [place] [address] [place] [address] Marleni Coffman MD [address] [place] [address], 2nd [place] [address] [email or web address] Social History Tobacco Use Types Packs/Day Years [...] high school, GED, job training, learning the Setsw[place] language, technical skills, or developing parenting skills)? [...] Description 08/07/2025 9:30 AM EDT Office Visit [facility] [address] [place] [address] 3rd Floor, [address] [place] [address] Chioma Gresham DNP [address] [place] [address] 10/02/2025 1:00 PM EST Office Visit [facility] [address] [place] [address] [place] [address] Marleni Coffman MD [address] [place] [address], 2nd [place] [address] 11/27/2025 11:00 AM EST Appointment [facility] 30 [place] [address] Wagner Figueroa MD, MS [address] [address] 12/05/2025 9:15 AM EST Office Visit [facility] [address] [place] [address] Wagner Figueroa MD, MS [address] [address] 12/11/2025 10:45 AM EST Appointment [facility] 30 [place] [address] Rex Villareal DO [address] [place] [address] 01/01/2026 10:30 AM EST Office Visit [facility] 22 [place] [address] Rex Villareal DO 22 [place] [address] documented as of this encounter Visit Diagnoses Not on filedocumented in this encounter Additional Health Concerns Infection Onset Date Last Indicated Resolved Time COVID-19 02/19/2023 02/19/2023 03/12/2023 1:21 AM EDT CDiff-Risk 04/05/2025 04/19/2025 04/12/2025 1:21 AM EDT CDiff-Risk 04/19/2025 04/19/2025 04/19/2025 9:22 PM EDT Assessment Noted Time PHQ-2 Depression Total Score: 2 04/17/20 10:42 AM EDT documented as of this encounter Care Teams Metal Room Dental Technician Relationship Specialty Start Date End Date Marleni Coffman MD [address] [place] [address], 2nd [place] [address] [email or web address] PCP - General 08/20/17 Marleni Coffman MD [address] [place] [address], 2nd [place] [address] [email or web address] Insurance Assigned Provider 02/06/24 Ladonna Louise, RN [address] [place] [address] [email or web address] iCMP Desktop Architect 03/01/21 Allison Rice [address] [place] [address] [email or web address] iCMP Community Radiology Tech 04/19/24 04/19/24 Neville Cash MD [address] [place] [address] Dr Grace [address] [place] [address] Orthopedic Surgery 06/05/25 documented as of this encounter Additional Source Comments The information contained in this document represents components of the legal health record. It is not the complete legal health record.[facility]
--- OUTSIDE RECORDS SUMMARY | 2025-08-04 09:44 | XMS_ITS ---
Author Organization [facility] Address [address] [facility] [place] [address] Phone Care Team Providers Care Child Care Teacher Name Role Phone Marleni Coffman MD Primary Care Provider [phone] Marleni Coffman A Unavailable [phone] Ladonna Louise RN Unavailable [phone] Neville Cash MD Unavailable [phone] Population Health Care Management (PHCM) Status:Enrolled (Active) Start date:11/17/2023 Enrollment date:11/17/2023 Current support & services provided:[employer] Related social drivers of health:Housing Stability, Child or Family Care, Education, Food, Unemployment, Paying for Meds, Paying Utility Bills, Transportation, Digital Access, SNAP/WIC Case Team Name Relationship Phone Email Ladonna Louise RN Registered Nurse(Res ponsible Staff) [phone] Jocelyn Ruff PHCM Voice Teacher [phone] Continued Care and Services Coordination
--- OUTSIDE RECORDS SUMMARY | 2025-08-04 09:44 | XMS_ITS | Encounter Summary ---
Author Organization [facility] Address [address] [place] [address] [place] [address] Phone Care Team Providers Care Consulting Application Engineer Name Role Phone Marleni Coffman MD Primary Care Provider [phone] Marleni Coffman MD Unavailable Jihan Resendiz RN Unavailable [email or web address] Ladonna Louise RN Unavailable [phone] Allison Rice Unavailable [email or web address] Neville Cash MD Unavailable Encounter Details Date Type Department Care Team (Late st Contact Info) Description 08/21/2020 Procedure Pass Echo Lab [place] [place] [address] Social History Tobacco Use Types Packs/Day Years [...] Description 08/07/2025 9:30 AM EDT Office Visit [facility] [address] [place] [address] 3rd [facility], [address] [place] [address] Chioma Gresham DNP [address] [address] 10/02/2025 1:00 PM EST Office Visit [facility] [address] [place] [address] Marleni Coffman MD [address] [place] [address] 11/27/2025 11:00 AM EST Appointment [facility] PFT Lab [address] [place] [address] Wagner Figueroa MD, MS [address] [address] 12/05/2025 9:15 AM EST Office Visit [facility] [address] [place] [address] Wagner Figueroa MD, MS [address] [address] 12/11/2025 10:45 AM EST Appointment [facility], [facility] - [address] [address] Rex Villareal DO [address] [place] [address] 01/01/2026 10:30 AM EST Office Visit [facility] [address] [place] [address] [place] [address] Rex Villareal, DO 22 [place] [address] [email or web address] documented as of this encounter Visit Diagnoses [...] documented as of this encounter Care Teams Consulting Application Engineer Relationship Specialty Start Date End Date Marleni Coffman MD [address] [place] [address] [email or web address] PCP - General 08/20/17 Marleni Coffman MD [address] [place] [address] [email or web address] Insurance Assigned Provider 02/06/24 Jihan Resendiz RN [address] [place] [address] [email or web address] [facility] Staff Development Nurse 09/01/19 02/28/21 Ladonna Louise RN [address] [place] [address] [phone] [email or web address] [facility] Staff Development Nurse 03/01/21 Allison Rice [address] [place] [address] [email or web address] [facility] Community Bowling Teacher 04/19/24 04/19/24 Neville Cash MD [address] [place] [address] Dr [address] [place] [address] Orthopedic Surgery 06/05/25 documented as of this encounter Additional Source Comments The information contained in this document represents components of the legal health record. It is not the complete legal health record.[facility]
--- OUTSIDE RECORDS SUMMARY | 2025-08-04 09:44 | XMS_ITS | Data Portability ---
Author Organization [place] [facility] Address [address] [place] [address] Assessment No assessment recorded. Plan of Treatment Reminders Order Date Submit Date Provider Last Modified By Organization Details Last Modified Time Details Appointments None record ed. Lab None record ed. Referral None record ed. Procedures None record ed. Surgeries None record ed. Imaging XR, knee, 4 or more view - room 203, R knee 4v 025 03/06/20 [email or web address] [facility], [address] [facility] [address], [place], [address], 11:27:54 Medication Orders None record ed. Patient TargetsNo targets recorded. Patient InstructionsNo instructions recorded. Reason for Referral None Reported. Results Created Date Observation Date Name Description Value Unit Range Abnormal Flag Note LastModifiedBy Organization Detail LastModifiedTime 03/06/20 25 03/06/2025 XR, knee, 4 or more view http:/ [email or web address] ?Encry pted=s hAaTro YD8dLq bEUv6g %2BXZw aYqtaq 0bqfl% 2Fg9IQ a4ajBk vP9nXo QUaueC m3YtLR FvZlgJ JJ8mAn HZtai3 [id number] AC0Kla niDUKe lKiQtr MwF INTERFACE [facility] [address], [place], [address], 03/06/2025 10:29:04 03/06/20 25 03/06/2025 XR, knee, 4 or more view http:/ [email or web address] ?Encry pted=s hAaTro YD8dLq bEUv6g %2BXZw aYqtaq 0bqfl% 2Fg9IQ a4ajBk vP9nXo QUaueC m3YtLR FvZlgJ JJ8mAn HZtai3 9o6165 AC0Kla niDUKe lKiQtr MwF INTERFACE [facility] [address] [facility] [address], [place], [address], 03/06/2025 10:29:05 Result Notes Documentation Provider Name and Address Organization Details Recorded Time Xr, Knee, 4 Or More View : [email or web address]? Encrypted=fiYkNstSS4aVmkB Uv6g%4HSQlgSxldi7padp%2Fg 3IXp9hyFaxE1eYuYGofqTb4Rn ZJQtLvpQIV1eLzGVcmj06a456 0LJ8GalnxJAAqhDfGrfOeC Not Available [facility] 03/06/2025 10:29: 04 Xr, Knee, 4 Or More View : [email or web address]? Encrypted=kqPnIsfRQ3eWipG Uv6g%3LAUtcJefua1gcft%2Fg 9KHs4ufTxbK5iMqTIksmSz6Nh JBSqSguMWP4tPtGNhjn63u019 8ZF0IhjztJQMrkLkRjgVcJ Not Available [facility] 03/06/2025 10:29: 06 Procedures Surgical History Date Name Laterality Status Provider Name and Address Organization Details Recorded Time 03/06/2025 Sports Knee 4&1 completed Edy Mcadams PA-C [address] [facility] [address], [place], [address], [facility] 03/06/2025 13:47:51 Imaging Results [...] Updated DateTime 03/06/2025 165.1 cm 18.3 kg/m2 48375.16 g Sophy Almanzar [place] - [facility] 03/06/2025 10:17:19 Social History None recorded. Functional Status None recorded. Mental Status None recorded. Family History Nothing Reported. Medical History Condition Response Asthma Y Hypertension Y Gynecological HistoryNo gynecological history recorded. Obstetrics History GPAL:G 0 P 0 0 0 0 Past Encounters Encounter ID Performer Location Encounter Start Date Encounter Closed Date Diagnosis/Indication Diagnosis SNOMED-CT Code Diagnosis ICD10 Code Diagnosis IMO Codes Diagnosis Note [id number] NOLVIA Jain 2nd floor [address] [place] [address] 03/06/2025 10:07:04 03/18/2025 10:30:21 Pain of right knee joint 7078739150 [address]1368 M25.561 157121 Osteoarthr itis of right knee joint 0929838822 89474 M17.11 [id number] Health Concerns Section Related Observation LastModified by Organization Detai ls LastModified Time None Recorded Concern Status LastModified by Organization Details LastModified Time None Recorded Advance Directives Directive None Recorded Payers Insurance Date Sequence Insurance Name Policy Number Policy Marlow Covered Member ID Marlow Member ID Guarantor Name 05/25/2025 2 [place] [id number] Kera Pyleworth [id number] Keramelania LynnCrisfield 05/25/2025 1 [place]: [employer] Kera Lynnnsworth [id number] Kera LynnCrisfield 05/25/2025 [place] [employer] Kera Pyleworth [id number] Kera LynnZheng 05/25/2025 1 [place] [employer] Kera Lynnnsworth [id number] Kera LynnCrisfield Notes Date Note Type Note Provider Name and Address Organization Details Recorded Time 03/06/2025 text/html ROS as noted in the HPI I am seeing the patient today under [...] joint space loss laterally with evidence of bchv-td-kvns articulation, subchondral sclerosis, osteophyte formation. Degenerative changes [...] concerns were answered today. Edy Mcadams PA-C [address] [facility] [address], [place], [address], [place] [facility] 03/06/2025 13:48:04 OBGyn Episode No OBEpisode recorded.
--- OUTSIDE RECORDS SUMMARY | 2025-08-04 09:44 | XMS_ITS | Encounter Summary ---
Author Organization [facility] Address [address] [place] [address] Phone Care Team Providers Care Pull Tab Dealer Name Role Phone Marleni Coffman MD Primary Care Provider [phone] Marleni Coffman MD Unavailable [phone] Ladonna Louise RN Unavailable Allison Rice Unavailable ruby Neville Cash MD Unavailable Encounter Details Date Type Department Care Team (Late st Contact Info) Description 03/26/2023 Transcribe Orders [facility] PFT Lab 30 [place] [address] Wagner Figueroa MD, MS [address] [id number] Social History Tobacco Use Types Packs/Day Years [...] high school, GED, job training, learning the Maltese language, technical skills, or developing parenting skills)? [...] Description 08/07/2025 9:30 AM EDT Office Visit [facility] [address] [place] [address] 3rd Floor, [address] [place] [address] Chioma Gresham DNP [address] [facility], [address] [place] [address] [email or web address] 10/02/2025 1:00 PM EST Office Visit [facility] [address] [place] [address] [place] [address] Marleni Coffman MD [address] [facility], [address] [place] [address] 11/27/2025 11:00 AM EST Appointment [facility] [address] [place] [address] Wagner Figueroa MD, MS [address] [address] 12/05/2025 9:15 AM EST Office Visit [facility] [address] [place] [address] Wagner Figueroa MD, MS [address] [address] 12/11/2025 10:45 AM EST Appointment [facility], [facility]ensity - [address] [address] Rex Villareal DO [address] [place] [address] 01/01/2026 10:30 AM EST Office Visit [facility] [address] [place] [address] Rex Villareal DO [address] [place] [address] documented as of this encounter Visit Diagnoses Not on filedocumented in this encounter Additional Health Concerns Infection Onset Date Last Indicated Resolved Time CDiff-Risk 04/05/2025 04/19/2025 04/12/2025 1:21 AM EDT CDiff-Risk 04/19/2025 04/19/2025 04/19/2025 9:22 PM EDT Assessment Noted Time PHQ-2 Depression Total Score: 2 01/17/20 23 10:12 AM EDT documented as of this encounter Care Teams Pull Tab Dealer Relationship Specialty Start Date End Date Marleni Coffman MD [address] [place] [address], 2nd [place] [address] [email or web address] PCP - General 08/20/17 Marleni Coffman MD [address] [place] [address], 2nd [place] [address] [email or web address] Insurance Assigned Provider 02/06/24 Ladonna Louise, RN [address] [place] [address] [email or web address] iCMP Panel Installer 03/01/21 Allison Rice [address] [place] [address] [email or web address] iCMP Community Arcade Technician 04/19/24 04/19/24 Neville Cash MD [address] [place] [address] [address] [place] [address] Orthopedic Surgery 06/05/25 documented as of this encounter Additional Source Comments The information contained in this document represents components of the legal health record. It is not the complete legal health record.[facility]
== END 2025-08-03 09:17 | disposition home or self-care (01) ==
LOC: HO.HOSX 09:16
PROVIDERS: Visit Provider Physician Assistant
DX: Z47.1 Aftercare following joint replacement surgery (principal); Z96.651 Presence of right artificial knee joint
CPT/HCPCS: 99212

== ENCOUNTER 2025-08-03 14:28 | Outpatient (AMB) | payer MEDICARE, SELFPAY ==
--- OUTSIDE RECORDS SUMMARY | 2011-08-22 | XMS_ITS | Encounter Summary ---
Author Organization [facility] Address [address] [facility] [place] [address] Phone Care Team Providers Care Resident Care Director Name Role Phone Pcp, Unknown Primary Care Provider Unavailabl e Reason for Visit * MRI/CAT Scan - Closed Specialty Diagnoses / Procedures Referred By Contac t Referred To Contact Procedures CT Chest Outside (No Interpretation) System, Provider Not In, [facility] [address] [address] Referral ID Status Reason Start Date Expiration Date Visits Re quested Visits Authorized [id number] Closed 09/16/2017 09/16/2018 1 1 Encounter Details Date Type Department Care Team (Late st Contact Info) Description 08/22/2011 Hospital Encounter [facility],Outside Imaging 30 [place] [address] System, Provider Not In, PhD Partners [employer] [address] Unknown, Unknown, Social History Tobacco Use Types Packs/Day Years Used Date Smoking Tobacco: Never Smokeless Tobacco: Never Alcohol Use Standard Drinks/Week Comments Not Currently 0 (1 standard drink = 0.6 oz pur e alcohol) rare Child or Family Care Answer Date Record ed Do you have problems with on e of the following making it difficult for you to work, study, or receive health care? No 04/26/2021 Education Answer Date Recorded Are you interested in more education? Not on mary jane e 04/28/2023 Are you concerned about learning? Not on file 04/28/2023 No 04/28/2023 No 04/28/2023 Food Answer Date Recorded Within the past 6 months we worried whether our food would run out before we got money to buy more. Never True 04/26/2021 Food didn't last Not on file 04/26/2021 Residential Stability Answer Date Recor ded What is your housing situation today? I have brady bloom 04/26/2021 How many times have you move d in the past 12 months? Zero (I did not move) 04/26/2021 Paying for Meds Answer Date Recorded Do you have trouble paying for medicines? No 04/26/2021 Paying Utility Bills Answer Date Record ed Do you have trouble paying your heating or elect ricity bill? No 04/26/2021 Transportation Answer Date Recorded Has the lack of transportati on kept you from medical appointments or from getting medications? No 04/26/2021 Unemployment Answer Date Recorded Are you currently unemployed or working on a part-time or temporary basis, and looking for work? No 04/26/2021 Digital Access Answer Date Recorded No 03/27/2023 No 03/27/2023 Reliable internet access at home? Not on file 03/27/2023 Device with a working camera? Not on file Intimate Partner Violence Answer Date R ecorded Denied Basic Needs Not on file 01/07/2024 In the past 12 months have y ou been in a relationship with a person who hurts, threatens, or tries to control you? No 01/07/2024 Worried food would run out Not on file 01/06 In the past 12 months have y ou been in a relationship with a person who hurts, threatens, or tries to control you? 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 Not on file Not on file documented as of this encounter Plan of Treatment Upcoming Encounters Date Type Department Care Team (Late st Contact Info) Description 08/07/2025 9:30 AM EDT Office Visit [facility] [address] [facility] 3rd Floor, [address] [place], [place] [id number] Chioma Gresham DNP [address] [place] [address] [address] [place] [address] 10/02/2025 1:00 PM EST Office Visit [facility] [address] [place] [address] [place] [address] Marleni Coffman MD [address] [place] [address], [address] [place] [address] 11/27/2025 11:00 AM EST Appointment [facility] [address] [place] [address] Wagner Figueroa MD, [place] [address] [address] 12/05/2025 9:15 AM EST Office Visit [facility] [address] [place] [address] Wagner Figueroa MD, MS [address] [address] 12/11/2025 10:45 AM EST Appointment [facility], Bone Density - [address] [address] Rex Villareal DO [address] [place] [address] 01/01/2026 10:30 AM EST Office Visit [facility] [address] [place] [address] Rex Villareal DO 22 [place] [address] documented as of this encounter Procedures Procedure Name Priority Date/Time Associated Diagnosis Comments CT CHEST OUTSIDE (NO INTERPRETATION) Routine 08/22/2011 12:00 AM EDT documented in this encounter Results * CT Chest Outside (No Interpretation) (08/22/2011 12:00 AM EDT) Narrative SYSTEMGENERATED, DOCUMENTATION - 09/16/2017 2:43 PM EST This study is for PACS storage only and not for interpretation. us Provider Not In System PhD IMG OUTSIDE IMAGING W /OUT INTERPRETATION Final Result documented in this encounter Visit Diagnoses Not on filedocumented in this encounter Additional Health Concerns Infection Onset Date Last Indicated Resolved Time CoV-Risk 04/10/2020 04/10/2020 04/24/2020 1:23 AM EDT CoV-Risk 06/06/2020 06/08/2020 06/20/2020 1:24 AM EDT CoV-Risk Comment:Per Ambulatory Triage Form 10/30/2021 11/06/202111/08 5:08 AM EST COVID-19 Comment:Pt not immunocompromised SX free and 19 days have passed since positive test. 11/06/2021 11/06/2021 11/25/2021 1:[address] COVID-19 02/19/2023 02/19/2023 03/12/2023 1:21 AM EDT CDiff-Risk 04/05/2025 04/19/2025 04/12/2025 1:21 AM EDT CDiff-Risk 04/19/2025 04/19/2025 04/19/2025 9:22 PM EDT documented as of this encounter Care Teams Resident Care Director Relationship Specialty Start Date End Date Pcp, Unknown PCP - General 08/22/11 08/19/17 documented as of this encounter Additional Source Comments The information contained in this document represents components of the legal health record. It is not the complete legal health record.[facility]
--- OUTSIDE RECORDS SUMMARY | 2016-01-23 | XMS_ITS | Encounter Summary ---
Author Organization [facility] Address [address] [place] [address] Phone Care Team Providers Care Nuclear Plant Construction Worker Name Role Phone Pcp, Unknown Primary Care Provider Unavailabl e Reason for Visit * MRI/CAT Scan - Closed Specialty Diagnoses / Procedures Referred By Contac t Referred To Contact Procedures CT Chest Outside (No Interpretation) System, Provider Not In, [facility] [address] [address] Referral ID Status Reason Start Date Expiration Date Visits Re quested Visits Authorized [id number] Closed 09/16/2017 09/16/2018 1 1 Encounter Details Date Type Department Care Team (Late st Contact Info) Description 01/23/2016 Hospital Encounter [facility],Outside Imaging 30 [place] [address] System, Provider Not In, [facility] [employer] [address] Unknown, Unknown, Social History Tobacco Use Types [...] Description 08/07/2025 9:30 AM EDT Office Visit [facility] [address] [facility] 3rd Floor, [address] [place], [place] [phone] Chioma Gresham DNP [address] [place] [address] [address] [place] [address] 10/02/2025 1:00 PM EST Office Visit [facility] [address] [place] [address] [place] [address] Marleni Coffman MD [address] [place] [address], [address] [place] [address] 11/27/2025 11:00 AM EST Appointment [facility] [address] [place] [address] Wagner Figueroa MD, MS [address] [address] 12/05/2025 9:15 AM EST Office Visit [facility] [address] [place] [address] Wagner Figueroa MD, MS [address] [address] 12/11/2025 10:45 AM EST Appointment [facility], Bone Density - [address] [address] Rex Villareal DO [address] [place] [address] 01/01/2026 10:30 AM EST Office Visit [facility] [address] [place] [address] Rex Villareal DO 22 [place] [address] documented as of this encounter Procedures Procedure Name Priority Date/Time Associated Diagnosis Comments CT CHEST OUTSIDE (NO INTERPRETATION) Routine 01/23/2016 12:00 AM EDT documented in this encounter Results * CT Chest Outside (No Interpretation) (01/23/2016 12:00 AM EDT) Narrative SYSTEMGENERATED, DOCUMENTATION - 09/16/2017 2:44 PM EST This study is for PACS [...] documented as of this encounter Care Teams Nuclear Plant Construction Worker Relationship Specialty Start Date End Date Pcp, Unknown PCP - General 08/22/11 08/19/17 documented as of this encounter Additional Source Comments The information contained in this document represents components of the legal health record. It is not the complete legal health record.[facility]
--- NOTE | 2025-08-03 14:47 | A.OFFVIS_ITS ---
Intake Visit Reasons: 2WKPO: R TKA w/ 07/17/25 Allergies penicillin V Allergy (Severe, Verified 07/17/25 06:20) hives, throat swelling. amoxicillin Allergy (Verified 07/17/25 06:20) Hives sulfamethoxazole (From Bactrim) Allergy (Verified 07/17/25 06:20) Unknown trimethoprim (From Bactrim) Allergy (Verified 07/17/25 06:20) Unknown HPI HPI 2WKPO: R BHAVYA dye/ 07/17/25: Details: Ms. Calzada is an 89-year-old female who presents to the office today accompanied by her for routine follow-up status post right total knee arthroplasty performed by Dr. Cash on 07/17/2025. She is not using any assistive devices to ambulate. She is no longer taking any pain medication, Tylenol or Celebrex. Pain is managed. No additional complaints. She continues to take aspirin for DVT ppx. [facility] Medical History (Updated 07/21/25 @ 00:01 by Eugene Horvath) Osteoporosis Restless leg syndrome Sarcoma Melanoma Lightheadedness Hyperparathyroidism Hiatal hernia COVID-19 COPD (chronic obstructive pulmonary disease) Bronchiectasis Asthma Cough Bronchitis SOB (shortness of breath) Otitis externa Peripheral neuropathy Hypertension Hypercholesterolemia Alberto thyroiditis Anxiety disorder Surgical History (Updated 07/18/25 @ 07:52 by Moreno Pena PA-C) History of partial colectomy History of lobectomy of lung (~1979) History of local excision of skin lesion H/O colonoscopy History of removal of ovarian cyst Hx of appendectomy Family History Father No problems noted. Mother Hypertension Diabetes Social History Household Members Other:: Lives with and son Housing: House Are you a primary healthcare network consultant to a significant other at home: No Do you presently have visiting nurse or other home services: No Patient Tobacco Use Status: Never used Tobacco e-Cigarette/Vaping Use: Never Used service: No Current occupational status: retired Current occupational exposures/hazards: No Cognitive needs: No Hearing needs: Yes Vision needs: Yes Review of Systems Const All systems reviewed & are unremarkable except as noted in HPI and below Physical Exam Const General: cooperative, healthy appearing and no acute distress Resp Effort & Inspection: normal respiratory effort and able to speak in complete sentences Extrem Other: Right knee incision site is clean dry and intact. Andreea intact. No surrounding erythema or redness. No signs of infection. Prior areas of skin t earing have resolve with no signs of infection. Range of motion 10-90 degrees. Calf is supple and nontender. NVI. Psych Appearance: grossly normal Mental Status: mental status grossly normal Attitude: cooperative Assessment & Plan Assessment & Plan (1) Status post total right knee replacement: Code(s): Z96.651 - Presence of right artificial knee joint Category: Surgical Plan Ms. Calzada is an 89-year-old female who presents to the office today accompanied by her for routine follow-up status post right total knee arthroplasty performed by Dr. Cash on 07/17/2025. She is not using any assistive devices to ambulate. She is no longer taking any pain medication, Tylenol or Celebrex. Pain is managed. No additional complaints. She continues to take aspirin for DVT ppx. Connell removed and Steri-Strips applied. A physical therapy prescription has been placed to attend [facility] in [place] for outpatient therapy. She will continue taking the aspirin for DVT PPX x6 weeks. She will see Dr. Cash in 4 weeks with x-rays, sooner if needed. Coding Level of Care Code Global (54611) Diagnoses Status post total right knee replacement Z96.651
--- OUTSIDE RECORDS SUMMARY | 2025-08-03 16:04 | XMS_ITS | Encounter Summary ---
Author Organization [facility] Address [address] [place] [address] Phone Care Team Providers Care Fire Alarm Operator Name Role Phone Marleni Coffman MD Primary Care Provider Marleni Coffman MD Unavailable Ladonna Louise RN Unavailable Neville Cash MD Unavailable Encounter Details Date Type Department Care Team (Late st Contact Info) Description 07/05/2025 Orders Only [facility] [address] [place] [address] 3rd Floor, [address] [place] [address] Chioma Gresham DNP [address] [facility], [address] [address] Social History Tobacco Use Types Packs/Day Years [...] Description 08/07/2025 9:30 AM EDT Office Visit [facility] [address] [place] [address] [address]rd Floor, [address] [place] [address] Chioma Gresham DNP [address] [facility], [address] [place] [address] 10/02/2025 1:00 PM EST Office Visit [facility] [address] [place] [address] [place] [address] Marleni Coffman MD [address] [place] [address] 11/27/2025 11:00 AM EST Appointment [facility] [address] [place] [address] [place] Figueroa MD, [place] [address] [address] 12/05/2025 9:15 AM EST Office Visit [facility] [address] [place] [address] [place] Figuero[place], [place] [address] [address] 12/11/2025 10:45 AM EST Appointment [facility] - [address] [address] Rex Villareal DO [address] [place] [address] 01/01/2026 10:30 AM EST Office Visit [facility] [address] [place] [address] [place] [address] Rex Villareal DO [address] [place] [address] documented as of this encounter Procedures Procedure Name Priority Date/Time Associated Diagnosis Comments OUTSIDE MONITOR Routine 07/05/2025 11:19 AM EDT documented in this encounter Results * Outside Monitor Report Only (07/05/2025 11:19 AM EDT) Cihoma Gresham DNP [facility] ORDERABLES F inal Result documented in this encounter Visit Diagnoses Not on filedocumented in this encounter Additional Health Concerns Assessment Noted Time PHQ-9 Depression Total Score: 12 024 9:26 AM EST PHQ-2 Depression Total Score: 2 04/29/20 24 10:17 AM EDT documented as of this encounter Care Teams Fire Alarm Operator Relationship Specialty Start Date End Date Marleni Coffman MD [address] [place] [phone] [email or web address] PCP - General 08/20/17 Marleni Coffman MD [address] [place] [address] Insurance Assigned Provider 02/06/24 Ladonna Louise, RN [address] [place] [address] [email or web address] Swimming Instructor 03/01/21 Neville Cash MD [address] [place] [address] [address] [place] [address] Orthopedic Surgery 06/05/25 documented as of this encounter Additional Source Comments The information contained in this document represents components of the legal health record. It is not the complete legal health record.[facility]
--- OUTSIDE RECORDS SUMMARY | 2025-08-03 16:04 | XMS_ITS | Encounter Summary ---
Author Organization [facility] Address [address] [facility] [facility] [address] [place] [phone] Phone Care Team Providers Care Vacuum Repairer Name Role Phone Marleni Coffman MD Primary Care Provider [phone] Marleni Coffman MD Unavailable [phone] Ladonna Louise RN Unavailable [phone] Neville Cash MD Unavailable [phone] Reason for Visit * Reason Onset Date Comments Appointment 07/04/2025 PROLIA Encounter Details Date Type Department Care Team (Late st Contact Info) Description 07/04/2025 Telephone [facility] [address] [place] [address] [phone] Juliana Ladd, JOANA [address] [place] [address] [email or web address] Appointment (PROLIA) Social History Tobacco Use Types [...] Description 08/07/2025 9:30 AM EDT Office Visit [facility] [address] [place] [address] 3rd Floor, [address] [place] [address] Chioma Gresham DNP [address] [place] [address], [address] [address] 10/02/2025 1:00 PM EST Office Visit [facility] [address] [place] [address] [place] [address] Marleni Coffman MD [address] [place] [address], [address] [place] [address] 11/27/2025 11:00 AM EST Appointment [facility] [address] [place] [address] [place] Figuero[place] MD, [place] [address] [address] 12/05/2025 9:15 AM EST Office Visit [facility] [address] [place] [address] [place] [address] [place] Figuero[place] MD, [place] [address] [address] 12/11/2025 10:45 AM EST Appointment [facility] - [address] [address] Rex Villareal, DO [address] [place] [address] 01/01/2026 10:30 AM EST Office Visit [facility] [address] [place] [address] Rex Villareal, DO [address] [place] [phone] documented as of this encounter Visit Diagnoses Not on filedocumented in this encounter Additional Health Concerns Assessment Noted Time PHQ-9 Depression Total Score: 12 01/06/ 024 9:26 AM EST PHQ-2 Depression Total Score: 2 04/29/20 24 10:17 AM EDT documented as of this encounter Care Teams Vacuum Repairer Relationship Specialty Start Date End Date Marleni Coffman MD [address] [place] [address] PCP - General 08/20/17 Marleni Coffman MD [address] [place] [phone] Insurance Assigned Provider 02/06/24 Ladonna Louise, RN [address] [place] [address] [email or web address] 03/01/21 Neville Cash MD [address] [place] [address] [address] [place] [address] Orthopedic Surgery 06/05/25 documented as of this encounter Additional Source Comments The information contained in this document represents components of the legal health record. It is not the complete legal health record.[facility]
--- OUTSIDE RECORDS SUMMARY | 2025-08-03 16:05 | XMS_ITS | Clinical Summary ---
Author Organization [facility] Address [address] [facility] [address] [place] [address] Phone Care Team Providers Care Wall Taper Name Role Phone Marleni Coffman MD Primary Care Provider [phone] Marleni Coffman MD Unavailable Ladonna Louise RN Unavailable [phone] Neville Cash MD Unavailable [phone] Allergies Active Allergy Reactions Criticality Noted Date [...] PCP a second neurology opinion, potentially at [facility]. Assessment & Plan (01/11/2024 11:49 AM EDT): [...] trial of montelukast. Finally, given sample of [employer] pot with instructions for use. She is [...] pressures, and bring this log to her line maintenance technician's office. Assessment & Plan (08/29/2021 10:51 AM [...] I did put in a referral to [facility]. I also requested bone turnover and pro [...] DLCO; Additional Testing: Exhaled Nitric Oxide Test ([facility], [facility], [facility], WD and [facility] only); Performing Location: [facility]; Future albuterol 90 mcg/actuation inhaler 2-4 [...] airways disease is likely not the primary driver license examiner for her symptoms. Chest x-ray performed 2 [...] calling local tertiary care hospital such as [facility], [facility], [facility], [facility], even [facility] to find out how soon they may [...] evaluation with echocardiogram and visit with her line maintenance technician are unrevealing, could consider chest CTPA to [...] versus bronchiectasis exacerbation, though symptoms could be lead customer service representative of a viral process as well. Will prescribe azithromycin. She will call us back if not improving over the next few days. I do not believe she warrants prednisone at this time. Assessment & Plan (09/30/2018 11:37 AM EST): Outpatient visit note with Dr. Figueroa reviewed. Information gleaned from chart: Patient is a former patient of Dr. Lerner at [facility] with left lower lobe lobectomy in the 1980s, as well as Dr. Colon and Dr. Nahid Redman at [facility]. She was treated several months ago [...] 200-25 (once daily), sample given. - Continue Hyper-Bari twice daily - Use Acapella AND airway [...] culture. Order for nebulizer device sent to [facility] and prescriptions for albuterol and hyper-Bari 7% [...] pneumococcal antibodies. I have requested images from [facility]. She did have a CT within [...] Encounters Date Type Department Care Team Description 07/31/[address] [facility] - Primary Care [address] [place] [address] 07/31/[address] [place] [address] Marleni Coffman MD Patient Called Back Inquiring Status; Follow-up 07/13/[address] [place] [address] Marleni Coffman MD Pre-op Exam (Knee replacement 07/17/2025/) 07/12/2025 Telephone [facility] [address] 3rd Floor, [address] [place] [address] Beata Arredondo 07/05/2025 Orders Only [facility] [address]rd Floor, [address] [place] [address] Chioma Gresham DNP 07/04/2025 Telephone [facility] Endocrinology [address] [place] [address] [place] [address] Juliana Ladd, RN Appointment (PROLIA) 06/22/2025 Patient Outreach [facility] [address] [place] [address] Ladonna Louise, RN Care Coordination (iCMP outreach) 06/05/2025 9:30 AM EDT Office Visit [facility] [address]rd Floor, [address] [place] [address] Ludlow, Chioma, DNP Light headedness (Primary Dx); Palpitations; Dyspnea on exertion; Essential hypertension 05/30/2025 9:45 AM EDT Office Visit [facility] [address] [place] [address] [place] [address] Wagner Figueroa MD, MS Preop pulmonary/respirator y exam (Primary Dx); Chronic obstructive airway disease with asthma 05/29/2025 Orders Only [address] [place] [address] Marleni Coffman MD Hyperkalemia (Primary Dx) 05/26/2025 Orders Only [address] [place] [address] Marleni Coffman MD Pre-op evaluation 05/25/2025 2:29 PM EDT - 05/25/2025 11:59 PM EDT Hospital Encounter [facility] [address] [place] [address] [place] [address] Marleni Coffman MD Discharge Disposition: Home or Self Care 05/25/2025 1:30 PM EDT Office Visit [address] [place] [address] Marleni Coffman MD Pre-op evaluation (Primary Dx); Chronic kidney disease, stage 3a; Primary osteoarthritis of right knee; Chronic obstructive airway disease with asthma; Elevated glucose 05/23/2025 Orders Only [address] [address] Flores Celestin MD 05/23/2025 Telephone [facility] [address] [place] [address] Ladonna Louise, JOANA 05/23/2025 Patient Outreach [facility] [address] [place] [address] Ladonna Louise, RN Post Discharge Follow Up Call (PDA) 05/22/2025 Orders Only [facility] [address] [place] [address] ProviderFlores MD 05/15/2025 Patient Outreach [facility] [address] [place] [address] Ladonna Louise, RN Care Coordination (iCMP outreach) from Last 3 Months Immunizations Immunization Administration Dates Next Due COVID-19 (Pre-08/24) Pfizer Vaccine, mRNA, PF 07/13/2021,12/24/2020,12/03/2020 INFLUENZA, SPLIT [...] Description 08/07/2025 9:30 AM EDT Office Visit [facility] [address] [place] [address], [address] [address] Chioma Gresham DNP [address] [address] 10/02/2025 1:00 PM EST Office Visit [facility] [address] [place] [address] Marleni Coffman MD [address] [place] [address] 11/27/2025 11:00 AM EST Appointment [facility] [address] [place] [address] Wagner Figueroa MD, MS [address] [address] 12/05/2025 9:15 AM EST Office Visit [facility] [address] [place] [address] Wagner Figueroa MD, MS [address] [address] 12/11/2025 10:45 AM EST Appointment [facility], Bone Density - [address] [address] Rex Villareal, DO 22 [place] [address] 01/01/2026 10:30 AM EST Office Visit [facility] [address] [place] [address] Rex Villareal, DO [address] [place] [address] Health Maintenance Due Date Last Done Comments DEPRESSION SCREENING 04/29/2025 04/29/2024, 01/07/20 24 LIPID PANEL 05/25/2025 05/25/2024, 08/0 07/2018, 06/10/2018 [...] OUTSIDE IMAGING Routine 05/20/2025 3:00 PM EDT BD DXA AXIAL (SPINE) WITH HIP Routine 12/10/2023 9:30 AM EST Age-related osteoporosis without current pathological fracture LIPID PANEL Routine 06/10/2018 12:41 PM EDT Pure hypercholesterolemia from Last 3 Months or Most Recently Relevant to Health Maintenance Results * Outside Monitor Report Only (07/05/2025 11:19 AM EDT) Chioma Mp [facility] CV CARDIAC SERVICES ORDERABLES F inal Result * (ABNORMAL) CBC (05/25/2025 2:32 PM EDT) WBC 10.79 4.00 - 11.00 K/uL [facility] RBC 4.58 4.00 - 5.20 M/uL [facility] HGB 13.8 12.0 - 16.0 g/dL [facility] HCT 43.2 36.0 - 46.0 % [facility] PLT 321 150 - 450 K/uL [facility] MCV 94.3 80.0 - 100.0 fL [facility] MCH 30.1 27.0 - 31.0 pg [facility] MCHC 31.9(L) 32.0 - 36.0 g/dL [facility] RDW 13.3 11.5 - 14.5 % [facility] MPV 10.6 8.4 - 12.0 fL [facility] NRBC 0.00 0.00 /100 WBCs [facility] ABSOLUTE NRBC 0.00 0.00 K/uL [facility] Blood 05/25/2025 2:32 PM EDT 05/25/2025 2:36 PM EDT us Marleni A Augustus [facility]OCK LAB BLOOD ORDERABLES Final Re sult Performing Organization Address [facility] Co de Phone Number [address] [address] * Hemoglobin A1c (05/25/2025 2:32 PM EDT) HEMOGLOBIN A1C 5.3 4.3 - 5.8 % [facility] Blood 05/25/2025 2:32 PM EDT 05/25/2025 2:36 PM EDT us Marleni A Augustus [facility] LAB BLOOD ORDERABLES Final Re sult Performing Organization Address City/[facility] Co de Phone Number [address] [address] * (ABNORMAL) Basic metabolic panel (05/25/2025 2:32 PM EDT) SODIUM 138 133 - 146 mmol/L [facility] CHLORIDE 107 96 - 108 mmol/L [facility] POTASSIUM 5.9(H) 3.3 - 5.1 mmol/L [facility] CO2 22 21 - 35 mmol/L [facility] BUN 33(H) 6 - 19 mg/dL [facility] CREATININE 1.40 0.5 - 1.5 mg/dL [facility] GLUCOSE 103(H) 70 - 99 mg/dL [facility] CALCIUM 10.6(H) 8.4 - 10.3 mg/dL [facility] EGFR 36(L) >59 mL/min/1.7 3m2 [facility] Comment:Estimated glomerular filtration rate calculated using the CKD-EPI refit equation. ANION GAP 15 10 - 20 mmol/L [facility] Blood 05/25/2025 2:32 PM EDT 05/25/2025 2:36 PM EDT Result [facility] Marleni A Augustus [facility] LAB BLOOD ORDERABLES Final Re sult Performing Organization Address City/State/[facility] Co de Phone Number [facility] [address] [place] [address] * Outside Imaging Report Only (05/20/2025 4:03 PM EDT) Historical Provider MD PHAM XR CHEST Edited Re sult - Final * Outside Imaging Report Only (05/20/2025 3:02 PM EDT) Historical Provider MD PHAM XR CHEST Edited Re sult - Final * Outside Imaging Report Only (05/20/2025 3:01 PM EDT) Historical Provider MD PHAM XR CHEST Edited Re sult - Final * Outside Imaging Report Only (05/20/2025 3:01 PM EDT) Result [facility] Historical Provider MD PHAM XR CHEST Edited Re sult - Final * Outside Imaging Report Only (05/20/2025 3:00 PM EDT) Result [facility] Historical Provider MD PHAM XR CHEST Edited Re sult - Final * BD DXA AXIAL (SPINE) WITH HIP [...] loss in the lumbar spine compared with12/09/2021. us Rex Villareal DO IMG BD BONE DENSITY DEXA Final R esult * (ABNORMAL) Lipid panel (06/10/2018 12:41 PM EDT) HDL 84 mg/dL [facility] Comment: Interpretation: Risk Level Females Decreased >55mg/dL Average 50-55 mg/dL Increased <50 mg/dL CHOLESTEROL 222 0 - 240 mg/dL [facility] TRIGLYCERIDES 71 30 - 160 mg/dL [facility] LDL 124 50 - 129 mg/dL [facility] Comment: LDL levels in terms of risk for coronary heart disease: <100 mg/dL: Optimal 100-129 mg/dL: Near or above optimal 130-159 mg/dL: Borderline high 160-189 mg/dL: High >190 mg/dL: Very High CARDIAC RISK RATIO 2.6(L) 3.3 - 4.4 C [facility] Blood 06/10/2018 12:4 1 PM EDT 06/10/2018 12:45 PM EDT us Marleni Coffman MD LAB BLOOD ORDERABLES Final Re sult [facility] [address] [place] [address] from Last 3 Months or Most Recently Relevant to Health Maintenance Insurance MEDICARE PART A & B [employer] SUPPLEMENT MEDICARE PART A & B [employer] SUPPLEMENT MEDICARE PART A & B [employer] SUPPLEMENT MEDICARE PART A & B [employer] SUPPLEMENT MEDICARE PART A & B [employer] SUPPLEMENT MEDICARE PART A & B [employer] MED[employer] SUPPLEMENT MEDICARE PART A & B [facility] MEDEX SUPPLEMENT MEDICARE PART A & B [employer] MED[employer] SUPPLEMENT MEDICARE PART A & B [employer] MEDEX SUPPLEMENT Advance Directives For more information, please contact: [phone] (9AM - 5PM [facility], Thursday-Thursday) Documents on File Type Date Recorded Patient Tray Packer Expl anation Healthcare Proxy 10/04/2018 11:44 AM Healthcare Proxy 06/30/2024 Sigend HCP * Full Code (Confirmed) (Latest Code Status on File) Date Activated Date Inactivated Comments 09/29/2018 1:56 PM 10/01/2018 4:59 PM Question Answer Comments Code Status Confirmed With: Patient Care Teams Wall Taper Relationship Specialty Start Date End Date Marleni Coffman MD [address] [place] [address], [address] [place] [address] [email or web address] PCP - General 08/20/17 Marleni Coffman MD [address] [place] [address], [address] [place] [address] Insurance Assigned Provider 02/06/24 Ladonna Louise, RN [address] [place] [address] [email or web address] iCMP Dye Weigher Helper 03/01/21 Neville Cash MD [address] [place] [address] [place] [address] Orthopedic Surgery 06/05/25 Additional Source Comments The information contained in this document represents components of the legal health record. It is not the complete legal health record.[facility]
--- OUTSIDE RECORDS SUMMARY | 2025-08-03 16:05 | XMS_ITS | Encounter Summary ---
Author Organization [facility] Address [address] [place] [address] Phone Care Team Providers Care Desizing Pad Operator Name Role Phone Marleni Coffman MD Primary Care Provider [phone] Marleni Coffman MD Unavailable [phone] Ladonna Louise RN Unavailable [phone] Allison Rice Unavailable ruby Neville Cash MD Unavailable Encounter Details Date Type Department Care Team (Late st Contact Info) Description 05/29/2022 Transcribe Orders [facility] Lab [address] [place] [address] Wagner Figueroa MD, MS [address] [phone] Social History Tobacco Use Types Packs/Day Years [...] Description 08/07/2025 9:30 AM EDT Office Visit [facility] [address] [place] [address] 3rd Floor, [address] [place] [address] Chioma Gresham DNP [address] [place] [address], [address] [address] 10/02/2025 1:00 PM EST Office Visit [facility] [address] [place] [address] [place] [address] Marleni Coffman MD [address] [place] [address], 2[address] [place] [address] 11/27/2025 11:00 AM EST Appointment [facility] [address] [place] [address] Wagner Figueroa MD, MS [address] [address] 12/05/2025 9:15 AM EST Office Visit [facility] [address] [place] [address] Wagner Figueroa MD, MS [address] [address] 12/11/2025 10:45 AM EST Appointment [facility] [address] [place] [address] Rex Villareal DO [address] [place] [address] 01/01/2026 10:30 AM EST Office Visit [facility] 22 [place] [address] Rex Villareal DO 22 [place] [address] documented as of this encounter Visit Diagnoses Not on filedocumented in this encounter Additional Health Concerns Infection Onset Date Last Indicated Resolved Time COVID-19 02/19/2023 02/19/2023 03/12/2023 1:21 AM EDT CD[facility]-Risk 04/05/2025 04/19/2025 04/12/2025 1:21 AM EDT [facility]-Risk 04/19/2025 04/19/2025 04/19/2025 9:22 PM EDT Assessment Noted Time PHQ-2 Depression Total Score: 2 04/17/20 10:42 AM EDT documented as of this encounter Care Teams Desizing Pad Operator Relationship Specialty Start Date End Date Marleni Coffman MD [address] [place] [address], 2nd [place] [address] [email or web address] PCP - General 08/20/17 Marleni Coffman MD [address] [place] [address], 2nd [place] [address] [email or web address] Insurance Assigned Provider 02/06/24 Ladonna Louise, RN [address] [place] [address] [email or web address] iCMP Fountain Clerk 03/01/21 Allison Rice [address] [place] [address] [email or web address] iCMP Community Manager Career 04/19/24 04/19/24 Neville Cash MD [address] [place] [address] [place] [address] Orthopedic Surgery 06/05/25 documented as of this encounter Additional Source Comments The information contained in this document represents components of the legal health record. It is not the complete legal health record.[facility]
--- OUTSIDE RECORDS SUMMARY | 2025-08-03 16:05 | XMS_ITS | Encounter Summary ---
Author Organization [facility] Address [address] [place] [address] [place] [address] Phone Care Team Providers Care Dentist/Owner Name Role Phone Marleni Coffman MD Primary Care Provider [phone] Marleni Coffman MD Unavailable [phone] Jihan Resendiz RN Unavailable [email or web address] Ladonna Louise RN Unavailable [phone] Allison Rice Unavailable [email or web address] Neville Cash MD Unavailable Encounter Details Date Type Department Care Team (Late st Contact Info) Description 08/21/2020 Procedure Pass [facility] [address] [place] [address] Social History Tobacco Use Types Packs/Day Years [...] Description 08/07/2025 9:30 AM EDT Office Visit [facility] [address] [place] [address] 3rd [facility], [address] [place] [address] Chioma Gresham DNP [address] [address] 10/02/2025 1:00 PM EST Office Visit [facility] [address] [place] [address] Marleni Coffman MD [address] [place] [address] 11/27/2025 11:00 AM EST Appointment [facility] [address] [place] [address] Wagner Figueroa MD, MS [address] [address] 12/05/2025 9:15 AM EST Office Visit [facility] [address] [place] [address] Wagner Figueroa MD, MS [address] [address] 12/11/2025 10:45 AM EST Appointment [facility], Bone Density - [address] [address] Rex Villareal DO [address] [place] [address] 01/01/2026 10:30 AM EST Office Visit [facility] [address] [place] [address] [place] [address] Rex Villareal, DO [address] [place] [address] [email or web address] documented as of this encounter Visit Diagnoses [...] documented as of this encounter Care Teams Dentist/Owner Relationship Specialty Start Date End Date Marleni Coffman MD [address] [place] [address] [email or web address] PCP - General 08/20/17 Marleni Coffman MD [address] [place] [address] [email or web address] Insurance Assigned Provider 02/06/24 Jihan Resendiz RN [address] [place] [address] [email or web address] [facility] Monkey Breeder 09/01/19 02/28/21 Ladonna Louise RN [address] [place] [phone] [email or web address] [facility] Monkey Breeder 03/01/21 Allison Rice [address] [place] [address] [email or web address] [facility] Community Assemblyman Or Woman 04/19/24 04/19/24 Neville Cash MD [address] [place] [address] Dr [address] [place] [address] Orthopedic Surgery 06/05/25 documented as of this encounter Additional Source Comments The information contained in this document represents components of the legal health record. It is not the complete legal health record.[facility]
--- OUTSIDE RECORDS SUMMARY | 2025-08-03 16:05 | XMS_ITS | Encounter Summary ---
Author Organization [facility] Address [address] [place] [address] [place] [address] Phone Care Team Providers Care Sales Force Developer Name Role Phone Marleni Coffman MD Primary Care Provider [phone] Marleni Coffman MD Unavailable [phone] Jaleesa Rod RN Unavailable [phone] Jihan Resendiz RN Unavailable [email or web address] Ladonna Louise RN Unavailable [phone] Allison Rice Unavailable [email or web address] Neville Cash MD Unavailable [phone] Encounter Details Date Type Department Care Team (Late st Contact Info) Description 09/16/2017 Procedure Pass [facility],Outside Imaging [address] [place] [address] Social History Tobacco Use Types Packs/Day Years [...] Description 08/07/2025 9:30 AM EDT Office Visit [facility] [address] [place] [address] 3rd Floor, [address] [place] [address] Chioma Gresham DNP [address] [address] 10/02/2025 1:00 PM EST Office Visit [facility] [address] [place] [address] Marleni Coffman MD [address] [place] [address] 11/27/2025 11:00 AM EST Appointment [facility] [address] [place] [address] Wagner Figueroa MD, MS [address] [address] 12/05/2025 9:15 AM EST Office Visit [facility] [address] [place] [address] Wagner Figueroa MD, MS [address] [address] 12/11/2025 10:45 AM EST Appointment [facility], Bone Density - [address] [address] Rex Villareal DO [address] [place] [address] 01/01/2026 10:30 AM EST Office Visit [facility] [address] [place] [address] [place] [address] Rex Villareal DO 22 [place] [address] [email or web address] documented as of this [...] documented as of this encounter Care Teams Sales Force Developer Relationship Specialty Start Date End Date Marleni Coffman MD [address] [place] [address] [email or web address] PCP - General 08/20/17 Marleni Coffman MD [address] [place] [address] [email or web address] Insurance Assigned Provider 02/06/24 Jaleesa Rod RN [address] [place] [address] [email or web address] iCMP Solidworks Designer 06/22/19 08/31/19 Jihan Resendiz RN [address] [place] [address] [email or web address] iCMP Solidworks Designer 09/01/19 02/28/21 Ladonna Louise, RN [address] [place] [address] [facility] Solidworks Design[facility] 03/01/21 Allison Rice [address] [place] [address] [email or web address] [facility] Community Utility Mechanic 04/19/24 04/19/24 Neville Cash MD [address] [place] [address] Orthopedic Surgery 06/05/25 documented as of this encounter Additional Source Comments The information contained in this document represents components of the legal health record. It is not the complete legal health record.[facility]
--- OUTSIDE RECORDS SUMMARY | 2025-08-03 16:05 | XMS_ITS | Encounter Summary ---
Author Organization [facility] Address [address] [place] [address] Phone Care Team Providers Care Geothermal Technician Name Role Phone Marleni Coffman MD Primary Care Provider [phone] Marleni Coffman MD Unavailable [phone] Ladonna Louise RN Unavailable [phone] Allison Rice Unavailable ruby Neville Cash MD Unavailable [phone] Encounter Details Date Type Department Care Team (Late st Contact Info) Description 07/15/2021 Procedure Pass [facility] 30 [place] [address] Social History Tobacco Use Types Packs/Day Years [...] high school, GED, job training, learning the American language, technical skills, or developing parenting skills)? [...] Description 08/07/2025 9:30 AM EDT Office Visit [facility] [address] [place] [address] 3rd [facility], [address] [place] [address] Chioma Gresham DNP [address] [place] [address] 10/02/2025 1:00 PM EST Office Visit [facility] [address] [place] [address] [place] [address] Marleni Coffman MD [address] [place] [address], [address] [place] [address] 11/27/2025 11:00 AM EST Appointment [facility] [address] [place] [address] Wagner Figueroa MD, MS [address] [address] [email or web address] 12/05/2025 9:15 AM EST Office Visit [facility] 10 [facility] [place] [address] Wagner Figueroa MD, MS [address] [address] 12/11/2025 10:45 AM EST Appointment [facility], Bone Density - [address] [address] Rex Villareal [address] [address] [email or web address] 01/01/2026 10:30 AM EST Office Visit [facility] 22 [place] [address] Rex Villareal [address] [address] documented as of this encounter Visit Diagnoses [...] documented as of this encounter Care Teams Geothermal Technician Relationship Specialty Start Date End Date Marleni Coffman MD [address] [place] [address], 2nd [place] [address] [email or web address] PCP - General 08/20/17 Marleni Coffman MD [address] [place] [address], [address] [place] [address] [email or web address] Insurance Assigned Provider 02/06/24 Ladonna Louise, RN [address] [place] [address] [email or web address] iCMP Soft Work Wrapper Examiner 03/01/21 Allison Rice [address] [place] [address] [email or web address] iCMP Community Educational Diagnostician 04/19/24 04/19/24 Neville Cash MD [address] [place] [address] [address] [place] [address] Orthopedic Surgery 06/05/25 documented as of this encounter Additional Source Comments The information contained in this document represents components of the legal health record. It is not the complete legal health record.[facility]
--- OUTSIDE RECORDS SUMMARY | 2025-08-03 16:05 | XMS_ITS | Encounter Summary ---
Author Organization [facility] Address [address] [place] [address] [place] [address] Phone Care Team Providers Care Wedger And Gluer Name Role Phone Marleni Coffman MD Primary Care Provider [phone] Marleni Coffman MD Unavailable [phone] Ladonna Louise RN Unavailable [phone] Neville Cash MD Unavailable [phone] Encounter Details Date Type Department Care Team (Latest Contact Info) Description 04/05/2025 Transcribe Orders [facility] [address] 2000[address] Inge Wolf, [address] [address] Chronic diarrhea (Primary Dx) Social History Tobacco [...] Description 08/07/2025 9:30 AM EDT Office Visit [facility] [address] 3rd Floor, [address] [place] [address] Chioma Gresham DNP 22 [facility], [address] [address] 10/02/2025 1:00 PM EST Office Visit [facility] [address] [place] [address] [place] [address] Marleni Coffman MD [address] [place] [address] 11/27/2025 11:00 AM EST Appointment [facility] [address] [place] [address] Wagner Figueroa MD, MS [address] [address] 12/05/2025 9:15 AM EST Office Visit [facility], Allergy [facility] Critical [facility] Medicine [address] [place] [address] Wagner Figueroa MD, MS [address] [address] 12/11/2025 10:45 AM EST Appointment [facility], Bone Density - [address] [address] Rex Villareal DO [address] [place] [address] 01/01/2026 10:30 AM EST Office Visit [facility] [address] [place] [address] [place] [address] Rex Villareal DO [address] [place] [address] documented as of this encounter Results * Fecal immunochemical test x1 (FIT) (04/19/2025 1:00 PM EDT) Immuno Fecal Occult Negative Negative [facility] Stool (Stool) 04/19/2025 1:0 0 PM EDT 04/19/2025 2:02 PM EDT Inge Wolf CNP BODY FLUIDS AND STOOLS ORD ERABLES Final Result Performing Organization Address [facility]/ZIP Co de Phone Number [address] [address] * Stool culture (04/19/2025 1:00 PM EDT) Special Requests None 04/19/2025 2:01 PM EDT [facility] Stool Culture NO SALMONELLA, SHIGELLA OR CAMPYLOBACTER ISOLATED 04/21/2025 8:11 AM EDT [facility] Stool (Stool) 04/19/2025 1:0 0 PM EDT 04/19/2025 2:03 PM EDT Inge Wolf CNP MICROBIOLOGY - GENERAL ORD ERABLES Final Result Performing Organization Address [facility] Co de Phone Number [address] [address] * Giardia and cryptosporidium screen (04/19/2025 1:00 PM EDT) GIARDIA AG Negative Negative [facility] Cryptosporidiu m, stool Negative Negative [facility] Stool (Stool) 04/19/2025 1:0 0 PM EDT 04/19/2025 2:02 PM EDT Inge Wolf CNP NON CULTURE MICROBIOLOGY F inal Result Performing Organization Address [facility]/ZIP Co de Phone Number [address] [address] * Calprotectin, stool (04/19/2025 1:00 PM EDT) STOOL CALPROTECTIN 24 mcg/g [facility]Anabel[facility] Comment: (NOTE) Reference Range: <50 Normal 50-120 [...] EDT 04/19/2025 2:03 PM EDT Inge Wolf CONFIGURATION SPECIALIST BODY FLUIDS AND STOOLS ORD ERABLES Final Result [facility] [address] [place] [address], [facility] [phone] * Ova and parasites, stool (04/16/2025 10:00 AM EDT) Parasitic exam FINAL 5 1557 [facility] DPT OF LAB MED AND PAT+ Comment: (NOTE) SOURCE: STOOL, STLP OVA AND PARASITE, MICROSCOPY, F FINAL No parasites seen. Cryptosporidium, Cyclospora, and microsporidia are not readily detected by this method. Single negative specimen does not rule out parasitic infection. Stool (Stool) 04/16/2025 10: 00 AM EDT 04/17/2025 9:58 AM EDT Inge Wolf CONFIGURATION SPECIALIST MICROBIOLOGY - GENERAL ORD ERABLES Final Result [facility] DPT OF LAB MED AND PAT+ [address] [place] [address] * Ova and parasites, stool (04/14/2025 10:00 AM EDT) Parasitic exam FINAL 5 1551 [facility] DPT OF LAB MED AND PAT+ Comment: (NOTE) SOURCE: STOOL, STLP OVA AND PARASITE, MICROSCOPY, F FINAL No parasites seen. Cryptosporidium, Cyclospora, and microsporidia are not readily detected by this method. Single negative specimen does not rule out parasitic infection. Stool (Stool) 04/14/2025 10: 00 AM EDT 04/17/2025 9:58 AM EDT Ingejose Cruzmelania Wolf CNP MICROBIOLOGY - GENERAL ORD ERABLES Final Result [facility] DPT OF LAB MED AND PAT+ [address] [place] [address] * C-Reactive Protein (04/05/2025 3:04 PM EDT) Pathologist [facility] C REACTIVE PROTEIN <3.0 0.0 - 4.0 mg/L [facility] Blood 04/05/2025 3:04 PM EDT 04/05/2025 3:17 PM EDT Inge Wolf CONFIGURATION SPECIALIST LAB BLOOD ORDERABLES Final Result [facility] [address] [place] [address] * (ABNORMAL) Comprehensive metabolic panel (04/05/2025 3:04 PM EDT) Pathologist [facility] SODIUM 139 133 - 146 mmol/L [facility] POTASSIUM 4.7 3.3 - 5.1 mmol/L [facility] CHLORIDE 105 96 - 108 mmol/L [facility] CO2 23 21 - 35 mmol/L [facility] BUN 29(H) 6 - 19 mg/dL [facility] CREATININE 1.20 0.5 - 1.5 mg/dL [facility] GLUCOSE 93 70 - 99 mg/dL [facility] ALBUMIN 4.1 3.9 - 4.8 g/dL [facility] TOTAL PROTEIN 7.1 6.5 - 8.0 g/dL [facility] CALCIUM 10.2 8.4 - 10.3 mg/dL [facility] ALKALINE PHOSPHATASE 46 39 - 117 U/L [facility] TOTAL BILIRUBIN 0.5 0.0 - 1.2 mg/dL [facility] AST 33 0 - 37 U/L [facility] ALT 14 0 - 40 U/L [facility] GLOBULIN 3.0 1 - 4.8 g/dL [facility] EGFR 44(L) >59 mL/min/1.7 3m2 [facility] Comment:Estimated glomerular filtration rate calculated using the CKD-EPI refit equation. ANION GAP 16 10 - 20 mmol/L [facility] Blood 04/05/2025 3:04 PM EDT 04/05/2025 3:17 PM EDT us Inge Wolf [facility] LAB BLOOD ORDERABLES Final Result [facility] [address] [place] [address] * CBC and differential (04/05/2025 3:04 PM EDT) WBC 7.95 4.00 - 11.00 K/uL [facility] RBC 4.58 4.00 - 5.20 M/uL [facility] HGB 13.5 12.0 - 16.0 g/dL [facility] HCT 42.2 36.0 - 46.0 % [facility] PLT 326 150 - 450 K/uL [facility] MCV 92.1 80.0 - 100.0 fL [facility] MCH 29.5 27.0 - 31.0 pg [facility] MCHC 32.0 32.0 - 36.0 g/dL [facility] RDW 13.2 11.5 - 14.5 % [facility] MPV 10.3 8.4 - 12.0 fL [facility] NRBC 0.00 0.00 /100 WBCs [facility] ABSOLUTE NRBC 0.00 0.00 K/uL [facility] DIFF METHOD Auto [facility] NEUTS 63.1 48.0 - 76.0 % [facility] LYMPHS 26.7 18.0 - 41.0 % [facility] MONOS 7.8 4.0 - 11.0 % [facility] EOS 1.1 0.0 - 5.0 % [facility] BASOS 0.8 0.0 - 1.5 % [facility] Granulocytes, immature (%) 0.5 0.0 - 0.9 % [facility] ABSOLUTE NEUTS 5.02 1.92 - 7.60 K/uL [facility] ABSOLUTE LYMPHS 2.12 0.72 - 4.10 K/uL [facility] ABSOLUTE MONOS 0.62 0.16 - 1.10 K/uL [facility] ABSOLUTE EOS 0.09 0.00 - 0.50 K/uL [facility] ABSOLUTE BASOS 0.06 0.00 - 0.15 K/uL [facility] Granulocytes, immature 0.04 0.00 - 0.09 K/uL [facility] Blood 04/05/2025 3:04 PM EDT 04/05/2025 3:17 PM EDT Inge Wolf [facility] LAB BLOOD ORDERABLES Final Result Performing Organization Address [facility]/ZIP Co de Phone Number [address] [address] * Immunoglobulin A (04/05/2025 3:04 PM EDT) IgA 301 70 - 400 mg/dL [facility] Blood 04/05/2025 3:04 PM EDT 04/05/2025 3:17 PM EDT Inge Wolf [facility] LAB BLOOD ORDERABLES Final Result Performing Organization Address [facility]/ZIP Co de Phone Number [address] [address] * Tissue transglutaminase IgA (04/05/2025 3:04 PM EDT) TTG IGA ANTIBODY <1.2 <4.0 (Negative) U/mL [facility]PATH [place] [address] Blood 04/05/2025 3:04 PM EDT 04/05/2025 3:18 PM EDT Inge Wolf [facility] LAB BLOOD ORDERABLES Final Result Performing Organization Address City/[facility]/ZIP Co de Phone Number [facility]/PATH [address] [place] [address] documented in this encounter Visit Diagnoses Diagnosis [...] documented as of this encounter Care Teams Wedger And Gluer Relationship Specialty Start Date End Date Marleni Coffman MD [address] [place] [address] [email or web address] PCP - General 08/20/17 Marleni Coffman MD [address] [place] [address] [email or web address] Insurance Assigned Provider 02/06/24 Ladonna Louise, RN [address] [place] [address] [email or web address] iCMP Miner Helper 03/01/21 Neville Cash MD [address] [place] [address] [address] [place] [address] Orthopedic Surgery 06/05/25 documented as of this encounter Additional Source Comments The information contained in this document represents components of the legal health record. It is not the complete legal health record.[facility]
--- OUTSIDE RECORDS SUMMARY | 2025-08-03 16:05 | XMS_ITS | Encounter Summary ---
Author Organization [facility] Address [address] [place] [address] [place] [address] Phone Care Team Providers Care Reconciling Clerk Name Role Phone Marleni Coffman MD Primary Care Provider [phone] Marleni Coffman MD Unavailable [phone] Jaleesa Rod RN Unavailable [phone] Jihan Resendiz RN Unavailable [email or web address] Ladonna Louise RN Unavailable [phone] Alilson Rice Unavailable [email or web address] Neville Cash MD Unavailable [phone] Encounter Details Date Type Department Care Team (Late st Contact Info) Description 09/16/2017 Procedure Pass [facility],Outside Imaging [address] [place] [address] Social History Tobacco Use Types Packs/Day Years [...] Description 08/07/2025 9:30 AM EDT Office Visit [facility] [address] [place] [address] 3rd Floor, [address] [place] [address] Chioma Gresham DNP [address] [address] 10/02/2025 1:00 PM EST Office Visit [facility] [address] [place] [address] Marleni Coffman MD [address] [place] [address] 11/27/2025 11:00 AM EST Appointment [facility] [address] [place] [address] Wagner Figueroa MD, MS [address] [address] 12/05/2025 9:15 AM EST Office Visit [facility] [address] [place] [address] Wagner Figueroa MD, MS [address] [address] 12/11/2025 10:45 AM EST Appointment [facility], Bone Density - [address] [address] Rex Villareal DO [address] [place] [address] 01/01/2026 10:30 AM EST Office Visit [facility] [address] [place] [address] [place] [address] Rex Villareal DO 22 [place] [address] [email or web address] documented as of this encounter Visit Diagnoses [...] documented as of this encounter Care Teams Reconciling Clerk Relationship Specialty Start Date End Date Marleni Coffman MD [address] [place] [address] [email or web address] PCP - General 08/20/17 Marleni Coffman MD [address] [place] [address] [email or web address] Insurance Assigned Provider 02/06/24 Jaleesa Rod RN [address] [place] [address] [email or web address] iCMP Legal Collector 06/22/19 08/31/19 Jihan Resendiz RN [address] [place] [address] [email or web address] iCMP Legal Collector 09/01/19 02/28/21 Ladonna Louise, RN [address] [place] [address] [facility] Legal Collector 03/01/21 Allison Rice [address] [place] [address] [email or web address] [facility] Community Government Relations Director 04/19/24 04/19/24 Neville Cash MD [address] [place] [address] Orthopedic Surgery 06/05/25 documented as of this encounter Additional Source Comments The information contained in this document represents components of the legal health record. It is not the complete legal health record.[facility]
--- OUTSIDE RECORDS SUMMARY | 2025-08-03 16:05 | XMS_ITS | Encounter Summary ---
Author Organization [facility] Address [address] [place] [address] [place] [address] Phone Care Team Providers Care Aquatic Laborer Name Role Phone Marleni Coffman MD Primary Care Provider [phone] Marleni Coffman MD Unavailable [phone] Jaleesa Rod RN Unavailable [phone] Jihan Resendiz RN Unavailable [email or web address] Ladonna Louise RN Unavailable [phone] Allison Rice Unavailable [email or web address] Neville Cash MD Unavailable [phone] Reason for Referral * MRI/CAT Scan - Closed Specialty Diagnoses / Procedures Referred By Contac t Referred To Contact Procedures CT Chest Outside (No Interpretation) System, Provider Not In, PhD [address] [address] Referral ID Status Reason Start Date Expiration Date Visits Re quested Visits Authorized [id number] Closed 09/16/2017 09/16/2018 1 1 * MRI/CAT Scan - Closed Specialty Diagnoses / Procedures Referred By Contac t Referred To Contact Procedures CT Chest Outside (No Interpretation) System, Provider Not In, PhD [address] [address] Referral ID Status Reason Start Date Expiration Date Visits Re quested Visits Authorized [id number] Closed 09/16/2017 09/16/2018 1 1 Encounter Details Date Type Department Care Team (Late Contact Info) Description 09/16/2017 Ancillary Orders [facility],Outside Imaging 30 [place] [address] System, Provider Not In, [place] [address] Social History Tobacco Use Types Packs/Day Years [...] Description 08/07/2025 9:30 AM EDT Office Visit [facility] [address] [place] [address] 3rd Floor, [address] [place] [address] Chioma Gresham DNP [address] [place] [address], [address] [address] 10/02/2025 1:00 PM EST Office Visit [facility] [address] [place] [address] [place] [address] Marleni Coffman MD [address] [place] [address], [address] [place] [address] 11/27/2025 11:00 AM EST Appointment [facility] 30 [place] [address] Wagner Figueroa MD, MS [address] [address] 12/05/2025 9:15 AM EST Office Visit [facility] 10 [facility] [place] [address] Wagner Figueroa MD, MS 10 [facility] 2nd [place] [address] 12/11/2025 10:45 AM EST Appointment [facility], Bone Density - [facility] 30 [place] [address] Rex Villareal, DO 22 [place] [address] 01/01/2026 10:30 AM EST Office Visit [facility] [address] [place] [address] Rex Villareal, DO 22 [place] [address] documented as of this encounter Results * [...] documented as of this encounter Care Teams Aquatic Laborer Relationship Specialty Start Date End Date Marleni Coffman MD [address] [place] [address], [address] [place] [address] [email or web address] PCP - General 08/20/17 Marleni Coffman MD [address] [place] [address], [address] [place] [address] [email or web address] Insurance Assigned Provider 02/06/24 Jaleesa Rod RN [address] [place] [address] [facility] Senior Net Web Developer 06/22/19 08/31/19 Jihan Resendiz, JOANA [address] [place] [address] [email or web address] [facility] Senior Net Web Developer 09/01/19 02/28/21 Ladonna Louise, RN [address] [place] [id number] [facility] Senior Net Web Developer 03/01/21 Allison Rice [address] [place] [address] [email or web address] [facility] Community Loft Rigger 04/19/24 04/19/24 Neville Cash MD [address] [place] [address] Dr [address] [place] [address] Orthopedic Surgery 06/05/25 documented as of this encounter Additional Source Comments The information contained in this document represents components of the legal health record. It is not the complete legal health record.[facility]
--- OUTSIDE RECORDS SUMMARY | 2025-08-03 16:05 | XMS_ITS | Encounter Summary ---
Author Organization [facility] Address [address] [place] [address] Phone Care Team Providers Care Embedded Software Test Engineer Name Role Phone Marleni Coffman MD Primary Care Provider [phone] Marleni Coffman MD Unavailable [phone] Ladonna Louise RN Unavailable [phone] Allison Rice Unavailable [email or web address] Neville Cash MD Unavailable [phone] Encounter Details Date Type Department Care Team (Late st Contact Info) Description 04/26/2021 Procedure Pass [address] [place] [address] Social History Tobacco Use Types Packs/Day Years [...] high school, GED, job training, learning the Turkish language, technical skills, or developing parenting skills)? [...] Description 08/07/2025 9:30 AM EDT Office Visit [facility] [address] [place] [address] 3rd [facility], [address] [place] [address] Chioma Gresham DNP [address] [address] 10/02/2025 1:00 PM EST [facility] [address] [place] [address] [place] [address] Marleni Coffman MD [address] [place] [address] 11/27/2025 11:00 AM EST Appointment [facility] 30 [place] [address] Wagner Figueroa MD, MS [address] [address] 12/05/2025 9:15 AM EST Office Visit [facility] 10 [facility] [place] [address] Wagner Figueroa MD, MS [address] [address] 12/11/2025 10:45 AM EST Appointment [facility], [address] [address] Rex Villareal [address] [address] 01/01/2026 10:30 AM EST Office Visit [facility] 22 [place] [address] Rex Villareal [address] [address] documented as of this encounter Visit Diagnoses [...] documented as of this encounter Care Teams Embedded Software Test Engineer Relationship Specialty Start Date End Date Marleni Coffman MD [address] [place] [address], [address] [place] [address] [email or web address] PCP - General 08/20/17 Marleni oCffman MD [address] [place] [address], [address] [place] [address] [email or web address] Insurance Assigned Provider 02/06/24 Ladonna Louise RN [address] [place] [address] [email or web address] iCMP Counter Checker 03/01/21 Allison Rice [address] [place] [address] [email or web address] Licensed Psychologist Manager 04/19/24 04/19/24 Neville Cash MD [address] [place] [address] [address] [place] [address] Orthopedic Surgery 06/05/25 documented as of this encounter Additional Source Comments The information contained in this document represents components of the legal health record. It is not the complete legal health record.[facility]
--- OUTSIDE RECORDS SUMMARY | 2025-08-03 16:05 | XMS_ITS | Encounter Summary ---
Author Organization [facility] Address [address] [place] [address] Phone Care Team Providers Care Sugar Refiner Name Role Phone Marleni Coffman MD Primary Care Provider [phone] Marleni Coffman MD Unavailable [phone] Ladonna Louise RN Unavailable [phone] Allison Rice Unavailable ruby Neville Cash MD Unavailable Encounter Details Date Type Department Care Team (Late st Contact Info) Description 03/26/2023 Transcribe Orders [facility] 30 [place] [address] Wagner Figueroa MD, [place] [address] [id number] Social History Tobacco Use Types Packs/Day Years [...] high school, GED, job training, learning the Sami language, technical skills, or developing parenting skills)? [...] Description 08/07/2025 9:30 AM EDT Office Visit [facility] [address] [place] [address] 3rd Floor, [address] [place] [address] Chioma Gresham DNP 22 [facility], [address] [place] [address] 10/02/2025 1:00 PM EST Office Visit [facility] [address] [place] [address] [place] [address] Marleni Coffman MD 170 [facility], [address] [place] [address] 11/27/2025 11:00 AM EST Appointment [facility] [address] [place] [address] Wagner Figueroa MD, MS [address] [address] 12/05/2025 9:15 AM EST Office Visit [facility] [address] [place] [address] Wagner Figueroa MD, MS [address] [address] 12/11/2025 10:45 AM EST Appointment [facility], Bone Density - [address] [address] Rex Villareal DO [address] [place] [address] 01/01/2026 10:30 AM EST Office Visit [facility] [address] [place] [address] Rex Villareal DO [address] [place] [address] documented as of this encounter Visit Diagnoses Not on filedocumented in this encounter Additional Health Concerns Infection Onset Date Last Indicated Resolved Time CDiff-Risk 04/05/2025 04/19/2025 04/12/2025 1:21 AM EDT CDiff-Risk 04/19/2025 04/19/2025 04/19/2025 9:22 PM EDT Assessment Noted Time PHQ-2 Depression Total Score: 2 01/17/20 23 10:12 AM EDT documented as of this encounter Care Teams Sugar Refiner Relationship Specialty Start Date End Date Marleni Coffman MD [address] [place] [address], 2nd [place] [address] [email or web address] PCP - General 08/20/17 Marleni Coffman MD [address] [place] [address], 2nd [place] [address] [email or web address] Insurance Assigned Provider 02/06/24 Ladonna Louise, RN [address] [place] [address] [email or web address] iCMP Electronic Warfare Operator 03/01/21 Allison Rice [address] [place] [address] [email or web address] iCMP Community Sheet Metal Former 04/19/24 04/19/24 Neville Cash MD [address] [place] [address] [address] [place] [address] Orthopedic Surgery 06/05/25 documented as of this encounter Additional Source Comments The information contained in this document represents components of the legal health record. It is not the complete legal health record.[facility]
--- OUTSIDE RECORDS SUMMARY | 2025-08-03 16:05 | XMS_ITS | Encounter Summary ---
Author Organization [facility] Address [address] [place] [address] Phone Care Team Providers Care Computer Operations Technician Name Role Phone Marleni Coffman MD Primary Care Provider [phone] Marleni Coffman MD Unavailable [phone] Ladonna Louise RN Unavailable [phone] Neville Cash MD Unavailable [phone] Encounter Details Date Type Department Care Team (Late st Contact Info) Description 02/17/2025 Procedure Pass [facility] [place] [place] [address] Social History Tobacco Use Types Packs/Day Years [...] Description 08/07/2025 9:30 AM EDT Office Visit [facility] 3rd Floor, [address] [place] [address] Chioma Gresham DNP 22 [facility], [address] [place] [address] 10/02/2025 1:00 PM EST Office Visit [facility] [address] [place] [address] [place] [address] Marleni Coffman MD [address] [place] [address] 11/27/2025 11:00 AM EST Appointment [facility] [address] [place] [address] Wagner Figueroa MD, MS [address] [address] 12/05/2025 9:15 AM EST Office Visit [facility] [address] [place] [address] Wagner Figueroa MD, MS [address] [address] 12/11/2025 10:45 AM EST Appointment [facility], Bone Density - [address] [address] Rex Villareal DO [address] [place] [address] 01/01/2026 10:30 AM EST Office Visit [facility] [address] [place] [address] Rex Villareal DO [address] [place] [address] documented as of this encounter Visit Diagnoses [...] documented as of this encounter Care Teams Computer Operations Technician Relationship Specialty Start Date End Date Marleni Coffman MD [address] [place] [address], 2nd [place] [address] [email or web address] PCP - General 08/20/17 Marleni Coffman MD [address] [place] [address], [address] [place] [address] [email or web address] Insurance Assigned Provider 02/06/24 Ladonna Louise, RN [address] [place] [address] [email or web address] iCMP Air Quality Manager 03/01/21 Neville Cash MD [address] [place] [address] [place] [address] Orthopedic Surgery 06/05/25 documented as of this encounter Additional Source Comments The information contained in this document represents components of the legal health record. It is not the complete legal health record.[facility]
--- OUTSIDE RECORDS SUMMARY | 2025-08-03 16:05 | XMS_ITS | Encounter Summary ---
Author Organization [facility] Address [address] [place] [address] Phone Care Team Providers Care Music Autographer Name Role Phone Marleni Coffman MD Primary Care Provider [phone] Marleni Cfofman MD Unavailable [phone] Ladonna Louise RN Unavailable [phone] Allison Rice Unavailable ruby [email or web address] Neville Cash MD Unavailable [phone] Encounter Details Date Type Department Care Team (Late st Contact Info) Description 07/18/2022 Procedure Pass [address] [place] [address] Social History Tobacco Use Types Packs/Day Years [...] high school, GED, job training, learning the Hebrew language, technical skills, or developing parenting skills)? [...] Description 08/07/2025 9:30 AM EDT Office Visit [facility] [address] [place] [address] 3rd [facility], [address] [place] [address] Chioma Gresham DNP [address] [address] 10/02/2025 1:00 PM EST Office [facility] [address] [place] [address] [place] [address] Marleni Coffman MD [address] [place] [address] 11/27/2025 11:00 AM EST Appointment [facility] 30 [place] [address] Wagner Figueroa MD, MS [address] [address] 12/05/2025 9:15 AM EST Office Visit [facility] 10 [place] [address] Wagner Figueroa MD, MS [address] [address] 12/11/2025 10:45 AM EST Appointment [facility], [address] [address] Rex Villareal [address] [address] 01/01/2026 10:30 AM EST Office Visit [facility] [address] [place] [address] Rex Villareal [address] [address] documented as of this encounter Visit Diagnoses [...] documented as of this encounter Care Teams Music Autographer Relationship Specialty Start Date End Date Marleni Coffman MD [address] [place] [address] PCP - General 08/20/17 Marleni Coffman MD [address] [place] [address], 2nd [place] [address] [email or web address] Insurance Assigned Provider 02/06/24 Ladonna Louise, RN [address] [place] [address] [email or web address] iCMP Conversion Developer 03/01/21 Allison Rice [address] [place] [address] [email or web address] Director Career Services 04/19/24 04/19/24 Neville Cash MD [address] [place] [address] Orthopedic Surgery 06/05/25 documented as of this encounter Additional Source Comments The information contained in this document represents components of the legal health record. It is not the complete legal health record.[facility]
--- OUTSIDE RECORDS SUMMARY | 2025-08-03 16:05 | XMS_ITS | Encounter Summary ---
Author Organization [facility] Address [address] [facility] [address] [place] [address] Phone Care Team Providers Care Biometry Teacher Name Role Phone Marleni Coffman MD Primary Care Provider [phone] Marleni Coffman MD Unavailable [phone] Ladonna Louise RN Unavailable [phone] Allison Rice Unavailable ruby Neville Cash MD Unavailable [phone] Encounter Details Date Type Department Care Team (Late st Contact Info) Description 06/13/2022 Telephone [facility] [address] [place] [address] [place] [address] Marleni Coffman MD [address] [place] [address], 2nd [place] [address] [email or web address] Social History Tobacco Use Types Packs/Day Years [...] high school, GED, job training, learning the Hungarian language, technical skills, or developing parenting skills)? [...] Description 08/07/2025 9:30 AM EDT Office Visit [facility] [address] [place] [address] 3rd Floor, [address] [place] [address] Chioma Gresham DNP [address] [place] [address] 10/02/2025 1:00 PM EST Office Visit [facility] [address] [place] [address] [place] [address] Marleni Coffman MD [address] [place] [address], 2nd [place] [address] 11/27/2025 11:00 AM EST Appointment [facility] 30 [place] [address] Wagner Figueroa MD, MS [address] [address] 12/05/2025 9:15 AM EST Office Visit [facility] [address] [place] [address] Wagner Figueroa MD, MS [address] [address] 12/11/2025 10:45 AM EST Appointment [facility], Bone Density - [facility] 30 [place] [address] Rex Villareal DO [address] [place] [address] 01/01/2026 10:30 AM EST Office Visit [facility] 22 [place] [address] Rex Villareal DO 22 [place] [address] documented as of this encounter Visit Diagnoses Not on filedocumented in this encounter Additional Health Concerns Infection Onset Date Last Indicated Resolved Time COVID-19 02/19/2023 02/19/2023 03/12/2023 1:21 AM EDT CDiff-Risk 04/05/2025 04/19/2025 04/12/2025 1:21 AM EDT CDiff-Risk 04/19/2025 04/19/2025 04/19/2025 9:22 PM EDT Assessment Noted Time PHQ-2 Depression Total Score: 2 04/17/20 10:42 AM EDT documented as of this encounter Care Teams Biometry Teacher Relationship Specialty Start Date End Date Marleni Coffman MD [address] [place] [address], 2nd [place] [address] [email or web address] PCP - General 08/20/17 Marleni Coffman MD [address] [place] [address], 2nd [place] [address] [email or web address] Insurance Assigned Provider 02/06/24 Ladonna Louise, RN [address] [place] [address] [email or web address] iCMP Animal Nurse 03/01/21 Allison Rice [address] [place] [address] [email or web address] iCMP Community Community Relations Manager 04/19/24 04/19/24 Neville Cash MD [address] [place] [address] Dr Grace [address] [place] [address] Orthopedic Surgery 06/05/25 documented as of this encounter Additional Source Comments The information contained in this document represents components of the legal health record. It is not the complete legal health record.[facility]
--- OUTSIDE RECORDS SUMMARY | 2025-08-03 16:05 | XMS_ITS | Encounter Summary ---
Author Organization [facility] Address [address] [facility] [address] [place] [address] Phone Care Team Providers Care Live In Caregiver Name Role Phone Marleni Coffman MD Primary Care Provider [phone] Marleni Coffman MD Unavailable [phone] Ladonna Louise RN Unavailable [phone] Neville Cash MD Unavailable Reason for Visit * Reason Onset Date Comments Patient Called Back Inquiring Status 07/31/2025 Follow-up 07/31/2025 Encounter Details Date Type Department Care Team (Late st Contact Info) Description 07/31/2025 Telephone [facility] [address] [place] [address] [place] [address] Marleni Coffman MD [address] [place] [address], 2nd [place] [address] [email or web address] Patient Called Back Inquiring Status; Follow-up Social History Tobacco Use Types Packs/Day Years [...] as of this encounter Progress Notes * Jeffrey Parks RN - 07/31/2025 3:42 PM EDT Spoke with Kera and reviewed. She agrees to plan. * Marleni Coffman MD - 07/31/2025 3:26 PM EDT If the dizziness and low BP persist, she can cut the lisinopril in half. * Jeffrey Parks RN - 07/31/2025 3:24 PM EDT Kera states she is feeling better this afternoon. She is taking lisinopril 5mg and amlodipine 5mg daily. She is not taking spironolactone 25mg or any other BP meds. * Marleni Coffman MD - 07/31/2025 2:52 PM EDT What is she currently taking for BP? We certainly can lower BP med dose * Mel Godwin - 07/31/2025 1:05 PM EDT PT with [place] [facility] lvm on the triage line, reports today pt bp is 104/78 sitting and standing 94/56 pt reporting dizziness. Temp 96.7 HR 74 and resp 16, ot stats were 99% throughout. PT did use her inhaler before she got there as well. ROSY Montes [facility] Call Center CSS Agent (Please do not reply to this user, as this inbox is not monitored. Thank you.) Thank you. * Mary Platt RN - 07/31/2025 10:48 AM EDT Patient called regarding not feeling well today. 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 Had gone home with PT. Home PT to end this week. Patient has a history of Chronic obstructive airway disease with asthma. Patient reports feeling short of breath with exertion which is not new for her but breathing is a little harder today. Patientrepots no chest pain. No dizziness. Patient does not feel needs to go to the ER. Patient instructed to go to the ER if symptoms worsen. Patient will call the office with any further concerns or questions. Good understanding of instructions. * Ella Lees - 07/31/2025 10:17 AM EDT Patient called and LVM to report patient not feeling well - patient has had their total knee replacement and wants a call back in regarding to it - please advise @[phone] or @[phone] documented in this encounter Plan of Treatment Upcoming Encounters Date Type Department Care Team (Late st Contact Info) Description 08/07/2025 9:30 AM EDT Office Visit [facility] [address] [place] [address] 3rd Floor, [address] [place] [address] Chioma Gresham DNP [address] [place] [address], [address] [address] 10/02/2025 1:00 PM EST Office Visit [facility] [address] [place] [address] [place] [address] Marleni Coffman MD [address] [place] [address], 2nd [place] [address] 11/27/2025 11:00 AM EST Appointment [facility] 30 [place] [address] Wagner Figueroa MD, MS [address] [address] 12/05/2025 9:15 AM EST Office Visit [facility] [address] [place] [address] Wagner Figeuroa MD, MS [address] [address] 12/11/2025 10:45 AM EST Appointment [facility], Bone Density [address] [address] Rex Villareal [address] [address] 01/01/2026 10:30 AM EST Office Visit [facility] [address] [place] [address] Rex Villareal [address] [address] documented as of this encounter Visit Diagnoses Not on filedocumented in this encounter Additional Health Concerns Assessment Noted Time PHQ-9 Depression Total Score: 12 01/06/ 024 9:26 AM EST PHQ-2 Depression Total Score: 2 04/29/20 24 10:17 AM EDT documented as of this encounter Care Teams Live In Caregiver Relationship Specialty Start Date End Date Marleni Coffman MD [address] [place] [address] PCP - General 08/20/17 Marleni Coffman MD [address] [place] [address] Insurance Assigned Provider 4/6/24 Ladonna Louise, RN [address] [place] [address] [email or web address] iCMP Warning Analyst 03/01/21 Neville Cash MD [address] [place] [address] Orthopedic Surgery 06/05/25 documented as of this encounter Additional Source Comments The information contained in this document represents components of the legal health record. It is not the complete legal health record.[facility]
--- OUTSIDE RECORDS SUMMARY | 2025-08-03 16:05 | XMS_ITS | Encounter Summary ---
Author Organization [facility] Address [address] [place] [address] Phone Care Team Providers Care Hog Tender Name Role Phone Marleni Coffman MD Primary Care Provider [phone] Marleni Coffman MD Unavailable [phone] Ladonna Louise RN Unavailable [phone] Neville Cash MD Unavailable [phone] Encounter Details Date Type Department Care Team (Late st Contact Info) Description 07/31/2025 Enrollment [facility] - Primary Care [address] [place] [address] Social History Tobacco Use Types Packs/Day Years [...] 08/07/2025 9:30 AM EDT Office Visit [facility] [address] [place] [address] 3rd Floor, [address] [place], [place] [address] Chioma Gresham DNP 22 [facility], [address] [address] 10/02/2025 1:00 PM EST Office Visit [facility] [address] [place] [address] [place] [address] Marleni Coffman MD [address] [place] [address] 11/27/2025 11:00 AM EST Appointment [facility] [address] [place] [address] Wagner Figueroa MD, MS [address] [address] 12/05/2025 9:15 AM EST Office Visit [facility] [address] [place] [address] Wagner Figueroa MD, MS [address] [address] 12/11/2025 10:45 AM EST Appointment [facility], Bone [facility] - [address] [place] [address] [address] Rex Villareal DO [address] [place] [address] 01/01/2026 10:30 AM EST Office Visit [facility] 22 [place] [address] Rex Villareal DO [address] [place] [address] documented as of this encounter Visit Diagnoses Not on filedocumented in this encounter Additional Health Concerns Assessment Noted Time PHQ-9 Depression Total Score: 12 01/06/ 024 9:26 AM EST PHQ-2 Depression Total Score: 2 04/29/20 24 10:17 AM EDT documented as of this encounter Care Teams Hog Tender Relationship Specialty Start Date End Date Marleni Coffman MD [address] [place] [address], 2[address] [place] [address] [email or web address] PCP - General 08/20/17 Marleni Coffman MD [address] [place] [address], 2[address] [place] [address] [email or web address] Insurance Assigned Provider 02/06/24 Ladonna Louise RN [address] [place] [address] [email or web address] iCMP Forensic Toxicologist 03/01/21 Neville Cash MD [address] [place] [address] Orthopedic Surgery 06/05/25 documented as of this encounter Additional Source Comments The information contained in this document represents components of the legal health record. It is not the complete legal health record.[facility]
--- OUTSIDE RECORDS SUMMARY | 2025-08-03 16:05 | XMS_ITS | Encounter Summary ---
Author Organization [facility] Address [address] [place] [address] Phone Care Team Providers Care Centrifugal Drier Operator Name Role Phone Marleni Coffman MD Primary Care Provider [phone] Marleni Coffman MD Unavailable [phone] Ladonna Louise RN Unavailable Allison Rice Unavailable ruby Neville Cash MD Unavailable [phone] Encounter Details Date Type Department Care Team (Late st Contact Info) Description 08/06/2023 Procedure Pass [address] [place] [address] Social History Tobacco Use Types Packs/Day Years [...] 08/07/2025 9:30 AM EDT Office Visit [facility] [address] [place] [address] 3rd Floor, [address] [place] [address] Chioma Gresham DNP [address] [place] [address], [address] [address] 10/02/2025 1:00 PM EST Office Visit [facility] [address] [place] [address] [place] [address] Marleni Coffman MD [address] [place] [address], 2nd [place] [address] 11/27/2025 11:00 AM EST Appointment [facility] 30 [place] [address] Wagner Figueroa MD, MS [address] [address] 12/05/2025 9:15 AM EST Office Visit [facility] [address] [place] [address] Wagner Figueroa MD, MS [address] [address] 12/11/2025 10:45 AM EST Appointment [facility], Bone Density - [facility] 30 [place] [address] Rex Villareal DO [address] [place] [address] 01/01/2026 10:30 AM EST Office Visit [facility] [address] [place] [address] Rex Villareal DO 22 [place] [address] documented as of this encounter Visit Diagnoses Not on filedocumented in this encounter Additional Health Concerns Infection Onset Date Last Indicated Resolved Time CDiff-Risk 04/05/2025 04/19/2025 04/12/2025 1:21 AM EDT CDiff-Risk 04/19/2025 04/19/2025 04/19/2025 9:22 PM EDT Assessment Noted Time PHQ-2 Depression Total Score: 2 01/17/20 23 10:12 AM EDT documented as of this encounter Care Teams Centrifugal Drier Operator Relationship Specialty Start Date End Date Marleni Coffman MD [address] [place] [address] [email or web address] PCP - General 08/20/17 Marleni Coffman MD [address] [place] [address], 2nd [place] [address] [email or web address] Insurance Assigned Provider 02/06/24 Ladonna Louise, JOANA [address] [place] [address] [email or web address] iCMP Rear Load Truck Driver 03/01/21 Allison Rice [address] [place] [address] [email or web address] Supervisor Cereal 04/19/24 04/19/24 Neville Cash MD [address] [place] [address] Orthopedic Surgery 06/05/25 documented as of this encounter Additional Source Comments The information contained in this document represents components of the legal health record. It is not the complete legal health record.[facility]
--- OUTSIDE RECORDS SUMMARY | 2025-08-03 16:05 | XMS_ITS ---
Author Organization [facility] Address [address] [place] [address] Phone Care Team Providers Care Cnc Mill Programmer Name Role Phone Marleni Coffman MD Primary Care Provider [phone] Marleni Coffman A Unavailable [phone] Ladonna Lousie RN Unavailable [phone] Neville Cash MD Unavailable [phone] Population Health Care Management (PHCM) Status:Enrolled (Active) Start date:11/17/2023 Enrollment date:11/17/2023 Current support & services provided:[facility]ARE [place] Related social drivers of health:Housing Stability, Child or Family Care, Education, Food, Unemployment, Paying for Meds, Paying Utility Bills, Transportation, Digital Access, SNAP/WIC Case Team Name Relationship Phone Email Ladonna Louise RN Registered Nurse(Res ponsible Staff) [phone] Jocelyn Ruff PHCM Nuclear Reactor Technician Continued Care and Services Coordination
== END 2025-08-03 15:34 | disposition home or self-care (01) ==
LOC: HO.HOS 14:29
PROVIDERS: PCP Internal Medicine; Visit Provider Physician Assistant
DX: Z96.651 Presence of right artificial knee joint (principal)
CPT/HCPCS: 99024

== ENCOUNTER 2025-08-24 09:08 | Outpatient (AMB) | payer MEDICARE, SELFPAY ==
--- OUTSIDE RECORDS SUMMARY | 2011-08-22 | XMS_ITS | Encounter Summary ---
Author Organization [facility] Address [address] [place] [address] Phone Care Team Providers Care Optical Mechanic Name Role Phone Pcp, Unknown Primary Care Provider Unavailabl e Reason for Visit * MRI/CAT Scan - Closed Specialty Diagnoses / Procedures Referred By Contac t Referred To Contact Procedures CT Chest Outside (No Interpretation) System, Provider Not In, [facility] [address] [address] Referral ID Status Reason Start Date Expiration Date Visits Re quested Visits Authorized [id number] Closed 09/16/2017 09/16/2018 1 1 Encounter Details Date Type Department Care Team (Late st Contact Info) Description 08/22/2011 Hospital Encounter [facility],Outside Imaging 30 [place] [address] System, Provider Not In, [facility] [employer] [address] Unknown, Unknown, Social History Tobacco Use Types [...] Care Team (Late st Contact Info) Description 09/11/2025 8:30 AM EST Appointment Non-Invasive Cardiology [address] [place] [address] Chioma Gresham DNP [address] [facility], [address] [address] 09/20/2025 11:00 AM EST Office Visit [facility] [address] [place] [address] 3rd Floor, [address] [place] [address] Chioma Gresham DNP [address] [facility], [address] [address] 10/02/2025 1:00 PM EST Office Visit [facility] [address] [place] [address] Marleni Coffman MD [address] [place] [address] 11/27/2025 11:00 AM EST Appointment [facility] 30 [place] [address] Wagner Figueroa MD, MS [address] [address] 12/05/2025 9:15 AM EST Office Visit [facility] [address] [place] [address] Wagner Figueroa MD, MS [address] [address] 12/11/2025 10:45 AM EST Appointment [facility], Bone Density - [facility] 30 [place] [address] Rex Villareal DO 22 [place] [address] 01/01/2026 10:30 AM EST Office Visit [facility] [address] [place] [address] Rex Villareal 22 [place] [address] [email or web address] documented as of this encounter Procedures Procedure [...] documented as of this encounter Care Teams Optical Mechanic Relationship Specialty Start Date End Date Pcp, Unknown PCP - General 08/22/11 08/19/17 documented as of this encounter Additional Source Comments The information contained in this document represents components of the legal health record. It is not the complete legal health record.[facility]
--- OUTSIDE RECORDS SUMMARY | 2016-01-23 | XMS_ITS | Encounter Summary ---
Author Organization [facility] Address [address] [place] [address] Phone Care Team Providers Care Sonoscope Operator Name Role Phone Pcp, Unknown Primary Care Provider Unavailabl e Reason for Visit * MRI/CAT Scan - Closed Specialty Diagnoses / Procedures Referred By Contac t Referred To Contact Procedures CT Chest Outside (No Interpretation) System, Provider Not In, [facility] [address] [address] Referral ID Status Reason Start Date Expiration Date Visits Re quested Visits Authorized [id number] Closed 09/16/2017 09/16/2018 1 1 Encounter Details Date Type Department Care Team (Late st Contact Info) Description 01/23/2016 Hospital Encounter [facility],Outside Imaging 30 [place] [address] System, Provider Not In, [facility] [employer] [address] Unknown, Unknown, Social History Tobacco Use Types [...] 8:30 AM EST Appointment Non-Invasive Cardiology [address] [place] [address] Chioma Gresham DNP 22 [facility], [address] [address] 09/20/2025 11:00 AM EST Office Visit [facility] [address] [place] [address] 3rd Floor, [address] [place] [address] Chioma Gresham DNP 22 [facility], [address] [address] 10/02/2025 1:00 PM EST Office Visit [facility] [address] [place] [address] Marleni Coffman MD [address] [place] [address] 11/27/2025 11:00 AM EST Appointment [facility] 30 [place] [address] Wagner Figueroa MD, MS [address] [address] 12/05/2025 9:15 AM EST Office Visit [facility] [address] [place] [address] Wagner Figueroa MD, MS [address] [address] 12/11/2025 10:45 AM EST Appointment [facility], Bone Density - [facility] 30 [place] [address] Rex Villareal DO 22 [place] [address] 01/01/2026 10:30 AM EST Office Visit [facility] [address] [place] [address] Rex Villareal 22 [place] [address] [email or web address] documented as of this encounter Procedures Procedure [...] documented as of this encounter Care Teams Sonoscope Operator Relationship Specialty Start Date End Date Pcp, Unknown PCP - General 08/22/11 08/19/17 documented as of this encounter Additional Source Comments The information contained in this document represents components of the legal health record. It is not the complete legal health record.[facility]
--- OUTSIDE RECORDS SUMMARY | 2025-08-21 13:00 | XMS_ITS | Encounter Summary ---
Author Organization [facility] Address [address] [place] [address] Phone Care Team Providers Care Reproduction Specialist Name Role Phone Marleni Coffman MD Primary Care Provider [phone] Marleni Coffman MD Unavailable [phone] Ladonna Louise RN Unavailable [phone] Neville Cash MD Unavailable [phone] Reason for Referral * MRI/CAT Scan - Authorized Specialty Diagnoses / Procedures Referred By Donny t Referred To Contact Radiology Diagnoses Dyspnea on exertion Procedures NC Myocardial Perfusion Pharmacologic Stress Multiple Chioma Gresham DNP 22 [facility], [address] [address] Phone: tel: fax: mailto: Referral ID Status Reason Start Date Expiration Date V isits Requested Visits Authorized [id number] Authorized 08/21/2025 1 1 Encounter Details Date Type Department Care Team (Latest Contact Info) Description 08/21/2025 1:00 PM EDT Office Visit [facility] [address] [place] [address] 3rd Floor, [address] [place] [address] Chioma Gresham DNP [address] [place] [address] Dyspnea on exertion (Primary Dx); Light headedness; Malaise and fatigue; Hyperparathyroidism; Osteoporosis, unspecified osteoporosis type, unspecified pathological fracture presence; Essential hypertension; Palpitations Social History Tobacco Use Types Packs/Day Years Used Date Smoking Tobacco: Never Smokeless Tobacco: Never Tobacco Cessation:Counseling Given: Not Answered Alcohol Use Standard Drinks/Week Comments Not Currently [...] on file documented as of this encounter Last Filed Vital Signs Vital Sign Reading Time Taken Comments Blood Pressure 138/70 08/21/2025 12:48 PM EDT Pulse 85 08/21/2025 12:48 PM EDT Temperature - - Respiratory Rate - - Oxygen Saturation 99% 08/21/2025 12:48 PM EDT Inhaled Oxygen Concentration - - Weight 45.8 kg (101 lb) 08/21/2025 12:48 PM EDT Height 158 cm (5' 2.21 ) 08/21/2025 12:48 PM EDT Body Mass Index 18.35 08/21/2025 12:48 PM EDT documented in this encounter Miscellaneous Notes * Assessment & Plan Note - Chioma Gresham DNP - 08/21/2025 1:31 PM EDTAssociated Problem(s): Malaise and fatigue Pt reports feeling very weak. Will get labs to rule out some common culprits along with a stress test. * Assessment & Plan Note - Chioma Gresham DNP - 08/21/2025 1:31 PM EDTAssociated Problem(s): Light headedness Patient reports frequent lightheadedness despite normal blood pressures. MCT showed no conduction issues. Will get a stress test. * Assessment & Plan Note - Chioma Gresham DNP - 08/21/2025 1:31 PM EDTAssociated Problem(s): Osteoporosis Vitamin D level ordered. * Assessment & Plan Note - Chioma Gresham DNP - 08/21/2025 1:30 PM EDTAssociated Problem(s): Hyperparathyroidism Hx of hyperparathyroidism. She follows with endocrinology. Will check a vitamin D level today. * Assessment & Plan Note - Chioma Gresham DNP - 08/21/2025 1:30 PM EDTAssociated Problem(s): Dyspnea on exertion Patient continues to report dyspnea on exertion. Patient is followed by pulmonology. Her echo showsan EF of 65 to 70% with borderline concentric LVH and grade 2 diastolic dysfunction. Patient is already on spironolactone. MCT was unremarkable except for brief episodes of AT. Will get a stress testand labs. I have added a D-dimer although I think a PE is unlikely. Pt is not tachycardic and has had SOB for many months. Could consider CTA if D-dimer is positive. Will check her TSH and vitamin levels. Plan: Stress test Labs (TSH, vitamin D and B12, D-dimer) Follow-up after testing * Assessment & Plan Note - Chioma Gresham DNP - 08/21/2025 1:28 PM EDTAssociated Problem(s): Palpitations Patient reported palpitations with activity. She is concerned that she may have atrial fibrillationalthough she has no history of A-fib and no EKGs indicating such. MCT showed occasional, brief SVT most consistent with AT. No AF. No changes in management. * Assessment & Plan Note - Chioma Gresham DNP - 08/21/2025 1:27 PM EDTAssociated Problem(s): Essential hypertension Patient is currently managed on 5 mg of lisinopril daily and amlodipine. Patient was initially on 2.5 mg daily but this was increased to 5 after her home blood pressure log showing elevated blood pressures. Will continue current management and follow-up after stress test. Plan: Continue lisinopril Continue amlodipine documented in this encounter Plan of Treatment Upcoming Encounters Date Type Department Care Team (Late st Contact Info) Description 09/11/2025 8:30 AM EST Appointment Non-Invasive Cardiology [address] [place] [address] [place] [address] Chioma Gresham DNP [address] [place] [address] 09/20/2025 11:00 AM EST Office Visit [facility] [address] 3rd Floor, [address] [place] [address] Chioma Gresham DNP [address] [place] [address] 10/02/2025 1:00 PM EST Office Visit [facility] [address] [place] [address] Marleni Coffman MD [address] [place] [address] 11/27/2025 11:00 AM EST Appointment [facility] 30 [place] [address] Wagner Figueroa MD, MS [address] [address] 12/05/2025 9:15 AM EST Office Visit [facility] [address] [place] [address] Wagner Figueroa MD, MS 10 [facility] 2nd [place] [address] 12/11/2025 10:45 AM EST Appointment [facility], Bone Density - [address] [address] Rex Villareal, DO [address] [place] [address] [email or web address] 01/01/2026 10:30 AM EST Office Visit [facility] [address] [place] [address] Rex Villareal, [address] [address] [email or web address] Scheduled Orders Name Type Priority Associated Diagnoses Orde r Schedule TSH with reflex Lab Routine Malaise and fatigue Expected: 08/21/2025, Expires: 08/21/2026 Basic metabolic panel Lab Routine Malaise and fatigue Expected: 08/21/2025, Expires: 08/21/2026 Vitamin B12 Lab Routine Malaise and fatigue Expected: 08/21/2025, Expires: 08/21/2026 25-OH vitamin D Lab Routine Malaise and fatigue Hyperparathyroidism Osteoporosis, unspecified osteoporosis type, unspecified pathological fracture presence Expected: 08/21/2025, Expires: 08/21/2026 NC Myocardial Perfusion Pharmacologic Stress Multiple Nuclear Cardiology Routine Dyspnea on exertion Expected: 08/21/2025, Expires: 11/21/2025 D-dimer Lab Routine Dyspnea on exertion Expected: 08/21/2025, Expires: 08/21/2026 documented as of this encounter Visit Diagnoses Diagnosis Dyspnea on exertion- Primary Other dyspnea and respiratory abnormality Light headedness Malaise and fatigue Hyperparathyroidism Hyperparathyroidism, unspecified Osteoporosis, unspecified osteoporosis type, unspecified pathological fracture presence Essential hypertension Unspecified essential hypertension Palpitations documented in this encounter Additional Health Concerns Assessment Noted Time PHQ-9 Depression Total Score: 12 03/2 024 9:26 AM EST PHQ-2 Depression Total Score: 2 04/29/20 24 10:17 AM EDT documented as of this encounter Care Teams Reproduction Specialist Relationship Specialty Start Date End Date Marleni Coffman MD [address] [place] [address] [email or web address] PCP - General 08/20/17 Marleni Coffman MD [address] [place] [address] Insurance Assigned Provider 02/06/24 Ladonna Louise, RN [address] [place] [address] [email or web address] PHCM Meat Inspector 03/01/21 Neville Cash MD [address] [place] [address] [place] [address] Orthopedic Surgery 06/05/25 documented as of this encounter Additional Source Comments The information contained in this document represents components of the legal health record. It is not the complete legal health record.[facility]
--- NOTE | 2025-08-24 09:12 | A.OFFVIS_ITS ---
Intake Visit Reasons: 6WKPO: R TKA w/ 07/17/25 Intake Note: Kera is a 89 year old female who presents with complaints of mild intermittent discomfort in her right knee after undergoing right total knee replacement surgery on 07/17/2025. She continues with her physical therapy exercises. She denies any fevers or chills. She is no longer taking narcotics for her discomfort. Allergies penicillin V Allergy (Severe, Verified 08/24/25 09:21) hives, throat swelling. amoxicillin Allergy (Verified 08/24/25 09:21) Hives sulfamethoxazole (From Bactrim) Allergy (Verified 08/24/25 09:21) Unknown trimethoprim (From Bactrim) Allergy (Verified 08/24/25 09:21) Unknown Medication List - Last Reviewed 08/24/25 by MIKA Johnston acetaminophen 650 mg (2 x 325 mg) PO Q6H PRN 30 days albuterol sulfate 90 mcg/actuation 2 inhalations inhalation Q4H PRN amlodipine 5 mg PO DAILY cenivzfmrh-fjpxtkfd-hfdibkjjjs 160-9-4.8 mcg/actuation (Breztri Aerosphere) 2 inhalations inhalation BID gabapentin 200 mg PO BEDTIME lisinopril 5 mg PO DAILY omeprazole 20 mg PO DAILY walker Folding front wheeled walker [facility] Medical History (Updated 07/21/25 @ 00:01 by Eugene Horvath) Osteoporosis Restless leg syndrome Sarcoma Melanoma Lightheadedness Hyperparathyroidism Hiatal hernia COVID-19 COPD (chronic obstructive pulmonary disease) Bronchiectasis Asthma Cough Bronchitis SOB (shortness of breath) Otitis externa Peripheral neuropathy Hypertension Hypercholesterolemia Alberto thyroiditis Anxiety disorder Surgical History (Updated 08/24/25 @ 09:14 by MIKA Johnston) S/P total knee arthroplasty History of partial colectomy History of lobectomy of lung (~1979) History of local excision of skin lesion H/O colonoscopy History of removal of ovarian cyst Hx of appendectomy Family History Father No problems noted. Mother Hypertension Diabetes Social History Household Members Other:: Lives with and son Housing: House Are you a primary healthcare or medical to a significant other at home: No Do you presently have visiting nurse or other home services: No Patient Tobacco Use Status: Never used Tobacco e-Cigarette/Vaping Use: Never Used service: No Current occupational status: retired Current occupational exposures/hazards: No Cognitive needs: No Hearing needs: Yes Vision needs: Yes Physical Exam Extrem Other: Right knee examination shows that the surgical incision is well healed, no erythema, range of motion from -3 degrees to 110 degrees, her patella tracks well Assessment & Plan Assessment & Plan (1) Right knee pain: Code(s): M25.561 - Pain in right knee Category: Medical Plan Kera continues to do well after undergoing right total knee replacement surgery on 07/17/2025. She will continue with her physical therapy exercises. She does know to take antibiotics before any dental work. She will contact me prior to her follow-up appointment in 3 months should any questions or concerns arise. Feel free to call me at any time should questions regarding her orthopedic management arise. Coding Level of Care Code Global (58777) Diagnoses Right knee pain M25.561
--- OUTSIDE RECORDS SUMMARY | 2025-08-24 10:03 | XMS_ITS | Encounter Summary ---
Author Organization [facility] Address [address] [place] [address] Phone Care Team Providers Care Deburrer Strip Name Role Phone Marleni Coffman MD Primary Care Provider [phone] Marleni Coffman MD Unavailable [phone] Ladonna Louise RN Unavailable [phone] Neville Cash MD Unavailable [phone] Reason for Visit * Reason Onset Date Comments Care Coordination 08/22/2025 General outrea ch call Encounter Details Date Type Department Care Team (Late st Contact Info) Description 08/22/2025 Patient Outreach [facility] - Primary Care [address] [place] [address] Jocelyn Ruff [address] [place] [address] [email or web address] Care Coordination (General outreach call) Social History Tobacco Use Types Packs/Day Years [...] as of this encounter Progress Notes * Jocelyn Ruff - 08/22/2025 10:59 AM EDT CARE [employer] Sales Executive Note Reason for call: general outreach call Note: CC attempted to contact patient. Pt's spouse, Jermaine answered and informed CC that patient wasin the middle of a PT session with the visiting nurse, but should be done shortly. CC offered to call back. CC called back and spoke with pt. Pt reports that things are going well. Pt had knee surgery and has VNA services through [facility]. Meeting with surgeon on for follow-up. Pt aware ofupcoming cardiology appointments in September. No current care coordination needs. Plan: NCM and team continue to be available for support. NCM to follow up next month. documented in this encounter Plan of Treatment Upcoming Encounters Date Type Department Care Team (Late st Contact Info) Description 09/11/2025 8:30 AM EST Appointment Non-Invasive Cardiology [address] [place] [address] [place] [address] Chioma Gresham DNP [address] [place] [address] [email or web address] 09/20/2025 11:00 AM EST Office Visit [facility] [address] [place] [address] 3rd Floor, [address] [place] [address] Chioma Gresham DNP [address] [place] [address], [address] [address] 10/02/2025 1:00 PM EST Office Visit [facility] [address] [place] [address] [place] [address] Marleni Coffman MD [address] [place] [address] 11/27/2025 11:00 AM EST Appointment [facility] 30 [place] [address] Wagner Figueroa MD, MS [address] [address] 12/05/2025 9:15 AM EST Office Visit [facility] [address] [place] [address] Wagner Figueroa MD, MS [address] [address] 12/11/2025 10:45 AM EST Appointment [facility], Bone Density - [address] [address] Rex Villareal [address] [place] [address] 01/01/2026 10:30 AM EST Office Visit [facility] [address] [place] [address] Rex Villareal DO 22 [place] [address] documented as of this encounter Visit Diagnoses Not on filedocumented in this encounter Additional Health Concerns Assessment Noted Time PHQ-9 Depression Total Score: 12 01/06/ 024 9:26 AM EST PHQ-2 Depression Total Score: 2 04/29/20 24 10:17 AM EDT documented as of this encounter Care Teams Deburrer Strip Relationship Specialty Start Date End Date Marleni Coffman MD [address] [place] [address] PCP - General 08/20/17 Marleni Coffman MD [address] [place] [address] Insurance Assigned Provider 02/06/24 Ladonna Louise, JOANA [address] [place] [address] [email or web address] PHCM Quitline Counselor 03/01/21 Neville Cash MD [address] [place] [address] Orthopedic Surgery 06/05/25 documented as of this encounter Additional Source Comments The information contained in this document represents components of the legal health record. It is not the complete legal health record.[facility]
--- OUTSIDE RECORDS SUMMARY | 2025-08-24 10:03 | XMS_ITS | Encounter Summary ---
Author Organization [facility] Address [address] [place] [address] [place] [address] Phone Care Team Providers Care Strategic Planning Consultant Name Role Phone Marleni Coffman MD Primary Care Provider [phone] Marleni Coffman MD Unavailable [phone] Jaleesa Rod RN Unavailable [phone] Jihan Resendiz RN Unavailable [email or web address] Ladonna Louise RN Unavailable [phone] Allison Rice Unavailable [email or web address] Neville Cash MD Unavailable [phone] Encounter Details Date Type Department Care Team (Late st Contact Info) Description 09/16/2017 Procedure Pass [facility],Outside Imaging [address] [place] [address] Social History Tobacco Use Types Packs/Day Years [...] 09/11/2025 8:30 AM EST Appointment Non-Invasive Cardiology [address] [place] [address] [place] [address] Chioma Gresham DNP [address] [address] 09/20/2025 11:00 AM EST Office Visit [facility] [address] Floor, [address] [place] [address] Chioma Gresham DNP [address] [place] [address] 10/02/2025 1:00 PM EST Office Visit [address] [place] [address] Marleni Coffman MD [address] [place] [address] 11/27/2025 11:00 AM EST Appointment [facility] [address] [place] [address] Wagner Figueroa MD, MS [address] [address] 12/05/2025 9:15 AM EST Office Visit [facility] [address] [place] [address] Wagner Figueroa MD, MS [address] [address] 12/11/2025 10:45 AM EST Appointment [facility], Bone Density - [facility] [address] [place] [address] Rex Villareal DO 22 [place] [address] [email or web address] 01/01/2026 10:30 AM EST Office Visit [facility] [address] [place] [address] Rex Villareal DO 22 [place] [address] documented as of this encounter Visit Diagnoses [...] documented as of this encounter Care Teams Strategic Planning Consultant Relationship Specialty Start Date End Date Marleni Coffman MD [address] [place] [address], [address] [place] [address] PCP - General 08/20/17 Marleni Coffman MD [address] [place] [address], [address] [place] [address] [email or web address] Insurance Assigned Provider 02/06/24 Jaleesa Rod, JOANA [address] [place] [address] [email or web address] [facility] Tool Shaper Set Up Operator 06/22/19 08/31/19 Jihan Resendiz, JOANA [address] [place] [address] [email or web address] [facility] Tool Shaper Set Up Operator 09/01/19 02/28/21 Ladonna Louise RN [address] [place] [address] [facility] Tool Shaper Set Up Operator 03/01/21 Allison Rice [address] [place] [address] [email or web address] [facility] Community Compounder Helper 04/19/24 04/19/24 Neville Cash MD [address] [place] [address] Orthopedic Surgery 06/05/25 documented as of this encounter Additional Source Comments The information contained in this document represents components of the legal health record. It is not the complete legal health record.[facility]
--- OUTSIDE RECORDS SUMMARY | 2025-08-24 10:03 | XMS_ITS | Encounter Summary ---
Author Organization [facility] Address [address] [place] [address] [place] [address] Phone Care Team Providers Care Case Mgr Name Role Phone Marleni Coffman MD Primary Care Provider [phone] Marleni Coffman MD Unavailable [phone] Jihan Resendiz RN Unavailable [email or web address] Ladonna Louise RN Unavailable [phone] Allison Rice Unavailable [email or web address] Neville Cash MD Unavailable [phone] Encounter Details Date Type Department Care Team (Late st Contact Info) Description 08/21/2020 Procedure Pass [facility] [address] [place] [address] Social History Tobacco Use Types Packs/Day Years [...] 8:30 AM EST Appointment Non-Invasive Cardiology [address] [place] [address] Chioma Gresham DNP 22 [facility], [address] [address] 09/20/2025 11:00 AM EST Office Visit [facility] [address] 3rd Floor, [address] [place] [address] Chioma Gresham DNP [address] [address] 10/02/2025 1:00 PM EST Office Visit [facility] [address] [place] [address] Marleni Coffman MD [address] [place] [address] 11/27/2025 11:00 AM EST Appointment [facility] [address] [place] [address] Wagner Figueroa MD, MS [address] [address] 12/05/2025 9:15 AM EST Office Visit [facility] [address] [place] [address] Wagner Figueroa MD, MS [address] [address] 12/11/2025 10:45 AM EST Appointment [facility], [facility] 30 [place] [address] Rex Villareal DO [address] [place] [address] 01/01/2026 10:30 AM EST Office Visit [facility] 22 [place] [address] Rex Villareal DO [address] [place] [address] [email or web address] documented as of this encounter Visit Diagnoses [...] documented as of this encounter Care Teams Case Mgr Relationship Specialty Start Date End Date Marleni Coffman MD [address] [place] [address] PCP - General 08/20/17 Marleni Coffman MD [address] [place] [address] [email or web address] Insurance Assigned Provider 02/06/24 Jihan Resendiz RN [address] [place] [address] [email or web address] PHCM Tenterer 09/01/19 02/28/21 Ladonna Louise RN [address] [place] [address] PHCM Tenterer 03/01/21 Allison Rice [address] [place] [address] [email or web address] PHCM Community Block Hacker 04/19/24 04/19/24 Neville Cash MD [address] [place] [address] [place] [address] Orthopedic Surgery 06/05/25 documented as of this encounter Additional Source Comments The information contained in this document represents components of the legal health record. It is not the complete legal health record.[facility]
--- OUTSIDE RECORDS SUMMARY | 2025-08-24 10:03 | XMS_ITS | Encounter Summary ---
Author Organization [facility] Address [address] [place] [address] Phone Care Team Providers Care Hydrogenation Operator Name Role Phone Marleni Coffman MD Primary Care Provider [phone] Marleni Coffman MD Unavailable [phone] Ladonna Louise RN Unavailable [phone] Neville Cash MD Unavailable [phone] Encounter Details Date Type Department Care Team (Late st Contact Info) Description 02/17/2025 Procedure Pass Echo [facility] [address] [place] [address] Social History Tobacco Use Types Packs/Day Years [...] 8:30 AM EST Appointment Non-Invasive Cardiology [address] [place] [address] Chioma Gresham DNP 22 [facility], [address] [place] [address] 09/20/2025 11:00 AM EST Office Visit [facility] [address] [place] [address] 3rd Floor, [address] [place] [address] Chioma Gresham DNP [address] [address] 10/02/2025 1:00 PM EST Office Visit [facility] [address] [place] [address] [place] [address] Marleni Coffman MD [address] [place] [address] 11/27/2025 11:00 AM EST Appointment [facility] PFT Lab [address] [place] [address] Wagner Figueroa MD, MS [address] [address] 12/05/2025 9:15 AM EST Office Visit [facility], Allergy and Critical Care Medicine [address] [place] [address] Wagner Figueroa MD, MS [address] [address] 12/11/2025 10:45 AM EST Appointment [facility], Bone Density - [address] [address] Rex Villareal DO [address] [place] [address] 01/01/2026 10:30 AM EST Office Visit [facility] [address] [place] [address] Rex Villareal, DO [address] [place] [address] [email or web address] documented as of this encounter Visit Diagnoses [...] documented as of this encounter Care Teams Hydrogenation Operator Relationship Specialty Start Date End Date Marleni Coffman MD [address] [place] [address] [email or web address] PCP - General 08/20/17 Marleni Coffman MD [address] [place] [address] [email or web address] Insurance Assigned Provider 02/06/24 Ladonna Louise, RN [address] [place] [address] [id number] [email or web address] PHCM Nuclear Fuel Processing Technician 03/01/21 Neville Cash MD [address] [place] [address] [place] [address] Orthopedic Surgery 06/05/25 documented as of this encounter Additional Source Comments The information contained in this document represents components of the legal health record. It is not the complete legal health record.[facility]
--- OUTSIDE RECORDS SUMMARY | 2025-08-24 10:03 | XMS_ITS ---
Author Organization [facility] Address [address] [facility] [address] [place] [address] Phone Care Team Providers Care Training Project Manager Name Role Phone Marleni Coffman MD Primary Care Provider [phone] Marleni Coffman A Unavailable [phone] Ladonna Louise RN Unavailable [phone] Neville Cash MD Unavailable [phone] Population Health Care Management (PHCM) Status:Enrolled (Active) Start date:11/17/2023 Enrollment date:11/17/2023 Current support & services provided:[facility] Related social drivers of health:Housing Stability, Child or Family Care, Education, Food, Unemployment, Paying for Meds, Paying Utility Bills, Transportation, Digital Access, SNAP/WIC Case Team Name Relationship Phone Email Ladonna Louise RN Registered Nurse(Res ponsible Staff) [phone] Jocelyn Ruff PHCM Exchange Operator [phone] Continued Care and Services Coordination
--- OUTSIDE RECORDS SUMMARY | 2025-08-24 10:03 | XMS_ITS | Encounter Summary ---
Author Organization [facility] Address [address] [place] [address] [place] [address] Phone Care Team Providers Care Foreign Language Instructor Name Role Phone Marleni Coffman MD Primary Care Provider [phone] Marleni Coffman MD Unavailable Ladonna Louise RN Unavailable [phone] Neville Cash MD Unavailable [phone] Encounter Details Date Type Department Care Team (Latest Contact Info) Description 04/05/2025 Transcribe Orders [facility] Laboratory [address] [phone] Inge Wolf, REGIONAL OFFICE COORDINATOR 10 [place] [address] Chronic diarrhea (Primary Dx) Social History Tobacco [...] 8:30 AM EST Appointment Non-Invasive Cardiology [address] [place] [address] Chioma Gresham DNP 22 [facility], [address] [place] [address] 09/20/2025 11:00 AM EST Office Visit [facility] [address] [place] [address] Dr 3rd Floor, [address] [place] [address] Chioma Gresham DNP 22 [facility], [address] [address] 10/02/2025 1:00 PM EST Office Visit [address] [place] [address] Marleni Coffman MD [address] [place] [address] 11/27/2025 11:00 AM EST Appointment [facility] PFT Lab [address] [place] [address] Wagner Figueroa MD, MS [address] [address] 12/05/2025 9:15 AM EST Office Visit [facility], Allergy and Critical Care Medicine [address] [place] [address] Wagner Figueroa MD, MS [address] [address] 12/11/2025 10:45 AM EST Appointment [facility], Bone Density - [address] [address] Rex Villareal DO 22 [place] [address] 01/01/2026 10:30 AM EST Office Visit [facility] 22 [place] [address] Rex Villareal, DO 22 [place] [address] [email or web address] documented as of this encounter Results * Fecal immunochemical test x1 (FIT) (04/19/2025 1:00 PM EDT) Immuno Fecal Occult Negative Negative [facility] Stool (Stool) 04/19/2025 1:0 0 PM EDT 04/19/2025 2:02 PM EDT Inge Wolf CNP BODY FLUIDS AND STOOLS ORD ERABLES Final Result Performing Organization Address City/[facility]/ZIP Co de Phone Number [address] [address] * Stool culture (04/19/2025 1:00 PM EDT) Special Requests None 04/19/2025 2:01 PM EDT [facility] Stool Culture NO SALMONELLA, SHIGELLA OR CAMPYLOBACTER ISOLATED 04/21/2025 8:11 AM EDT [facility] Stool (Stool) 04/19/2025 1:0 0 PM EDT 04/19/2025 2:03 PM EDT Inge Wolf CNP MICROBIOLOGY - GENERAL ORD ERABLES Final Result [address] [address] * Giardia and cryptosporidium screen (04/19/2025 1:00 PM EDT) GIARDIA AG Negative Negative [facility] Cryptosporidiu m, stool Negative Negative [facility] Stool (Stool) 04/19/2025 1:0 0 PM EDT 04/19/2025 2:02 PM EDT Inge Wolf CNP NON CULTURE MICROBIOLOGY F inal Result [facility] [address] [place] [address] * Calprotectin, stool (04/19/2025 1:00 PM EDT) STOOL CALPROTECTIN 24 mcg/g [facility]N [facility] Comment: (NOTE) Reference [...] 04/19/2025 2:03 PM EDT Inge Wolf CNP BODY FLUIDS AND STOOLS ORD ERABLES Final Result Performing Organization Address City/[facility]/ZIP Co de Phone Number [facility] [address] [place] [address], [place] [phone] * Ova and parasites, stool (04/16/2025 10:00 AM EDT) Parasitic exam FINAL 5 1557 [facility] DPT OF LAB MED AND PAT+ Comment: (NOTE) SOURCE: STOOL, STLP OVA AND PARASITE, MICROSCOPY, F FINAL No parasites seen. Cryptosporidium, Cyclospora, and microsporidia are not readily detected by this method. Single negative specimen does not rule out parasitic infection. Stool (Stool) 04/16/2025 10: 00 AM EDT 04/17/2025 9:58 AM EDT Inge Wolf CNP MICROBIOLOGY - GENERAL ORD ERABLES Final Result [facility] MED [facility] PAT+ [address] [place] [address] * Ova and parasites, stool (04/14/2025 10:00 AM EDT) Parasitic exam FINAL 5 1551 [facility] LAB MED AND PAT+ Comment: (NOTE) SOURCE: STOOL, STLP OVA AND PARASITE, MICROSCOPY, F FINAL No parasites seen. Cryptosporidium, Cyclospora, and microsporidia are not readily detected by this method. Single negative specimen does not rule out parasitic infection. Stool (Stool) 04/14/2025 10: 00 AM EDT 04/17/2025 9:58 AM EDT Inge Wolf CNP MICROBIOLOGY - GENERAL ORD ERABLES Final Result [facility] LAB MED AND PAT+ [address] [place] [address] * C-Reactive Protein (04/05/2025 3:04 PM EDT) Pathologist [facility] C REACTIVE PROTEIN <3.0 0.0 - 4.0 mg/L [facility] Blood 04/05/2025 3:04 PM EDT 04/05/2025 3:17 PM EDT Inge Wolf CNP LAB BLOOD ORDERABLES Final Result [facility] [address] [place] [address] * (ABNORMAL) Comprehensive metabolic panel (04/05/2025 3:04 PM EDT) SODIUM 139 133 - 146 mmol/L [facility] POTASSIUM 4.7 3.3 - 5.1 mmol/L [facility] CHLORIDE 105 96 - 108 mmol/L [facility] CO2 23 21 - 35 mmol/L [facility] BUN 29(H) 6 - 19 mg/dL [facility] CREATININE 1.20 0.5 - 1.5 mg/dL [facility] GLUCOSE 93 70 - 99 mg/dL [facility] ALBUMIN 4.1 3.9 - 4.8 g/dL [facility] TOTAL PROTEIN 7.1 6.5 - 8.0 g/dL [facility] CALCIUM 10.2 8.4 - 10.3 mg/dL [facility] ALKALINE PHOSPHATASE 46 39 - 117 U/L [facility] TOTAL BILIRUBIN 0.5 0.0 - 1.2 mg/dL [facility] AST 33 0 - 37 U/L [facility] ALT 14 0 - 40 U/L [facility] GLOBULIN 3.0 1 - 4.8 g/dL [facility] EGFR 44(L) >59 mL/min/1.7 3m2 [facility] Comment:Estimated glomerular filtration rate calculated using the CKD-EPI refit equation. ANION GAP 16 10 - 20 mmol/L [facility] Blood 04/05/2025 3:04 PM EDT 04/05/2025 3:17 PM EDT us Inge Wolf [facility] LAB BLOOD ORDERABLES Final Result Performing Organization Address City/State/[facility] Co de Phone Number [address] [address] * CBC and differential (04/05/2025 3:04 PM EDT) WBC 7.95 4.00 - 11.00 K/uL [facility] RBC 4.58 4.00 - 5.20 M/uL [facility] HGB 13.5 12.0 - 16.0 g/dL [facility] HCT 42.2 36.0 - 46.0 % [facility] PLT 326 150 - 450 K/uL [facility] MCV 92.1 80.0 - 100.0 [facility] MCH 29.5 27.0 - 31.0 pg [facility] MCHC 32.0 32.0 - 36.0 g/dL [facility] RDW 13.2 11.5 - 14.5 % [facility] MPV 10.3 8.4 - 12.0 [facility] NRBC 0.00 0.00 /100 WBCs [facility] ABSOLUTE NRBC 0.00 0.00 K/uL [facility] DIFF METHOD Auto [facility] NEUTS 63.1 48.0 - 76.0 % [facility] LYMPHS 26.7 18.0 - 41.0 % [facility] MONOS 7.8 4.0 - 11.0 % [facility] EOS 1.1 0.0 - 5.0 % [facility] BASOS 0.8 0.0 - 1.5 % [facility] Granulocytes, immature (%) 0.5 0.0 - 0.9 % [facility] ABSOLUTE NEUTS 5.02 1.92 - 7.60 K/uL [facility] ABSOLUTE LYMPHS 2.12 0.72 - 4.10 K/uL [facility] ABSOLUTE MONOS 0.62 0.16 - 1.10 K/uL [facility] ABSOLUTE EOS 0.09 0.00 - 0.50 K/uL [facility] ABSOLUTE BASOS 0.06 0.00 - 0.15 K/uL [facility] Granulocytes, immature 0.04 0.00 - 0.09 K/uL [facility] Blood 04/05/2025 3:04 PM EDT 04/05/2025 3:17 PM EDT [facility] LAB BLOOD ORDERABLES Final Result [address] [address] * Immunoglobulin A (04/05/2025 3:04 PM EDT) IgA 301 70 - 400 mg/dL [facility] Blood 04/05/2025 3:04 PM EDT 04/05/2025 3:17 PM EDT [facility] LAB BLOOD ORDERABLES Final Result [address] [address] * Tissue transglutaminase IgA (04/05/2025 3:04 PM EDT) TTG IGA ANTIBODY <1.2 <4.0 (Negative) U/mL [facility] Blood 04/05/2025 3:04 PM EDT 04/05/2025 3:18 PM EDT us Inge Wolf REGIONAL OFFICE COORDINATOR LAB BLOOD ORDERABLES Final Result [facility] [address] [place] [address] documented in this encounter Visit Diagnoses Diagnosis [...] documented as of this encounter Care Teams Foreign Language Instructor Relationship Specialty Start Date End Date Marleni Coffman MD [address] [place] [address] PCP - General 08/20/17 Marleni Coffman MD [address] [place] [address] Insurance Assigned Provider 02/06/24 Ladonna Louise, RN [address] [place] [address] [email or web address] PHCM Jet Dyeing Machine Tender 03/01/21 Neville Cash MD [address] [place] [address] [place] [address] Orthopedic Surgery 06/05/25 documented as of this encounter Additional Source Comments The information contained in this document represents components of the legal health record. It is not the complete legal health record.[facility]
--- OUTSIDE RECORDS SUMMARY | 2025-08-24 10:03 | XMS_ITS | Encounter Summary ---
Author Organization [facility] Address [address] [place] [address] Phone Care Team Providers Care Laborer [place] Name Role Phone Marleni Coffman MD Primary Care Provider [phone] Marleni Coffman MD Unavailable [phone] Ladonna Louise RN Unavailable [phone] Allison Rice Unavailable [email or web address] Neville Cash MD Unavailable [phone] Encounter Details Date Type Department Care Team (Late st Contact Info) Description 08/06/2023 Procedure Pass [address] [place] [address] Social History Tobacco Use Types Packs/Day Years [...] 09/11/2025 8:30 AM EST Appointment Non-Invasive Cardiology [place] [address] Chioma Gresham DNP [address] [place] [address] 09/20/2025 11:00 AM EST Office Visit [facility] [address] 3rd Floor, [address] [address] Chioma Gresham DNP [address] [place] [address] 10/02/2025 1:00 PM EST Office Visit [facility] [address] [place] [address] [place] [address] Marleni Coffman MD [address] [place] [address] 11/27/2025 11:00 AM EST Appointment [facility] Lab [address] [place] [address] Wagner Figueroa MD, MS [address] [address] 12/05/2025 9:15 AM EST Office Visit [facility], Allergy and Critical Care Medicine [address] [place] [address] Wagner Figueroa MD, MS [address] [address] 12/11/2025 10:45 AM EST Appointment [facility], Bone Density - [address] [address] Rex Villareal DO [address] [place] [address] 01/01/2026 10:30 AM EST Office Visit [facility] [address] [place] [address] Rex Villareal DO [address] [place] [address] documented as of this encounter Visit Diagnoses Not on filedocumented in this encounter Additional Health Concerns Infection Onset Date Last Indicated Resolved Time CDiff-Risk 04/05/2025 04/19/2025 04/12/2025 1:21 AM EDT CDiff-Risk 04/19/2025 04/19/2025 04/19/2025 9:22 PM EDT Assessment Noted Time PHQ-2 Depression Total Score: 2 01/17/20 23 10:12 AM EDT documented as of this encounter Care Teams Laborer [place] Relationship Specialty Start Date End Date Marleni Coffman MD [address] [place] [address], [address] [place] [address] PCP - General 08/20/17 Marleni Coffman MD [address] [place] [address] Insurance Assigned Provider 02/06/24 Ladonna Louise, RN [address] [place] [address] PHCM Sheriff 03/01/21 Allison Rice [address] [place] [address] [email or web address] PHCM Community Cone Trucker 04/19/24 04/19/24 Neville Cash MD [address] [place] [address] [place] [address] Orthopedic Surgery 06/05/25 documented as of this encounter Additional Source Comments The information contained in this document represents components of the legal health record. It is not the complete legal health record.[facility]
--- OUTSIDE RECORDS SUMMARY | 2025-08-24 10:03 | XMS_ITS | Encounter Summary ---
Author Organization [facility] Address [address] [place] [address] [place] [address] Phone Care Team Providers Care Elderly Companion Name Role Phone Marleni Coffman MD Primary Care Provider [phone] Marleni Coffman MD Unavailable [phone] Jaleesa Rod RN Unavailable [phone] Jihan Resendiz RN Unavailable [email or web address] Ladonna Louise RN Unavailable [phone] Allison Rice Unavailable [email or web address] Neville Cash MD Unavailable [phone] Encounter Details Date Type Department Care Team (Late st Contact Info) Description 09/16/2017 Procedure Pass [facility] Imaging [address] [place] [address] Social History Tobacco Use Types Packs/Day Years [...] 09/11/2025 8:30 AM EST Appointment Non-Invasive Cardiology [address] [place] [address] [place] [address] Chioma Gresham DNP [address] [address] 09/20/2025 11:00 AM EST Office Visit [facility] [address]rd Floor, [address] [place] [address] Chioma Gresham DNP [address] [place] [address] 10/02/2025 1:00 PM EST Office Visit [address] [place] [address] Marleni Coffman MD [address] [place] [address] 11/27/2025 11:00 AM EST Appointment [facility] [address] [place] [address] Wagner Figueroa MD, MS [address] [address] 12/05/2025 9:15 AM EST Office Visit [facility], Allergy and Critical Care Medicine [address] [place] [address] Wagner Figueroa MD, MS [address] [address] 12/11/2025 10:45 AM EST Appointment [facility], Bone Density - [facility] [address] [place] [address] Rex Villareal DO 22 [place] [address] 01/01/2026 10:30 AM EST Office Visit [facility] [address] [place] [address] Rex Villareal DO [address] [place] [address] documented as of this encounter Visit Diagnoses [...] documented as of this encounter Care Teams Elderly Companion Relationship Specialty Start Date End Date Marleni Coffman MD [address] [place] [address], [address] [place] [address] PCP - General 08/20/17 Marleni Coffman MD [address] [place] [address], [address] [place] [address] Insurance Assigned Provider 02/06/24 Jaleesa Rod, JOANA [address] [place] [address] [email or web address] [facility] Game Attendant 06/22/19 08/31/19 Jihan Resendiz, JOANA [address] [place] [address] [email or web address] [facility] Game Attendant 09/01/19 02/28/21 Ladonna Louise RN [address] [place] [address] [facility] Game Attendant 03/01/21 Allison Rice [address] [place] [address] [email or web address] [facility] Community Monomer Recovery Operator 04/19/24 04/19/24 Neville Cash MD [address] [place] [address] Orthopedic Surgery 06/05/25 documented as of this encounter Additional Source Comments The information contained in this document represents components of the legal health record. It is not the complete legal health record.[facility]
--- OUTSIDE RECORDS SUMMARY | 2025-08-24 10:03 | XMS_ITS | Encounter Summary ---
Author Organization [facility] Address [address] [place] [address] [place] [address] Phone Care Team Providers Care Furnace Unloader Name Role Phone Marleni Coffman MD Primary Care Provider [phone] Marleni Coffman MD Unavailable [phone] Jaleesa Rod RN Unavailable [phone] Jihan Resendiz RN Unavailable [email or web address] Ladonna Louise RN Unavailable [phone] Allison Rice Unavailable [email or web address] Neville Cash MD Unavailable [phone] Reason for Referral * MRI/CAT Scan - Closed Specialty Diagnoses / Procedures Referred By Contac t Referred To Contact Procedures CT Chest Outside (No Interpretation) System, Provider Not In, PhD [address] [address] Referral ID Status Reason Start Date Expiration Date Visits Re quested Visits Authorized [id number] Closed 09/16/2017 09/16/2018 1 1 * MRI/CAT Scan - Closed Specialty Diagnoses / Procedures Referred By Contac t Referred To Contact Procedures CT Chest Outside (No Interpretation) System, Provider Not In, PhD [address] [address] Referral ID Status Reason Start Date Expiration Date Visits Re quested Visits Authorized [id number] Closed 09/16/2017 09/16/2018 1 1 Encounter Details Date Type Department Care Team (Late Contact Info) Description 09/16/2017 Ancillary Orders [facility],Outside Imaging [address] [place] [address] System, Provider Not In, [place] [address] Social History Tobacco Use Types Packs/Day Years [...] 09/11/2025 8:30 AM EST Appointment Non-Invasive Cardiology [address] [place] [address] [place] [address] Chioma Gresham DNP 22 [facility], [address] [address] 09/20/2025 11:00 AM EST Office Visit [facility] [address] [place] [address] Dr 3rd Floor, [address] [place] [address] Chioma Gresham DNP 22 [facility], [address] [address] 10/02/2025 1:00 PM EST Office Visit [facility] [address] [place] [address] [place] [address] Marleni Coffman MD [address] [place] [address], 2nd [place] [address] 11/27/2025 11:00 AM EST Appointment [facility] [address] [place] [address] Wagner Figueroa MD, MS [address] [address] 12/05/2025 9:15 AM EST Office Visit [facility] [address] [place] [address] [place] [address] Wagner Figueroa MD, MS [address] [address] 12/11/2025 10:45 AM EST Appointment [facility], Bone Density - [address] [address] Rex Villareal DO [address] [place] [address] 01/01/2026 10:30 AM EST Office Visit [facility] [address] [place] [address] Rex Villareal, DO [address] [place] [address] documented as of this encounter Results * [...] documented as of this encounter Care Teams Furnace Unloader Relationship Specialty Start Date End Date Marleni Coffman MD [address] [place] [address] [email or web address] PCP - General 08/20/17 Marleni Coffman MD [address] [place] [address] [email or web address] Insurance Assigned Provider 02/06/24 Jaleesa Rod, JOANA [address] [place] [address] [email or web address] [facility] Rotary Drill Operator Helper 06/22/19 08/31/19 Jihan Resendiz, JOANA [address] [place] [address] [email or web address] PHC Rotary Drill Operator Helper 09/01/19 02/28/21 Ladonna Louise, JOANA [address] [place] [address] PHCM Rotary Drill Operator Helper 03/01/21 Allison Rice [address] [place] [address] [email or web address] PHCM Community Weatherstrip Machine Operator 04/19/24 04/19/24 Neville Cash MD [address] [place] [address] [place] [address] Orthopedic Surgery 06/05/25 documented as of this encounter Additional Source Comments The information contained in this document represents components of the legal health record. It is not the complete legal health record.[facility]
--- OUTSIDE RECORDS SUMMARY | 2025-08-24 10:04 | XMS_ITS | Encounter Summary ---
Author Organization [facility] Address [address] [place] [address] Phone Care Team Providers Care Pharmacy Technology Instructor Name Role Phone Marleni Coffman MD Primary Care Provider [phone] Marleni Coffman MD Unavailable [phone] Ladonna Louise RN Unavailable [phone] Allison Rice Unavailable [email or web address] Neville Csah MD Unavailable [phone] Encounter Details Date Type Department Care Team (Late st Contact Info) Description 04/26/2021 Procedure Pass [address] [place] [address] Social History Tobacco Use Types Packs/Day Years [...] high school, GED, job training, learning the Iraqi language, technical skills, or developing parenting skills)? [...] 8:30 AM EST Appointment Non-[place]vasive [place] [address] Chioma Gresham DNP [address] [place] [address], [address] [address] [email or web address] 09/20/2025 11:00 AM EST Office Visit [facility] [address] 3rd Floor, [address] [place] [address] Chioma Gresham DNP [address] [place] [address], [address] [address] [email or web address] 10/02/2025 1:00 PM EST Office Visit [facility] [address] [place] [address] [place] [address] Marleni Coffman MD [address] [place] [address], [address] [place] [address] 11/27/2025 11:00 AM EST Appointment [facility] [address] [place] [address] Wagner Figueroa MD, MS [address] [address] 12/05/2025 9:15 AM EST Office Visit [facility] [address] [place] [address] Wagner Figueroa MD, MS [address] [address] 12/11/2025 10:45 AM EST Appointment [facility], Bone Density - [address] [address] Rex Villareal [address] [address] 01/01/2026 10:30 AM EST Office Visit [facility] [address] [place] [address] Rex Villareal [address] [address] documented as of this encounter Visit Diagnoses [...] documented as of this encounter Care Teams Pharmacy Technology Instructor Relationship Specialty Start Date End Date Marleni Coffman MD [address] [place] [address] PCP - General 08/20/17 Marleni Coffman MD [address] [place] [address] [email or web address] Insurance Assigned Provider 02/06/24 Ladonna Louise, RN [address] [place] [address] PHCM Wildlife Biology Technician 03/01/21 Allison Rice [address] [place] [address] [email or web address] PHC Community Assembler Production Line 04/19/24 04/19/24 Neville Cash MD [address] [place] [address] [address] [place] [address] Orthopedic Surgery 06/05/25 documented as of this encounter Additional Source Comments The information contained in this document represents components of the legal health record. It is not the complete legal health record.[facility]
--- OUTSIDE RECORDS SUMMARY | 2025-08-24 10:04 | XMS_ITS | Encounter Summary ---
Author Organization [facility] Address [address] [facility] [address] [place] [address] Phone Care Team Providers Care Insulation Worker Interior Surface Name Role Phone Marleni Coffman MD Primary Care Provider [phone] Marleni Coffman MD Unavailable [phone] Ladonna Louise RN Unavailable [phone] Allison Rice Unavailable ruby Neville Cash MD Unavailable [phone] Encounter Details Date Type Department Care Team (Late st Contact Info) Description 06/13/2022 Telephone [facility] [address] [place] [address] [place] [address] Marleni Coffman MD [address] [place] [address], 2nd [place] [address] [email or web address] Social History Tobacco Use Types Packs/Day Years [...] EST Appointment Non-Invasive [place] [address] Chioma Gresham DNP [address] [place] [address], [address] [address] 09/20/2025 11:00 AM EST Office Visit [facility] [address] 3rd Floor, [address] [place] [address] Chioma Gresham DNP [address] [place] [address], [address] [address] 10/02/2025 1:00 PM EST Office Visit [facility] [address] [place] [address] [place] [address] Marleni Coffman MD [address] [place] [address] 11/27/2025 11:00 AM EST Appointment [facility] [address] [place] [address] Wagner Figueroa MD, MS [address] [address] 12/05/2025 9:15 AM EST Office Visit [facility] [address] [place] [address] Wagner Figueroa MD, MS [address] [address] 12/11/2025 10:45 AM EST Appointment [facility], Bone Density - [address] [address] Rex Villareal DO [address] [place] [address] 01/01/2026 10:30 AM EST Office Visit [facility] [address] [place] [address] Rex Villareal DO [address] [place] [address] documented as of this encounter Visit Diagnoses Not on filedocumented in this encounter Additional Health Concerns Infection Onset Date Last Indicated Resolved Time COVID-19 02/19/2023 02/19/2023 03/12/2023 1:21 AM EDT [facility]-Risk 04/05/2025 04/19/2025 04/12/2025 1:21 AM EDT [facility]-Risk 04/19/2025 04/19/2025 04/19/2025 9:22 PM EDT Assessment Noted Time PHQ-2 Depression Total Score: 2 04/17/20 10:42 AM EDT documented as of this encounter Care Teams Insulation Worker Interior Surface Relationship Specialty Start Date End Date Marleni Coffman MD [address] [place] [address], 2nd [place] [address] PCP - General 08/20/17 Marleni Coffman MD [address] [place] [address], [address] [place] [address] Insurance Assigned Provider 02/06/24 Ladonna Louise, RN [address] [place] [address] PHCM Hand Cementer 03/01/21 Allison Rice [address] [place] [phone] [email or web address] PHCM Community Chief Of Service 04/19/24 04/19/24 Neville Cash MD [address] [place] [address] [place] [address] Orthopedic Surgery 06/05/25 documented as of this encounter Additional Source Comments The information contained in this document represents components of the legal health record. It is not the complete legal health record.[facility]
--- OUTSIDE RECORDS SUMMARY | 2025-08-24 10:04 | XMS_ITS | Encounter Summary ---
Author Organization [facility] Address [address] [place] [address] Phone Care Team Providers Care Director Of Speech Pathology Name Role Phone Marleni Coffman MD Primary Care Provider [phone] Marleni Coffman MD Unavailable [phone] Ladonna Louise RN Unavailable [phone] Allison Rice Unavailable ruby Neville Cash MD Unavailable Encounter Details Date Type Department Care Team (Late st Contact Info) Description 03/26/2023 Transcribe Orders [facility] [address] [place] [address] Wagner Figueroa MD, MS [address] [id number] Social History Tobacco Use Types Packs/Day Years [...] high school, GED, job training, learning the Pakistani language, technical skills, or developing parenting skills)? [...] EST Appointment Non-Invasive Cardiology [place] [address] Chioma Gresham DNP [address] [place] [address], [address] [address] 09/20/2025 11:00 AM EST Office Visit [facility] [address] 3rd Floor, [address] [place] [address] Chioma Gresham DNP [address] [place] [address], [address] [address] 10/02/2025 1:00 PM EST Office Visit [facility] [address] [place] [address] [place] [address] Marleni Coffman MD [address] [place] [address], [address] [place] [address] 11/27/2025 11:00 AM EST Appointment [facility] [address] [place] [address] Wagner Figueroa MD, MS [address] [address] 12/05/2025 9:15 AM EST Office Visit [facility] [address] [place] [address] Wagner Figueroa MD, MS [address] [address] 12/11/2025 10:45 AM EST Appointment [facility], Bone Density - [address] [address] Rex Villareal DO [address] [place] [address] 01/01/2026 10:30 AM EST Office Visit [facility] [address] [place] [address] Rex Villareal DO 22 [place] [address] documented as of this encounter Visit Diagnoses Not on filedocumented in this encounter Additional Health Concerns Infection Onset Date Last Indicated Resolved Time [facility]-Risk 04/05/2025 04/19/2025 04/12/2025 1:21 AM EDT [facility]-Risk 04/19/2025 04/19/2025 04/19/2025 9:22 PM EDT Assessment Noted Time PHQ-2 Depression Total Score: 2 01/17/20 23 10:12 AM EDT documented as of this encounter Care Teams Director Of Speech Pathology Relationship Specialty Start Date End Date Marleni Coffman MD [address] [place] [address] PCP - General 08/20/17 Marleni Coffman MD [address] [place] [address] [email or web address] Insurance Assigned Provider 02/06/24 Ladonna Louise, RN [address] [place] [address] PHCM Artificial Intelligence Specialist 03/01/21 Allison Rice [address] [place] [address] [email or web address] PHCM Community Fiber Artist 04/19/24 04/19/24 Neville Cash MD [address] [place] [address] Orthopedic Surgery 06/05/25 documented as of this encounter Additional Source Comments The information contained in this document represents components of the legal health record. It is not the complete legal health record.[facility]
--- OUTSIDE RECORDS SUMMARY | 2025-08-24 10:04 | XMS_ITS | Encounter Summary ---
Author Organization [facility] Address [address] [place] [address] Phone Care Team Providers Care Entry Level Receptionist Name Role Phone Marleni Coffman MD Primary Care Provider [phone] Marleni Coffman MD Unavailable [phone] Ladonna Louise RN Unavailable [phone] Allison Rice Unavailable ruby Neville Cash MD Unavailable [phone] Encounter Details Date Type Department Care Team (Late st Contact Info) Description 05/29/2022 Transcribe Orders [facility] 30 [place] [address] Wagner Figueroa MD, MS [address] [id number] Social History Tobacco Use Types Packs/Day Years [...] high school, GED, job training, learning the Grenadian language, technical skills, or developing parenting skills)? [...] EST Appointment Non-Invasive Cardiology [place] [address] Chioma Gresham DNP [address] [place] [address], [address] [address] 09/20/2025 11:00 AM EST Office Visit [facility] [address] 3rd Floor, [address] [address] Chioma Gresham DNP [address] [place] [address], [address] [address] 10/02/2025 1:00 PM EST Office Visit [facility] [address] [place] [address] [place] [address] Marleni Coffman MD [address] [place] [address] 11/27/2025 11:00 AM EST Appointment [facility] [address] [place] [address] aWgner Figueroa MD, MS [address] [address] 12/05/2025 9:15 AM EST Office Visit [facility] [address] [place] [address] Wagner Figueroa MD, MS [address] [address] 12/11/2025 10:45 AM EST Appointment [facility], Bone Density - [address] [address] Rex Villareal DO [address] [place] [address] 01/01/2026 10:30 AM EST Office Visit [facility] [address] [place] [address] [place] [address] Rex Villareal DO [address] [place] [address] documented as of this encounter Visit Diagnoses [...] documented as of this encounter Care Teams Entry Level Receptionist Relationship Specialty Start Date End Date Marleni Coffman MD [address] [place] [address], 2nd [place] [address] PCP - General 08/20/17 Marleni Coffman MD [address] [place] [address], [address] [place] [address] Insurance Assigned Provider 02/06/24 Ladonna Louise, JOANA [address] [place] [address] PHCM Mutual Fund Manager 03/01/21 Allison Rice [address] [place] [address] [email or web address] PHCM Community Vehicle Detailer 04/19/24 04/19/24 Neville Cash MD [address] [place] [address] Orthopedic Surgery 06/05/25 documented as of this encounter Additional Source Comments The information contained in this document represents components of the legal health record. It is not the complete legal health record.[facility]
--- OUTSIDE RECORDS SUMMARY | 2025-08-24 10:04 | XMS_ITS | Encounter Summary ---
Author Organization [facility] Address [address] [place] [address] Phone Care Team Providers Care Chair Inspector Name Role Phone Marleni Coffman MD Primary Care Provider [phone] Marleni Coffman MD Unavailable [phone] Ladonna Louise RN Unavailable [phone] Allison Rice Unavailable ruby [email or web address] Neville Cash MD Unavailable [phone] Encounter Details Date Type Department Care Team (Late st Contact Info) Description 07/18/2022 Procedure Pass [address] [place] [address] Social History Tobacco Use Types Packs/Day Years [...] school, GED, job training, learning the South African language, technical skills, or developing parenting skills)? [...] AM EST Appointment Non-Invasive [place] [address] Chioma Gresham DNP [address] [place] [address], [address] [address] 09/20/2025 11:00 AM EST Office Visit [facility] [address] 3rd Floor, [address] [place] [address] Chioma Gresham DNP [address] [place] [address], [address] [address] 10/02/2025 1:00 PM EST Office Visit [facility] [address] [place] [address] [place] [address] Marleni Coffman MD [address] [place] [address], [address] [place] [address] 11/27/2025 11:00 AM EST Appointment [facility] [address] [place] [address] Wagner Figueroa MD, MS [address] [address] 12/05/2025 9:15 AM EST Office Visit [facility] [address] [place] [address] Wagner Figueroa MD, MS [address] [address] 12/11/2025 10:45 AM EST Appointment [facility], Bone Density - [address] [address] Rex Villareal [address] [address] 01/01/2026 10:30 AM EST Office Visit [facility] [address] [place] [address] Rex Villareal [address] [address] documented as of this encounter Visit Diagnoses Not on filedocumented in this encounter Additional Health Concerns Infection Onset Date Last Indicated Resolved Time COVID-19 02/19/2023 02/19/2023 03/12/2023 1:21 AM EDT [facility]-Risk 04/05/2025 04/19/2025 04/12/2025 1:21 AM EDT [facility]-Risk 04/19/2025 04/19/2025 04/19/2025 9:22 PM EDT Assessment Noted Time PHQ-2 Depression Total Score: 2 04/17/20 10:42 AM EDT documented as of this encounter Care Teams Chair Inspector Relationship Specialty Start Date End Date Marleni Coffman MD [address] [place] [address], [address] [place] [address] [email or web address] PCP - General 08/20/17 Marleni Coffman MD [address] [place] [address] Insurance Assigned Provider 02/06/24 Ladonna Louise, RN [address] [place] [address] [email or web address] PHCM Pst Specialist 03/01/21 Allison Rice [address] [place] [address] [email or web address] PHCM Community Diamond Sorter 04/19/24 04/19/24 Neville Cash MD [address] [place] [address] [address] [place] [address] Orthopedic Surgery 06/05/25 documented as of this encounter Additional Source Comments The information contained in this document represents components of the legal health record. It is not the complete legal health record.[facility]
--- OUTSIDE RECORDS SUMMARY | 2025-08-24 10:04 | XMS_ITS | Encounter Summary ---
Author Organization [facility] Address [address] [place] [address] Phone Care Team Providers Care Wool Mixer Name Role Phone Marleni Coffman MD Primary Care Provider [phone] Marleni Coffman MD Unavailable Ladonna Louise RN Unavailable [phone] Allison Rice Unavailable ruby Neville Cash MD Unavailable [phone] Encounter Details Date Type Department Care Team (Late st Contact Info) Description 07/15/2021 Procedure Pass [facility] [address] [place] [address] Social History Tobacco Use Types Packs/Day Years [...] high school, GED, job training, learning the Belarusian language, technical skills, or developing parenting skills)? [...] 09/11/2025 8:30 AM EST Appointment Non-Invasive Cardiology [address] [place] [address] [place] [address] Chioma Gresham DNP [address] [place] [address] 09/20/2025 11:00 AM EST Office Visit [facility] [address] [place] [address] 3rd Floor, [address] [place] [address] Chioma Gresham DNP [address] [place] [address], [address] [address] 10/02/2025 1:00 PM EST Office Visit [facility] [address] [place] [address] [place] [address] Marleni Coffman MD [address] [place] [address], [address] [place] [address] 11/27/2025 11:00 AM EST Appointment [facility] [address] [place] [address] Wagner Figueroa MD, MS [address] [address] 12/05/2025 9:15 AM EST Office Visit [facility] [address] [place] [address] Wagner Figueroa MD, MS [address] [address] 12/11/2025 10:45 AM EST Appointment [facility], Bone Density - [address] [address] Rex Villareal, DO [address] [place] [address] 01/01/2026 10:30 AM EST Office Visit [facility] [address] [place] [address] Rex Villareal, DO [address] [place] [address] documented as of this encounter Visit Diagnoses [...] documented as of this encounter Care Teams Wool Mixer Relationship Specialty Start Date End Date Marleni Coffman MD [address] [place] [address] PCP - General 08/20/17 Marleni Coffman MD [address] [place] [address] Insurance Assigned Provider 02/06/24 Ladonna Louise, RN [address] [place] [address] PHCM Copper Plate Lithographer 03/01/21 Allison Rice [address] [place] [address] [email or web address] PHCM Community Fishing Gear Mechanic 04/19/24 04/19/24 Neville Cash MD [address] [place] [address] [address] [place] [address] Orthopedic Surgery 06/05/25 documented as of this encounter Additional Source Comments The information contained in this document represents components of the legal health record. It is not the complete legal health record.[facility]
== END 2025-08-24 09:32 | disposition home or self-care (01) ==
LOC: HO.HOS 09:09
PROVIDERS: PCP Internal Medicine; Visit Provider Orthopaedic Surgery
DX: M25.561 Pain in right knee (principal)
CPT/HCPCS: 99024

== ENCOUNTER → 2025-08-24 09:08 | Outpatient (BNVA) | payer MEDICARE, SELFPAY | PROVIDERS: PCP Internal Medicine; Visit Provider Orthopaedic Surgery | DX: Z47.1 Aftercare following joint replacement surgery (principal); M25.561 Pain in right knee; Z96.651 Presence of right artificial knee joint | CPT/HCPCS: 99212 ==

== ENCOUNTER 2025-09-21 11:00 | Outpatient (RCR) | payer MEDICARE, SELFPAY ==
--- NOTE | 2025-08-24 11:48 | MHC.PT.EP ---
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 She presents today with impairments in pain, ROM, knee strength, hip strength, gait mechanics. 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 Pt expresses longterm goal of returning to PLOF, and is motivated to work towards this in PT. Clinical presentation today is most consistent with signs and sx associated with R TKA 07/17/2025 and pt will benefit from skilled PT 2 week x 4 weeks to address the following problems and impairments noted upon evaluation: pain, ROM, knee strength, hip strength, gait mechanics. These problems limit the patient with the following functional activities: ambulation, stair negotiation, ADLs. The prescribed treatment plan of care is medically necessary. Co-morbidities of osteoporosis, hx melanoma, hx sarcoma, COPD, anxiety were identified and taken into considerations of plan of care. Pt was educated on HEP, role of PT, prognosis, POC. Frequency and Duration: The patient will be seen 2 x week x 4 weeks Short Term Goals: Pt will demonstrate improved R knee ROM from 0 to 120 in 2 weeks. Pt will demonstrate improved R knee MMT strength by 1/3 grade in 2 weeks. Pt will demonstrate improved hip MMT strength by 1/3 grade in 2 weeks. Custodial Goals: Pt will demonstrate improved LEFI score by 9 points in 4 weeks for improved functional mobility. Pt will demonstrate ability to ambulate with min to no antalgia in 4 weeks for improved access to the community. Pt will demonstrate ability to negotiate stairs with min to no pain in 4 weeks for improved access to her home. Treatment Plan: Modalities to reduce pain, spasms and effusion. Manual therapy to restore motion and function. Therapeutic exercise to improve strength and flexibility. Neuromuscular re-education for posture and balance. Therapeutic activities to return to functional activities of daily living. Electronically signed by: Imelda Rosa, PT, DPT, ATC Please sign and return to therapist. Thank you for your referral.
--- NOTE | 2025-09-21 12:24 | MHC.PT.DC ---
[facility] [place] Office [place] [facility] [place] [facility] [address] Bambi Dahl [address] [phone] F: [phone] F: [phone] F: [phone] F: [phone] Physical Therapy Discharge Report Diagnosis: s/p R TKA Date of Surgery: 07/17/2025 Date of Evaluation: 08/24/25 Date of Discharge: 09/21/25 Treatments to Date: 9 Cancellations to Date: 0 No Shows to Date: 0 Discharge Status: Improved Function Independent with HEP Patient Elected to Stop Discharge Summary: 09/21/2025: She preferred to avoid standing exercises today so we accommodated her with this. She also stated she was ready for today to be her last day. She feels she is doing better overall and happy with her functional status. She is still lacking some R knee ROM for both flexion and extension but this does not appear to affect her function. We will d/c per her request as it does seem appropriate function borrego too. We reviewed recommendation to continue with HEP at home to maintain gains and she is understanding. Electronically signed by: Imelda Rosa, PT, DPT, ATC Please sign and return to therapist. Thank you for your referral.
== END 2025-09-21 12:24 | disposition home or self-care (01) ==
LOC: HO.PTCHIC 11:00
PROVIDERS: PCP Internal Medicine; Visit Provider Physician Assistant
DX: Z47.1 Aftercare following joint replacement surgery (principal); Z96.651 Presence of right artificial knee joint
CPT/HCPCS: 97110; 97162